=== PATIENT | female | born 1975 | race Caucasian/White ===

== ENCOUNTER 2016-11-23 09:02 | Inpatient (IN) | payer MEDICARE, MEDICAID ==
[2016-11-23] MEDS ORDERED: methylPREDNISolone Sodium Succinate 125 MG/2 ML SDV IVPUSH ONE (09:41)
--- NOTE | 2016-11-23 09:43 | CR ---
CLINICAL HISTORY: 41-year-old female with shortness of breath and decreased O2 sats. INTERPRETATION: AP portable chest (apical lordotic) unremarkable. Normal cardiac silhouette without cephalization of vascular flow, signs of alveolar edema or depende nt pleural effusion. No lung mass, hilar lymphadenopathy or focal lobar pneumonia. No atelectasis/collapse. No pneumothorax.
[2016-11-23] MEDS ORDERED: Albuterol/Ipratropium 3.0-0.5 MG/3 ML Neb Soln NEB ONE ×2 (09:48→13:20)
[2016-11-23] MEDS: Sodium Chloride 0.9% 10 ML Syringe FLUSH PRN ×3 (09:48→19:21)
[2016-11-23] MEDS ORDERED: Acetaminophen 325 MG Tab PO ONE (10:56)
[2016-11-23] MEDS ORDERED: Iopamidol 612 MG/ML 100 ML Bottle IVPUSH ONE (10:58)
[2016-11-23] MEDS ORDERED: Iopamidol 755 Mg/ML 100 ML Bottle IVPUSH ONE (11:47)
--- NOTE | 2016-11-23 12:03 | CT ---
Clinical history: 41 year-old 240 pound hypertensive female with long history of "ulcerative colitis and rheumatoid arthritis" who presents now with shortness of breath, hypoxemia and mildly elevated serum D dimer (500). Scan technique: Volume acquisition of data from the thorax obtained during the intravenous administr ation 79 cc nonionic Isovue 370 contrast via injector (5 cc/s) while patient was lying supine on the Siemens multi slice CT scanner [facility]. All data archived in the PACS system for storage, reformatting axial/sagittal/coronal plane and study (lung/mediastinal w indows). Interpretation: Abnormal inflammatory changes. 1. Dense peribronchial "cuffing" consistent with reactive airway disease or bronchitis. 2. *Asymmetric, dense retrohilar, superior segment, left lower lobe pneumonic like consolidation. 3. Some decreased flow in the ipsilateral bronchial arteries but no discrete intraluminal filling de fect or thrombus appreciated. No other peripheral focal areas of lobar consolidation, segmental infa rct, or pleural reactive changes (no associated pleural effusion). 4. No parenchymal lung nodule or mass lesion, hilar/mediastinal lymphadenopathy, focal lobar consoli dation or atelectasis/collapse. 5. Normal cardiac silhouette. No pericardial effusions, alveolar edema or pleural effusions. No gladis cardial effusions. Normal caliber thoracic aorta i.e. no aneurysm or dissection. 6. Chronic hypertrophic marginal spondylosis dorsal spine. No fracture, dislocation or lesions. 7. Gallbladder, fatty liver, stomach, spleen and pancreas unremarkable. Normal adrenal glands. CONCLUSION: Bronchitis. Left lower lobe pneumonia. Low probability pulmonary embolism/infarct.
[2016-11-23] MEDS ORDERED: Levofloxacin/Dextrose 5%-Water 500 MG in Premix Bag 1 BAG IV ONE (12:42)
[2016-11-23] MEDS: Albuterol/Ipratropium 3.0-0.5 MG/3 ML Neb Soln NEB SCH ×3 (14:32→23:05)
--- NOTE | 2016-11-23 14:48 | ER ---
SUBJECTIVE: The patient is a 41-year-old female, who came over from clinic because of low saturations after having cough and cold for the last week or so. She has had some sinus pain and tenderness, headache, cold and congestion with cough for about 1 week and falling short at the clinic today. Her oxygen saturations reportedly at the clinic were in the mid 70s and it is felt she should come to the ER. She did come to the ER and upon arrival, the patient was placed on a non-rebreather mask and given a DuoNeb right away and her saturation rapidly reached 90% and above. The patient denies bowel or bladder changes, any bleeding. No trauma. She feels some chills, has had some possible low-grade fevers. The patient states she did not take any of her medications today because she did not feel like it. She is also trying to wean herself off oxycodone. She has no chest pain. She does have some shortness of breath with cough. She arrives as afebrile. PAST MEDICAL HISTORY: Significant for impaired vision, wears glasses, had her wisdom teeth pulled, hypertension, ulcerative colitis, appendectomy, osteoarthritis, fibromyalgia, RA, toe fracture with surgical repair, migraine headaches, anxiety, depression. She has tried to wean off oxycodone, anemia, screw-in right toe. CURRENT MEDICATIONS: Include: 1. Pregabalin 150 mg p.o. b.i.d. 2. Prednisone 10 mg p.o. b.i.d. 3. Amitriptyline 50-100 mg p.o. at bedtime p.r.n. 4. Hyoscyamine 0.125 mg p.o. q.i.d. p.r.n. 5. Imuran 150 mg p.o. daily. 6. Seroquel 50 mg p.o. at bedtime. 7. Tessalon Perles 100 mg p.o. t.i.d. p.r.n. 8. Klonopin 0.5 mg p.o. b.i.d. p.r.n. 9. Loperamide 4 mg p.o. q. 1 hour p.r.n. 10.Melatonin 5 mg tablet p.o. at bedtime p.r.n. 11.Ondansetron 4 mg q.4 hours p.r.n. 12.Diphenhydramine 50 mg p.o. at bedtime. 13.Oxycodone ER 20 mg p.o. t.i.d. p.r.n. 14.Zanaflex 4 mg p.o. t.i.d. ALLERGIES: She states she is allergic to sulfa. Antibiotics causes a rash. Penicillins causes hives. SOCIAL HISTORY: No tobacco. She uses soda. No drugs or alcohol. REVIEW OF SYSTEMS: Fatigue, general malaise, chills, unsure of fevers, coughing, congestion, decreased appetite. Please see HPI. OBJECTIVE: Vital Signs: Height is 1.7 m. Weight is 109 kg. She arrives with temperature of 37 degrees C, heart rate is 105, blood pressure is 153/94, respirations 16, oxygen is 76%. She immediately goes up to the 90% and above with non-rebreather. General: She is mildly diaphoretic. She is warm. HEENT: Normocephalic and atraumatic. Conjunctivae are clear. Mucous membranes are moist. No sinus tenderness. Neck: Full range of motion. No lymphadenopathy. Chest: Somewhat coarse, moving air fairly well. Some coughing, especially with deep breathing. Heart: RRR. Abdomen: Soft and benign. Extremities: Nontender. She is a fairly good historian. She is here with her mother. LAB/STUDIES: Influenza was negative. Her white count was elevated at 10.6, hemoglobin and hematocrit were 11.9 and 36.3 respectively, platelet count normal at 180; her differential showed increased PMNs at 84.7, no band cells. Her D- dimer was 547. Her electrolytes were quite unremarkable. She had normal BUN and creatinine. Her sugar was elevated at 148. Lactic acid was normal at 1.0. LFTs were not remarkable. Her chest x-ray showed bronchitis with left lower lobe pneumonia and angio CT was performed because of the elevated D-dimer and shortness of breath and low sats and it had very low probability for PE and no PE or DVT was noted. Again, the patient had nontender calves. No signs of DVT. EMERGENCY ROOM COURSE: Upon arrival, she was given oxygen via non-rebreather, DuoNeb and IV was placed. Labs were ordered. Once they were obtained and blood culture obtained and chest x-ray and CT showed pneumonia bronchitis, she was given levofloxacin 500 mg IV since she was allergic to penicillin and sulfa. She was given another DuoNeb. She did develop a low-grade fever. She was given Tylenol. She tolerated all of her care and was much improved and her oxygen sats were able to be maintained with nasal cannula at 4 L between 94% and 95% oxygen. I did discuss the workup with the patient and the fact that she will need to be admitted. I did discuss the patient with Dr. Alan, the hospitalist, and discussed the workup and the patient's presenting symptoms and her progress in the ER. She did graciously agreed to admit the patient to her inpatient service. Admission is pending. ASSESSMENT: 1. Left lower lobe pneumonia with bronchitis, seen on x-ray and angio CT. 2. Acute dyspnea with hypoxemia, required oxygen, in this patient who has been sick for 1 week. 3. Leukocytosis, low-grade fever, normal lactate. 4. Rheumatoid arthritis, osteoarthritis, fibromyalgia. You see history inpatient. PLAN: Admit the patient to Dr. Alan's service. Please see admit orders by Dr. Alan. [facility] /[id number]
--- NOTE | 2016-11-23 15:23 | PCM.HP ---
H&P History of Present Illness - General Date of Service: 11/23/16 Admit Problem/Dx: Admission Diagnosis/Problem Admission Diagnosis/Problem Dyspnea Source of Information: Patient History Limitations: Reports: No limitations - History of Present Illness Initial Comments - Free Text/Narative: Patient is a 41 year old female was seen in the emergency room because of desaturation. She has been having cough for more a than week, unable to expectorate the phlegm. Had subjective fever and chills at home. Occasional chest tightness and wheezing. Denies any PND nor leg swelling. No exposure to any sick contacts. Was scheduled to see her provider in the clinic however with low oxygen saturation and looking dusky, she was advised to go to the emergency room. Headache Pain Score (Numeric/FACES): 7 generalized Pain Score (Numeric/FACES): 8 - Related Data Allergies/Adverse Reactions: Allergies Allergy/AdvReac Type Severity Reaction Status Date / Time Sulfa (Sulfonamide Allergy Rash Verified 11/23/16 14:12 Antibiotics) Penicillins AdvReac Hives Verified 11/23/16 14:12 Home Medications: Home Meds Pregabalin [Lyrica] 150 mg PO BID 05/12/14 [History] predniSONE [Prednisone] 5 mg PO DAILY 05/12/14 [History] Amitriptyline HCl 50 - 100 mg PO BEDTIME 03/17/15 [History] Hyoscyamine [Levsin] 0.125 mg PO QID PRN 03/17/15 [History] azaTHIOprine [Imuran] 150 mg PO DAILY 03/17/15 [History] QUEtiapine Fumarate [Seroquel] 50 mg PO BEDTIME 06/09/15 [History] Benzonatate [Tessalon Perles] 100 mg PO TID PRN 03/19/16 [History] ClonazePAM [KlonoPIN] 0.5 mg PO BID PRN 03/19/16 [History] Loperamide HCl [Loperamide] 4 mg PO Q1H PRN MDD 8mg 03/19/16 [History] Melatonin/Pyridoxine HCl (B6) [Melatonin 5 mg Tablet] 5 mg PO BEDTIME PRN [History] Ondansetron HCl [Ondansetron] 4 mg PO Q4H PRN 03/19/16 [History] diphenhydrAMINE HCl [Diphenhydramine HCl] 50 mg PO BEDTIME 03/19/16 [History] oxyCODONE ER [OxyCONTIN] 20 mg PO TID 03/19/16 [History] tiZANidine [Zanaflex] 4 mg PO TID 03/19/16 [History] Past Medical History HEENT History: Reports: Hard of hearing, Impaired vision Other HEENT History: broken and missing teeth Cardiovascular History: Reports: Hypertension Respiratory History: Reports: COPD Other Gastrointestinal History: ulcerative colitis Genitourinary History: Reports: Acute renal failure Musculoskeletal History: Reports: Arthritis, Fibromyalgia, RA, Other (see below) Other Musculoskeletal History: rhabdomyolisis Neurological History: Reports: Migraines Psychiatric History: Reports: Anxiety, Depression, Panic attack Other Psychiatric History: Patient states she is trying to wean off Oxycodone Hematologic History: Reports: Anemia Other Hematologic History: anemia r/t ulcerative colitis Dermatologic History: Reports: Cellulitis, Other (see below) Other Dermatologic History: resolved in 2016 - Infectious Disease History Infectious Disease History: Reports: Measles, MRSA - Past Surgical History HEENT Surgical History: Reports: Other (see below) Other HEENT Surgeries/Procedures: wisdom teeth GI Surgical History: Reports: Appendectomy, Colonoscopy Musculoskeletal Surgical History: Reports: Other (see below) Other Musculoskeletal Surgeries/Procedures:: toe fracture with surgical repair Social & Family History - Family History Family Medical History: Noncontributory - Tobacco Use Smoking Status *Q: Never Smoker Second Hand Smoke Exposure: Yes - Caffeine Use Caffeine Use: Reports: Soda - Alcohol Use Days Per Week of Alcohol Use: 0 - Recreational Drug Use Recreational Drug Use: No - Living Situation & Occupation Living situation: Reports: single, with family Occupation: disabled H&P Review of Systems - Review of Systems: Review Of Systems: See Below General: Reports: fever, chills Pulmonary: Reports: Shortness of Breath, Wheezing, Cough Cardiovascular: Reports: dyspnea on exertion Gastrointestinal: Reports: No symptoms, Other (Does bowel movement every other day) Musculoskeletal: Reports: no symptoms Neurological: Reports: Dizziness Exam - Exam Exam: See Below - Vital Signs Vital Signs: Last Vital Signs Temp 36.0 C 11/23/16 13:57 Pulse 105 H 11/23/16 13:57 Resp 20 11/23/16 13:57 BP 119/92 H 11/23/16 13:57 Pulse Ox 95 11/23/16 13:57 Weight: 106.503 kg - Exam Quality Assessment: supplemental oxygen General: alert, oriented Neck: supple Lungs: Wheezing (both pugh) Cardiovascular: regular rate, regular rhythm Abdomen: normal bowel sounds, soft Extremities: normal inspection Skin: warm, dry - Patient Data Result Diagrams: 11/24/16 06:15 11/23/16 09:10 *Q Meaningful Use (ADM) - VTE *Q VTE Criteria *Q: - Stroke *Q Stroke Criteria *Q: - AMI *Q AMI Criteria *Q: - Problem List (1) Bronchitis SNOMED Code(s): 57900224 ICD Code: J40 - BRONCHITIS, NOT SPECIFIED ACUTE OR CHRONIC Status: Acute Current Visit: Yes (2) Pneumonia involving left lung SNOMED Code(s): 084736611 ICD Code: J18.9 - PNEUMONIA, UNSPECIFIED ORGANISM Status: Acute Current Visit: Yes Problem List Initiated/Reviewed/Updated: Yes Orders Last 24hrs: Active Orders 24 hr Category Date Time Status Flutter Valve Therapy [RT Chest Physiotherapy] [RC] Care 11/23/16 14:01 Active ASDIRECTED Incentive Spirometry [RT Incentive Spirometry] [RC] Care 11/23/16 14:01 Active ASDIRECTED RT Aerosol Therapy [RC] 03,07,11,15,19,23 Care 11/23/16 14:01 Active CULTURE SPUTUM + SMEAR [RM] Routine Lab 11/23/16 14:17 Uncollected Albuterol/Ipratropium [DuoNeb 3.0-0.5 MG/3 ML] Med 11/23/16 15:00 Active 3 ml NEB Q4HRRT Amitriptyline [Elavil] Med 11/23/16 21:00 Ordered 50 mg PO BEDTIME Aztreonam [Azactam] 2 gm Med 11/23/16 22:00 Ordered Sodium Chloride 0.9% [Normal Saline] 100 ml IV Q8HR Pregabalin [Lyrica] Med 11/23/16 21:00 Ordered 150 mg PO BID QUEtiapine [SEROquel] Med 11/23/16 21:00 Ordered 50 mg PO BEDTIME Vancomycin Pharmacy to Dose [Pharmacy to Dose - Med 11/23/16 14:15 Ordered Vancomycin] 1 dose .XX ASDIRECTED diphenhydrAMINE HCl [Diphenhydramine HCl] Med 11/23/16 21:00 Ordered 50 mg PO BEDTIME methylPREDNISolone Sod Succ [Solu-MEDROL] Med 11/23/16 18:00 Ordered 60 mg IVPUSH Q8H Medication Orders Albuterol/Ipratropium (Duoneb 3.0-0.5 Mg/3 Ml) 3 ml NEB Q4HRRT [facility] Last Admin: 11/23/16 14:32 Dose: Amitriptyline HCl (Elavil) 50 mg PO BEDTIME [facility] Enoxaparin Sodium (Lovenox) 40 mg SUBCUT DAILY [facility] Methylprednisolone Sodium Succinate (Solu-Medrol) 60 mg IVPUSH Q8H [facility] Non-Formulary Medication (Pregabalin [Lyrica]) 150 mg PO BID [facility] Non-Formulary Medication (Diphenhydramine Hcl [Diphenhydramine Hcl]) 50 mg PO BEDTIME [facility] Quetiapine Fumarate (Seroquel) 50 mg PO BEDTIME [facility] Sodium Chloride (Saline Flush) 10 ml FLUSH ASDIRECTED PRN PRN Reason: Keep Vein Open Last Admin: 11/23/16 09:48 Dose: 10 ml Vancomycin HCl (Pharmacy To Dose - Vancomycin) 1 dose .XX ASDIRECTED [facility] Assessment/Plan Comment:: 1. Sepsis secondary to left sided pneumonia - Patient presented with increased respiratory rate, and tachycardia and workup showing with possible focus in the left lung. - Normal saline 125 mL per hour - Blood cultures already drawn; obtain specimen for sputum culture 2. Acute bronchitis with Left-sided pneumonia, community-acquired - He was given Levaquin in the emergency room - We will switch this to aztreonam given that she has prolonged QT interval in previous electrocardiograms - Add vancomycin pharmacy to dose given her history of MRSA - DuoNeb every 4 hours scheduled - Incentive spirometry and flutter valve - Continue oxygen supplementation to keep saturation above 90% - She was given Solu-Medrol 125 with emergency room, this will be followed by Solu-Medrol every 8 hours 3. Leukocytosis - Might be related to current infection - Patient has also been on chronic steroid use - Await blood culture, recheck complete blood count 4. Fibromyalgia - continue medications: on cymbalta and lyrica 5. Anxiety and depression - continue cymbalta and prn clonazepam 6. History of Rheumatoid Arthritis - on chronic steroid - continue oxycodone 7. history of Ulcerative colitis - no flare up, on Imuran a nd hyocyamine 8. history of Migraine - on Relpax as needed DVT prophylaxis - Lovenox
[2016-11-23] MEDS ORDERED: Ondansetron 4 MG Tab.DIS PO PRN (15:25)
[2016-11-23] MEDS ORDERED: oxyCODONE ER 20 MG TAB.ER PO PRN (15:25)
[2016-11-23] MEDS ORDERED: Loperamide 2 MG Cap PO PRN (15:25)
[2016-11-23] MEDS ORDERED: MELATONIN 5 MG PO PRN (15:25)
[2016-11-23] MEDS: ClonazePAM 0.5 MG Tab PO PRN (17:28)
[2016-11-23] MEDS: Sodium Chloride 0.9% 1,000 ML IV SCH (17:29)
[2016-11-23] MEDS: Benzonatate 100 MG Cap PO PRN (17:29)
[2016-11-23] MEDS: oxyCODONE ER 20 MG TAB.ER PO SCH ×2 (17:29→21:17)
[2016-11-23] MEDS: Aztreonam 2 GM in Sodium Chloride 0.9% 100 ML IV SCH ×2 (17:30→22:12)
[2016-11-23] MEDS: methylPREDNISolone Sodium Succinate 40 MG/1 ML SDV IVPUSH SCH (19:20)
[2016-11-23] MEDS: diphenhydrAMINE 25 MG Tab PO SCH (21:15)
[2016-11-23] MEDS: QUEtiapine 25 MG Tab PO SCH (21:15)
[2016-11-23] MEDS: Amitriptyline 25 MG Tab PO SCH (21:15)
[2016-11-23] MEDS: Pregabalin 75 MG Cap PO SCH (21:17)
[2016-11-23] MEDS: HYOSCYAMINE 0.125 MG PO PRN (23:36)
[2016-11-24] MEDS: methylPREDNISolone Sodium Succinate 40 MG/1 ML SDV IVPUSH SCH ×4 (02:57→18:46)
[2016-11-24] MEDS: Albuterol/Ipratropium 3.0-0.5 MG/3 ML Neb Soln NEB SCH ×6 (03:13→22:44)
[2016-11-24] MEDS: Aztreonam 2 GM in Sodium Chloride 0.9% 100 ML IV SCH ×3 (05:37→21:33)
[2016-11-24] MEDS: Sodium Chloride 0.9% 1,000 ML IV SCH ×2 (09:02→20:46)
[2016-11-24] MEDS: Pregabalin 75 MG Cap PO SCH ×2 (09:05→20:43)
[2016-11-24] MEDS: oxyCODONE ER 20 MG TAB.ER PO SCH ×3 (09:06→20:43)
[2016-11-24] MEDS: Enoxaparin 40 MG/0.4 ML Syringe SUBCUT SCH (09:06)
[2016-11-24] MEDS: HYOSCYAMINE 0.125 MG PO PRN (09:11)
[2016-11-24] MEDS: Budesonide 0.5 MG/2 ML Neb Susp NEB SCH ×2 (11:02→18:04)
[2016-11-24] MEDS: Acetaminophen 325 MG Tab PO PRN (11:07)
[2016-11-24] MEDS: ClonazePAM 0.5 MG Tab PO PRN ×2 (11:35→20:55)
[2016-11-24] MEDS: Benzonatate 100 MG Cap PO PRN (13:41)
[2016-11-24] MEDS ORDERED: guaiFENesin 100 MG/5 ML Soln 5 ML UD Cup PO PRN (14:12)
--- NOTE | 2016-11-24 14:17 | PCM.PN ---
[id number] to cough out phlegm. has been doing incentive spirometry. able to tolerate meals. - Patient Data Vitals - most recent: Last Vital Signs Temp 36.9 C 11/24/16 11:00 Pulse 104 H 11/24/16 11:00 Resp 22 H 11/24/16 11:00 BP 129/68 11/24/16 11:00 Pulse Ox 94 L 11/24/16 11:00 Weight - most recent: 106.957 kg I&O - last 24 hours: Intake & Output 11/23/16 11/24/16 11/24/16 22:59 06:59 14:59 Intake Total 434 900 150 Output Total 200 300 Balance 234 600 150 Lab Results last 24 hrs: Laboratory Results - last 24 hr 11/24/16 Range/Units 06:15 WBC 15.5 H (5.0-10.0) 10^3/uL RBC 3.55 L (4.2-5.4) 10^6/uL Hgb 11.5 L (12.0-16.0) g/dL Hct 36.1 L (37.0-47.0) % MCV 101.7 H (80-100) fL MCH 32.4 (27.0-34.0) pg MCHC 31.9 L (33.0-35.0) g/dL Plt Count 178 (150-450) 10^3/uL Neut % (Auto) 96.5 H (42.2-75.2) % Lymph % (Auto) 2.3 L (20.5-50.1) % [place] % (Auto) 1.2 L (2-8) % Eos % (Auto) 0.0 L (1.0-3.0) % Baso % (Auto) 0.0 (0.0-1.0) % Med Orders - Current: Current Medications Acetaminophen (Tylenol) 650 mg PO Q4H PRN PRN Reason: Headache Last Admin: 11/24/16 11:07 Dose: 650 mg Albuterol/Ipratropium (Duoneb 3.0-0.5 Mg/3 Ml) [address] [facility] Last Admin: 11/24/16 11:07 Dose: 3 ml Amitriptyline HCl (Elavil) [address] [facility] Last Admin: 11/23/16 21:15 Dose: 50 mg Azathioprine (Imuran) [address] [facility] Last Admin: 11/24/16 09:04 Dose: 150 mg Benzonatate (Tessalon Perles) 100 mg PO TID PRN PRN Reason: Cough Last Admin: 11/24/16 13:41 Dose: 100 mg Budesonide (Pulmicort) 0.[address] [facility] Last Admin: 11/24/16 11:02 Dose: 0.5 mg Clonazepam (Klonopin) 0.5 mg PO BID PRN PRN Reason: Anxiety Last Admin: 11/24/16 11:35 Dose: 0.5 mg Diphenhydramine HCl (Benadryl) [address] [facility] Last Admin: 11/23/16 21:15 Dose: 50 mg Enoxaparin Sodium (Lovenox) [address] [facility] Last Admin: 11/24/16 09:06 Dose: 40 mg Guaifenesin (Robitussin) 100 mg PO Q6H PRN PRN Reason: Cough Aztreonam 2 gm/ Sodium (Chloride) 100 mls @ 100 mls/hr IV Q8HR [facility] Last Admin: 11/24/16 13:31 Dose: 100 mls/hr Sodium Chloride (Normal Saline) 1,000 mls @ 125 mls/hr IV ASDIRECTED [facility] Last Admin: 11/24/16 09:02 Dose: 125 mls/hr Vancomycin HCl 1 gm/ Sodium (Chloride) 250 mls @ 166.667 mls/hr IV Q8H [facility] Last Infusion: 11/24/16 11:03 Dose: Infused Loperamide HCl (Imodium) 4 mg PO Q1H PRN PRN Reason: Diarrhea Methylprednisolone Sodium Succinate (Solu-Medrol) [address] [facility] Last Admin: 11/24/16 09:08 Dose: 60 mg (Tizanidine [ Zanaflex] 4 Mg) Own Med [address] [facility] Last Admin: 11/24/16 11:02 Dose: Not Given Ondansetron HCl (Zofran Odt) 4 mg PO Q4H PRN PRN Reason: Nausea Oxycodone HCl (Oxycontin) [address] [facility] Last Admin: 11/24/16 13:35 Dose: 20 mg Hyoscyamine [Levsin] 0.125 MgPt's Own Med 1 each PO QID PRN PRN Reason: Spasms Last Admin: 11/24/16 09:11 Dose: 1 each Melatonin 5 Mg TabletPt's Own Med 1 each PO BEDTIME PRN PRN Reason: Sleep Last Admin: 11/23/16 23:35 Dose: 1 each Pregabalin (Lyrica) 150 mg PO BID [facility] Last Admin: 11/24/16 09:05 Dose: 150 mg Quetiapine Fumarate (Seroquel) 50 mg PO BEDTIME [facility] Last Admin: 11/23/16 21:15 Dose: 50 mg Sodium Chloride (Saline Flush) 10 ml FLUSH ASDIRECTED PRN PRN Reason: Keep Vein Open Last Admin: 11/23/16 19:21 Dose: 10 ml Vancomycin HCl (Pharmacy To Dose - Vancomycin) 1 dose .XX ASDIRECTED [facility] Discontinued Medications Acetaminophen (Tylenol) 650 mg PO NOW ONE Stop: 11/23/16 10:57 Last Admin: 11/23/16 11:04 Dose: 650 mg Albuterol/Ipratropium (Duoneb 3.0-0.5 Mg/3 Ml) 3 ml NEB ONETIME ONE Stop: 11/23/16 09:49 Last Admin: 11/23/16 09:55 Dose: 3 ml Albuterol/Ipratropium (Duoneb 3.0-0.5 Mg/3 Ml) 3 ml NEB ONETIME ONE Stop: 11/23/16 13:21 Last Admin: 11/23/16 13:51 Dose: 3 ml Levofloxacin/Dextrose 500 mg/ (Premix) 100 mls @ 100 mls/hr IV ONETIME ONE Stop: 11/23/16 13:41 Last Infusion: 11/23/16 19:37 Dose: Infused Iopamidol (Isovue-300 (61%)) 100 ml IVPUSH ONETIME ONE Stop: 11/23/16 10:59 Last Admin: 11/24/16 14:13 Dose: Not Given Iopamidol (Isovue-370 (76%)) 100 ml IVPUSH ONETIME ONE Stop: 11/23/16 11:48 Last Admin: 11/23/16 13:24 Dose: 100 ml Methylprednisolone Sodium Succinate (Solu-Medrol) 125 mg IVPUSH ONETIME ONE Stop: 11/23/16 09:42 Last Admin: 11/23/16 09:49 Dose: 125 mg Oxycodone HCl (Oxycontin) 20 mg PO TID PRN PRN Reason: Pain - Exam General: alert, oriented Lungs: Wheezing Cardiovascular: Regular Rate, Tachycardia Abdomen: bowel sounds present, soft, no tenderness - Problem List & Annotations (1) Bronchitis SNOMED Code(s): 32691775 Code(s): J40 - BRONCHITIS, NOT SPECIFIED ACUTE OR CHRONIC Status: Acute (2) Pneumonia involving left lung SNOMED Code(s): 784988981 Code(s): J18.9 - PNEUMONIA, UNSPECIFIED ORGANISM Status: Acute - Problem List Review Problem List Initiated/Reviewed/Updated: Yes - My Orders Last 24 Hours: My Active Orders 11/23/16 14:01 Flutter Valve Therapy [RT Chest Physiotherapy] [RC] ASDIRECTED Incentive Spirometry [RT Incentive Spirometry] [RC] ASDIRECTED RT Aerosol Therapy [RC] 03,,,15,,11/23/16 14:15 Vancomycin Pharmacy to Dose [Pharmacy to Dose - Vancomycin] 1 dose .XX ASDIRECTED 11/23/16 14:17 CULTURE SPUTUM + SMEAR [RM] Routine 11/23/16 15:00 Albuterol/Ipratropium [DuoNeb 3.0-0.5 MG/3 ML] 3 ml NEB Q4HRRT 11/23/16 15:25 Benzonatate [Tessalon Perles] 100 mg PO TID PRN ClonazePAM [KlonoPIN] 0.5 mg PO BID PRN Loperamide [Imodium] 4 mg PO Q1H PRN Ondansetron [Zofran ODT] 4 mg PO Q4H PRN Patient's Own Medication [Ptom] 1 each PO BEDTIME PRN Patient's Own Medication [Ptom] 1 each PO QID PRN 11/23/16 15:30 Sodium Chloride 0.9% [Normal Saline] 1,000 ml IV ASDIRECTED 11/23/16 16:14 Antiembolic Devices [RC] , TONY Hose [Antiembolic Hose] [OM.PC] Routine 11/23/16 16:15 Aztreonam [Azactam] 2 gm Sodium Chloride 0.9% [Normal Saline] 100 ml IV Q8HR 11/23/16 16:30 oxyCODONE ER [OxyCONTIN] 20 mg PO TID 11/23/16 17:00 Vancomycin [Vancocin] 1 gm Sodium Chloride 0.9% [Normal Saline] 250 ml IV Q8H 11/23/16 18:00 methylPREDNISolone Sod Succ [Solu-MEDROL] 60 mg IVPUSH Q8H 11/23/16 21:00 Amitriptyline [Elavil] 50 mg PO BEDTIME Pregabalin [Lyrica] 150 mg PO BID QUEtiapine [SEROquel] 50 mg PO BEDTIME diphenhydrAMINE [Benadryl] 50 mg PO BEDTIME tiZANidine [Zanaflex] 4 mg PO TID 11/24/16 09:00 azaTHIOprine [Imuran] 150 mg PO DAILY 11/24/16 09:47 RT Aerosol Therapy [RC] ASDIRECTED 11/24/16 10:00 Budesonide [Pulmicort] 0.5 mg NEB BIDRT 11/24/16 10:45 Acetaminophen [Tylenol] 650 mg PO Q4H PRN 11/24/16 14:12 guaiFENesin [Robitussin] 100 mg PO Q6H PRN 11/24/16 16:30 VANCOMYCIN TROUGH [CHEM] Timed - Plan Plan:: 1. Sepsis secondary to left sided pneumonia - Patient presented with increased respiratory rate, and increase in WBC and workup showing with possible focus in the left lung. - Normal saline 125 mL per hour - Blood cultures already drawn; obtain specimens for sputum culture 2. Acute bronchitis with Left-sided pneumonia, community-acquired - sHe was given Levaquin in the emergency room - We will switch this to aztreonam given that she has prolonged QT interval in previous electrocardiograms - Added vancomycin pharmacy to dose given her history of MRSA - DuoNeb every 4 hours scheduled - Incentive spirometry and flutter valve - Continue oxygen supplementation to keep saturation above 90% - She was given Solu-Medrol 125 with emergency room, this will be followed by Solu-Medrol every 8 hours 3. Leukocytosis - has increased, most likely from steroids - Patient has also been on chronic steroid use - Await blood culture, recheck complete blood count 4. Fibromyalgia - continue medications: on cymbalta and lyrica 5. Anxiety and depression - continue cymbalta 6. DVT prophylaxis - Lovenox
[2016-11-24] MEDS ORDERED: ELETRIPTAN 40 MG PO ONE (16:00)
[2016-11-24] MEDS: diphenhydrAMINE 25 MG Tab PO SCH (20:43)
[2016-11-24] MEDS: QUEtiapine 25 MG Tab PO SCH (20:43)
[2016-11-24] MEDS: Amitriptyline 25 MG Tab PO SCH (20:43)
[2016-11-25] MEDS: methylPREDNISolone Sodium Succinate 40 MG/1 ML SDV IVPUSH SCH ×2 (01:49→11:33)
[2016-11-25] MEDS: Albuterol/Ipratropium 3.0-0.5 MG/3 ML Neb Soln NEB SCH ×4 (02:05→15:23)
[2016-11-25] MEDS: HYOSCYAMINE 0.125 MG PO PRN (02:43)
[2016-11-25] MEDS: Aztreonam 2 GM in Sodium Chloride 0.9% 100 ML IV SCH ×2 (06:12→15:23)
[2016-11-25] MEDS: Benzonatate 100 MG Cap PO PRN (06:13)
[2016-11-25] MEDS: Acetaminophen 325 MG Tab PO PRN (06:13)
[2016-11-25 06:45] LABS: CHLORIDE,CL 105 mmol/L (101-111); SODIUM,NA 140 mmol/L (135-145)
[2016-11-25] MEDS: ClonazePAM 0.5 MG Tab PO PRN (06:53)
[2016-11-25] MEDS: Budesonide 0.5 MG/2 ML Neb Susp NEB SCH (07:04)
[2016-11-25] MEDS: Pregabalin 75 MG Cap PO SCH (09:50)
[2016-11-25] MEDS: Enoxaparin 40 MG/0.4 ML Syringe SUBCUT SCH (09:51)
[2016-11-25] MEDS: oxyCODONE ER 20 MG TAB.ER PO SCH ×2 (09:52→15:23)
[2016-11-25 11:11] VITALS: BP 168/104
--- NOTE | 2016-11-25 12:25 | DISCH ---
FINAL DIAGNOSES: 1. Sepsis secondary to pneumonia. 2. Pneumonia possibly community acquired. Could also be due to MRSA infection. 3. Acute bronchitis. 4. Fibromyalgia. 5. Anxiety and depression. 6. Acute hypoxemic respiratory failure. SUMMARY OF HOSPITAL COURSE: Ms. Graciela Morel is a 41-year-old female, who presented with complaint of cough, shortness of breath, and subjective fever. She had a CT scan that showed a left lower lobe infiltrate. She was started on intravenous antibiotic. She has a history of MRSA infection. On antibiotics, she although improved but does have more short of breath and hypoxic. She is very anxious. Because of the persistent shortness of breath with associated hypoxia, we will transfer the patient to [facility] for specialty care. PHYSICAL EXAMINATION AT DISCHARGE: General: The patient is alert, oriented to place, time, and person. Head: Atraumatic and normocephalic. Ear, Nose, and Throat: Unremarkable. Chest: Diminished air entry bilaterally. CVS: Regular rate and rhythm. Abdomen: Soft, nontender. Extremities: No pedal edema. [facility] /[id number]
== END 2016-11-25 11:50 | DRG 871 ==
LOC: DL.ED 09:02 → DL.MS 13:49 → UNDOADMIN 13:49 → DL.MS 13:57 → EEVIPCON 13:57
PROVIDERS: ADMIT Internal Medicine; ATTEND Internal Medicine
DX: A41.9 Sepsis, unspecified organism (principal); J18.9 Pneumonia, unspecified organism; R09.02 Hypoxemia; J96.01 Acute respiratory failure with hypoxia; J40 Bronchitis, not specified as acute or chronic; M79.7 Fibromyalgia; F41.8 Other specified anxiety disorders; I10 Essential (primary) hypertension; M06.9 Rheumatoid arthritis, unspecified
CPT/HCPCS: 36415; 71010; 71260; 80053; 81001; 83605; 85025; 85379; 87040; 87804 ×2; 94640 ×2; 96365; 96375; 99285; A9270; J1956; J2930; J7050; Q9967 ×2; 80048; 80202; 94010; 94667; 99284; J1650; J2920; J3370; J7030; J7500; S0073

== ENCOUNTER 2016-12-04 11:41 | Emergency (ER) | payer MEDICARE, MEDICAID ==
[2016-12-04 12:10] VITALS: BP 107/76
[2016-12-04] MEDS ORDERED: Sodium Chloride 0.9% 1,000 ML IV ONE (13:59)
[2016-12-04] MEDS ORDERED: Ketorolac 30 MG/ML SDV IVPUSH ONE (13:59)
[2016-12-04] MEDS ORDERED: Sodium Chloride 0.9% 10 ML Syringe FLUSH PRN (13:59)
--- NOTE | 2016-12-04 14:04 | EDM.PDOC ---
ED HPI GI/ABDOMINAL - General Chief Complaint: Gastrointestinal Problem Stated Complaint: STOMACH PAIN Time Seen by Provider: 12/04/16 14:01 Source of Information: Reports: Patient History Limitations: Reports: No limitations - History of Present Illness INITIAL COMMENTS - FREE TEXT/NARRATIVE: Pt states that she got out of the hospital recently for Pneumonia and for the past 2 days she has been having abdominal pain that radiates to her left shoulder. denies nausea and vomiting. 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) (zofran and "stomach pain medication ") - Related Data Allergies/ADRs: Allergies Allergy/AdvReac Type Severity Reaction Status Date / Time Sulfa (Sulfonamide Allergy Rash Verified 11/23/16 14:12 Antibiotics) Penicillins AdvReac Hives Verified 11/23/16 14:12 Home Meds: Home Meds Pregabalin [Lyrica] 150 mg PO BID 05/12/14 [History] predniSONE [Prednisone] 5 mg PO DAILY 05/12/14 [History] Amitriptyline HCl 50 - 100 mg PO BEDTIME 03/17/15 [History] Hyoscyamine [Levsin] 0.125 mg PO QID PRN 03/17/15 [History] azaTHIOprine [Imuran] 150 mg PO DAILY 03/17/15 [History] QUEtiapine Fumarate [Seroquel] 50 mg PO BEDTIME 06/09/15 [History] Benzonatate [Tessalon Perles] 100 mg PO TID PRN 03/19/16 [History] ClonazePAM [KlonoPIN] 0.5 mg PO BID PRN 03/19/16 [History] Loperamide HCl [Loperamide] 4 mg PO Q1H PRN MDD 8mg 03/19/16 [History] Melatonin/Pyridoxine HCl (B6) [Melatonin 5 mg Tablet] 5 mg PO BEDTIME PRN [History] Ondansetron HCl [Ondansetron] 4 mg PO Q4H PRN 03/19/16 [History] diphenhydrAMINE HCl [Diphenhydramine HCl] 50 mg PO BEDTIME 03/19/16 [History] oxyCODONE ER [OxyCONTIN] 20 mg PO TID 03/19/16 [History] tiZANidine [Zanaflex] 4 mg PO TID 03/19/16 [History] Acetaminophen [Tylenol] 650 mg PO Q4H PRN #0 tablet 11/25/16 [Rx] Albuterol/Ipratropium [DuoNeb 3.0-0.5 MG/3 ML] 3 ml NEB Q4HRRT neb 11/25/16 [Rx ] Amitriptyline [Elavil] 50 mg PO BEDTIME tablet 11/25/16 [Rx] Aztreonam [Azactam] 2 gm IV Q8HR vial 11/25/16 [Rx] Enoxaparin [Lovenox] 40 mg SUBCUT DAILY syringe 11/25/16 [Rx] Sodium Chloride 0.9% [Normal Saline] 100 ml IV ASDIRECTED #0 bag 11/25/16 [Rx] Vancomycin 0.75 gm IV Q8H sdv 11/25/16 [Rx] Past Medical History HEENT History: Reports: Hard of hearing, Impaired vision Other HEENT History: broken and missing teeth Cardiovascular History: Reports: Hypertension Respiratory History: Reports: COPD Gastrointestinal History: Reports: None Other Gastrointestinal History: ulcerative colitis Genitourinary History: Reports: Acute renal failure Other Genitourinary History: this last summer Musculoskeletal History: Reports: Arthritis, Fibromyalgia, RA, Other (see below) Other Musculoskeletal History: rhabdomyolisis Neurological History: Reports: Migraines Psychiatric History: Reports: Anxiety, Depression, Panic attack Other Psychiatric History: Patient states she is trying to wean off Oxycodone Hematologic History: Reports: Anemia Other Hematologic History: anemia r/t ulcerative colitis Dermatologic History: Reports: Cellulitis, Other (see below) Other Dermatologic History: resolved in 2016 - Infectious Disease History Infectious Disease History: Reports: Measles, MRSA - Past Surgical History HEENT Surgical History: Reports: Other (see below) Other HEENT Surgeries/Procedures: wisdom teeth GI Surgical History: Reports: Appendectomy, Colonoscopy Musculoskeletal Surgical History: Reports: Other (see below) Other Musculoskeletal Surgeries/Procedures:: toe fracture with surgical repair Social & Family History - Family History Family Medical History: Noncontributory - Tobacco Use Smoking Status *Q: Never Smoker Second Hand Smoke Exposure: Yes - Caffeine Use Caffeine Use: Reports: Soda - Alcohol Use Days Per Week of Alcohol Use: 0 - Recreational Drug Use Recreational Drug Use: No - Living Situation & Occupation Living situation: Reports: single, with family Occupation: disabled ED ROS GENERAL - Review of Systems Review Of Systems: See Below GI/Abdominal: Reports: Abdominal pain Musculoskeletal: Reports: shoulder pain Skin: Reports: bruising ED EXAM, GI/ABD - Physical Exam Exam: See Below Exam Limited By: No limitations General Appearance: alert, WD/WN, no apparent distress Eyes: bilateral: normal appearance, EOMI Ears: normal external exam, normal canal, hearing grossly normal, normal TMs Nose: normal inspection, normal mucosa, no blood Throat/Mouth: Normal inspection, Normal lips, Normal teeth, Normal gums, Normal oropharynx, Normal voice, No airway compromise Respiratory/Chest: no respiratory distress, lungs clear, normal breath sounds, no accessory muscle use, chest non-tender Cardiovascular: normal peripheral pulses, regular rate, rhythm, no edema, no gallop, no JVD, no murmur, no rub GI/Abdominal: normal bowel sounds, soft, no organomegaly, no distention, no abnormal bruit, no mass, tympanic bowel sounds, tenderness, other (bloating) Neurological: alert, oriented, CN II-XII intact, normal cognition, normal gait, normal reflexes, no motor/sensory deficits Skin Exam: Warm, Dry, Intact, Normal color, No rash, Ecchymosis (to abdomen from heparin shots per pt) Course - Vital Signs Last Recorded V/S: Last Vital Signs Temp 99 F 12/04/16 11:55 Pulse 94 12/04/16 11:55 Resp 16 12/04/16 11:55 BP 107/76 12/04/16 11:55 Pulse Ox 100 12/04/16 11:55 - Orders/Labs/Meds Orders: Active Orders 24 hr Category Date Time Status Sodium Chloride 0.9% [Saline Flush] Med 12/04/16 13:59 Active 10 ml FLUSH ASDIRECTED PRN Saline Lock Insert [OM.PC] Stat Oth 12/04/16 13:57 Ordered Medication Orders Sodium Chloride (Saline Flush) 10 ml FLUSH ASDIRECTED PRN PRN Reason: Keep Vein Open Last Admin: 12/04/16 14:44 Dose: 10 ml Labs: Laboratory Tests 12/04/16 12/04/1612/04/17 Range/Units 14:07 14:07 14:07 WBC 14.8 H (5.0-10.0) 10^3/uL RBC 3.57 L (4.2-5.4) 10^6/uL Hgb 11.8 L (12.0-16.0) g/dL Hct 35.6 L (37.0-47.0) % MCV 99.7 (80-100) fL MCH 33.1 (27.0-34.0) pg MCHC 33.1 (33.0-35.0) g/dL Plt Count 275 (150-450) 10^3/uL Neut % (Auto) 68.0 (42.2-75.2) % Lymph % (Auto) 25.5 (20.5-50.1) % [place] % (Auto) 6.1 (2-8) % Eos % (Auto) 0.3 L (1.0-3.0) % Baso % (Auto) 0.1 (0.0-1.0) % Sodium 137 (135-145) mmol/L Potassium 3.3 L (3.6-5.0) mmol/L Chloride 100 L (101-111) mmol/L Carbon Dioxide 29.0 (21.0-31.0) mmol/L Anion Gap 11.3 BUN 20 H (7-18) mg/dL Creatinine 1.2 (0.6-1.3) mg/dL Est Cr Clr Drug Dosing 52.20 mL/min Estimated GFR (MDRD) 49 BUN/Creatinine Ratio 16.66 Glucose 88 (74-105) mg/dL Lactic Acid 0.8 (0.5-2.2) mmol/L Calcium 8.8 (8.4-10.2) mg/dl Total Bilirubin 0.5 (0.2-1.0) mg/dL AST 28 (10-42) IU/L ALT 27 (10-60) IU/L Alkaline Phosphatase 53 (42-121) IU/L Total Protein 6.0 L (6.7-8.2) g/dl Albumin 3.6 (3.2-5.5) g/dl Globulin 2.4 Albumin/Globulin Ratio 1.50 HCG, Qual Negative Urine Color (YELLOW) Urine Appearance (CLEAR) Urine pH (5.0-9.0) Ur Specific [place] (1.005-1.030) Urine Protein (NEGATIVE) Urine Glucose (UA) (NEGATIVE) Urine Ketones (NEGATIVE) Urine Occult Blood (NEGATIVE) Urine Nitrite (NEGATIVE) Urine Bilirubin (NEGATIVE) Urine Urobilinogen (0.2-1.0) mg/dL Ur Leukocyte Esterase (NEGATIVE) Urine RBC /HPF Urine WBC (0-5/HPF) /HPF Ur Epithelial Cells /HPF Urine Bacteria (0-FEW/HPF) /HPF Urine Mucus /LPF 12/04/16 Range/Units 17:11 WBC (5.0-10.0) 10^3/uL RBC (4.2-5.4) 10^6/uL Hgb (12.0-16.0) g/dL Hct (37.0-47.0) % MCV (80-100) fL MCH (27.0-34.0) pg MCHC (33.0-35.0) g/dL Plt Count (150-450) 10^3/uL Neut % (Auto) (42.2-75.2) % Lymph % (Auto) (20.5-50.1) % [place] % (Auto) (2-8) % Eos % (Auto) (1.0-3.0) % Baso % (Auto) (0.0-1.0) % Sodium (135-145) mmol/L Potassium (3.6-5.0) mmol/L Chloride (101-111) mmol/L Carbon Dioxide (21.0-31.0) mmol/L Anion Gap BUN (7-18) mg/dL Creatinine (0.6-1.3) mg/dL Est Cr Clr Drug Dosing mL/min Estimated GFR (MDRD) BUN/Creatinine Ratio Glucose (74-105) mg/dL Lactic Acid (0.5-2.2) mmol/L Calcium (8.4-10.2) mg/dl Total Bilirubin (0.2-1.0) mg/dL AST (10-42) IU/L ALT (10-60) IU/L Alkaline Phosphatase (42-121) IU/L Total Protein (6.7-8.2) g/dl Albumin (3.2-5.5) g/dl Globulin Albumin/Globulin Ratio HCG, Qual Urine Color Yellow (YELLOW) Urine Appearance Slightly cloudy (CLEAR) Urine pH 6.0 (5.0-9.0) Ur Specific [place] 1.025 (1.005-1.030) Urine Protein Negative (NEGATIVE) Urine Glucose (UA) Negative (NEGATIVE) Urine Ketones Negative (NEGATIVE) Urine Occult Blood Negative (NEGATIVE) Urine Nitrite Negative (NEGATIVE) Urine Bilirubin Negative (NEGATIVE) Urine Urobilinogen 0.2 (0.2-1.0) mg/dL Ur Leukocyte Esterase Negative (NEGATIVE) Urine RBC 0-5 /HPF Urine WBC 0-5 (0-5/HPF) /HPF Ur Epithelial Cells Few /HPF Urine Bacteria Rare (0-FEW/HPF) /HPF Urine Mucus Few H /LPF Meds: Medications Generic Name Dose Route Start Last Admin Trade Name Freq PRN Reason Stop Dose Admin Sodium Chloride 10 ml 12/04/16 13:59 12/04/16 14:44 Saline Flush FLUSH 10 ml ASDIRECTED PRN Administration Keep Vein Open Discontinued Medications Generic Name Dose Route Start Last Admin Trade Name Freq PRN Reason Stop Dose Admin Sodium Chloride 1,000 mls @ 999 mls/hr 12/04/16 13:59 12/04/16 14:44 Normal Saline IV 12/04/16 14:59 999 mls/hr .BOLUS ONE Administration Iopamidol 100 ml 12/04/16 15:24 12/04/16 15:53 Isovue-300 (61%) IVPUSH 12/04/16 15:25 100 ml ONETIME ONE Administration Ketorolac Tromethamine 30 mg 12/04/16 13:59 12/04/16 17:02 Toradol IVPUSH 12/04/16 14:00 30 mg ONETIME ONE Administration Ketorolac Tromethamine Confirm 12/04/16 16:58 12/04/16 17:16 Toradol Administered 12/04/16 16:59 Not Given Dose 30 mg .ROUTE .STK-MED ONE Morphine Sulfate 4 mg 12/04/16 17:29 12/04/16 17:38 Morphine IM 12/04/16 17:30 4 mg ONETIME ONE Administration Ondansetron HCl 4 mg 12/04/16 17:29 12/04/16 17:38 Zofran IV 12/04/16 17:30 4 mg ONETIME ONE Administration - Radiology Interpretation Free Text/Narrative:: Large bowel loops with large amount of stool. Departure - Departure Time of Disposition: 18:21 Disposition: Home, Self-Care 01 Condition: good Clinical Impression: Constipation Instructions: Constipation, Adult, [id number] Forms: ED Department Discharge Additional Instructions: Make sure to take stool softener and laxative suppository to encourage bowel movement. I recommend enema to help with elimination. Follow up in clinic if not better. Return for worsening symptoms. - My Orders Last 24 Hours: My Active Orders 12/04/16 13:57 Saline Lock Insert [OM.PC] Stat 12/04/16 13:59 Sodium Chloride 0.9% [Saline Flush] 10 ml FLUSH ASDIRECTED PRN - Assessment/Plan Last 24 Hours: My Active Orders 12/04/16 13:57 Saline Lock Insert [OM.PC] Stat 12/04/16 13:59 Sodium Chloride 0.9% [Saline Flush] 10 ml FLUSH ASDIRECTED PRN
[2016-12-04 14:37] LABS: CHLORIDE,CL 100 mmol/L (101-111); SODIUM,NA 137 mmol/L (135-145)
[2016-12-04] MEDS ORDERED: Iopamidol 612 MG/ML 100 ML Bottle IVPUSH ONE (15:24)
--- NOTE | 2016-12-04 15:54 | CT ---
Clinical history: 41-year-old hypertensive 107 kg who reports recent "pneumonia" (" normal chest x-r ay" 23 November 2016 this institution) now complaining of severe abdominal pain. Scan technique: Volume acquisition of data the chest, abdomen and pelvis obtained without oral contr ast but during intravenous ministration 100 cc nonionic Isovue contrast while patient was lying supi ne the Siemens multi slice CT scanner [facility]. All data archi shane in the PACS system for storage, reformatting and study. Septation: Abnormal. 1. *Apparent chronic dilatation of bowel (colon) with large volume of stool and fluid layering in th e dependent portion of the entire colon.... Atonic appearing, distended large intestine. Medications ? 2. Urinary bladder distended midline but normal reniform size axis and configuration. No sign of nadira al cortical mass lesion, nephrolithiasis or obstructive uropathy. 3. Fatty liver homogeneously dense without sign discrete intrahepatic mass lesion or abnormal duct d ilatation. Gallbladder unremarkable. Normal spleen. Atrophic pancreas. Normal adrenals. 4. Uterus right of midline. No adnexal mass lesions. No mesenteric or retroperitoneal lymphadenopath y, inflammatory "dirty" peritoneal fat, signs of ascites or free intraperitoneal air. 5. Normal aortoiliac vessels. Thoracolumbar spine unremarkable. 6. Platelike atelectasis lung bases. Normal cardiac silhouette. No signs of alveolar edema, dependen t pleural effusion, lung mass, hilar lymphadenopathy or focal lobar pneumonia. CONCLUSION: Generalized distended large bowel (see above). Atelectasis/fibrosis lung pugh.
[2016-12-04] MEDS ORDERED: Ketorolac 30 MG/ML SDV ONE (16:58)
[2016-12-04] MEDS ORDERED: Ondansetron 4 MG/2 ML SDV IV ONE (17:29)
[2016-12-04] MEDS ORDERED: Morphine 4 MG/ML Syringe IM ONE (17:29)
== END 2016-12-04 19:03 | disposition home or self-care (01) ==
LOC: DL.ED 11:41
DX: K59.00 Constipation, unspecified (principal); I10 Essential (primary) hypertension; J44.9 Chronic obstructive pulmonary disease, unspecified; M06.9 Rheumatoid arthritis, unspecified; D64.9 Anemia, unspecified; G43.909 Migraine, unspecified, not intractable, without status migrainosus; Z88.0 Allergy status to penicillin; Z88.2 Allergy status to sulfonamides; Z79.899 Other long term (current) drug therapy
CPT/HCPCS: 36415; 71260; 74177; 80053; 81001; 83605; 84703; 85025; 96365; 96375; 99284; J1885; J2270; J2405; J7030; J7050; Q9967

== ENCOUNTER 2016-12-12 05:46 | Inpatient (IN) | payer MEDICARE, MEDICAID ==
--- NOTE | 2016-12-12 05:55 | EDM.PDOC ---
<David Kidd - Last Filed: 12/12/16 06:55> ED HPI GENERAL MEDICAL PROBLEM - General Chief Complaint: General Stated Complaint: COMING BY AMB Time Seen by Provider: 12/12/16 05:53 Source of Information: Reports: Patient, EMS History Limitations: Reports: No limitations - History of Present Illness INITIAL COMMENTS - FREE TEXT/NARRATIVE: 41 yo white female w/ PMHx. Rhabdomylysis, Rheumatoid Arthritis and Colitis c/o right lateral thigh muscle pain X 2 days. Pt. denies any trauma Onset: today Onset Date: 12/11/16 Onset Time: 18:00 Duration: Day(s): Location: Reports: lower extremity, right (right lateral thigh) Quality: Reports: Ache Severity: moderate Worsens with: Reports: Movement - Related Data Allergies Allergy/AdvReac Type Severity Reaction Status Date / Time Sulfa (Sulfonamide Allergy Rash Verified 12/12/16 05:52 Antibiotics) Penicillins AdvReac Hives Verified 12/12/16 05:52 Home Meds: Home Meds Pregabalin [Lyrica] 150 mg PO BID 05/12/14 [History] predniSONE [Prednisone] 5 mg PO DAILY 05/12/14 [History] Amitriptyline HCl 50 - 100 mg PO BEDTIME 03/17/15 [History] Hyoscyamine [Levsin] 0.125 mg PO QID PRN 03/17/15 [History] azaTHIOprine [Imuran] 150 mg PO DAILY 03/17/15 [History] Benzonatate [Tessalon Perles] 100 mg PO TID PRN 03/19/16 [History] ClonazePAM [KlonoPIN] 0.5 mg PO BID PRN 03/19/16 [History] Loperamide HCl [Loperamide] 4 mg PO Q1H PRN MDD 8mg 03/19/16 [History] Melatonin/Pyridoxine HCl (B6) [Melatonin 5 mg Tablet] 5 mg PO BEDTIME PRN [History] Ondansetron HCl [Ondansetron] 4 mg PO Q4H PRN 03/19/16 [History] diphenhydrAMINE HCl [Diphenhydramine HCl] 50 mg PO BEDTIME 03/19/16 [History] oxyCODONE ER [OxyCONTIN] 20 mg PO TID 03/19/16 [History] tiZANidine [Zanaflex] 4 mg PO TID 03/19/16 [History] Acetaminophen [Tylenol] 650 mg PO Q4H PRN #0 tablet 11/25/16 [Rx] Amitriptyline [Elavil] 50 mg PO BEDTIME tablet 11/25/16 [Rx] Aztreonam [Azactam] 2 gm IV Q8HR vial 11/25/16 [Rx] Past Medical History HEENT History: Reports: Hard of hearing, Impaired vision Other HEENT History: broken and missing teeth Cardiovascular History: Reports: Hypertension Respiratory History: Reports: COPD Gastrointestinal History: Reports: None Other Gastrointestinal History: ulcerative colitis Genitourinary History: Reports: Acute renal failure Other Genitourinary History: this last summer Musculoskeletal History: Reports: Arthritis, Fibromyalgia, RA, Other (see below) Other Musculoskeletal History: rhabdomyolisis Neurological History: Reports: Migraines Psychiatric History: Reports: Anxiety, Depression, Panic attack Other Psychiatric History: Patient states she is trying to wean off Oxycodone Hematologic History: Reports: Anemia Other Hematologic History: anemia r/t ulcerative colitis Dermatologic History: Reports: Cellulitis, Other (see below) Other Dermatologic History: resolved in 2016 - Infectious Disease History Infectious Disease History: Reports: Measles, MRSA - Past Surgical History HEENT Surgical History: Reports: Other (see below) Other HEENT Surgeries/Procedures: wisdom teeth GI Surgical History: Reports: Appendectomy, Colonoscopy Musculoskeletal Surgical History: Reports: Other (see below) Other Musculoskeletal Surgeries/Procedures:: toe fracture with surgical repair Social & Family History - Family History Family Medical History: Noncontributory - Tobacco Use Smoking Status *Q: Never Smoker Second Hand Smoke Exposure: Yes - Caffeine Use Caffeine Use: Reports: Soda - Alcohol Use Days Per Week of Alcohol Use: 0 - Recreational Drug Use Recreational Drug Use: No - Living Situation & Occupation Living situation: Reports: single, with family Occupation: disabled ED ROS GENERAL - Review of Systems Review Of Systems: See Below Constitutional: Reports: no symptoms HEENT: Reports: No symptoms Respiratory: Reports: No Symptoms Cardiovascular: Reports: No symptoms Endocrine: Reports: no symptoms GI/Abdominal: Reports: No symptoms : Reports: no symptoms Musculoskeletal: Reports: muscle pain (right laterql thigh) Skin: Reports: no symptoms Neurological: Reports: No Symptoms Psychiatric: Reports: Anxiety Hematologic/Lymphatic: Reports: no symptoms Immunologic: Reports: no symptoms ED EXAM, GENERAL - Physical Exam Exam: See Below Exam Limited By: No limitations General Appearance: alert, no apparent distress, obese Eye Exam: bilateral eye: PERRL Ears: normal external exam Nose: normal inspection Throat/Mouth: Normal inspection Head: atraumatic Neck: normal inspection Respiratory/Chest: no respiratory distress, lungs clear Cardiovascular: normal peripheral pulses, regular rate, rhythm GI/Abdominal: normal bowel sounds, soft Back Exam: normal inspection, full range of motion Extremities: leg pain (right lateral thigh) Neurological: alert, oriented, CN II-XII intact Psychiatric: normal affect Skin Exam: Warm, Intact, Normal color, No rash Lymphatic: no adenopathy Course - Vital Signs Last Recorded V/S: Last Vital Signs Temp 36.4 C 12/12/16 05:57 Pulse 105 H 12/12/16 05:57 Resp 18 12/12/16 05:57 BP 115/75 12/12/16 05:57 Pulse Ox 100 12/12/16 05:57 - Orders/Labs/Meds Orders: Active Orders 24 hr Category Date Time Status Sodium Chloride 0.9% [Normal Saline] 1,000 ml Med 12/12/16 07:55 Active IV .BOLUS Medication Orders Sodium Chloride (Normal Saline) 1,000 mls @ 999 mls/hr IV .BOLUS ONE Stop: 12/12/16 08:55 Last Admin: 12/12/16 08:00 Dose: 999 mls/hr Labs: Laboratory Tests 12/12/16 12/12/16 12/12/16 Range/Units 06:05 06:12 06:12 WBC 13.3 H (5.0-10.0) 10^3/uL RBC 3.79 L (4.2-5.4) 10^6/uL Hgb 12.6 (12.0-16.0) g/dL Hct 37.9 (37.0-47.0) % MCV 100.0 (80-100) fL MCH 33.2 (27.0-34.0) pg MCHC 33.2 (33.0-35.0) g/dL Plt Count 297 (150-450) 10^3/uL Neut % (Auto) 92.2 H (42.2-75.2) % Lymph % (Auto) 4.2 L (20.5-50.1) % [place] % (Auto) 3.2 (2-8) % Eos % (Auto) 0.2 L (1.0-3.0) % Baso % (Auto) 0.2 (0.0-1.0) % Sodium 136 (135-145) mmol/L Potassium 4.7 (3.6-5.0) mmol/L Chloride 100 L (101-111) mmol/L Carbon Dioxide 26.0 (21.0-31.0) mmol/L Anion Gap 14.7 BUN 22 H (7-18) mg/dL Creatinine 1.4 H (0.6-1.3) mg/dL Est Cr Clr Drug Dosing TNP Estimated GFR (MDRD) 41 Glucose 114 H (74-105) mg/dL Calcium 9.1 (8.4-10.2) mg/dl Creatine Kinase 4298 H (26-174) IU/L Urine Color Yellow (YELLOW) Urine Appearance Turbid (CLEAR) Urine pH 5.0 (5.0-9.0) Ur Specific [place] >= 1.030 (1.005-1.030) Urine Protein 100 H (NEGATIVE) Urine Glucose (UA) Negative (NEGATIVE) Urine Ketones Negative (NEGATIVE) Urine Occult Blood Large H (NEGATIVE) Urine Nitrite Negative (NEGATIVE) Urine Bilirubin Small H (NEGATIVE) Urine Urobilinogen 0.2 (0.2-1.0) mg/dL Ur Leukocyte Esterase Negative (NEGATIVE) Urine RBC 0-5 /HPF Urine WBC 5-10 H (0-5/HPF) /HPF Ur Epithelial Cells Few /HPF Calcium Oxalate Crystal Few H /HPF Urine Bacteria Moderate H (0-FEW/HPF) /HPF Urine Mucus Many H /LPF Meds: Medications Generic Name Dose Route Start Last Admin Trade Name Freq PRN Reason Stop Dose Admin Sodium Chloride 1,000 mls @ 999 mls/hr 12/12/16 07:55 12/12/16 08:00 Normal Saline IV 12/12/16 08:55 999 mls/hr .BOLUS ONE Administration Discontinued Medications Generic Name Dose Route Start Last Admin Trade Name Freq PRN Reason Stop Dose Admin Sodium Chloride 1,000 mls @ 999 mls/min 12/12/16 06:53 12/12/16 07:08 Normal Saline IV 12/12/16 06:54 Infused .BOLUS ONE Infusion Departure - Departure Disposition: Admitted As Inpatient 64 Clinical Impression: Rhabdomyolysis Qualifiers: Rhabdomyolysis type: non-traumatic Qualified Code(s): M62.82 - Rhabdomyolysis UTI (urinary tract infection) Qualifiers: Urinary tract infection type: site unspecified Hematuria presence: with hematuria Qualified Code(s): N39.0 - Urinary tract infection, site not specified ; R31.9 - Hematuria, unspecified Referrals: Liseth Lisa MD [Primary Care Provider] - Forms: ED Department Discharge - My Orders Last 24 Hours: My Active Orders 12/12/16 07:55 Sodium Chloride 0.9% [Normal Saline] 1,000 ml IV .BOLUS - Assessment/Plan Last 24 Hours: My Active Orders 12/12/16 07:55 Sodium Chloride 0.9% [Normal Saline] 1,000 ml IV .BOLUS <Donald Collazoian - Last Filed: 12/12/16 08:19> ED HPI GENERAL MEDICAL PROBLEM - History of Present Illness INITIAL COMMENTS - FREE TEXT/NARRATIVE: Assumed care of pt at 0700HR shift change with lab results pending, pt resting and stable. Pt reports flare up of RA pain in the hips over the past few days. She reports that she went to bed at 10PM last night and got up at 1AM and fell to the floor. She states that she was down on the floor for not more than one hour. Pt denies any trauma or injury from the fall. She c/o generalized muscle pain. ED EXAM, GENERAL - Physical Exam Cardiovascular: tachycardia (Female) Exam: Deferred Rectal (Female) Exam: Deferred Skin Exam: Wound/incision (multiple bruises in various stages of healing) Course - Radiology Interpretation Free Text/Narrative:: Xray Rt Hip: no fracture per Rad. report. CT Results Date: 12/12/16 Departure - Departure Time of Disposition: 08:17 (admitted to Dr. Kruger) Condition: serious
[2016-12-12 06:48] LABS: CHLORIDE,CL 100 mmol/L (101-111); SODIUM,NA 136 mmol/L (135-145)
[2016-12-12] MEDS ORDERED: Sodium Chloride 0.9% 1,000 ML IV ONE ×2 (06:53→07:55)
[2016-12-12] MEDS ORDERED: Levofloxacin/Dextrose 5%-Water 500 MG in Premix Bag 1 BAG IV ONE (08:19)
--- NOTE | 2016-12-12 09:16 | PCM.HP ---
H&P History of Present Illness - General Date of Service: 12/12/16 Admit Problem/Dx: Admitted after Fall at home this AM on Right buttock , brought to ED after Mom called [facility] as she was unable to get up from floor and ED lab showed elevated CK ( 4298) and UTI Source of Information: Patient, Old records History Limitations: Reports: No limitations - History of Present Illness Initial Comments - Free Text/Narative: This is a 41-year-old female who has a history of ulcerative colitis, rheumatoid arthritis, panic attack, migraine headache, hypertension, fibromyalgia, anxiety, and chronic obstructive pulmonary disease ( COPD) . This pt had many hospital admission here and [facility]. Today when she fell on the floor could not recall but at 4:00 AM she called her Mom and Mom could not get her up from floor, called ambulance and brought to ED. In ED lab work showed elevated CK ( 4298) and UTI. Admitted for Rhabdomyolysis and UTI Onset of Symptoms: Reports: today Associated Symptoms: Denies: chest pain, cough, fever/chills, nausea/vomiting - Related Data Allergies/Adverse Reactions: Allergies Allergy/AdvReac Type Severity Reaction Status Date / Time Sulfa (Sulfonamide Allergy Rash Verified 12/12/16 09:45 Antibiotics) Penicillins AdvReac Hives Verified 12/12/16 09:46 Home Medications: Home Meds Pregabalin [Lyrica] 150 mg PO BID 05/12/14 [History] predniSONE [Prednisone] 5 mg PO DAILY 05/12/14 [History] Hyoscyamine [Levsin] 0.125 mg PO QID PRN 03/17/15 [History] azaTHIOprine [Imuran] 150 mg PO DAILY 03/17/15 [History] Benzonatate [Tessalon Perles] 100 mg PO TID PRN 03/19/16 [History] ClonazePAM [KlonoPIN] 0.5 mg PO BID PRN 03/19/16 [History] Loperamide HCl [Loperamide] 4 mg PO Q1H PRN MDD 8mg 03/19/16 [History] Melatonin/Pyridoxine HCl (B6) [Melatonin 5 mg Tablet] 5 mg PO BEDTIME PRN [History] Ondansetron HCl [Ondansetron] 4 mg PO Q4H PRN 03/19/16 [History] diphenhydrAMINE HCl [Diphenhydramine HCl] 50 mg PO BEDTIME 03/19/16 [History] oxyCODONE ER [OxyCONTIN] 20 mg PO TID 03/19/16 [History] tiZANidine [Zanaflex] 4 mg PO TID 03/19/16 [History] Amitriptyline [Elavil] 50 mg PO BEDTIME tablet 11/25/16 [Rx] Aztreonam [Azactam] 2 gm IV Q8HR vial 11/25/16 [Rx] Past Medical History HEENT History: Reports: Hard of hearing, Impaired vision Other HEENT History: broken and missing teeth Cardiovascular History: Reports: Hypertension Respiratory History: Reports: COPD Gastrointestinal History: Reports: None Other Gastrointestinal History: ulcerative colitis Genitourinary History: Reports: Acute renal failure Other Genitourinary History: this last summer 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 Musculoskeletal History: Reports: Arthritis, Fibromyalgia, RA, Other (see below) Other Musculoskeletal History: rhabdomyolisis Neurological History: Reports: Migraines Psychiatric History: Reports: Anxiety, Depression, Panic attack Other Psychiatric History: Patient states she is trying to wean off Oxycodone Endocrine/Metabolic History: Reports: None Hematologic History: Reports: Anemia Other Hematologic History: anemia r/t ulcerative colitis Immunologic History: Reports: None Oncologic (Cancer) History: Reports: None Dermatologic History: Reports: Cellulitis, Other (see below) Other Dermatologic History: resolved in 2016 - Infectious Disease History Infectious Disease History: Reports: Measles, MRSA - Past Surgical History HEENT Surgical History: Reports: Other (see below) Other HEENT Surgeries/Procedures: wisdom teeth GI Surgical History: Reports: Appendectomy, Colonoscopy Musculoskeletal Surgical History: Reports: Other (see below) Other Musculoskeletal Surgeries/Procedures:: toe fracture with surgical repair Social & Family History - Family History Family Medical History: Noncontributory - Tobacco Use Smoking Status *Q: Never Smoker Second Hand Smoke Exposure: No - Caffeine Use Caffeine Use: Reports: Soda Other Caffeine Use: 5 Cokes per day - Alcohol Use Days Per Week of Alcohol Use: 0 - Recreational Drug Use Recreational Drug Use: No - Living Situation & Occupation Living situation: Reports: single, with family Occupation: disabled H&P Review of Systems - Review of Systems: Review Of Systems: See Below General: Denies: fever, chills, weakness, fatigue, weight loss HEENT: Denies: dysphasia, ear pain, headaches, sinus congestion, sore throat Pulmonary: Denies: Shortness of Breath, Wheezing, Cough, Sputum Cardiovascular: Denies: chest pain, edema, lightheadedness, claudication Gastrointestinal: Denies: Abdominal pain, Diarrhea, Melena, Nausea, Vomiting Genitourinary: Denies: dysuria, frequency, burning, urgency Musculoskeletal: Reports: leg pain (Rt leg), muscle pain (rt Buttock), other ( Right buttock Pian). Denies: neck pain, shoulder pain, back pain Skin: Denies: cyanosis, jaundice, bruising Psychiatric: Denies: confusion, anxiety Neurological: Reports: No Symptoms Hematologic/Lymphatic: Reports: no symptoms Immunologic: Reports: no symptoms Exam - Exam Exam: See Below - Vital Signs Vital Signs: Last Vital Signs Temp 36.4 C 12/12/16 05:57 Pulse 105 H 12/12/16 05:57 Resp 18 12/12/16 05:57 BP 115/75 12/12/16 05:57 Pulse Ox 100 12/12/16 05:57 Weight: 104.598 kg - Exam Quality Assessment: DVT prophylaxis. No: supplemental oxygen, urinary catheter General: alert, oriented, cooperative HEENT: Conjunctiva clear, Mucosa moist & pink, Normal nasal septum Neck: supple. No: lymphadenopathy, carotid bruit, JVD Lungs: Clear to auscultation, Normal respiratory effort, Crackles, Wheezing Cardiovascular: regular rate, regular rhythm, normal S1, normal S2 Abdomen: normal bowel sounds, soft. No: guarding, rigidity, rebound, tenderness (Female) Exam: Deferred Rectal (Female) Exam: Deferred Back Exam: normal inspection, full range of motion Extremities: normal pulses. No: clubbing, calf tenderness, edema Skin: warm, dry, intact Neurological: cranial nerves intact, reflexes equal bilateral Neuro Extensive - Mental Status: alert, oriented x3, normal mood/affect, normal cognition, memory intact Neuro Extensive - Motor, Sensory, Reflexes: CN II-XII intact, normal reflexes Psychiatric: alert, normal affect, normal mood - Patient Data Result Diagrams: 12/12/16 06:12 12/12/16 06:12 *Q Meaningful Use (ADM) - VTE *Q VTE Criteria *Q: - Stroke *Q Stroke Criteria *Q: - AMI *Q AMI Criteria *Q: - Problem List (1) Rhabdomyolysis SNOMED Code(s): 588241083 ICD Code: M62.82 - RHABDOMYOLYSIS Status: Acute Current Visit: Yes Qualifiers: Rhabdomyolysis type: non-traumatic Qualified Code(s): M62.82 - Rhabdomyolysis (2) UTI (urinary tract infection) SNOMED Code(s): 19232215 ICD Code: N39.0 - URINARY TRACT INFECTION, SITE NOT SPECIFIED Status: Acute Current Visit: Yes Qualifiers: Urinary tract infection type: site unspecified Hematuria presence: with hematuria Qualified Code(s): N39.0 - Urinary tract infection, site not specified; R31.9 - Hematuria, unspecified (3) Ulcerative colitis SNOMED Code(s): 32905438 ICD Code: K51.90 - ULCERATIVE COLITIS, UNSPECIFIED, WITHOUT COMPLICATIONS Status: Acute Current Visit: Yes Problem List Initiated/Reviewed/Updated: Yes Orders Last 24hrs: Active Orders 24 hr Category Date Time Status CULTURE URINE [RM] Routine Lab 12/12/16 06:05 Received Levofloxacin/Dextrose 5%-Water [Levaquin in D5W 500 MG/ Med 12/12/16 08:19 Active 100 ML] 500 mg Premix Bag 1 bag IV ONETIME Medication Orders Levofloxacin/Dextrose 500 mg/ (Premix) 100 mls @ 100 mls/hr IV ONETIME ONE Stop: 12/12/16 09:18 Last Admin: 12/12/16 08:51 Dose: 100 mls/hr Assessment/Plan Comment:: This is a 41-year-old female who has a history of ulcerative colitis, rheumatoid arthritis, panic attack, migraine headache, hypertension, fibromyalgia, anxiety, and chronic obstructive pulmonary disease ( COPD). Admitted after fall at home with Rt buttock pain and elevated CK with questionable UTI 1. Rhabdomyolysis: Pt elevated CK and it was from Trauma after the fall at home -Will continue IVF ( NS) at 200 ml/hr -Continue I/O recording -Will check total CK q 6 hrs -Will check BMP daily -If the renal function deteriorates then may need to transfer the pt but will continue Medical management here 2. UTI: I reviewed the U/A and no significant finding, pt is denying dysuria -Will continue IVF and Ceftriaxone 1 gm IV daily 3. Rt Buttock Pain: This is resulted from Trauma after the fall -Will continue Tylenol PRN -Will give Percocet PRN and continue schedule Oxycontin 4. Ulcerative Colitis: The pt is chronically on Azathioprine and Prednisone 4. GI prophylaxis: Will continue Protonix 5. DVT Prophylaxis: TONY hose and Heparin ( as pt does not move because of pain and weakness) 6. Code Status: Full Code
[2016-12-12] MEDS ORDERED: Acetaminophen 325 MG Tab PO PRN (09:45)
[2016-12-12] MEDS ORDERED: Docusate Sodium 100 MG Cap PO PRN (09:45)
[2016-12-12] MEDS ORDERED: Loperamide 2 MG Cap PO PRN (10:22)
[2016-12-12] MEDS ORDERED: PYRIDOXINE HCL PO PRN (10:22)
[2016-12-12] MEDS ORDERED: Benzonatate 100 MG Cap PO PRN (10:22)
[2016-12-12] MEDS ORDERED: MELATONIN PO PRN (10:22)
[2016-12-12] MEDS ORDERED: HYOSCYAMINE 0.125 MG PO PRN (10:22)
[2016-12-12] MEDS ORDERED: ONDANSETRON 4 MG PO PRN (10:30)
[2016-12-12] MEDS: Sodium Chloride 0.9% 1,000 ML IV SCH ×3 (10:30→20:59)
[2016-12-12] MEDS: Heparin Sodium 5,000 Units/ML Vial SUBCUT SCH ×2 (10:38→18:17)
[2016-12-12] MEDS: Pantoprazole 40 MG Tab.CR PO SCH (10:40)
[2016-12-12] MEDS: predniSONE 5 MG Tab PO SCH (11:57)
[2016-12-12] MEDS ORDERED: oxyCODONE ER 20 MG TAB.ER PO SCH ×2 (12:00→14:00)
[2016-12-12] MEDS: Ciprofloxacin in D5W 400 MG in Premix Bag 1 BAG IV SCH ×2 (21:02)
[2016-12-12] MEDS: Pregabalin 75 MG Cap PO SCH (21:15)
[2016-12-12] MEDS: Amitriptyline 25 MG Tab PO SCH (21:16)
[2016-12-12] MEDS: diphenhydrAMINE 50 MG Cap PO SCH (21:16)
[2016-12-12] MEDS: oxyCODONE ER 20 MG TAB.ER PO SCH (22:04)
[2016-12-13] MEDS: Heparin Sodium 5,000 Units/ML Vial SUBCUT SCH ×4 (01:47→21:49)
[2016-12-13] MEDS: Sodium Chloride 0.9% 1,000 ML IV SCH ×3 (03:13→15:06)
[2016-12-13] MEDS: Pantoprazole 40 MG Tab.CR PO SCH (06:01)
[2016-12-13] MEDS: oxyCODONE ER 20 MG TAB.ER PO SCH ×3 (06:01→21:50)
[2016-12-13 08:34] LABS: CHLORIDE,CL 106 mmol/L (101-111); SODIUM,NA 139 mmol/L (135-145)
[2016-12-13] MEDS: predniSONE 5 MG Tab PO SCH (08:57)
[2016-12-13] MEDS: Pregabalin 75 MG Cap PO SCH ×2 (08:57→21:48)
[2016-12-13] MEDS: Ciprofloxacin in D5W 400 MG in Premix Bag 1 BAG IV SCH ×4 (08:59→21:49)
[2016-12-13] MEDS: ClonazePAM 0.5 MG Tab PO PRN ×2 (09:11→22:18)
--- NOTE | 2016-12-13 10:51 | PCM.PN ---
- General Info Date of Service: 12/13/16 Admission Dx/Problem (Free Text): Admitted after Fall at home with pain on Right buttock , brought to ED after Mom called Ambulance as she was unable to get up from floor and ED lab showed elevated CK ( 4298) and UTI Subjective Update: Pt today feels better, pain is improving, No nausea or vomiting, appetite is good and making good urine Functional Status: Reports: pain controlled, tolerating diet, ambulating, urinating - Review of Systems General: Reports: Appetite (good). Denies: Fever, Chills HEENT: Denies: dysphasia, headaches, sinus congestion, sore throat Pulmonary: Denies: shortness of breath, pleuritic chest pain, cough, sputum, hemoptysis, wheezing Cardiovascular: Denies: Chest Pain, Dyspnea on Exertion, Edema, Lightheadedness Gastrointestinal: Denies: Abdominal pain, Diarrhea, Nausea, Vomiting Genitourinary: Denies: dysuria, frequency, burning, urgency Musculoskeletal: Denies: shoulder pain, leg pain, joint pain Skin: Denies: cyanosis, jaundice, bruising, pruritis, rash Neurological: Denies: Confusion, Numbness, Tingling, Tremors Psychiatric: Denies: confusion, anxiety - Patient Data Vitals - most recent: Last Vital Signs Temp 36.4 C 12/13/16 07:00 Pulse 64 12/13/16 07:00 Resp 20 12/13/16 07:00 BP 125/84 12/13/16 07:00 Pulse Ox 99 12/13/16 07:00 Weight - most recent: 104.598 kg I&O - last 24 hours: Intake & Output 12/12/16 12/13/16 12/13/16 22:59 06:59 14:59 Intake Total 2317 510 Output Total 900 1400 800 Balance 1417 -890 -800 Lab Results last 24 hrs: Laboratory Results - last 24 hr 12/12/16 12/12/16 12/13/16 Range/Units 14:00 20:00 02:00 Sodium (135-145) mmol/L Potassium (3.6-5.0) mmol/L Chloride (101-111) mmol/L Carbon Dioxide (21.0-31.0) mmol/L Anion Gap BUN (7-18) mg/dL Creatinine (0.6-1.3) mg/dL Est Cr Clr Drug Dosing mL/min Estimated GFR (MDRD) Glucose (74-105) mg/dL Calcium (8.4-10.2) mg/dl Creatine Kinase 90106 H 03710 H 58460 H (26-174) IU/L 12/13/16 12/13/16 Range/Units 08:10 08:10 Sodium 139 (135-145) mmol/L Potassium 4.5 (3.6-5.0) mmol/L Chloride 106 (101-111) mmol/L Carbon Dioxide 26.0 (21.0-31.0) mmol/L Anion Gap 11.5 BUN 10 (7-18) mg/dL Creatinine 0.9 (0.6-1.3) mg/dL Est Cr Clr Drug Dosing 72.53 mL/min Estimated GFR (MDRD) > 60 Glucose 93 (74-105) mg/dL Calcium 8.1 L (8.4-10.2) mg/dl Creatine Kinase > 1200 H (26-174) IU/L Med Orders - Current: Current Medications Acetaminophen (Tylenol) 650 mg PO Q4H PRN PRN Reason: Pain (mild 1-3 )/fever Amitriptyline HCl (Elavil) 50 mg PO BEDTIME [facility] Last Admin: 12/12/16 21:16 Dose: 50 mg Azathioprine (Imuran) 150 mg PO DAILY [facility] Last Admin: 12/13/16 08:56 Dose: 150 mg Benzonatate (Tessalon Perles) 100 mg PO TID PRN PRN Reason: Cough Clonazepam (Klonopin) 0.5 mg PO BID PRN PRN Reason: Anxiety Last Admin: 12/13/16 09:11 Dose: 0.5 mg Diphenhydramine HCl (Benadryl) 50 mg PO BEDTIME [facility] Last Admin: 12/12/16 21:16 Dose: 50 mg Docusate Sodium (Colace) 100 mg PO DAILY PRN PRN Reason: Constipation Heparin Sodium (Porcine) (Heparin Sodium) 5,000 units SUBCUT Q8H [facility] Last Admin: 12/13/16 01:47 Dose: 5,000 units Sodium Chloride (Normal Saline) 1,000 mls @ 200 mls/hr IV ASDIRECTED [facility] Last Admin: 12/13/16 08:03 Dose: 200 mls/hr Ciprofloxacin/Dextrose 400 mg/ (Premix) 200 mls @ 200 mls/hr IV Q12HR [facility] Last Admin: 12/13/16 08:59 Dose: 200 mls/hr Loperamide HCl (Imodium) 4 mg PO Q1H PRN PRN Reason: Diarrhea Own Med( Hyoscyamine [Levsin] 0.125 Mg) 0.125 mg PO QID PRN PRN Reason: Spasms Own Med ( Melatonin/Pyridoxine Hcl (B6) [Melatonin 5 Mg Tablet] 5 M 5 mg PO BEDTIME PRN PRN Reason: Sleep Non-Formulary Medication (Tizanidine [Zanaflex]) 4 mg PO TID [facility] Ondansetron HCl (Zofran Odt) 4 mg PO Q4H PRN PRN Reason: NAUSEA Oxycodone HCl (Oxycontin) 20 mg PO TID@0600,1400,2200 [facility] Last Admin: 12/13/16 06:01 Dose: 20 mg Pantoprazole Sodium (Protonix) 40 mg PO ACBREAKFAST [facility] Last Admin: 12/13/16 06:01 Dose: 40 mg Prednisone (Prednisone) 5 mg PO DAILY [facility] Last Admin: 12/13/16 08:57 Dose: 5 mg Pregabalin (Lyrica) 150 mg PO BID [facility] Last Admin: 12/13/16 08:57 Dose: 150 mg Discontinued Medications Sodium Chloride (Normal Saline) 1,000 mls @ 999 mls/min IV .BOLUS ONE Stop: 12/12/16 06:54 Last Infusion: 12/12/16 07:08 Dose: Infused Sodium Chloride (Normal Saline) 1,000 mls @ 999 mls/hr IV .BOLUS ONE Stop: 12/12/16 08:55 Last Infusion: 12/12/16 20:52 Dose: Infused Levofloxacin/Dextrose 500 mg/ (Premix) 100 mls @ 100 mls/hr IV ONETIME ONE Stop: 12/12/16 09:18 Last Infusion: 12/12/16 09:55 Dose: Infused Oxycodone HCl (Oxycontin) 20 mg PO Q8H [facility] Oxycodone HCl (Oxycontin) 20 mg PO TID@0000,0600,1200 [facility] Last Admin: 12/12/16 12:04 Dose: 20 mg - Exam Quality Assessment: DVT prophylaxis. No: supplemental oxygen, urine catheter General: alert, oriented, cooperative, no acute distress HEENT: Pupils equal, Mucous membr. moist/pink Neck: supple, no JVD. No: lymphadenopathy, thyromegaly Lungs: Clear to auscultation, Normal respiratory effort. No: Crackles, Wheezing Cardiovascular: Regular Rate, Regular Rhythm Abdomen: bowel sounds present, soft, no tenderness, no distension (Female) Exam: Deferred Back Exam: normal inspection, full range of motion Extremities: no edema, no cyanosis, no calf tenderness Skin: warm, dry, intact Neurological: no new focal deficit, normal gait, normal speech Psy/Mental Status: alert, normal affect, normal mood - Problem List & Annotations (1) Rhabdomyolysis SNOMED Code(s): 965184500 Code(s): M62.82 - RHABDOMYOLYSIS Status: Acute Current Visit: Yes Qualifiers: Rhabdomyolysis type: non-traumatic Qualified Code(s): M62.82 - Rhabdomyolysis (2) UTI (urinary tract infection) SNOMED Code(s): 10250437 Code(s): N39.0 - URINARY TRACT INFECTION, SITE NOT SPECIFIED Status: Acute Current Visit: Yes Qualifiers: Urinary tract infection type: site unspecified Hematuria presence: with hematuria Qualified Code(s): N39.0 - Urinary tract infection, site not specified; R31.9 - Hematuria, unspecified (3) Ulcerative colitis SNOMED Code(s): 39839108 Code(s): K51.90 - ULCERATIVE COLITIS, UNSPECIFIED, WITHOUT COMPLICATIONS Status: Acute Current Visit: Yes - Problem List Review Problem List Initiated/Reviewed/Updated: Yes - My Orders Last 24 Hours: My Active Orders 12/12/16 09:45 Patient Status [ADT] Routine Ambulate [RC] ASDIRECTED May Shower [RC] ASDIRECTED Up With Assistance [RC] ASDIRECTED Up to Chair [RC] ASDIRECTED Vital Signs [RC] Q4H Acetaminophen [Tylenol] 650 mg PO Q4H PRN Docusate Sodium [Colace] 100 mg PO DAILY PRN DVT/VTE Prophylaxis Reflex [OM.PC] Routine Resuscitation Status Routine 12/12/16 09:47 Oxygen Therapy [RC] PRN Pulse Oximetry [RC] PRN 12/12/16 09:48 Antiembolic Devices [RC] .Routine VTE/DVT Education [RC] PER UNIT ROUTINE 12/12/16 09:49 Antiembolic Hose [OM.PC] Per Unit Routine 12/12/16 10:00 Heparin Sodium 5,000 units SUBCUT Q8H Pantoprazole [ProTONIX] 40 mg PO ACBREAKFAST Sodium Chloride 0.9% [Normal Saline] 1,000 ml IV ASDIRECTED 12/12/16 10:22 Benzonatate [Tessalon Perles] 100 mg PO TID PRN ClonazePAM [KlonoPIN] 0.5 mg PO BID PRN Hyoscyamine [Levsin] 0.125 mg PO QID PRN Loperamide [Imodium] 4 mg PO Q1H PRN Melatonin/Pyridoxine HCl (B6) [Melatonin 5 mg Tablet] 5 mg PO BEDTIME PRN 12/12/16 10:30 Ondansetron [Zofran ODT] 4 mg PO Q4H PRN azaTHIOprine [Imuran] 150 mg PO DAILY 12/12/16 10:45 predniSONE 5 mg PO DAILY 12/12/16 14:00 tiZANidine [Zanaflex] 4 mg PO TID 12/12/16 21:00 Amitriptyline [Elavil] 50 mg PO BEDTIME Ciprofloxacin in D5W [Cipro in D5W 400 MG/200 ML] 400 mg Premix Bag 1 bag IV Q12HR Pregabalin [Lyrica] 150 mg PO BID diphenhydrAMINE [Benadryl] 50 mg PO BEDTIME 12/12/16 22:00 oxyCODONE ER [OxyCONTIN] 20 mg PO TID@0600,1400,2200 12/13/16 14:00 CREATINE KINASE,CK [CHEM] Q6H 12/13/16 20:00 CREATINE KINASE,CK [CHEM] Q6H 12/14/16 02:00 CREATINE KINASE,CK [CHEM] Q6H - Plan Plan:: This is a 41-year-old female who has a history of ulcerative colitis, rheumatoid arthritis, panic attack, migraine headache, hypertension, fibromyalgia, anxiety, and chronic obstructive pulmonary disease ( COPD). Admitted after fall at home with Rt buttock pain and elevated CK with questionable UTI 1. 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 UTI: I reviewed the U/A and no significant finding, pt is denying dysuria -Will continue IVF and Ceftriaxone 1 gm IV daily 3. Rt Buttock Pain: This is resulted from Trauma after the fall -Will continue Tylenol PRN -Will also continue Percocet PRN and continue schedule Oxycontin 4. Ulcerative Colitis: The pt is chronically on Azathioprine and Prednisone 5. Hypocalcemia: Will give Calcium gluconate 1 gm iV X 1 dose 6. GI prophylaxis: Will continue Protonix 7. DVT Prophylaxis: TONY hose and Heparin ( as pt does not move because of pain and weakness) 8. Code Status: Full Code
[2016-12-13] MEDS ORDERED: Furosemide 20 MG/2 ML VIAL IVPUSH ONE (10:52)
[2016-12-13] MEDS: Non-Formulary Medication 1 Each (Tizanidine [Zanaflex] 4 MG) PO SCH ×3 (16:37→16:39)
[2016-12-13] MEDS: diphenhydrAMINE 50 MG Cap PO SCH (20:38)
[2016-12-13] MEDS: Amitriptyline 25 MG Tab PO SCH (21:48)
[2016-12-14] MEDS: Sodium Chloride 0.9% 1,000 ML IV SCH (02:35)
[2016-12-14] MEDS: Pantoprazole 40 MG Tab.CR PO SCH (06:49)
[2016-12-14] MEDS: Heparin Sodium 5,000 Units/ML Vial SUBCUT SCH (06:49)
[2016-12-14] MEDS: oxyCODONE ER 20 MG TAB.ER PO SCH ×3 (06:50→21:56)
[2016-12-14 07:01] LABS: CHLORIDE,CL 108 mmol/L (101-111); SODIUM,NA 139 mmol/L (135-145)
[2016-12-14] MEDS ORDERED: Furosemide 20 MG/2 ML VIAL IVPUSH ONE (09:55)
[2016-12-14] MEDS ORDERED: Enoxaparin 30 MG/0.3 ML Syringe SUBCUT SCH (10:00)
[2016-12-14] MEDS: Pregabalin 75 MG Cap PO SCH ×2 (10:10→21:56)
[2016-12-14] MEDS: predniSONE 5 MG Tab PO SCH (10:10)
[2016-12-14] MEDS: Ciprofloxacin in D5W 400 MG in Premix Bag 1 BAG IV SCH ×2 (10:13)
[2016-12-14] MEDS: Lactated Ringers 1,000 ML IV SCH ×3 (11:12→21:49)
--- NOTE | 2016-12-14 11:15 | PCM.PN ---
- General Info Date of Service: 12/14/16 Admission Dx/Problem (Free Text): Admitted after Fall at home with pain on Right buttock , brought to ED after Mom called Ambulance as she was unable to get up from floor and ED lab showed elevated CK ( 4298) and UTI Subjective Update: Pt today feels better, pain has no complaints. She admits having slight worsening of her lower extremities edema. she denies fever, chills, nausea vomiting, shortness of breath, upper respiratory symptoms, cough, abdomen pain, diarrhea, urinary symptoms .she is making good urine - Patient Data Vitals - most recent: Last Vital Signs Temp 36.3 C 12/14/16 07:40 Pulse 85 12/14/16 07:40 Resp 20 12/14/16 07:40 BP 112/78 12/14/16 07:40 Pulse Ox 99 12/14/16 09:00 Weight - most recent: 104.598 kg I&O - last 24 hours: Intake & Output 12/13/16 12/14/16 12/14/16 22:59 06:59 14:59 Intake Total 3050 400 1950 Output Total 800 800 300 Balance 2250 -400 1650 Lab Results last 24 hrs: Laboratory Results - last 24 hr 12/13/16 12/13/16 12/14/16 Range/Units 13:55 20:05 01:53 Sodium (135-145) mmol/L Potassium (3.6-5.0) mmol/L Chloride (101-111) mmol/L Carbon Dioxide (21.0-31.0) mmol/L Anion Gap BUN (7-18) mg/dL Creatinine (0.6-1.3) mg/dL Est Cr Clr Drug Dosing mL/min Estimated GFR (MDRD) Glucose (74-105) mg/dL Calcium (8.4-10.2) mg/dl Creatine Kinase > 1200 H 68286 H 8622 H (26-174) IU/L 12/14/16 Range/Units 06:20 Sodium 139 (135-145) mmol/L Potassium 4.1 (3.6-5.0) mmol/L Chloride 108 (101-111) mmol/L Carbon Dioxide 27.0 (21.0-31.0) mmol/L Anion Gap 8.1 BUN 9 (7-18) mg/dL Creatinine 1.0 (0.6-1.3) mg/dL Est Cr Clr Drug Dosing 65.27 mL/min Estimated GFR (MDRD) > 60 Glucose 100 (74-105) mg/dL Calcium 7.8 L (8.4-10.2) mg/dl Creatine Kinase (26-174) IU/L Med Orders - Current: Current Medications Acetaminophen (Tylenol) 650 mg PO Q4H PRN PRN Reason: Pain (mild 1-3 )/fever Amitriptyline HCl (Elavil) 50 mg PO BEDTIME [facility] Last Admin: 12/13/16 21:48 Dose: 50 mg Azathioprine (Imuran) 150 mg PO DAILY [facility] Last Admin: 12/14/16 10:10 Dose: 150 mg Benzonatate (Tessalon Perles) 100 mg PO TID PRN PRN Reason: Cough Clonazepam (Klonopin) 0.5 mg PO BID PRN PRN Reason: Anxiety Last Admin: 12/13/16 22:18 Dose: 0.5 mg Diphenhydramine HCl (Benadryl) 50 mg PO BEDTIME [facility] Last Admin: 12/13/16 20:38 Dose: 50 mg Docusate Sodium (Colace) 100 mg PO DAILY PRN PRN Reason: Constipation Enoxaparin Sodium (Lovenox) 40 mg SUBCUT DAILY [facility] Heparin Sodium (Porcine) (Heparin Sodium) 5,000 units SUBCUT Q8H [facility] Last Admin: 12/14/16 06:49 Dose: 5,000 units Lactated Ringer's (Ringers, Lactated) 1,000 mls @ 200 mls/hr IV ASDIRECTED [facility] Loperamide HCl (Imodium) 4 mg PO Q1H PRN PRN Reason: Diarrhea Own Med( Hyoscyamine [Levsin] 0.125 Mg) 0.125 mg PO QID PRN PRN Reason: Spasms Own Med ( Melatonin/Pyridoxine Hcl (B6) [Melatonin 5 Mg Tablet] 5 M 5 mg PO BEDTIME PRN PRN Reason: Sleep Ondansetron HCl (Zofran Odt) 4 mg PO Q4H PRN PRN Reason: NAUSEA Oxycodone HCl (Oxycontin) 20 mg PO TID@0600,1400,2200 [facility] Last Admin: 12/14/16 06:50 Dose: 20 mg Pantoprazole Sodium (Protonix) 40 mg PO ACBREAKFAST [facility] Last Admin: 12/14/16 06:49 Dose: 40 mg Prednisone (Prednisone) 5 mg PO DAILY [facility] Last Admin: 12/14/16 10:10 Dose: 5 mg Pregabalin (Lyrica) 150 mg PO BID [facility] Last Admin: 12/14/16 10:10 Dose: 150 mg Discontinued Medications Enoxaparin Sodium (Lovenox) 30 mg SUBCUT DAILY [facility] Last Admin: 12/14/16 10:43 Dose: Not Given Furosemide (Lasix) 20 mg IVPUSH NOW ONE Stop: 12/13/16 10:53 Last Admin: 12/13/16 11:21 Dose: 20 mg Furosemide (Lasix) 20 mg IVPUSH ONETIME ONE Stop: 12/14/16 09:56 Last Admin: 12/14/16 10:11 Dose: 20 mg Heparin Sodium (Porcine) (Heparin Sodium) 5,000 units SUBCUT Q8H [facility] Last Admin: 12/13/16 17:24 Dose: 5,000 units Sodium Chloride (Normal Saline) 1,000 mls @ 999 mls/min IV .BOLUS ONE Stop: 12/12/16 06:54 Last Infusion: 12/12/16 07:08 Dose: Infused Sodium Chloride (Normal Saline) 1,000 mls @ 999 mls/hr IV .BOLUS ONE Stop: 12/12/16 08:55 Last Infusion: 12/12/16 20:52 Dose: Infused Levofloxacin/Dextrose 500 mg/ (Premix) 100 mls @ 100 mls/hr IV ONETIME ONE Stop: 12/12/16 09:18 Last Infusion: 12/12/16 09:55 Dose: Infused Sodium Chloride (Normal Saline) 1,000 mls @ 200 mls/hr IV ASDIRECTED [facility] Last Admin: 12/14/16 02:35 Dose: 200 mls/hr Ciprofloxacin/Dextrose 400 mg/ (Premix) 200 mls @ 200 mls/hr IV Q12HR [facility] Last Admin: 12/14/16 10:13 Dose: Not Given Non-Formulary Medication (Tizanidine [Zanaflex]) 4 mg PO TID [facility] Last Admin: 12/13/16 16:39 Dose: Not Given Oxycodone HCl (Oxycontin) 20 mg PO Q8H [facility] Oxycodone HCl (Oxycontin) 20 mg PO TID@0000,0600,1200 [facility] Last Admin: 12/12/16 12:04 Dose: 20 mg - Exam General: alert, oriented, cooperative, other (obese). No: no acute distress, mild distress, moderate distress, severe distress, sedated, lethargic, obtunded HEENT: Pupils equal, Pupils reactive, EOMI, Mucous membr. moist/pink Neck: supple, trachea midline, no JVD Lungs: Clear to auscultation, Normal respiratory effort. No: Decreased breath sounds, Crackles, Rales, Rhonchi, Rub, Stridor, Wheezing Cardiovascular: Regular Rate, Regular Rhythm Abdomen: bowel sounds present, soft, no tenderness, no distension. No: rigidity , rebound, guarding, tenderness, distension, abnormal bowel sounds, CVA tenderness, organomegaly (Female) Exam: Deferred Back Exam: normal inspection, full range of motion Extremities: normal pulses, no tenderness/swelling, no clubbing, no cyanosis, no calf tenderness, edema (+1 bilateral lower extremities) Skin: warm, dry, other (she had blister on abdomen w ecchymosis at the site of heparin/Lovenox injection) Neurological: no new focal deficit, normal speech, normal tone, strength equal bilateral Psy/Mental Status: alert, normal affect, normal mood - Problem List Review Problem List Initiated/Reviewed/Updated: Yes - My Orders Last 24 Hours: My Active Orders 12/14/16 10:30 Lactated Ringers [Ringers, Lactated] 1,000 ml IV ASDIRECTED 12/14/16 10:38 Enoxaparin [Lovenox] 40 mg SUBCUT DAILY 12/14/16 16:00 BASIC METABOLIC PANEL,BMP [CHEM] Routine CREATINE KINASE,CK [CHEM] Routine 12/15/16 05:11 BASIC METABOLIC PANEL,BMP [CHEM] AM CBC WITH AUTO DIFF [HEME] AM CREATINE KINASE,CK [CHEM] AM - Plan Plan:: This is a 41-year-old female who has a history of ulcerative colitis, rheumatoid arthritis, panic attack, migraine headache, hypertension, fibromyalgia, anxiety, and chronic obstructive pulmonary disease ( COPD). Admitted after fall at home with Rt buttock pain and elevated CK with questionable UTI Rhabdomyolysis: Pt had elevated CK and it was from Trauma after the fall at home -Continue I/O recording. she is having good urine output -Will continue IVF ( LR) at 200 ml/hr. Today I changed her normal saline to LR as the hospital is has very limited amounts of normal saline -we'll give Lasix 20 mg IV once this morning -CK is improving. Recheck at 4 PM today and then tomorrow morning -Will recheck BMP this afternoon and tomorrow morning -Will give lasix 20 mg IV X 1 dose Fall at home unknown reason. Patient thinks that she woke up during the night to go to the bathroom and she fell. She denies any change in her medications recently possible UTI: however her urine culture came back negative. I stopped her antibiotic pending Rt Buttock Pain: This is resulted from Trauma after the fall -Will continue Tylenol PRN -Will also continue Percocet PRN and continue schedule Oxycontin history of ulcerative Colitis: no GI symptoms reported. The pt is chronically on Azathioprine and Prednisone Hypocalcemia: she received Calcium gluconate 1 gm iV X 1 dose yesterday abdominal ecchymosis Most likely from heparin I will change heparin to Lovenox to minimize the number of injections Abdominal wall blister does not look chronically infected. We'll do bacitracin for prophylaxis 6. GI prophylaxis: Will continue Protonix 7. DVT Prophylaxis: TONY caal and Lovenox 8. Code Status: Full Code
[2016-12-14] MEDS: Bacitracin Oint 28.35 GM Tube TOP SCH ×2 (12:03→20:31)
[2016-12-14] MEDS: Enoxaparin 40 MG/0.4 ML Syringe SUBCUT SCH (14:16)
[2016-12-14] MEDS ORDERED: diphenhydrAMINE 50 MG Cap PO PRN (14:30)
[2016-12-14] MEDS: diphenhydrAMINE 25 MG Tab PO PRN (21:56)
[2016-12-14] MEDS: ClonazePAM 0.5 MG Tab PO PRN (21:56)
[2016-12-14] MEDS: Amitriptyline 25 MG Tab PO SCH (21:57)
[2016-12-15] MEDS: Lactated Ringers 1,000 ML IV SCH ×4 (03:10→20:43)
[2016-12-15] MEDS: Bacitracin Oint 28.35 GM Tube TOP SCH ×3 (06:04→21:30)
[2016-12-15] MEDS: Pantoprazole 40 MG Tab.CR PO SCH (06:05)
[2016-12-15] MEDS: oxyCODONE ER 20 MG TAB.ER PO SCH ×3 (06:05→21:34)
[2016-12-15 06:59] LABS: CHLORIDE,CL 104 mmol/L (101-111); SODIUM,NA 140 mmol/L (135-145)
[2016-12-15] MEDS: Pregabalin 75 MG Cap PO SCH ×2 (09:02→21:33)
[2016-12-15] MEDS: Enoxaparin 40 MG/0.4 ML Syringe SUBCUT SCH (09:03)
[2016-12-15] MEDS: predniSONE 5 MG Tab PO SCH (09:03)
[2016-12-15] MEDS: diphenhydrAMINE 25 MG Tab PO PRN ×2 (10:16→21:34)
[2016-12-15] MEDS: ClonazePAM 0.5 MG Tab PO PRN ×2 (10:16→21:34)
[2016-12-15] MEDS: Amitriptyline 25 MG Tab PO SCH (21:33)
--- NOTE | 2016-12-15 23:54 | PCM.PN ---
- General Info Date of Service: 12/15/16 Subjective Update: no significant issues today. no chest pain nor SOB. aware that CPK is high but trending down. tolerating meals, ambulating well. still cannot recall as to why she fell at home. Functional Status: Reports: pain controlled, tolerating diet, ambulating - Patient Data Vitals - most recent: Last Vital Signs Temp 36.8 C 12/15/16 22:06 Pulse 83 12/15/16 22:06 Resp 20 12/15/16 22:06 BP 126/84 12/15/16 22:06 Pulse Ox 96 12/15/16 22:06 Weight - most recent: 104.598 kg I&O - last 24 hours: Intake & Output 12/15/16 12/15/16 12/16/16 14:59 22:59 06:59 Intake Total 1806 1900 Output Total 1650 2400 Balance 156 -500 Lab Results last 24 hrs: Laboratory Results - last 24 hr 12/15/16 12/15/16 Range/Units 06:08 06:08 WBC 5.9 (5.0-10.0) 10^3/uL RBC 3.26 L (4.2-5.4) 10^6/uL Hgb 10.5 L (12.0-16.0) g/dL Hct 33.7 L (37.0-47.0) % MCV 103.4 H (80-100) fL MCH 32.2 (27.0-34.0) pg MCHC 31.2 L (33.0-35.0) g/dL Plt Count 253 (150-450) 10^3/uL Neut % (Auto) 50.4 (42.2-75.2) % Lymph % (Auto) 37.3 (20.5-50.1) % [place] % (Auto) 6.4 (2-8) % Eos % (Auto) 5.6 H (1.0-3.0) % Baso % (Auto) 0.3 (0.0-1.0) % Sodium 140 (135-145) mmol/L Potassium 3.6 (3.6-5.0) mmol/L Chloride 104 (101-111) mmol/L Carbon Dioxide 31.0 (21.0-31.0) mmol/L Anion Gap 8.6 BUN 9 (7-18) mg/dL Creatinine 0.9 (0.6-1.3) mg/dL Est Cr Clr Drug Dosing 72.53 mL/min Estimated GFR (MDRD) > 60 Glucose 95 (74-105) mg/dL Calcium 8.3 L (8.4-10.2) mg/dl Creatine Kinase 3394 H (26-174) IU/L Med Orders - Current: Current Medications Acetaminophen (Tylenol) 650 mg PO Q4H PRN PRN Reason: Pain (mild 1-3 )/fever Amitriptyline HCl (Elavil) 50 mg PO BEDTIME [facility] Last Admin: 12/15/16 21:33 Dose: 50 mg Azathioprine (Imuran) 150 mg PO DAILY [facility] Last Admin: 12/15/16 09:03 Dose: 150 mg Bacitracin (Bacitracin Oint) 0 gm TOP Q8H [facility] Last Admin: 12/15/16 21:30 Dose: 1 applic Benzonatate (Tessalon Perles) 100 mg PO TID PRN PRN Reason: Cough Clonazepam (Klonopin) 0.5 mg PO BID PRN PRN Reason: Anxiety Last Admin: 12/15/16 21:34 Dose: 0.5 mg Diphenhydramine HCl (Benadryl) 25 mg PO BID PRN PRN Reason: insomnia and itching Last Admin: 12/15/16 21:34 Dose: 25 mg Docusate Sodium (Colace) 100 mg PO DAILY PRN PRN Reason: Constipation Enoxaparin Sodium (Lovenox) 40 mg SUBCUT DAILY [facility] Last Admin: 12/15/16 09:03 Dose: 40 mg Lactated Ringer's (Ringers, Lactated) 1,000 mls @ 200 mls/hr IV ASDIRECTED [facility] Last Admin: 12/15/16 20:43 Dose: 200 mls/hr Loperamide HCl (Imodium) 4 mg PO Q1H PRN PRN Reason: Diarrhea Own Med( Hyoscyamine [Levsin] 0.125 Mg) 0.125 mg PO QID PRN PRN Reason: Spasms Own Med ( Melatonin/Pyridoxine Hcl (B6) [Melatonin 5 Mg Tablet] 5 M 5 mg PO BEDTIME PRN PRN Reason: Sleep Last Admin: 12/15/16 21:31 Dose: 5 mg Ondansetron HCl (Zofran Odt) 4 mg PO Q4H PRN PRN Reason: NAUSEA Oxycodone HCl (Oxycontin) 20 mg PO TID@0600,1400,2200 [facility] Last Admin: 12/15/16 21:34 Dose: 20 mg Pantoprazole Sodium (Protonix) 40 mg PO ACBREAKFAST [facility] Last Admin: 12/15/16 06:05 Dose: 40 mg Prednisone (Prednisone) 5 mg PO DAILY [facility] Last Admin: 12/15/16 09:03 Dose: 5 mg Pregabalin (Lyrica) 150 mg PO BID [facility] Last Admin: 12/15/16 21:33 Dose: 150 mg Discontinued Medications Bacitracin (Bacitracin Oint) 0 gm TOP Q8H [facility] Last Admin: 12/14/16 20:31 Dose: 1 applic Diphenhydramine HCl (Benadryl) 50 mg PO BEDTIME [facility] Last Admin: 12/13/16 20:38 Dose: 50 mg Diphenhydramine HCl (Benadryl) 25 mg PO BID PRN PRN Reason: insomnia and itching Enoxaparin Sodium (Lovenox) 30 mg SUBCUT DAILY [facility] Last Admin: 12/14/16 10:43 Dose: Not Given Furosemide (Lasix) 20 mg IVPUSH NOW ONE Stop: 12/13/16 10:53 Last Admin: 12/13/16 11:21 Dose: 20 mg Furosemide (Lasix) 20 mg IVPUSH ONETIME ONE Stop: 12/14/16 09:56 Last Admin: 12/14/16 10:11 Dose: 20 mg Heparin Sodium (Porcine) (Heparin Sodium) 5,000 units SUBCUT Q8H [facility] Last Admin: 12/13/16 17:24 Dose: 5,000 units Heparin Sodium (Porcine) (Heparin Sodium) 5,000 units SUBCUT Q8H [facility] Last Admin: 12/14/16 06:49 Dose: 5,000 units Sodium Chloride (Normal Saline) 1,000 mls @ 999 mls/min IV .BOLUS ONE Stop: 12/12/16 06:54 Last Infusion: 12/12/16 07:08 Dose: Infused Sodium Chloride (Normal Saline) 1,000 mls @ 999 mls/hr IV .BOLUS ONE Stop: 12/12/16 08:55 Last Infusion: 12/12/16 20:52 Dose: Infused Levofloxacin/Dextrose 500 mg/ (Premix) 100 mls @ 100 mls/hr IV ONETIME ONE Stop: 12/12/16 09:18 Last Infusion: 12/12/16 09:55 Dose: Infused Sodium Chloride (Normal Saline) 1,000 mls @ 200 mls/hr IV ASDIRECTED [facility] Last Admin: 12/14/16 02:35 Dose: 200 mls/hr Ciprofloxacin/Dextrose 400 mg/ (Premix) 200 mls @ 200 mls/hr IV Q12HR [facility] Last Admin: 12/14/16 10:13 Dose: Not Given Non-Formulary Medication (Tizanidine [Zanaflex]) 4 mg PO TID [facility] Last Admin: 12/13/16 16:39 Dose: Not Given Oxycodone HCl (Oxycontin) 20 mg PO Q8H [facility] Oxycodone HCl (Oxycontin) 20 mg PO TID@0000,0600,1200 [facility] Last Admin: 12/12/16 12:04 Dose: 20 mg - Exam General: alert, oriented Lungs: Clear to auscultation, Normal respiratory effort Cardiovascular: Regular Rate, Regular Rhythm Abdomen: bowel sounds present, soft, no tenderness - Problem List Review Problem List Initiated/Reviewed/Updated: Yes - My Orders Last 24 Hours: My Active Orders 12/16/16 06:05 CPK [CREATINE KINASE,CK] [CHEM] Routine - Plan Plan:: elevated CPK doesnt clearly fit the picture of rhabdomyolysis as potassium as been normal she had this problem in the past CPK now trending down, renal function has been good monitor CPK and urine output Fall at home unclear etiology fall precautions Rt Buttock Pain: This is resulted from Trauma after the fall -Will continue Tylenol PRN -Will also continue Percocet PRN and continue schedule Oxycontin history of ulcerative Colitis: no GI symptoms reported. onn Azathioprine and chronic Prednisone GI prophylaxis: Will continue Protonix DVT Prophylaxis: TONY Forbes Code Status: Full Code
[2016-12-16] MEDS: Lactated Ringers 1,000 ML IV SCH ×5 (02:33→22:52)
[2016-12-16] MEDS: oxyCODONE ER 20 MG TAB.ER PO SCH ×3 (05:58→21:35)
[2016-12-16] MEDS: Pantoprazole 40 MG Tab.CR PO SCH (05:58)
[2016-12-16] MEDS: Bacitracin Oint 28.35 GM Tube TOP SCH ×3 (07:46→21:47)
[2016-12-16] MEDS: Pregabalin 75 MG Cap PO SCH ×2 (08:22→21:34)
[2016-12-16] MEDS: predniSONE 5 MG Tab PO SCH (08:23)
[2016-12-16] MEDS: Enoxaparin 40 MG/0.4 ML Syringe SUBCUT SCH (08:23)
[2016-12-16] MEDS: ClonazePAM 0.5 MG Tab PO PRN ×2 (09:48→22:33)
[2016-12-16] MEDS: diphenhydrAMINE 25 MG Tab PO PRN (09:49)
[2016-12-16] MEDS: Cyclobenzaprine 10 MG Tab PO PRN ×2 (12:42→22:32)
[2016-12-16] MEDS: Dicyclomine 10 MG Cap PO SCH ×3 (12:42→23:23)
[2016-12-16] MEDS ORDERED: Formoterol/Mometasone 200-5 MCG 8.8 GM Inhaler IH SCH (21:00)
[2016-12-16] MEDS ORDERED: Amitriptyline 25 MG Tab PO SCH (21:00)
[2016-12-16] MEDS ORDERED: amLODIPine 5 MG Tab PO SCH (21:00)
[2016-12-16] MEDS: Amitriptyline 25 MG Tab PO SCH (21:35)
[2016-12-16] MEDS: SYMBICORT INH SCH (21:46)
--- NOTE | 2016-12-16 22:26 | PCM.PN ---
[id number] she was not continued on he muscle relaxer while admitted, she just brought the complete list today. otherwise, the area of redness on the right face which was temporarily noted yesterday has resolved. no chest pain or shortness of breath Functional Status: Reports: pain controlled, tolerating diet, ambulating - Patient Data Vitals - most recent: Last Vital Signs Temp 36.2 C 12/16/16 21:42 Pulse 84 12/16/16 21:42 Resp 20 12/16/16 21:42 BP 136/91 H 12/16/16 21:42 Pulse Ox 97 12/16/16 21:42 Weight - most recent: 104.598 kg I&O - last 24 hours: Intake & Output 12/16/16 12/16/16 12/16/16 06:59 14:59 22:59 Intake Total 1032 240 Output Total 600 Balance 1032 -360 Lab Results last 24 hrs: Laboratory Results - last 24 hr 12/16/16 Range/Units 05:47 Creatine Kinase 1821 H (26-174) IU/L Med Orders - Current: Current Medications Acetaminophen (Tylenol) 650 mg PO Q4H PRN PRN Reason: Pain (mild 1-3 )/fever Amitriptyline HCl (Elavil) 50 mg PO BEDTIME [facility] Last Admin: 12/16/16 21:35 Dose: 50 mg Amitriptyline HCl (Elavil) 200 mg PO BEDTIME [facility] Last Admin: 12/16/16 21:36 Dose: 200 mg Amlodipine Besylate (Norvasc) 10 mg PO BEDTIME [facility] Last Admin: 12/16/16 21:41 Dose: 10 mg Azathioprine (Imuran) 150 mg PO DAILY [facility] Last Admin: 12/16/16 08:22 Dose: 150 mg Bacitracin (Bacitracin Oint) 0 gm TOP TID [facility] Last Admin: 12/16/16 21:47 Dose: 1 applic Benzonatate (Tessalon Perles) 100 mg PO TID PRN PRN Reason: Cough Clonazepam (Klonopin) 0.5 mg PO BID PRN PRN Reason: Anxiety Last Admin: 12/16/16 09:48 Dose: 0.5 mg Cyclobenzaprine HCl (Flexeril) 10 mg PO Q8H PRN PRN Reason: Muscle Spasm Last Admin: 12/16/16 12:42 Dose: 10 mg Dicyclomine HCl (Bentyl) 20 mg PO Q6H [facility] Last Admin: 12/16/16 17:51 Dose: 20 mg Diphenhydramine HCl (Benadryl) 25 mg PO BID PRN PRN Reason: insomnia and itching Last Admin: 12/16/16 09:49 Dose: 25 mg Docusate Sodium (Colace) 100 mg PO DAILY PRN PRN Reason: Constipation Duloxetine HCl (Cymbalta) 60 mg PO DAILY [facility] Enoxaparin Sodium (Lovenox) 40 mg SUBCUT DAILY [facility] Last Admin: 12/16/16 08:23 Dose: 40 mg Lactated Ringer's (Ringers, Lactated) 1,000 mls @ 200 mls/hr IV ASDIRECTED [facility] Last Admin: 12/16/16 17:52 Dose: 200 mls/hr Lisinopril (Prinivil) 5 mg PO DAILY [facility] Loperamide HCl (Imodium) 4 mg PO Q1H PRN PRN Reason: Diarrhea Own Med( Hyoscyamine [Levsin] 0.125 Mg) 0.125 mg PO QID PRN PRN Reason: Spasms Own Med ( Melatonin/Pyridoxine Hcl (B6) [Melatonin 5 Mg Tablet] 5 M 5 mg PO BEDTIME PRN PRN Reason: Sleep Last Admin: 12/15/16 21:31 Dose: 5 mg Ondansetron HCl (Zofran Odt) 4 mg PO Q4H PRN PRN Reason: NAUSEA Oxycodone HCl (Oxycontin) 20 mg PO TID@0600,1400,2200 [facility] Last Admin: 12/16/16 21:35 Dose: 20 mg Pantoprazole Sodium (Protonix) 40 mg PO ACBREAKFAST [facility] Last Admin: 12/16/16 05:58 Dose: 40 mg Symbicort 160/4.5 (Pt's Own Med) 0 each INH BID [facility] Last Admin: 12/16/16 21:46 Dose: 1 each Prednisone (Prednisone) 5 mg PO DAILY [facility] Last Admin: 12/16/16 08:23 Dose: 5 mg Pregabalin (Lyrica) 150 mg PO BID [facility] Last Admin: 12/16/16 21:34 Dose: 150 mg Discontinued Medications Bacitracin (Bacitracin Oint) 0 gm TOP Q8H [facility] Last Admin: 12/14/16 20:31 Dose: 1 applic Bacitracin (Bacitracin Oint) 0 gm TOP Q8H [facility] Last Admin: 12/16/16 07:46 Dose: 1 applic Diphenhydramine HCl (Benadryl) 50 mg PO BEDTIME [facility] Last Admin: 12/13/16 20:38 Dose: 50 mg Diphenhydramine HCl (Benadryl) 25 mg PO BID PRN PRN Reason: insomnia and itching Enoxaparin Sodium (Lovenox) 30 mg SUBCUT DAILY [facility] Last Admin: 12/14/16 10:43 Dose: Not Given Furosemide (Lasix) 20 mg IVPUSH NOW ONE Stop: 12/13/16 10:53 Last Admin: 12/13/16 11:21 Dose: 20 mg Furosemide (Lasix) 20 mg IVPUSH ONETIME ONE Stop: 12/14/16 09:56 Last Admin: 12/14/16 10:11 Dose: 20 mg Heparin Sodium (Porcine) (Heparin Sodium) 5,000 units SUBCUT Q8H [facility] Last Admin: 12/13/16 17:24 Dose: 5,000 units Heparin Sodium (Porcine) (Heparin Sodium) 5,000 units SUBCUT Q8H [facility] Last Admin: 12/14/16 06:49 Dose: 5,000 units Sodium Chloride (Normal Saline) 1,000 mls @ 999 mls/min IV .BOLUS ONE Stop: 12/12/16 06:54 Last Infusion: 12/12/16 07:08 Dose: Infused Sodium Chloride (Normal Saline) 1,000 mls @ 999 mls/hr IV .BOLUS ONE Stop: 12/12/16 08:55 Last Infusion: 12/12/16 20:52 Dose: Infused Levofloxacin/Dextrose 500 mg/ (Premix) 100 mls @ 100 mls/hr IV ONETIME ONE Stop: 12/12/16 09:18 Last Infusion: 12/12/16 09:55 Dose: Infused Sodium Chloride (Normal Saline) 1,000 mls @ 200 mls/hr IV ASDIRECTED [facility] Last Admin: 12/14/16 02:35 Dose: 200 mls/hr Ciprofloxacin/Dextrose 400 mg/ (Premix) 200 mls @ 200 mls/hr IV Q12HR [facility] Last Admin: 12/14/16 10:13 Dose: Not Given Mometasone Furoate/Formoterol Fumar (Dulera 200-5 Mcg) 0 puff IH BID [facility] Non-Formulary Medication (Tizanidine [Zanaflex]) 4 mg PO TID [facility] Last Admin: 12/13/16 16:39 Dose: Not Given Oxycodone HCl (Oxycontin) 20 mg PO Q8H [facility] Oxycodone HCl (Oxycontin) 20 mg PO TID@0000,0600,1200 [facility] Last Admin: 12/12/16 12:04 Dose: 20 mg - Exam General: alert, oriented Lungs: Clear to auscultation, Normal respiratory effort - Problem List Review Problem List Initiated/Reviewed/Updated: Yes - My Orders Last 24 Hours: My Active Orders 12/16/16 11:56 Cyclobenzaprine [Flexeril] 10 mg PO Q8H PRN 12/16/16 12:00 Dicyclomine [Bentyl] 20 mg PO Q6H 12/16/16 14:00 Bacitracin [Bacitracin Oint] 0 gm TOP TID 12/16/16 21:00 Amitriptyline [Elavil] 200 mg PO BEDTIME Patient's Own Medication [Ptom] 0 each INH BID amLODIPine [Norvasc] 10 mg PO BEDTIME 12/17/16 06:00 BMP [BASIC METABOLIC PANEL,BMP] [CHEM] Routine CPK [CREATINE KINASE,CK] [CHEM] Routine 12/17/16 09:00 DULoxetine [Cymbalta] 60 mg PO DAILY Lisinopril [Prinivil] 5 mg PO DAILY - Plan Plan:: elevated CPK CPK now trending down, renal function has been good monitor CPK and urine output Rt Buttock Pain: This is resulted from Trauma after the fall -Will continue Tylenol PRN -Will also continue Percocet PRN and continue schedule Oxycontin - her muscle relaxer was reinitiated. Fall at home unclear etiology fall precautions history of ulcerative Colitis: no GI symptoms reported. onn Azathioprine and chronic Prednisone GI prophylaxis: Will continue Protonix DVT Prophylaxis: TONY Forbes Code Status: Full Code
[2016-12-17] MEDS: Lactated Ringers 1,000 ML IV SCH (05:00)
[2016-12-17] MEDS: Dicyclomine 10 MG Cap PO SCH ×2 (05:59→12:56)
[2016-12-17] MEDS: oxyCODONE ER 20 MG TAB.ER PO SCH ×2 (05:59→13:32)
[2016-12-17] MEDS: Pantoprazole 40 MG Tab.CR PO SCH (05:59)
[2016-12-17 06:51] LABS: CHLORIDE,CL 102 mmol/L (101-111); SODIUM,NA 142 mmol/L (135-145)
[2016-12-17] MEDS ORDERED: Lisinopril 5 MG Tab PO SCH (09:00)
[2016-12-17] MEDS ORDERED: DULoxetine 30 MG Cap PO SCH (09:00)
[2016-12-17] MEDS: Bacitracin Oint 28.35 GM Tube TOP SCH ×2 (09:47→13:32)
[2016-12-17] MEDS: Enoxaparin 40 MG/0.4 ML Syringe SUBCUT SCH (09:48)
[2016-12-17] MEDS: Pregabalin 75 MG Cap PO SCH (09:49)
[2016-12-17] MEDS: predniSONE 5 MG Tab PO SCH (09:49)
[2016-12-17] MEDS: Cyclobenzaprine 10 MG Tab PO PRN (09:50)
[2016-12-17] MEDS: SYMBICORT INH SCH (10:00)
[2016-12-17 11:12] VITALS: BP 106/71
--- NOTE | 2017-01-06 15:14 | DISCH ---
FINAL DIAGNOSES: 1. Elevated CK. 2. Right buttock pain. 3. Falls. 4. History of ulcerative colitis. 5. Abnormal urinary tract infection. BRIEF HISTORY AND PHYSICAL EXAMINATION: The patient is a 41-year-old female, who was admitted because of a fall and was noted to have elevated CK on admission. The patient cannot clearly recall how she fell, but her mom could not get her up from a floor, and hence she was sent to the emergency room. PAST MEDICAL HISTORY: Ulcerative colitis, rheumatoid arthritis, panic attack, migraine headaches, hypertension, fibromyalgia, anxiety, and COPD. The patient has history of elevated CK/rhabdomyolysis in the past and needed to be transferred to [place]. PHYSICAL EXAMINATION: On admission, documented physical exam showed blood pressure 115/75, heart rate of 105 beats per minute, respirations 18 breaths per minute, oxygen saturation 100%, and temperature 36.4. General Appearance: Alert and cooperative. Extremities: Unremarkable. Skin: Warm, dry, and intact. No focal deficits. LABORATORY DATA: Workup done in the hospital showed the initial CK at 4298, and this started to trend down. The latest CK was 849. Initial BMP showed sodium 136, creatinine 1.4, potassium 4.7, GFR of 41, Initial WBC 13.3, hemoglobin 12.6. Urinalysis on admission showed urine WBC 5-10 with negative leukocyte esterase, and few epithelial cells. Urine culture showed no growth. HOSPITAL COURSE: The patient was admitted under medical-surgical bed. The patient was hydrated with normal saline at 100 mL/h. Strict I and O recording. CK was followed and BMP was also checked. She was also started on IV ceftriaxone for the abnormal urinalysis. She was started on as needed Percocet and OxyContin for the right buttock pain after a fall. The rest of her medications for her comorbidities were continued. During her stay, the patient's pain has been improving. No nausea, vomiting. Appetite has been good and making good urine output. At some point, she complained again of right buttocks pain. Then, we have restarted her muscle relaxer. Otherwise, she remains hemodynamically stable. Vital signs on discharge; blood pressure 106/71, heart rate of 84 beats per minute, respirations 20 breaths per minute, oxygen saturation 99%, and temperature 36.3. DISCHARGE INSTRUCTIONS: The patient is stable to be discharged home. The patient is to follow up with primary care provider within one week from discharge. The patient advised adequate hydration and fall precautions. To come back to the emergency room if with emergent health concerns. [facility] /[id number]
== END 2016-12-17 13:35 | disposition home or self-care (01) | DRG 565 ==
LOC: DL.ED 05:46 → DL.MS 08:13 → UNDOADMIN 08:13 → EEVIPCON 08:13 → DL.MS 09:45 → UNDODISIN 12-17 13:35
PROVIDERS: ADMIT Internal Medicine Nephrology; ATTEND Internal Medicine Nephrology
DX: T79.6XXA Traumatic ischemia of muscle, initial encounter (principal); K51.90 Ulcerative colitis, unspecified, without complications; N39.0 Urinary tract infection, site not specified; I10 Essential (primary) hypertension; M06.9 Rheumatoid arthritis, unspecified; R31.9 Hematuria, unspecified; W18.30XA Fall on same level, unspecified, initial encounter; Y92.009 Unspecified place in unspecified non-institutional (private) residence as the place of occurrence of the external cause; S30.821A Blister (nonthermal) of abdominal wall, initial encounter; E83.51 Hypocalcemia; Z86.14 Personal history of Methicillin resistant Staphylococcus aureus infection; G43.909 Migraine, unspecified, not intractable, without status migrainosus; F32.9 Major depressive disorder, single episode, unspecified; F41.9 Anxiety disorder, unspecified; F41.0 Panic disorder [episodic paroxysmal anxiety]; M79.7 Fibromyalgia; J44.9 Chronic obstructive pulmonary disease, unspecified; H54.7 Unspecified visual loss; H91.90 Unspecified hearing loss, unspecified ear; Z79.52 Long term (current) use of systemic steroids; Z88.0 Allergy status to penicillin; Z88.2 Allergy status to sulfonamides
CPT/HCPCS: 36415; 73552; 80048; 81001; 82550; 85025; 87086; 96360; 99285; J7030 ×2; 94010; A9270-GY; J0744; J1644; J1650; J1940; J1956; J7120; J7500; Q0163

== ENCOUNTER 2017-02-12 12:21 | Inpatient (IN) | payer MEDICARE, MEDICAID ==
--- NOTE | 2017-02-12 12:46 | EDM.PDOC ---
[id number] 4d FROM CLINIC Time Seen by Provider: 02/12/17 12:46 Source of Information: Reports: Patient, Old Records, RN, RN Notes Reviewed History Limitations: Reports: No Limitations - History of Present Illness INITIAL COMMENTS - FREE TEXT/NARRATIVE: C/O generalized weakness following 2 to 3 syncopal episodes at home. Pt laid on the floor for a while, she is unsure for how long. Then she went to bed until her mother returned home. Denies chest pain, shortness of breath, N/V, TOM, palpitations, or rapid HR. Denies injury. Admits to generalized body aches. Pt is unable to provide any further history. Onset Date: 02/10/17 Duration: Recurring Location: Reports: Generalized Severity: Severe Improves with: Reports: None Worsens with: Reports: None Associated Symptoms: Reports: No Other Symptoms Lower Back Pain Score (Numeric/FACES): 8 - Related Data Allergies Allergy/AdvReac Type Severity Reaction Status Date / Time Sulfa (Sulfonamide Allergy Rash Verified 03/16/17 09:22 Antibiotics) Penicillins AdvReac Hives Verified 03/16/17 09:22 Home Meds: Home Meds Pregabalin [Lyrica] 150 mg PO BID 05/12/14 [History] predniSONE [Prednisone] 5 mg PO DAILY 05/12/14 [History] Hyoscyamine [Levsin] 0.125 mg PO QID PRN 03/17/15 [History] azaTHIOprine [Imuran] 150 mg PO DAILY 03/17/15 [History] Benzonatate [Tessalon Perles] 100 mg PO TID PRN 03/19/16 [History] ClonazePAM [KlonoPIN] 0.5 mg PO BID PRN 03/19/16 [History] Ondansetron HCl [Ondansetron] 4 mg PO Q6H PRN 03/19/16 [History] Amitriptyline HCl 200 mg PO BEDTIME 12/16/16 [History] Cyclobenzaprine [Flexeril] 10 mg PO Q8H PRN 12/16/16 [History] DULoxetine HCl [Duloxetine HCl] 60 mg PO DAILY 12/16/16 [History] Dicyclomine [Bentyl] 20 mg PO Q6H PRN 12/16/16 [History] Diclofenac Sodium [Voltaren 1% Gel] 2 gm TOP QID PRN 02/12/17 [History] tiZANidine [Zanaflex] 4 mg PO TID 02/12/17 [History] amLODIPine [Norvasc] 5 mg PO DAILY #30 tablet 02/14/17 [Rx] Acetaminophen [Tylenol Extra Strength] 500 mg PO Q4H PRN #30 tablet 03/18/17 [Rx ] Clindamycin HCl 300 mg PO Q6H #40 capsule 03/18/17 [Rx] Past Medical History HEENT History: Reports: Hard of Hearing, Impaired Vision Other HEENT History: broken and missing teeth Cardiovascular History: Reports: Hypertension Respiratory History: Reports: COPD Gastrointestinal History: Reports: None Other Gastrointestinal History: ulcerative colitis Genitourinary History: Reports: Acute Renal Failure Other Genitourinary History: this last summer [employer] History: Reports: None Musculoskeletal History: Reports: Arthritis, Fibromyalgia, RA, Other (See Below) Other Musculoskeletal History: rhabdomyolisis Neurological History: Reports: Migraines Psychiatric History: Reports: Anxiety, Depression, Panic Attack Other Psychiatric History: Patient states she is trying to wean off Oxycodone Endocrine/Metabolic History: Reports: None Hematologic History: Reports: Anemia Other Hematologic History: anemia r/t ulcerative colitis Immunologic History: Reports: None Oncologic (Cancer) History: Reports: None Dermatologic History: Reports: Cellulitis, Other (See Below) Other Dermatologic History: resolved in 2016 - Infectious Disease History Infectious Disease History: Reports: Measles, MRSA - Past Surgical History HEENT Surgical History: Reports: Other (See Below) Musculoskeletal Surgical History: Reports: Other (See Below) Social & Family History - Family History Family Medical History: Noncontributory HEENT: Reports: Impaired Vision Cardiac: Reports: Other (See Below) Other Cardiac Family History: Aortic valve problems Respiratory: Reports: COPD GI: Reports: None : Reports: None OBGYN: Reports: None Musculoskeletal: Reports: Arthritis, Fibromyalgia Neurological: Reports: CVA Psychiatric: Reports: None Endocrine/Metabolic: Reports: None Hematologic: Reports: None Immunologic: Reports: None Dermatologic: Reports: None Oncologic: Reports: Colon - Tobacco Use Smoking Status *Q: Never Smoker Second Hand Smoke Exposure: No - Caffeine Use Caffeine Use: Reports: Soda Other Caffeine Use: 5 Cokes per day - Alcohol Use Days Per Week of Alcohol Use: 0 - Recreational Drug Use Recreational Drug Use: No - Living Situation & Occupation Living situation: Reports: Single, with Family Occupation: Disabled ED ROS GENERAL - Review of Systems Review Of Systems: ROS reveals no pertinent complaints other than HPI. - Physical Exam Exam: See Below Exam Limited By: No Limitations General Appearance: Alert, WD/WN, No Apparent Distress Eye Exam: Bilateral Eye: Normal Inspection Ears: Hearing Grossly Normal Nose: Normal Inspection, Normal Mucosa, No Blood Throat/Mouth: Normal Inspection, Normal Lips, Normal Oropharynx, Normal Voice, No Airway Compromise Head Exam: Atraumatic, Normocephalic Neck: Normal Inspection, Supple, Non-Tender, Full Range of Motion Respiratory/Chest: No Respiratory Distress, Lungs Clear, Normal Breath Sounds, No Accessory Muscle Use, Chest Non-Tender Cardiovascular: Normal Peripheral Pulses, Regular Rate, Rhythm, No Gallop, No JVD, No Murmur, No Rub, Other (nonpitting B/L pedal edema) GI/Abdominal: Normal Bowel Sounds, Soft, Non-Tender, No Distention, No Abnormal Bruit, Other (benign obese abdomen). No: Guarding, Rigid, Rebound (Female) Exam: Deferred Rectal (Female) Exam: Deferred Neuro Exam (Abbreviated): Alert, Oriented, CN II-XII Intact, Normal Cognition, No Motor/Sensory Deficits, Other (generalized weakness) Back Exam: Normal Inspection Extremities: Normal Range of Motion, Non-Tender, Normal Capillary Refill, Pedal Edema Psychiatric: Normal Affect, Normal Mood Skin Exam: Warm, Dry, Intact, Normal Color, No Rash EKG INTERPRETATION EKG Date: 02/12/17 Time: 12:47 Rhythm: Other (SR) Rate (Beats/Min): 84 [place]: Normal P-Wave: Present QRS: Other ST-T: Normal QT: Normal ID/PQ Interval: borderline prolonged ID interval Comparison: No Change Course - Vital Signs Last Recorded V/S: Last Vital Signs Temp 36.6 C 02/14/17 08:17 Pulse 80 02/14/17 08:17 Resp 20 02/14/17 08:17 BP 100/66 02/14/17 08:17 Pulse Ox 95 02/14/17 08:17 Orthostatic Blood Pressure [ 63/26 Standing] Orthostatic Blood Pressure [ 85/49 Sitting] Orthostatic Blood Pressure [ 84/54 Supine] - Orders/Labs/Meds Labs: Laboratory Tests 02/12/17 02/12/17 02/12/17 Range/Units 12:50 12:54 12:54 WBC 12.9 H (5.0-10.0) 10^3/uL RBC 3.71 L (4.2-5.4) 10^6/uL Hgb 11.9 L (12.0-16.0) g/dL Hct 37.6 (37.0-47.0) % MCV 101.3 H (80-100) fL MCH 32.1 (27.0-34.0) pg MCHC 31.6 L (33.0-35.0) g/dL Plt Count 336 (150-450) 10^3/uL Neut % (Auto) 75.3 H (42.2-75.2) % Lymph % (Auto) 16.6 L (20.5-50.1) % [place] % (Auto) 6.1 (2-8) % Eos % (Auto) 1.8 (1.0-3.0) % Baso % (Auto) 0.2 (0.0-1.0) % D-Dimer, Quantitative (0-400) ng/mL Sodium 133 L (135-145) mmol/L Potassium 4.7 (3.6-5.0) mmol/L Chloride 98 L (101-111) mmol/L Carbon Dioxide 25.0 (21.0-31.0) mmol/L Anion Gap 14.7 BUN 27 H (7-18) mg/dL Creatinine 2.3 H (0.6-1.3) mg/dL Est Cr Clr Drug Dosing TNP Estimated GFR (MDRD) 23 BUN/Creatinine Ratio 11.73 Glucose 99 (74-105) mg/dL Lactic Acid (0.5-2.2) mmol/L Calcium 9.2 (8.4-10.2) mg/dl Magnesium 1.9 (1.8-2.5) mg/dL Total Bilirubin 0.6 (0.2-1.0) mg/dL AST 40 (10-42) IU/L ALT 22 (10-60) IU/L Alkaline Phosphatase 95 (42-121) IU/L Ammonia 21 (11-35) umol/L Creatine Kinase 3264 H (26-174) IU/L Troponin I < 0.02 (0.00-0.02) ng/ml B-Natriuretic Peptide < 5 (0-100) pg/ml Total Protein 7.1 (6.7-8.2) g/dl Albumin 4.4 (3.2-5.5) g/dl Globulin 2.7 Albumin/Globulin Ratio 1.63 Amylase 26 L (28-100) U/L Lipase 13 L (22-51) U/L TSH, Ultra Sensitive (0.35-7.0) uIu/mL Urine Color (YELLOW) Urine Appearance (CLEAR) Urine pH (5.0-9.0) Ur Specific [place] (1.005-1.030) Urine Protein (NEGATIVE) Urine Glucose (UA) (NEGATIVE) Urine Ketones (NEGATIVE) Urine Occult Blood (NEGATIVE) Urine Nitrite (NEGATIVE) Urine Bilirubin (NEGATIVE) Urine Urobilinogen (0.2-1.0) mg/dL Ur Leukocyte Esterase (NEGATIVE) Urine RBC /HPF Urine WBC (0-5/HPF) /HPF Ur Epithelial Cells /HPF Urine Bacteria (0-FEW/HPF) /HPF Urine Mucus /LPF Urine HCG, Qual Urine Opiates Screen (NEGATIVE) Ur Oxycodone Screen (NEGATIVE) Urine Methadone Screen (NEGATIVE) Ur Barbiturates Screen (NEGATIVE) U Tricyclic Antidepress (NEGATIVE) Ur Phencyclidine Scrn (NEGATIVE) Ur Amphetamine Screen (NEGATIVE) U Methamphetamines Scrn (NEGATIVE) Urine MDMA Screen (NEGATIVE) U Benzodiazepines Scrn (NEGATIVE) Urine Cocaine Screen (NEGATIVE) U Marijuana (THC) Screen (NEGATIVE) Ethyl Alcohol < 5 mg/dL 02/12/17 02/12/17 02/12/17 Range/Units 12:54 12:54 12:54 WBC (5.0-10.0) 10^3/uL RBC (4.2-5.4) 10^6/uL Hgb (12.0-16.0) g/dL Hct (37.0-47.0) % MCV (80-100) fL MCH (27.0-34.0) pg MCHC (33.0-35.0) g/dL Plt Count (150-450) 10^3/uL Neut % (Auto) (42.2-75.2) % Lymph % (Auto) (20.5-50.1) % [place] % (Auto) (2-8) % Eos % (Auto) (1.0-3.0) % Baso % (Auto) (0.0-1.0) % D-Dimer, Quantitative 4490 H (0-400) ng/mL Sodium (135-145) mmol/L Potassium (3.6-5.0) mmol/L Chloride (101-111) mmol/L Carbon Dioxide (21.0-31.0) mmol/L Anion Gap BUN (7-18) mg/dL Creatinine (0.6-1.3) mg/dL Est Cr Clr Drug Dosing Estimated GFR (MDRD) BUN/Creatinine Ratio Glucose (74-105) mg/dL Lactic Acid 1.0 (0.5-2.2) mmol/L Calcium (8.4-10.2) mg/dl Magnesium (1.8-2.5) mg/dL Total Bilirubin (0.2-1.0) mg/dL AST (10-42) IU/L ALT (10-60) IU/L Alkaline Phosphatase (42-121) IU/L Ammonia (11-35) umol/L Creatine Kinase (26-174) IU/L Troponin I (0.00-0.02) ng/ml B-Natriuretic Peptide (0-100) pg/ml Total Protein (6.7-8.2) g/dl Albumin (3.2-5.5) g/dl Globulin Albumin/Globulin Ratio Amylase (28-100) U/L Lipase (22-51) U/L TSH, Ultra Sensitive 2.49 (0.35-7.0) uIu/mL Urine Color (YELLOW) Urine Appearance (CLEAR) Urine pH (5.0-9.0) Ur Specific [place] (1.005-1.030) Urine Protein (NEGATIVE) Urine Glucose (UA) (NEGATIVE) Urine Ketones (NEGATIVE) Urine Occult Blood (NEGATIVE) Urine Nitrite (NEGATIVE) Urine Bilirubin (NEGATIVE) Urine Urobilinogen (0.2-1.0) mg/dL Ur Leukocyte Esterase (NEGATIVE) Urine RBC /HPF Urine WBC (0-5/HPF) /HPF Ur Epithelial Cells /HPF Urine Bacteria (0-FEW/HPF) /HPF Urine Mucus /LPF Urine HCG, Qual Urine Opiates Screen (NEGATIVE) Ur Oxycodone Screen (NEGATIVE) Urine Methadone Screen (NEGATIVE) Ur Barbiturates Screen (NEGATIVE) U Tricyclic Antidepress (NEGATIVE) Ur Phencyclidine Scrn (NEGATIVE) Ur Amphetamine Screen (NEGATIVE) U Methamphetamines Scrn (NEGATIVE) Urine MDMA Screen (NEGATIVE) U Benzodiazepines Scrn (NEGATIVE) Urine Cocaine Screen (NEGATIVE) U Marijuana (THC) Screen (NEGATIVE) Ethyl Alcohol mg/dL 02/12/17 02/12/17 02/12/17 Range/Units 14:47 14:47 14:47 WBC (5.0-10.0) 10^3/uL RBC (4.2-5.4) 10^6/uL Hgb (12.0-16.0) g/dL Hct (37.0-47.0) % MCV (80-100) fL MCH (27.0-34.0) pg MCHC (33.0-35.0) g/dL Plt Count (150-450) 10^3/uL Neut % (Auto) (42.2-75.2) % Lymph % (Auto) (20.5-50.1) % [place] % (Auto) (2-8) % Eos % (Auto) (1.0-3.0) % Baso % (Auto) (0.0-1.0) % D-Dimer, Quantitative (0-400) ng/mL Sodium (135-145) mmol/L Potassium (3.6-5.0) mmol/L Chloride (101-111) mmol/L Carbon Dioxide (21.0-31.0) mmol/L Anion Gap BUN (7-18) mg/dL Creatinine (0.6-1.3) mg/dL Est Cr Clr Drug Dosing Estimated GFR (MDRD) BUN/Creatinine Ratio Glucose (74-105) mg/dL Lactic Acid (0.5-2.2) mmol/L Calcium (8.4-10.2) mg/dl Magnesium (1.8-2.5) mg/dL Total Bilirubin (0.2-1.0) mg/dL AST (10-42) IU/L ALT (10-60) IU/L Alkaline Phosphatase (42-121) IU/L Ammonia (11-35) umol/L Creatine Kinase (26-174) IU/L Troponin I (0.00-0.02) ng/ml B-Natriuretic Peptide (0-100) pg/ml Total Protein (6.7-8.2) g/dl Albumin (3.2-5.5) g/dl Globulin Albumin/Globulin Ratio Amylase (28-100) U/L Lipase (22-51) U/L TSH, Ultra Sensitive (0.35-7.0) uIu/mL Urine Color Yellow (YELLOW) Urine Appearance Slightly cloudy (CLEAR) Urine pH 5.5 (5.0-9.0) Ur Specific [place] 1.020 (1.005-1.030) Urine Protein Negative (NEGATIVE) Urine Glucose (UA) Negative (NEGATIVE) Urine Ketones Negative (NEGATIVE) Urine Occult Blood Negative (NEGATIVE) Urine Nitrite Negative (NEGATIVE) Urine Bilirubin Negative (NEGATIVE) Urine Urobilinogen 0.2 (0.2-1.0) mg/dL Ur Leukocyte Esterase Negative (NEGATIVE) Urine RBC 0-5 /HPF Urine WBC 0-5 (0-5/HPF) /HPF Ur Epithelial Cells Few /HPF Urine Bacteria Rare (0-FEW/HPF) /HPF Urine Mucus Few H /LPF Urine HCG, Qual Negative Urine Opiates Screen Negative (NEGATIVE) Ur Oxycodone Screen Positive H (NEGATIVE) Urine Methadone Screen Negative (NEGATIVE) Ur Barbiturates Screen Negative (NEGATIVE) U Tricyclic Antidepress Positive H (NEGATIVE) Ur Phencyclidine Scrn Negative (NEGATIVE) Ur Amphetamine Screen Negative (NEGATIVE) U Methamphetamines Scrn Negative (NEGATIVE) Urine MDMA Screen Negative (NEGATIVE) U Benzodiazepines Scrn Positive H (NEGATIVE) Urine Cocaine Screen Negative (NEGATIVE) U Marijuana (THC) Screen Negative (NEGATIVE) Ethyl Alcohol mg/dL Meds: Medications Discontinued Medications Generic Name Dose Route Start Last Admin Trade Name Freq PRN Reason Stop Dose Admin Amitriptyline HCl 200 mg 02/12/17 21:00 02/13/17 21:49 Elavil PO 200 mg BEDTIME ALINA Administration Azathioprine 150 mg 02/13/17 09:00 02/14/17 08:39 Imuran PO 150 mg DAILY ALINA Administration Bacitracin 0 gm 02/13/17 09:00 02/14/17 09:02 Bacitracin Oint TOP 1 applic DAILY ALINA Administration Clonazepam 0.5 mg 02/12/17 15:54 02/14/17 06:30 Klonopin PO 0.5 mg BID PRN Administration Anxiety Cyclobenzaprine HCl 10 mg 02/12/17 15:54 02/14/17 06:19 Flexeril PO 10 mg Q8H PRN Administration Muscle Spasm Dicyclomine HCl 20 mg 02/12/17 18:00 02/14/17 06:08 Bentyl PO 20 mg Q6H ALINA Administration Diphenhydramine HCl 50 mg 02/12/17 21:00 02/13/17 21:48 Benadryl PO 50 mg BEDTIME ALINA Administration Duloxetine HCl 60 mg 02/13/17 09:00 02/14/17 08:42 Cymbalta PO 60 mg DAILY ALINA Administration Heparin Sodium (Porcine) 5,000 units 02/12/17 22:00 02/14/17 06:14 Heparin Sodium SUBCUT 5,000 units Q8HR ALINA Administration Sodium Chloride 1,000 mls @ 999 mls/hr 02/12/17 12:49 02/12/17 13:04 Normal Saline IV 02/12/17 13:49 999 mls/hr .BOLUS ONE Administration Sodium Chloride 1,000 mls @ 999 mls/hr 02/12/17 14:05 02/12/17 14:05 Normal Saline IV 02/12/17 15:05 999 mls/hr .BOLUS ONE Administration Sodium Chloride 1,000 mls @ 75 mls/hr 02/12/17 21:15 02/14/17 04:55 Normal Saline IV 100 mls/hr ASDIRECTED ALINA Administration Mometasone Furoate/Formoterol Fumar 2 puff 02/12/17 18:00 02/14/17 07:52 Dulera 200-5 Mcg IH 2 puff BIDRT ALINA Administration Ondansetron HCl 4 mg 02/12/17 15:54 02/13/17 13:36 Zofran Odt PO 4 mg Q6H PRN Administration Nausea Oxycodone HCl 20 mg 02/12/17 21:00 02/13/17 13:38 Oxycontin PO Not Given TID ALINA Oxycodone HCl 20 mg 02/13/17 21:00 Oxycontin PO BID ALINA Oxycodone HCl 20 mg 02/13/17 10:45 02/14/17 08:39 Oxycontin PO 20 mg BID ALINA Administration Prednisone 5 mg 02/13/17 08:00 02/14/17 08:38 Prednisone PO 5 mg DAILY@0800 ALINA Administration Pregabalin 75 mg 02/12/17 21:00 02/14/17 08:40 Lyrica PO 75 mg BID ALINA Administration Sodium Chloride 10 ml 02/12/17 12:47 02/12/17 21:26 Saline Flush FLUSH 10 ml ASDIRECTED PRN Administration Keep Vein Open Departure - Departure Time of Disposition: 08:35 Disposition: Admitted As Inpatient 64 Condition: Serious Clinical Impression: Syncopal episodes Qualifiers: Syncope type: unspecified Qualified Code(s): R55 - Syncope and collapse Rhabdomyolysis Qualifiers: Rhabdomyolysis type: non-traumatic Qualified Code(s): M62.82 - Rhabdomyolysis Acute renal failure Qualifiers: Acute renal failure type: unspecified Qualified Code(s): N17.9 - Acute kidney failure, unspecified - Discharge Information
[2017-02-12] MEDS ORDERED: Sodium Chloride 0.9% 10 ML Syringe FLUSH PRN (12:47)
[2017-02-12] MEDS ORDERED: Sodium Chloride 0.9% 1,000 ML IV ONE ×2 (12:49→14:05)
--- NOTE | 2017-02-12 13:24 | CR ---
Clinical history: 41-year-old female dyspnea. Interpretation: Generally poor respiratory effort and patchy atelectasis left base. Normal cardiac silhouette without cephalization of vascular flow, signs of alveolar edema or depende nt effusion. No lung mass, hilar lymphadenopathy or focal lobar pneumonia. No pneumothorax.
[2017-02-12 13:33] LABS: CHLORIDE,CL 98 mmol/L (101-111); SODIUM,NA 133 mmol/L (135-145)
[2017-02-12] MEDS ORDERED: Ondansetron 4 MG Tab.DIS PO PRN (15:54)
--- NOTE | 2017-02-12 16:12 | PCM.HP ---
H&P History of Present Illness - General Date of Service: 02/12/17 Admit Problem/Dx: Admission Diagnosis/Problem Admission Diagnosis/Problem Renal failure Source of Information: Patient, Family (mother) - History of Present Illness Initial Comments - Free Text/Narative: the patient is a 41-year-old lady who presented with a syncopal episode. She was at the medical clinic with her mother. The mother had an appointment today. After standing up and walking to a little bit she syncopized. when the nurses checked her blood pressure it was low in the 60s systolic. the patient was transferred to the emergency room and blood pressure was 80s. - Related Data Allergies/Adverse Reactions: Allergies Allergy/AdvReac Type Severity Reaction Status Date / Time Sulfa (Sulfonamide Allergy Rash Verified 02/12/17 13:08 Antibiotics) Penicillins AdvReac Hives Verified 02/12/17 13:08 Home Medications: Home Meds Pregabalin [Lyrica] 150 mg PO BID 05/12/14 [History] predniSONE [Prednisone] 5 mg PO DAILY 05/12/14 [History] Hyoscyamine [Levsin] 0.125 mg PO QID PRN 03/17/15 [History] azaTHIOprine [Imuran] 150 mg PO DAILY 03/17/15 [History] Benzonatate [Tessalon Perles] 100 mg PO TID PRN 03/19/16 [History] ClonazePAM [KlonoPIN] 0.5 mg PO BID PRN 03/19/16 [History] Loperamide HCl [Loperamide] 4 mg PO Q1H PRN MDD 8mg 03/19/16 [History] Melatonin/Pyridoxine HCl (B6) [Melatonin 5 mg Tablet] 5 mg PO BEDTIME PRN [History] Ondansetron HCl [Ondansetron] 4 mg PO Q6H PRN 03/19/16 [History] diphenhydrAMINE HCl [Diphenhydramine HCl] 50 mg PO BEDTIME 03/19/16 [History] oxyCODONE ER [OxyCONTIN] 20 mg PO TID 03/19/16 [History] Amitriptyline HCl 200 mg PO BEDTIME 12/16/16 [History] Budesonide/Formoterol Fumarate [Symbicort 160-4.5 Mcg Inhaler] 1 puff INH BID [History] Cyclobenzaprine [Flexeril] 10 mg PO Q8H PRN 12/16/16 [History] DULoxetine HCl [Duloxetine HCl] 60 mg PO DAILY 12/16/16 [History] Dicyclomine [Bentyl] 20 mg PO Q6H 12/16/16 [History] Eletriptan HBr [Relpax] 40 mg PO ASDIRECTED PRN 12/16/16 [History] Lisinopril [Prinivil] 5 mg PO DAILY 12/16/16 [History] amLODIPine [Norvasc] 10 mg PO BEDTIME 12/16/16 [History] Past Medical History HEENT History: Reports: Hard of Hearing, Impaired Vision Other HEENT History: broken and missing teeth Cardiovascular History: Reports: Hypertension Respiratory History: Reports: COPD Gastrointestinal History: Reports: None Other Gastrointestinal History: ulcerative colitis Genitourinary History: Reports: Acute Renal Failure Other Genitourinary History: this last summer 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 Musculoskeletal History: Reports: Arthritis, Fibromyalgia, RA, Other (See Below) Other Musculoskeletal History: rhabdomyolisis Neurological History: Reports: Migraines Psychiatric History: Reports: Anxiety, Depression, Panic Attack Other Psychiatric History: Patient states she is trying to wean off Oxycodone Endocrine/Metabolic History: Reports: None Hematologic History: Reports: Anemia Other Hematologic History: anemia r/t ulcerative colitis Immunologic History: Reports: None Oncologic (Cancer) History: Reports: None Dermatologic History: Reports: Cellulitis, Other (See Below) Other Dermatologic History: resolved in 2016 - Infectious Disease History Infectious Disease History: Reports: Measles, MRSA - Past Surgical History HEENT Surgical History: Reports: Other (See Below) Cardiovascular Surgical History: Reports: Other (See Below) Musculoskeletal Surgical History: Reports: Other (See Below) Social & Family History - Family History Family Medical History: Noncontributory HEENT: Reports: Impaired Vision Cardiac: Reports: Other (See Below) Other Cardiac Family History: Aortic valve problems Respiratory: Reports: COPD GI: Reports: None : Reports: None OBGYN: Reports: None Musculoskeletal: Reports: Arthritis, Fibromyalgia Neurological: Reports: CVA Psychiatric: Reports: None Endocrine/Metabolic: Reports: None Hematologic: Reports: None Immunologic: Reports: None Dermatologic: Reports: None Oncologic: Reports: Colon - Tobacco Use Smoking Status *Q: Never Smoker Second Hand Smoke Exposure: No - Caffeine Use Caffeine Use: Reports: Soda Other Caffeine Use: 5 Cokes per day - Alcohol Use Days Per Week of Alcohol Use: 0 - Recreational Drug Use Recreational Drug Use: No - Living Situation & Occupation Living situation: Reports: Single, with Family Occupation: Disabled H&P Review of Systems - Review of Systems: Review Of Systems: See Below Free Text/Narrative: she is very sedentary. Lives with mother. According to the mother she has been drinking lots of pop but has low urine output. She is followed by pain management, rheumatology in [place]. Has a history of multiple episodes of rhabdomyolysis General: Denies: Fever Pulmonary: Denies: Shortness of Breath Cardiovascular: Denies: Chest Pain Gastrointestinal: Denies: Abdominal Pain Genitourinary: Denies: Dysuria Psychiatric: Denies: Confusion, Depression Exam - Exam Exam: See Below - Vital Signs Vital Signs: Last Vital Signs Temp 36.6 C 02/12/17 15:59 Pulse 87 02/12/17 15:59 Resp 18 02/12/17 15:59 BP 105/59 L 02/12/17 15:59 Pulse Ox 92 L 02/12/17 15:59 Weight: 104.598 kg - Exam General: Alert, Oriented Neck: Supple Lungs: Clear to Auscultation, Normal Respiratory Effort Cardiovascular: Regular Rate Abdomen: Normal Bowel Sounds, Soft Extremities: Normal Inspection. No: Edema Skin: Warm, Dry, Other (Left lower leg with an area of bruise) - Patient Data Result Diagrams: 02/12/17 12:54 02/12/17 12:54 *Q Meaningful Use (ADM) - VTE *Q VTE Criteria *Q: - Stroke *Q Stroke Criteria *Q: - AMI *Q AMI Criteria *Q: - Problem List (1) Syncopal episodes SNOMED Code(s): 353057891 ICD Code: R55 - SYNCOPE AND COLLAPSE Status: Acute Current Visit: Yes (2) Hypotension SNOMED Code(s): 91168926 ICD Code: I95.9 - HYPOTENSION, UNSPECIFIED Status: Acute Current Visit: Yes (3) Acute renal failure SNOMED Code(s): 05316874 ICD Code: N17.9 - ACUTE KIDNEY FAILURE, UNSPECIFIED Status: Acute Current Visit: Yes (4) Rhabdomyolysis SNOMED Code(s): 457197997 ICD Code: M62.82 - RHABDOMYOLYSIS Status: Acute Current Visit: No Qualifiers: Rhabdomyolysis type: non-traumatic Qualified Code(s): M62.82 - Rhabdomyolysis (5) Rheumatoid arthritis SNOMED Code(s): 81777754 ICD Code: M06.9 - RHEUMATOID ARTHRITIS, UNSPECIFIED Status: Acute Current Visit: No Qualifiers: Rheumatoid arthritis location: multiple sites Rheumatoid factor presence: unspecified presence Qualified Code(s): M06.9 - Rheumatoid arthritis, unspecified (6) Ulcerative colitis SNOMED Code(s): 07075083 ICD Code: K51.90 - ULCERATIVE COLITIS, UNSPECIFIED, WITHOUT COMPLICATIONS Status: Acute Current Visit: No Problem List Initiated/Reviewed/Updated: Yes Orders Last 24hrs: Active Orders 24 hr Category Date Time Status Patient Status [ADT] Routine ADT 02/12/17 15:59 Active Antiembolic Devices [RC] PER UNIT ROUTINE Care 02/12/17 16:01 Active Oxygen Therapy [RC] PRN Care 02/12/17 15:59 Active Up With Assistance [RC] ASDIRECTED Care 02/12/17 15:59 Active VTE/DVT Education [RC] PER UNIT ROUTINE Care 02/12/17 15:59 Active Vital Signs [RC] Q4H Care 02/12/17 15:59 Active OT Evaluation and Treatment [CONS] Routine Cons 02/12/17 15:59 Active PT Evaluation and Treatment [CONS] Routine Cons 02/12/17 15:59 Active Regular Diet [DIET] Diet 02/12/17 Dinner Active Amitriptyline HCl [Amitriptyline HCl] Med 02/12/17 21:00 Ordered 200 mg PO BEDTIME ClonazePAM [KlonoPIN] Med 02/12/17 15:54 Ordered 0.5 mg PO BID PRN Cyclobenzaprine [Flexeril] Med 02/12/17 15:54 Ordered 10 mg PO Q8H PRN DULoxetine HCl [Duloxetine HCl] Med 02/13/17 09:00 Ordered 60 mg PO DAILY Dicyclomine [Bentyl] Med 02/12/17 16:00 Ordered 20 mg PO Q6H Heparin Sodium Med 02/12/17 22:00 Ordered 5,000 units SUBCUT Q8HR Mometasone/Formoterol [Dulera 200-5 MCG] Med 02/12/17 18:00 Ordered 2 puff IH BIDRT Ondansetron Med 02/12/17 15:54 Ordered 4 mg PO Q6H PRN Pregabalin [Lyrica] Med 02/12/17 21:00 Ordered 75 mg PO BID azaTHIOprine [Imuran] Med 02/13/17 09:00 Ordered 150 mg PO DAILY diphenhydrAMINE HCl [Diphenhydramine HCl] Med 02/12/17 21:00 Ordered 50 mg PO BEDTIME oxyCODONE ER [OxyCONTIN] Med 02/12/17 21:00 Ordered 20 mg PO TID predniSONE [Prednisone] Med 02/13/17 09:00 Ordered 5 mg PO DAILY Antiembolic Hose [OM.PC] Per Unit Routine Oth 02/12/17 16:00 Ordered Resuscitation Status Routine Resus Stat 02/12/17 15:59 Ordered Medication Orders Azathioprine (Imuran) 150 mg PO DAILY [facility] Clonazepam (Klonopin) 0.5 mg PO BID PRN PRN Reason: Anxiety Cyclobenzaprine HCl (Flexeril) 10 mg PO Q8H PRN PRN Reason: Muscle Spasm Heparin Sodium (Porcine) (Heparin Sodium) 5,000 units SUBCUT Q8HR [facility] Mometasone Furoate/Formoterol Fumar (Dulera 200-5 Mcg) 2 puff IH BIDRT [facility] Non-Formulary Medication (Amitriptyline Hcl [Amitriptyline Hcl]) 200 mg PO BEDTIME [facility] Non-Formulary Medication (Duloxetine Hcl [Duloxetine Hcl]) 60 mg PO DAILY [facility] Non-Formulary Medication (Dicyclomine [Bentyl]) 20 mg PO Q6H [facility] Non-Formulary Medication (Ondansetron) 4 mg PO Q6H PRN PRN Reason: Nausea Non-Formulary Medication (Pregabalin [Lyrica]) 75 mg PO BID [facility] Non-Formulary Medication (Diphenhydramine Hcl [Diphenhydramine Hcl]) 50 mg PO BEDTIME [facility] Non-Formulary Medication (Prednisone [Prednisone]) 5 mg PO DAILY [facility] Oxycodone HCl (Oxycontin) 20 mg PO TID [facility] Sodium Chloride (Saline Flush) 10 ml FLUSH ASDIRECTED PRN PRN Reason: Keep Vein Open Assessment/Plan Comment:: Syncopal episode Likely Secondary to orthostatic hypotension Start ROXY inhibitor, Norvasc Treat with IV fluids Acute renal failure The urine appears concentrated, Might be related to dehydration although the BUN /creatinine ratio does not go along with that hold ROXY inhibitor Give IV fluids Follow electrolytes and renal function test Urinary catheter for measuring input output Hyponatremia Give IV fluids Recheck in the morning Rhabdomyolysis Treat with IV hydration Recheck CPK in the morning Complaints of jerkiness Likely due to renal failure Multiple centrally acting medications Cut back on Lyrica Ulcerative colitis and rheumatoid arthritis Continue Imuran, Prednisone Leukocytosis urinalysis appears negative for infection Will obtain blood cultures Chest x-ray appears negative For now hold antibiotics Asthma Continue inhalers Change Symbicort to formulary Dulera Small left leg wound Appears a bruise No apparent cellulitis around it DVT prophylaxis subcutaneous heparin
[2017-02-12] MEDS: Dicyclomine 10 MG Cap PO SCH ×2 (17:55→23:47)
[2017-02-12] MEDS: Formoterol/Mometasone 200-5 MCG 8.8 GM Inhaler IH SCH (17:59)
[2017-02-12] MEDS: Cyclobenzaprine 10 MG Tab PO PRN (20:11)
[2017-02-12] MEDS: Sodium Chloride 0.9% 1,000 ML IV SCH (21:26)
[2017-02-12] MEDS: Pregabalin 75 MG Cap PO SCH (23:27)
[2017-02-12] MEDS: Amitriptyline 25 MG Tab PO SCH (23:31)
[2017-02-12] MEDS: Heparin Sodium 5,000 Units/ML Vial SUBCUT SCH (23:31)
[2017-02-13] MEDS: diphenhydrAMINE 50 MG Cap PO SCH ×2 (00:37→21:48)
[2017-02-13] MEDS: oxyCODONE ER 20 MG TAB.ER PO SCH ×4 (00:37→21:48)
[2017-02-13] MEDS: Dicyclomine 10 MG Cap PO SCH ×3 (05:54→17:20)
[2017-02-13] MEDS: Cyclobenzaprine 10 MG Tab PO PRN (05:54)
[2017-02-13] MEDS: Heparin Sodium 5,000 Units/ML Vial SUBCUT SCH ×3 (05:54→21:49)
[2017-02-13] MEDS: ClonazePAM 0.5 MG Tab PO PRN ×2 (06:02→17:21)
[2017-02-13] MEDS: Sodium Chloride 0.9% 1,000 ML IV SCH ×2 (07:52→17:29)
[2017-02-13] MEDS: Formoterol/Mometasone 200-5 MCG 8.8 GM Inhaler IH SCH ×2 (09:11→17:22)
[2017-02-13] MEDS: predniSONE 5 MG Tab PO SCH (09:12)
[2017-02-13] MEDS: Pregabalin 75 MG Cap PO SCH ×2 (10:15→21:48)
[2017-02-13] MEDS: DULoxetine 30 MG Cap PO SCH (10:16)
--- NOTE | 2017-02-13 10:18 | PCM.PN ---
- General Info Date of Service: 02/13/17 Admission Dx/Problem (Free Text): Admission Diagnosis/Problem Admission Diagnosis/Problem Renal failure and Rhabdomyolysis Subjective Update: pt feels better today and still on [place] oxygen, slept well, No nausea or Vomiting , appetite is good and says she feels dizzy at home ( chronic) Functional Status: Reports: pain controlled, tolerating diet, ambulating, urinating (Has Floey catheter) - Review of Systems General: Reports: Weakness, Fatigue, Appetite (good). Denies: Fever, Chills HEENT: Denies: ear pain, headaches, sinus congestion, visual changes Pulmonary: Denies: shortness of breath, pleuritic chest pain, cough, sputum, wheezing Cardiovascular: Reports: Lightheadedness. Denies: Chest Pain, Dyspnea on Exertion, Orthopnea Gastrointestinal: Denies: Abdominal pain, Decreased appetite, Diarrhea, Difficulty swallowing, Nausea, Vomiting Genitourinary: Denies: dysuria, frequency, burning, incontinence, flank pain Musculoskeletal: Reports: other (Rt ankle pain ). Denies: neck pain, shoulder pain, hand pain Skin: Reports: bruising. Denies: cyanosis, jaundice, pruritis, rash Neurological: Reports: Dizziness. Denies: Syncope, Tingling, Tremors, Trouble Speaking, Change in Speech, Gait Disturbance Psychiatric: Reports: depression. Denies: anxiety, agitation, hallucinations - Patient Data Vitals - most recent: Last Vital Signs Temp 36.8 C 02/13/17 08:09 Pulse 84 02/13/17 08:09 Resp 20 02/13/17 08:09 BP 92/59 L 02/13/17 08:09 Pulse Ox 94 L 02/13/17 08:09 Weight - most recent: 104.598 kg I&O - last 24 hours: Intake & Output 02/12/17 02/13/17 02/13/17 22:59 06:59 14:59 Intake Total 1000 Balance 1000 Lab Results last 24 hrs: Laboratory Results - last 24 hr 02/13/17 02/13/17 Range/Units 06:32 06:32 WBC 7.2 (5.0-10.0) 10^3/uL RBC 3.33 L (4.2-5.4) 10^6/uL Hgb 11.1 L (12.0-16.0) g/dL Hct 33.4 L (37.0-47.0) % MCV 100.3 H (80-100) fL MCH 33.3 (27.0-34.0) pg MCHC 33.2 (33.0-35.0) g/dL Plt Count 293 (150-450) 10^3/uL Neut % (Auto) 63.6 (42.2-75.2) % Lymph % (Auto) 27.9 (20.5-50.1) % [place] % (Auto) 5.3 (2-8) % Eos % (Auto) 2.9 (1.0-3.0) % Baso % (Auto) 0.3 (0.0-1.0) % Sodium 138 (135-145) mmol/L Potassium 4.4 (3.6-5.0) mmol/L Chloride 105 (101-111) mmol/L Carbon Dioxide 26.0 (21.0-31.0) mmol/L Anion Gap 11.4 BUN 18 (7-18) mg/dL Creatinine 1.4 H (0.6-1.3) mg/dL Est Cr Clr Drug Dosing 44.74 mL/min Estimated GFR (MDRD) 41 Glucose 110 H (74-105) mg/dL Calcium 8.6 (8.4-10.2) mg/dl Med Orders - Current: Current Medications Amitriptyline HCl (Elavil) 200 mg PO BEDTIME [facility] Last Admin: 02/12/17 23:31 Dose: 200 mg Azathioprine (Imuran) 150 mg PO DAILY [facility] Bacitracin (Bacitracin Oint) 0 gm TOP DAILY [facility] Clonazepam (Klonopin) 0.5 mg PO BID PRN PRN Reason: Anxiety Last Admin: 02/13/17 06:02 Dose: 0.5 mg Cyclobenzaprine HCl (Flexeril) 10 mg PO Q8H PRN PRN Reason: Muscle Spasm Last Admin: 02/13/17 05:54 Dose: 10 mg Dicyclomine HCl (Bentyl) 20 mg PO Q6H [facility] Last Admin: 02/13/17 05:54 Dose: 20 mg Diphenhydramine HCl (Benadryl) 50 mg PO BEDTIME [facility] Last Admin: 02/13/17 00:37 Dose: Not Given Duloxetine HCl (Cymbalta) 60 mg PO DAILY [facility] Heparin Sodium (Porcine) (Heparin Sodium) 5,000 units SUBCUT Q8HR [facility] Last Admin: 02/13/17 05:54 Dose: 5,000 units Sodium Chloride (Normal Saline) 1,000 mls @ 100 mls/hr IV ASDIRECTED [facility] Last Admin: 02/13/17 07:52 Dose: 100 mls/hr Mometasone Furoate/Formoterol Fumar (Dulera 200-5 Mcg) 2 puff IH BIDRT [facility] Last Admin: 02/13/17 09:11 Dose: 2 puff Ondansetron HCl (Zofran Odt) 4 mg PO Q6H PRN PRN Reason: Nausea Oxycodone HCl (Oxycontin) 20 mg PO BID [facility] Prednisone (Prednisone) 5 mg PO DAILY@0800 [facility] Last Admin: 02/13/17 09:12 Dose: 5 mg Pregabalin (Lyrica) 75 mg PO BID [facility] Last Admin: 02/12/17 23:27 Dose: 75 mg Sodium Chloride (Saline Flush) 10 ml FLUSH ASDIRECTED PRN PRN Reason: Keep Vein Open Last Admin: 02/12/17 21:26 Dose: 10 ml Discontinued Medications Sodium Chloride (Normal Saline) 1,000 mls @ 999 mls/hr IV .BOLUS ONE Stop: 02/12/17 13:49 Last Admin: 02/12/17 13:04 Dose: 999 mls/hr Sodium Chloride (Normal Saline) 1,000 mls @ 999 mls/hr IV .BOLUS ONE Stop: 02/12/17 15:05 Last Admin: 02/12/17 14:05 Dose: 999 mls/hr Oxycodone HCl (Oxycontin) 20 mg PO TID [facility] Last Admin: 02/13/17 00:37 Dose: Not Given - Exam Quality Assessment: supplemental oxygen, urine catheter, DVT prophylaxis General: alert, oriented, cooperative, no acute distress HEENT: Pupils equal, Pupils reactive, Mucous membr. moist/pink Neck: supple, no JVD, no thyromegaly. No: lymphadenopathy Lungs: Clear to auscultation, Normal respiratory effort. No: Crackles, Wheezing Cardiovascular: Regular Rate, Regular Rhythm, No Murmurs Abdomen: bowel sounds present, soft, no tenderness, no distension (Female) Exam: Deferred Back Exam: Normal Inspection, Full Range of Motion Extremities: no edema, no clubbing, no calf tenderness Skin: warm, dry, intact Neurological: no new focal deficit Psy/Mental Status: alert, normal affect, normal mood - Problem List & Annotations (1) Acute renal failure SNOMED Code(s): 85648439 Code(s): N17.9 - ACUTE KIDNEY FAILURE, UNSPECIFIED Status: Acute Current Visit: Yes (2) Hypotension SNOMED Code(s): 83625427 Code(s): I95.9 - HYPOTENSION, UNSPECIFIED Status: Acute Current Visit: Yes (3) Syncopal episodes SNOMED Code(s): 248823579 Code(s): R55 - SYNCOPE AND COLLAPSE Status: Acute Current Visit: Yes - Problem List Review Problem List Initiated/Reviewed/Updated: Yes - My Orders Last 24 Hours: My Active Orders 02/12/17 21:15 Sodium Chloride 0.9% [Normal Saline] 1,000 ml IV ASDIRECTED 02/13/17 09:00 Bacitracin [Bacitracin Oint] See Dose Instructions TOP DAILY 02/13/17 09:52 CREATINE KINASE,CK [CHEM] Routine 02/13/17 21:00 oxyCODONE ER [OxyCONTIN] 20 mg PO BID - Plan Plan:: This is a 41 y/O F with past medical history of Rheumatoid arthritis, Ulcerative Colitis, Migraine Headache, Depression admitted after syncopal episode at home 1.Syncopal episode -Likely Secondary to orthostatic hypotension -Will hold anti-HTN Medicationh -Continue NS at 75 ml/hr -Hold Lisinopril ( was at 5 mg daily) and Amlodipine ( was at 10 mg daily) 2. Acute renal failure, This is likely from relative hypotension and the presence of ROXY - will continue holding ROXY inhibitor - Continue NS at 75 ml/hr -Continue Urinary catheter for measuring input output -Renal function is Improving 3. Hyponatremia: This is likely from Hypovolemic Hyponatemia - Continue IV fluids - Sodium is Improving 4. Rhabdomyolysis: the etriology not clear - Treat with IV hydration - Recheck CPK in the morning 5. Complaints of jerkiness -Likely from too many pain medication s -Cut back on Lyrica -Follow corey PMD for gradual withdrawl of pain Medication 6. Ulcerative colitis and rheumatoid arthritis - Continue Imuran, Prednisone and follow tenant coordinator 7. Leukocytosis: Likely from Prednidone and Dehydration - urinalysis negative for infection - Will follow blood cultures, no growth - Chest x-ray appears negative - Improved with hydration and not on antibiotics 8. Asthma Continue inhalers Change Symbicort to formulary Dulera 9. Small left leg wound - Appears a bruise No apparent cellulitis will apply bacitracin ointment topically daily 10. DVT prophylaxis subcutaneous heparin
[2017-02-13] MEDS: Bacitracin Oint 28.35 GM Tube TOP SCH (10:26)
[2017-02-13] MEDS ORDERED: oxyCODONE ER 20 MG TAB.ER PO SCH (21:00)
[2017-02-13] MEDS: Amitriptyline 25 MG Tab PO SCH (21:49)
[2017-02-14] MEDS: Dicyclomine 10 MG Cap PO SCH ×2 (01:01→06:08)
[2017-02-14] MEDS: Sodium Chloride 0.9% 1,000 ML IV SCH (04:55)
[2017-02-14] MEDS: Heparin Sodium 5,000 Units/ML Vial SUBCUT SCH (06:14)
[2017-02-14] MEDS: Cyclobenzaprine 10 MG Tab PO PRN (06:19)
[2017-02-14] MEDS: ClonazePAM 0.5 MG Tab PO PRN (06:30)
[2017-02-14] MEDS: Formoterol/Mometasone 200-5 MCG 8.8 GM Inhaler IH SCH (07:52)
[2017-02-14 08:18] VITALS: BP 100/66
[2017-02-14] MEDS: predniSONE 5 MG Tab PO SCH (08:38)
[2017-02-14] MEDS: oxyCODONE ER 20 MG TAB.ER PO SCH (08:39)
[2017-02-14] MEDS: Pregabalin 75 MG Cap PO SCH (08:40)
[2017-02-14] MEDS: DULoxetine 30 MG Cap PO SCH (08:42)
[2017-02-14] MEDS: Bacitracin Oint 28.35 GM Tube TOP SCH (09:02)
--- NOTE | 2017-02-14 10:54 | PCM.DCSUM1 ---
Discharge Summary - Hospital Course Free Text/Narrative:: This is a 41 y/O F admitted after syncopal episode at home. She was hypotensive and her BP medication placed on hold and was given IV fluids, She also had elevated CK and it's progressively coming down. On admission she was also noted to have Acute Kidney Injury with creatinine on 2.3 mg/dl and with hydration she improved and on Discharge Creatinine was at 1.2 mg/dl. Will continue to hold her Lisinopril ( was at 5 mg daily) and take Amlodipine at 5 mg daily if SBP> 120 mmHg > She is advised to follow at [facility] [place] with me on 03/05/17 at 8:40 AM with labs. She is also advise to follow with PMD in a week after Discharge and Advise to call [facility] ( [place]) at with BP readings on 02/17/17 HPI Initial Comments: This is a 41 y/O F with past medical history of Rheumatoid arthritis, Ulcerative Colitis, Migraine Headache, Depression admitted after syncopal episode at home. She was hypotensive and her BP medication placed on hold and was given IV fluids, She also had elevated CK and it's progressively coming down. On admission she was also noted to have Acute Kidney Injury with creatinine on 2.3 mg/dl and with hydration she improved and on Discharge Creatinine was at 1.2 mg/dl. Will continue to hold her Lisinopril ( was at 5 mg daily) and take Amlodipine at 5 mg daily if SBP>120 mmHg > She is advised to follow at [facility] with me on 03/05/17 at 8:40 AM with labs. She is also advise to follow with PMD in a week after Discharge and Advise to call [facility] at [phone] with BP readings on 02/17/17 Brief History: She is doing well, renal function is back to base line and BP is stable. she will be going home today and will be followed in renal clinic on at 8:40 AM with labs. She will also follow with PMD in a week time. - Discharge Data Discharge Date: 02/14/17 Discharge Disposition: Home, Self-Care 01 Condition: Good - Discharge Diagnosis/Problem(s) (1) Acute renal failure SNOMED Code(s): 09913903 ICD Code: N17.9 - ACUTE KIDNEY FAILURE, UNSPECIFIED Status: Acute Current Visit: Yes (2) Hypotension SNOMED Code(s): 31997380 ICD Code: I95.9 - HYPOTENSION, UNSPECIFIED Status: Acute Current Visit: Yes (3) Syncopal episodes SNOMED Code(s): 406460970 ICD Code: R55 - SYNCOPE AND COLLAPSE Status: Acute Current Visit: Yes - Patient Summary/Data Hospital Course: This is a 41 y/O F with past medical history of Rheumatoid arthritis, Ulcerative Colitis, Migraine Headache, Depression admitted after syncopal episode at home. She was hypotensive and her BP medication placed on hold and was given IV fluids, She also had elevated CK and it's progressively coming down. On admission she was also noted to have Acute Kidney Injury with creatinine on 2.3 mg/dl and with hydration she improved and on Discharge Creatinine was at 1.2 mg/dl. Will continue to hold her Lisinopril ( was at 5 mg daily) and take Amlodipine at 5 mg daily if SBP>120 mmHg > She is advised to follow at [facility] with me on 03/05/17 at 8:40 AM with labs. She is also advise to follow with PMD in a week after Discharge and Advise to call [facility] at [phone] with BP readings on 02/17/17 - Patient Instructions Diet: Regular Diet as Tolerated Other/Special Instructions: This is a 41 Y/O F, admitted after syncopal episode at home. She was hypotensive on admission and her BP medication placed on hold and was given IV fluids, She also had elevated CK and it's progressively coming down. On admission she was also noted to have Acute Kidney Injury with creatinine on 2.3 mg/dl and with hydration she improved and on Discharge Creatinine was at 1.2 mg/dl. Will continue to hold her Lisinopril ( was at 5 mg daily) and take Amlodipine at 5 mg daily if SBP>120 mmH. She is advised to follow at [facility] [place] with me on. 03/05/17 at 8:40 AM with labs. She is also advise to follow with PMD in a week after Discharge and Advise to call [facility] at [phone] with BP readings on 02/17/17 - Discharge Plan Prescriptions/Med Rec: amLODIPine [Norvasc] 5 mg PO DAILY #30 tablet Home Medications: Home Meds Pregabalin [Lyrica] 150 mg PO BID 05/12/14 [History] predniSONE [Prednisone] 5 mg PO DAILY 05/12/14 [History] Hyoscyamine [Levsin] 0.125 mg PO QID PRN 03/17/15 [History] azaTHIOprine [Imuran] 150 mg PO DAILY 03/17/15 [History] Benzonatate [Tessalon Perles] 100 mg PO TID PRN 03/19/16 [History] ClonazePAM [KlonoPIN] 0.5 mg PO BID PRN 03/19/16 [History] Ondansetron HCl [Ondansetron] 4 mg PO Q6H PRN 03/19/16 [History] oxyCODONE ER [OxyCONTIN] 20 mg PO BID 03/19/16 [History] Amitriptyline HCl 200 mg PO BEDTIME 12/16/16 [History] Cyclobenzaprine [Flexeril] 10 mg PO Q8H PRN 12/16/16 [History] DULoxetine HCl [Duloxetine HCl] 60 mg PO DAILY 12/16/16 [History] Dicyclomine [Bentyl] 20 mg PO Q6H PRN 12/16/16 [History] Diclofenac Sodium [Voltaren 1% Gel] 2 gm TOP QID PRN 02/12/17 [History] Norethindrone AC-Eth Estradiol [Microgestin 21 1-20 Tablet] 1 tab PO DAILY 02/12 [History] tiZANidine [Zanaflex] 4 mg PO TID 02/12/17 [History] amLODIPine [Norvasc] 5 mg PO DAILY #30 tablet 02/14/17 [Rx] Patient Handouts: Hypotension, [id number] Forms: ED Department Discharge Referrals: PCP,Unobtain [Primary Care Provider] - - Discharge Summary/Plan Comment DC Time >30 min.: Yes Discharge Summary/Plan Comment: This is a 41 y/O F with past medical history of Rheumatoid arthritis, Ulcerative Colitis, Migraine Headache, Depression admitted after syncopal episode at home. She was hypotensive on admission and her BP medication placed on hold and was given IV fluids, She also had elevated CK and it's progressively coming down. On admission she was also noted to have Acute Kidney Injury with creatinine on 2.3 mg/dl and with hydration she improved and on Discharge Creatinine was at 1.2 mg/dl. Will continue to hold her Lisinopril ( was at 5 mg daily) and take Amlodipine at 5 mg daily if SBP>120 mmHg > She is advised to follow at [facility] [place] with me on 03/05/17 at 8: 40 AM with labs. She is also advise to follow with PMD in a week after Discharge and Advise to call [facility] ( [place]) at [phone] with BP readings on 02/17/17 - General Info Date of Service: 02/14/17 Admission Dx/Problem (Free Text: Admission Diagnosis/Problem Admission Diagnosis/Problem Renal failure and Rhabdomyolysis Subjective Update: pt feels better today and off [place] oxygen, slept well, No nausea or Vomiting, appetite is good , will remove Rosales catheter and will be going home today. BP is stable Functional Status: Reports: pain controlled, tolerating diet, ambulating, urinating - Review of Systems General: Reports: Weakness (mild). Denies: Fever, Malaise, Chills, Appetite ( good) HEENT: Denies: ear pain, headaches, sinus congestion, visual changes Pulmonary: Denies: shortness of breath, pleuritic chest pain, cough, sputum, wheezing Cardiovascular: Denies: Chest Pain, Palpitations, Dyspnea on Exertion, Lightheadedness Gastrointestinal: Denies: Abdominal pain, Constipation, Diarrhea, Nausea, Vomiting Genitourinary: Denies: dysuria, frequency, burning, urgency, flank pain Musculoskeletal: Denies: neck pain, shoulder pain, back pain, leg pain Skin: Denies: cyanosis, jaundice, bruising, pruritis, rash Neurological: Denies: Confusion, Headache, Tingling, Tremors, Trouble Speaking Psychiatric: Denies: confusion, anxiety - Patient Data Vitals - Most Recent: Last Vital Signs Temp 36.6 C 02/14/17 08:17 Pulse 80 02/14/17 08:17 Resp 20 02/14/17 08:17 BP 100/66 02/14/17 08:17 Pulse Ox 95 02/14/17 08:17 Weight - Most Recent: 104.598 kg I&O - Last 24 hours: Intake & Output 02/13/17 02/14/17 02/14/17 22:59 06:59 14:59 Intake Total 2420 1000 Output Total 329 135 4387 Balance 1570 100 -1300 Lab Results - Last 24 hrs: Laboratory Results - last 24 hr 02/14/17 Range/Units 09:12 Sodium 140 (135-145) mmol/L Potassium 4.0 (3.6-5.0) mmol/L Chloride 105 (101-111) mmol/L Carbon Dioxide 26.0 (21.0-31.0) mmol/L Anion Gap 13.0 BUN 13 (7-18) mg/dL Creatinine 1.2 (0.6-1.3) mg/dL Est Cr Clr Drug Dosing 52.20 mL/min Estimated GFR (MDRD) 49 Glucose 116 H (74-105) mg/dL Calcium 8.8 (8.4-10.2) mg/dl Creatine Kinase 1224 H (26-174) IU/L Med Orders - Current: Current Medications Amitriptyline HCl (Elavil) 200 mg PO BEDTIME [facility] Last Admin: 02/13/17 21:49 Dose: 200 mg Azathioprine (Imuran) 150 mg PO DAILY [facility] Last Admin: 02/14/17 08:39 Dose: 150 mg Bacitracin (Bacitracin Oint) 0 gm TOP DAILY [facility] Last Admin: 02/14/17 09:02 Dose: 1 applic Clonazepam (Klonopin) 0.5 mg PO BID PRN PRN Reason: Anxiety Last Admin: 02/14/17 06:30 Dose: 0.5 mg Cyclobenzaprine HCl (Flexeril) 10 mg PO Q8H PRN PRN Reason: Muscle Spasm Last Admin: 02/14/17 06:19 Dose: 10 mg Dicyclomine HCl (Bentyl) 20 mg PO Q6H [facility] Last Admin: 02/14/17 06:08 Dose: 20 mg Diphenhydramine HCl (Benadryl) 50 mg PO BEDTIME [facility] Last Admin: 02/13/17 21:48 Dose: 50 mg Duloxetine HCl (Cymbalta) 60 mg PO DAILY [facility] Last Admin: 02/14/17 08:42 Dose: 60 mg Heparin Sodium (Porcine) (Heparin Sodium) 5,000 units SUBCUT Q8HR [facility] Last Admin: 02/14/17 06:14 Dose: 5,000 units Sodium Chloride (Normal Saline) 1,000 mls @ 75 mls/hr IV ASDIRECTED [facility] Last Admin: 02/14/17 04:55 Dose: 100 mls/hr Mometasone Furoate/Formoterol Fumar (Dulera 200-5 Mcg) 2 puff IH BIDRT [facility] Last Admin: 02/14/17 07:52 Dose: 2 puff Ondansetron HCl (Zofran Odt) 4 mg PO Q6H PRN PRN Reason: Nausea Last Admin: 02/13/17 13:36 Dose: 4 mg Oxycodone HCl (Oxycontin) 20 mg PO BID [facility] Last Admin: 02/14/17 08:39 Dose: 20 mg Prednisone (Prednisone) 5 mg PO DAILY@0800 [facility] Last Admin: 02/14/17 08:38 Dose: 5 mg Pregabalin (Lyrica) 75 mg PO BID [facility] Last Admin: 02/14/17 08:40 Dose: 75 mg Sodium Chloride (Saline Flush) 10 ml FLUSH ASDIRECTED PRN PRN Reason: Keep Vein Open Last Admin: 02/12/17 21:26 Dose: 10 ml Discontinued Medications Sodium Chloride (Normal Saline) 1,000 mls @ 999 mls/hr IV .BOLUS ONE Stop: 02/12/17 13:49 Last Admin: 02/12/17 13:04 Dose: 999 mls/hr Sodium Chloride (Normal Saline) 1,000 mls @ 999 mls/hr IV .BOLUS ONE Stop: 02/12/17 15:05 Last Admin: 02/12/17 14:05 Dose: 999 mls/hr Oxycodone HCl (Oxycontin) 20 mg PO TID [facility] Last Admin: 02/13/17 13:38 Dose: Not Given Oxycodone HCl (Oxycontin) 20 mg PO BID [facility] - Exam Quality Assessment: Reports: DVT prophylaxis. Denies: supplemental oxygen, urine catheter General: Reports: alert, oriented, cooperative, no acute distress HEENT: Reports: Pupils equal, EOMI, Mucous membr. moist/pink Neck: Reports: no JVD, no thyromegaly. Denies: lymphadenopathy, carotid bruit Lungs: Reports: Clear to auscultation, Normal respiratory effort. Denies: Crackles, Wheezing Cardiovascular: Reports: Regular Rate, Regular Rhythm, No Murmurs (Female) Exam: Deferred Rectal (Female) Exam: Deferred Back Exam: Reports: Normal Inspection, Full Range of Motion Extremities: Reports: no edema, no tenderness/swelling. Denies: no clubbing, no calf tenderness Skin: Reports: warm, dry, intact Neurological: Reports: no new focal deficit, normal gait, normal speech, normal tone Psy/Mental Status: Reports: alert, normal affect, normal mood *Q Meaningful Use (DIS) - VTE *Q VTE Criteria *Q: - Stroke *Q Stroke Criteria *Q: - AMI *Q AMI Criteria *Q:
--- NOTE | 2017-02-17 13:38 | EKG ---
02/12/2017- KAMILAH PASTOR - EKG per my reading shows sinus rhythm with no acute ST changes. [facility] /[id number]
== END 2017-02-14 11:50 | disposition home or self-care (01) | DRG 683 ==
LOC: DL.ED 12:21 → DL.MS 15:30 → UNDOADMOB 15:30 → OBSVTOIN 15:59 → DL.MS 15:59
PROVIDERS: ADMIT Internal Medicine; ATTEND Internal Medicine
DX: N17.9 Acute kidney failure, unspecified (principal); K51.90 Ulcerative colitis, unspecified, without complications; M62.82 Rhabdomyolysis; E86.0 Dehydration; M06.9 Rheumatoid arthritis, unspecified; R55 Syncope and collapse; F32.9 Major depressive disorder, single episode, unspecified; I95.9 Hypotension, unspecified; G43.909 Migraine, unspecified, not intractable, without status migrainosus; J44.9 Chronic obstructive pulmonary disease, unspecified; S80.922A Unspecified superficial injury of left lower leg, initial encounter; R06.00 Dyspnea, unspecified; Z79.899 Other long term (current) drug therapy
CPT/HCPCS: 36415; 71010; 80053; 80305; 81001; 81025; 82140; 82150; 82550; 83605; 83690; 83735; 83880; 84443; 84484; 85025; 85379; 87040 ×2; 93005; 93010; 96365; 96366; 99284; 99285; G0480; J7030 ×2; 80048; A9270-GY; J1644; J7050; J7500; Q0163

== ENCOUNTER 2017-03-16 05:55 | Inpatient (IN) | payer MEDICARE, MEDICAID ==
--- NOTE | 2017-03-16 06:20 | EDM.PDOC ---
<Jacek Peters - Last Filed: 03/16/17 06:40> ED HPI GENERAL MEDICAL PROBLEM - General Chief Complaint: ENT Problem Stated Complaint: LIP SWOLLEN Time Seen by Provider: 03/16/17 06:17 Source of Information: Reports: Patient History Limitations: Reports: No Limitations - History of Present Illness INITIAL COMMENTS - FREE TEXT/NARRATIVE: c/o recurrent h/o lip swelling last episode got so bad she was admitted @ with vanco. denies new food/Rx. states her immune system is bad. Upper Lip Pain Score (Numeric/FACES): 7 - Related Data Allergies Allergy/AdvReac Type Severity Reaction Status Date / Time Sulfa (Sulfonamide Allergy Rash Verified 03/16/17 06:05 Antibiotics) Penicillins AdvReac Hives Verified 03/16/17 06:05 Home Meds: Home Meds Pregabalin [Lyrica] 150 mg PO BID 05/12/14 [History] predniSONE [Prednisone] 5 mg PO DAILY 05/12/14 [History] Hyoscyamine [Levsin] 0.125 mg PO QID PRN 03/17/15 [History] azaTHIOprine [Imuran] 150 mg PO DAILY 03/17/15 [History] Benzonatate [Tessalon Perles] 100 mg PO TID PRN 03/19/16 [History] ClonazePAM [KlonoPIN] 0.5 mg PO BID PRN 03/19/16 [History] Ondansetron HCl [Ondansetron] 4 mg PO Q6H PRN 03/19/16 [History] Amitriptyline HCl 200 mg PO BEDTIME 12/16/16 [History] Cyclobenzaprine [Flexeril] 10 mg PO Q8H PRN 12/16/16 [History] DULoxetine HCl [Duloxetine HCl] 60 mg PO DAILY 12/16/16 [History] Dicyclomine [Bentyl] 20 mg PO Q6H PRN 12/16/16 [History] Diclofenac Sodium [Voltaren 1% Gel] 2 gm TOP QID PRN 02/12/17 [History] Norethindrone AC-Eth Estradiol [Microgestin 21 1-20 Tablet] 1 tab PO DAILY 02/12 [History] tiZANidine [Zanaflex] 4 mg PO TID 02/12/17 [History] amLODIPine [Norvasc] 5 mg PO DAILY #30 tablet 02/14/17 [Rx] Past Medical History HEENT History: Reports: Hard of Hearing, Impaired Vision Other HEENT History: broken and missing teeth Cardiovascular History: Reports: Hypertension Respiratory History: Reports: COPD Gastrointestinal History: Reports: None Other Gastrointestinal History: ulcerative colitis Genitourinary History: Reports: Acute Renal Failure Other Genitourinary History: this last summer [employer] History: Reports: None Musculoskeletal History: Reports: Arthritis, Fibromyalgia, RA, Other (See Below) Other Musculoskeletal History: rhabdomyolisis Neurological History: Reports: Migraines Psychiatric History: Reports: Anxiety, Depression, Panic Attack Other Psychiatric History: Patient states she is trying to wean off Oxycodone Endocrine/Metabolic History: Reports: None Hematologic History: Reports: Anemia Other Hematologic History: anemia r/t ulcerative colitis Immunologic History: Reports: None Oncologic (Cancer) History: Reports: None Dermatologic History: Reports: Cellulitis, Other (See Below) Other Dermatologic History: resolved in 2016 - Infectious Disease History Infectious Disease History: Reports: Measles, MRSA - Past Surgical History HEENT Surgical History: Reports: Other (See Below) Cardiovascular Surgical History: Reports: Other (See Below) Musculoskeletal Surgical History: Reports: Other (See Below) Social & Family History - Family History Family Medical History: Noncontributory HEENT: Reports: Impaired Vision Cardiac: Reports: Other (See Below) Other Cardiac Family History: Aortic valve problems Respiratory: Reports: COPD GI: Reports: None : Reports: None OBGYN: Reports: None Musculoskeletal: Reports: Arthritis, Fibromyalgia Neurological: Reports: CVA Psychiatric: Reports: None Endocrine/Metabolic: Reports: None Hematologic: Reports: None Immunologic: Reports: None Dermatologic: Reports: None Oncologic: Reports: Colon - Tobacco Use Smoking Status *Q: Never Smoker Second Hand Smoke Exposure: No - Caffeine Use Caffeine Use: Reports: Soda Other Caffeine Use: 5 Cokes per day - Alcohol Use Days Per Week of Alcohol Use: 0 - Recreational Drug Use Recreational Drug Use: No - Living Situation & Occupation Living situation: Reports: Single, with Family Occupation: Disabled ED ROS ENT - Review of Systems Review Of Systems: ROS reveals no pertinent complaints other than HPI. ED EXAM, ENT - Physical Exam Exam: See Below Exam Limited By: No Limitations General Appearance: Alert, WD/WN, Mild Distress, Other (distraught) Ears: Hearing Grossly Normal Mouth/Throat: Lip Swelling. No: Dental Pain, Hoarse Voice, Muffled Voice, Pharyngeal Erythema Head: Atraumatic, Facial Tenderness, Other (right cheek region with local swelling mild erythema & tender) Neck: Non-Tender, Full Range of Motion Respiratory/Chest: No Respiratory Distress Cardiovascular: Regular Rate, Rhythm GI/Abdominal: Soft, Non-Tender Neurological: Alert, Oriented, Normal Cognition, Normal Gait, No Motor/Sensory Deficits Psychiatric: Normal Affect, Normal Mood Skin: Warm, Dry Lymphatic: No Adenopathy Course - Vital Signs Last Recorded V/S: Last Vital Signs Temp 36.9 C 03/16/17 07:36 Pulse 88 03/16/17 07:36 Resp 18 03/16/17 07:36 BP 135/92 H 03/16/17 07:36 Pulse Ox 97 03/16/17 07:36 - Orders/Labs/Meds Orders: Active Orders 24 hr Category Date Time Status CULTURE BLOOD [BC] Stat Lab 03/16/17 06:33 Received Piperacillin/Tazobactam [Zosyn] 3.375 gm Med 03/16/17 08:08 Active Sodium Chloride 0.9% [Normal Saline] 100 ml IV ONETIME Medication Orders Piperacillin Sod/Tazobactam (Sod 3.375 gm/ Sodium Chloride) 100 mls @ 200 mls/ hr IV ONETIME ONE Stop: 03/16/17 08:37 Labs: Laboratory Tests 03/16/17 03/16/17 03/16/17 Range/Units 06:33 06:33 06:33 WBC 10.5 H (5.0-10.0) 10^3/uL RBC 3.85 L (4.2-5.4) 10^6/uL Hgb 12.4 (12.0-16.0) g/dL Hct 38.7 (37.0-47.0) % MCV 100.5 H (80-100) fL MCH 32.2 (27.0-34.0) pg MCHC 32.0 L (33.0-35.0) g/dL Plt Count 360 (150-450) 10^3/uL Neut % (Auto) 82.7 H (42.2-75.2) % Lymph % (Auto) 10.2 L (20.5-50.1) % [place] % (Auto) 5.0 (2-8) % Eos % (Auto) 1.8 (1.0-3.0) % Baso % (Auto) 0.3 (0.0-1.0) % Sodium 140 (135-145) mmol/L Potassium 3.8 (3.6-5.0) mmol/L Chloride 104 (101-111) mmol/L Carbon Dioxide 22.0 (21.0-31.0) mmol/L Anion Gap 17.8 BUN 18 (7-18) mg/dL Creatinine 1.1 (0.6-1.3) mg/dL Est Cr Clr Drug Dosing 49.76 mL/min Estimated GFR (MDRD) 54 BUN/Creatinine Ratio 16.36 Glucose 103 (74-105) mg/dL Lactic Acid 1.4 (0.5-2.2) mmol/L Calcium 9.0 (8.4-10.2) mg/dl Total Bilirubin 0.8 (0.2-1.0) mg/dL AST 18 (10-42) IU/L ALT 11 (10-60) IU/L Alkaline Phosphatase 98 (42-121) IU/L Creatine Kinase (26-174) IU/L C-Reactive Protein (0.0-1.3) mg/dL Total Protein 6.9 (6.7-8.2) g/dl Albumin 4.1 (3.2-5.5) g/dl Globulin 2.8 Albumin/Globulin Ratio 1.46 03/16/17 03/16/17 Range/Units 06:33 06:33 WBC (5.0-10.0) 10^3/uL RBC (4.2-5.4) 10^6/uL Hgb (12.0-16.0) g/dL Hct (37.0-47.0) % MCV (80-100) fL MCH (27.0-34.0) pg MCHC (33.0-35.0) g/dL Plt Count (150-450) 10^3/uL Neut % (Auto) (42.2-75.2) % Lymph % (Auto) (20.5-50.1) % [place] % (Auto) (2-8) % Eos % (Auto) (1.0-3.0) % Baso % (Auto) (0.0-1.0) % Sodium (135-145) mmol/L Potassium (3.6-5.0) mmol/L Chloride (101-111) mmol/L Carbon Dioxide (21.0-31.0) mmol/L Anion Gap BUN (7-18) mg/dL Creatinine (0.6-1.3) mg/dL Est Cr Clr Drug Dosing mL/min Estimated GFR (MDRD) BUN/Creatinine Ratio Glucose (74-105) mg/dL Lactic Acid (0.5-2.2) mmol/L Calcium (8.4-10.2) mg/dl Total Bilirubin (0.2-1.0) mg/dL AST (10-42) IU/L ALT (10-60) IU/L Alkaline Phosphatase (42-121) IU/L Creatine Kinase 34 (26-174) IU/L C-Reactive Protein 0.6 (0.0-1.3) mg/dL Total Protein (6.7-8.2) g/dl Albumin (3.2-5.5) g/dl Globulin Albumin/Globulin Ratio Meds: Medications Generic Name Dose Route Start Last Admin Trade Name Freq PRN Reason Stop Dose Admin Piperacillin Sod/Tazobactam 100 mls @ 200 mls/hr 03/16/17 08:08 Sod 3.375 gm/ Sodium Chloride IV 03/16/17 08:37 ONETIME ONE Discontinued Medications Generic Name Dose Route Start Last Admin Trade Name Freq PRN Reason Stop Dose Admin Hydrocodone Bitart/Acetaminophen 1 tab 03/16/17 06:41 03/16/17 06:54 [place] 325-10 Mg PO 03/16/17 06:42 1 tab ONETIME ONE Administration Vancomycin HCl 1 gm/ Sodium 250 mls @ 167 mls/hr 03/16/17 06:41 03/16/17 07: 18 Chloride IV 03/16/17 08:10 167 mls/hr ONETIME ONE Administration Lidocaine HCl 15 ml 03/16/17 08:04 Xylocaine 2% Viscous PO 03/16/17 08:05 ONETIME ONE Departure - Departure Disposition: Admitted As Inpatient 64 Clinical Impression: Facial cellulitis, Aphthous ulcer, History of rheumatoid arthritis, History of ulcerative colitis - Discharge Information Forms: ED Department Discharge - My Orders Last 24 Hours: My Active Orders 03/16/17 08:08 Piperacillin/Tazobactam [Zosyn] 3.375 gm Sodium Chloride 0.9% [Normal Saline] 100 ml IV ONETIME - Assessment/Plan Last 24 Hours: My Active Orders 03/16/17 08:08 Piperacillin/Tazobactam [Zosyn] 3.375 gm Sodium Chloride 0.9% [Normal Saline] 100 ml IV ONETIME <Donald Collazo - Last Filed: 03/16/17 08:42> ED HPI GENERAL MEDICAL PROBLEM - General Source of Information: Reports: Family (mother), Old Records, RN, RN Notes Reviewed - History of Present Illness INITIAL COMMENTS - FREE TEXT/NARRATIVE: Assumed care of pt from Dr. Peters at 0700HR shift change with labs pending and pt receiving Vancomycin 1g IV per Dr. Peters's order. Blood cultures were not obtained prior to starting Vancomycin, but pt is afebrile. Pt has Hx of RA and UC and is immunosuppressed with Hx of a similar facial infection in August 2016 which became a significant infection after failing out pt antibiotic therapy. *Pt's chart lists Penicillin as an allergy, but pt states that she is not allergic to Penicillin. Records indicate that she has tolerated Zosyn IV in the past without any reaction. Onset: Gradual Quality: Reports: Ache, Throbbing Severity: Moderate Improves with: Reports: None Worsens with: Reports: None Associated Symptoms: Reports: No Other Symptoms ED EXAM, ENT - Physical Exam Mouth/Throat: Lip Ulcers Neck: No: Lymphadenopathy (L), Lymphadenopathy (R) Back: Normal Inspection Extremities: Normal Inspection Comments: No other changes to exam as documented by Dr. Peters for this encounter. Departure - Departure Time of Disposition: 08:20 (admit to Dr. Delaney) Condition: Fair
[2017-03-16] MEDS ORDERED: Acetaminophen/HYDROcodone 325-10 MG Tab PO ONE (06:41)
[2017-03-16] MEDS ORDERED: Lidocaine 2% Viscous Solution 15 ML Cup PO ONE (08:04)
[2017-03-16] MEDS ORDERED: Piperacillin/Tazobactam 3.375 GM in Sodium Chloride 0.9% 100 ML IV ONE ×2 (08:08→09:45)
[2017-03-16] MEDS ORDERED: Magnesium Hydroxide 400 MG/5 ML Susp 30 ML Cup PO PRN (10:04)
[2017-03-16] MEDS ORDERED: Docusate Sodium 100 MG Cap PO PRN (10:04)
[2017-03-16] MEDS ORDERED: Acetaminophen 325 MG Tab PO PRN (10:04)
[2017-03-16] MEDS ORDERED: Ondansetron 4 MG/2 ML SDV IVPUSH PRN (10:04)
[2017-03-16] MEDS ORDERED: HYOSCYAMINE 0.125 MG PO PRN (10:09)
[2017-03-16] MEDS ORDERED: Ondansetron 4 MG Tab.DIS PO PRN (10:09)
[2017-03-16] MEDS ORDERED: Dicyclomine 10 MG Cap PO PRN (10:09)
[2017-03-16] MEDS ORDERED: Benzonatate 100 MG Cap PO PRN (10:09)
[2017-03-16] MEDS ORDERED: DICLOFENAC 1% TOP PRN (10:09)
[2017-03-16] MEDS ORDERED: Cyclobenzaprine 10 MG Tab PO PRN (10:09)
[2017-03-16] MEDS: Acetaminophen/oxyCODONE 325-5 MG Tab PO PRN ×4 (11:10→23:40)
[2017-03-16] MEDS: Morphine 2 MG/ML Syringe IVPUSH PRN ×2 (12:21→15:12)
[2017-03-16] MEDS ORDERED: Sodium Chloride 0.9% 10 ML Syringe FLUSH PRN (12:37)
[2017-03-16] MEDS: Sodium Chloride 0.9% 1,000 ML IV SCH (13:01)
[2017-03-16] MEDS: Heparin Sodium 5,000 Units/ML Vial SUBCUT SCH ×2 (14:27→21:38)
[2017-03-16] MEDS: DULoxetine 30 MG Cap PO SCH (16:35)
[2017-03-16] MEDS: Pregabalin 75 MG Cap PO SCH ×2 (16:35→21:34)
[2017-03-16] MEDS: predniSONE 5 MG Tab PO SCH (16:36)
[2017-03-16] MEDS: amLODIPine 5 MG Tab PO SCH (16:36)
[2017-03-16] MEDS: Piperacillin/Tazobactam 3.375 GM in Sodium Chloride 0.9% 100 ML IV SCH (17:41)
--- NOTE | 2017-03-16 17:55 | HP ---
CHIEF COMPLAINT: Pain to the upper lip on the right side. HISTORY OF PRESENTING ILLNESS: Ms. Adriel Owens is a 41-year-old female with a medical history significant for hypertension, hyperlipidemia, fibromyalgia, rheumatoid arthritis, ulcerative colitis, history of MRSA infection in the past leading to cellulitis and abscess requiring incision and drainage of the abscess in the past presented to the ER today with complaints of increased swelling to the right upper lip and is noted to have facial cellulitis requiring admission to the hospital and requiring IV antibiotic treatments. At this time, the patient complains of having pain to the right upper lip. She grades the pain as 9-10/10 in intensity, which gets aggravated on palpation and on movement partially relieved with pain medication, radiating to the right upper side of the face, not associated with any nausea or vomiting. Denies any chest pain. No shortness of breath. No fevers, no chills in the last 2 days. No complaints of diarrhea in the last few days. The patient had history of similar complaints in the past and had failed outpatient treatments in the past requiring admissions to the hospital and incision and drainage in the past. She denies any dental abscess. At this time, she has dentures in place. The patient denied any history of chest pains on exertion, but has mild dyspnea on exertion from her underlying COPD. The patient denied any history of hematemesis, hematochezia, or melanotic stools. Normal bowel and bladder admits otherwise. REVIEW OF SYSTEMS: A complete review of system including skin, ear, nose, and throat, cardiovascular system, respiratory system, gastrointestinal system, genitourinary system, hematology, oncology, neurology, allergy, immunology, constitutional were all evaluated and were negative except for the above-said notes. PAST MEDICAL HISTORY: Significant for hypertension, hyperlipidemia, ulcerative colitis, rheumatoid arthritis, perirectal abscess, history of anxiety, panic attacks, migraine headaches, rhabdomyolysis, history of MRSA infection, facial cellulitis, chronic obstructive pulmonary airway disease, chronic kidney disease, acute renal failure. SURGICAL HISTORY: Significant for dental extractions, incision and drainage of the abscess, laparoscopic appendicectomy, rectal abscess, incision and drainage, toe surgery, and colonoscopy. FAMILY HISTORY: Significant for hypertension and heart disease in her mother. Alcohol abuse in her father. Rheumatoid arthritis and depression in her sister. Bipolar disorder, anxiety, and hypertension in her brother. Colon cancer in her maternal grandfather and maternal uncle. SOCIAL HISTORY: The patient denied any history of smoking tobacco. No history of alcohol intake. ALLERGIC HISTORY: The patient is noted to have allergies to amoxicillin, Keflex, penicillin, sulfa, Mircette, Omnicef, Zyvox, which causes intolerance. PHYSICAL EXAMINATION: Vital Signs: Temperature of 98.4, pulse of 76, blood pressure 128/82, respiratory rate of 18, saturating at 99% on room air. General Appearance: The patient is well oriented to time, place, and person. Follows commands spontaneously. Head and Neck: The patient is noted to have a small area of erythema, tenderness, and swelling to the right upper lip. No lymphadenopathy noted in the neck. No active discharge noted from the cellulitis site. Cardiovascular System: S1, S2 heard with normal intensity. No gallops. Respiratory: Clear to auscultation bilaterally. No wheeze. No crepitations. Abdomen: Soft. Bowel sounds positive. Nontender. No rigidity. Extremities: No edema in bilateral lower extremities. Neurology: No gross focal neurological deficits. HOME MEDICATIONS: 1. Lisinopril 5 mg daily. 2. Norvasc 10 mg daily. 3. ProAir inhalation. 4. Zanaflex 4 mg 3 times daily. 5. ProAir every 6 hours as needed. 6. Elavil 200 mg oral nightly. 7. Imuran 150 mg daily. 8. Tessalon 100 mg capsule as needed. 9. Benadryl 25 mg oral nightly as needed. 10.Klonopin 0.5 mg 2 times daily as needed. 11.Cymbalta 60 mg daily. 12.Bentyl 20 mg every 6 hours. 13.Lyrica 150 mg 2 times daily. 14.Zofran 4 mg every 6 hours as needed for nausea. 15.Oxycodone 20 mg 3 times daily. 16.Prednisone 5 mg daily. LABORATORY DATA: 1. Reviewed. WBC 10.5, hemoglobin 12.4, and hematocrit 38.7. 2. Sodium 140, potassium 3.8, chloride 104, bicarb 22, creatinine 1.1, BUN 18, glucose 103, lactic acid 1.4, AST 18, ALT 11, C-reactive protein 0.6. ASSESSMENT: 1. Cellulitis involving the right upper lip. 2. Hypertension. 3. Hyperlipidemia. 4. Rheumatoid arthritis. 5. Ulcerative colitis. 6. History of methicillin-resistant Staphylococcus aureus infection in the past. 7. Anxiety. 8. History of panic attacks. PLAN: 1. Facial cellulitis. The patient presents with facial cellulitis and had complications in the past. So, we will admit the patient to the hospital. We will have her on IV vancomycin, and we will add IV Zosyn for now. The patient is noted to have allergies to penicillin, but the patient could not remember what the allergic reaction was. So, we will start on Zosyn and closely follow. Use Benadryl as needed. We will obtain blood cultures, and follow the culture reports and titrate the antibiotics as appropriate. 2. Hypertension. The patient's blood pressure seems to be in acceptable range. She is noted to be on lisinopril and Norvasc, continue the same. Try to avoid any hypotensive episodes. 3. Rheumatoid arthritis. The patient's C-reactive protein is normal at 0.6. So less likely, she is having an acute exacerbation. We will also follow with an ESR at this time. The patient is noted to be on low dose prednisone, continue the same. The patient does not have any low blood pressures. We would not give any stress dose of steroids as this could aggravate the infection also. So, we will continue with the prednisone 5 mg for now. 4. DVT prophylaxis. We will start her on heparin 5000 subcu every 8 hourly for DVT prophylaxis. 5. Chronic kidney disease. The patient's creatinine at her baseline function of 1.9. Avoid any nephrotoxic agents. Keep her hydrated with IV fluids. Maintain euvolemic status. Recheck a basic metabolic panel in a.m. Dose adjust medications for renal function especially the antibiotics. 6. Code status. The patient wants to be full code. 7. Discussed with Dr. Gomez regarding the plan of care. Discussed with the patient and family members at bedside regarding the plan of care. Reviewed the labs and medications. Reviewed the old charts. [facility] /[id number]
[2017-03-16] MEDS ORDERED: Acetaminophen/oxyCODONE 325-5 MG Tab PO PRN ×2 (18:09→19:13)
[2017-03-16] MEDS: TIZANIDINE 4 MG PO SCH ×2 (18:12→21:34)
[2017-03-16] MEDS: fentaNYL 100 MCG/2 ML SDV IVPUSH PRN ×3 (18:39→23:31)
[2017-03-16] MEDS: ClonazePAM 0.5 MG Tab PO PRN (20:09)
[2017-03-16] MEDS: Amitriptyline 25 MG Tab PO SCH (21:34)
[2017-03-16] MEDS: Zolpidem 5 MG Tab PO PRN (23:40)
[2017-03-17] MEDS: Piperacillin/Tazobactam 3.375 GM in Sodium Chloride 0.9% 100 ML IV SCH ×3 (02:18→17:39)
[2017-03-17] MEDS: fentaNYL 100 MCG/2 ML SDV IVPUSH PRN ×7 (02:19→21:31)
[2017-03-17] MEDS: Sodium Chloride 0.9% 1,000 ML IV SCH ×2 (03:37→20:18)
[2017-03-17] MEDS: Acetaminophen/oxyCODONE 325-5 MG Tab PO PRN ×2 (03:37→08:48)
[2017-03-17] MEDS: Heparin Sodium 5,000 Units/ML Vial SUBCUT SCH ×3 (05:33→21:31)
[2017-03-17 06:48] LABS: CHLORIDE,CL 107 mmol/L (101-111); SODIUM,NA 139 mmol/L (135-145)
[2017-03-17] MEDS: predniSONE 5 MG Tab PO SCH (07:53)
[2017-03-17] MEDS: TIZANIDINE 4 MG PO SCH ×3 (08:03→21:32)
[2017-03-17] MEDS: amLODIPine 5 MG Tab PO SCH (08:05)
[2017-03-17] MEDS: DULoxetine 30 MG Cap PO SCH (08:05)
[2017-03-17] MEDS: Pregabalin 75 MG Cap PO SCH ×2 (08:06→21:32)
[2017-03-17] MEDS ORDERED: NORETHINDRONE AC ETH ESTRADIOL PO SCH (09:00)
[2017-03-17] MEDS: ClonazePAM 0.5 MG Tab PO PRN (14:32)
--- NOTE | 2017-03-17 14:44 | PN ---
DATE: 03/17/2017 SUBJECTIVE: Ms. Graciela Morel is a 41-year-old female with medical history significant for hypertension, hyperlipidemia, fibromyalgia, rheumatoid arthritis, ulcerative colitis, MRSA infection in the past, chronic immunosuppressive therapy secondary to rheumatoid arthritis, admitted with cellulitis involving the right side of the upper lip. For the last 24 hours, the patient continues to have pain at the right upper lip side, which she grades it as 4-5/10 in intensity, which gets aggravated on palpation, relieved with pain medication, nonradiating type of pain. Sometimes, she feels the pain at the base of her nostril, not associated with any nausea or vomiting. Denies any chest pain. No shortness of breath. No abdominal pain. No diarrhea. REVIEW OF SYSTEMS: Cardiovascular, respiratory, gastrointestinal, neurology, and constitutional were all evaluated. PHYSICAL EXAMINATION: Vital Signs: Temperature of 97.8, pulse of 80, respiratory rate of 20, blood pressure of 128/80, and saturating at 99% on room air. General Appearance: The patient is well-oriented to time, place, and person. Follows commands spontaneously. Cardiovascular System: S1 and S2 heard with normal intensity. No gallops. Respiratory: Clear to auscultation bilaterally. No wheeze. No crepitations. Abdomen: Soft. Bowel sounds positive. Nontender. No rigidity. Extremities: No edema in bilateral lower extremities. Neurology: No gross focal neurological deficit. Head and Neck: The patient is noted to have mild swelling on the right upper lip and also erythema noted to the surrounding area. Crusty lesions noted on the right upper lip. No active secretions noted at this time. MEDICATIONS: Reviewed continue with: 1. Tylenol 650 every 4 hours as needed for pain and fever. 2. Amitriptyline 200 mg at bedtime. 3. Norvasc 5 mg daily. 4. Imuran 150 mg daily. 5. Tessalon Perles 100 mg 3 times a day for cough. 6. Clonazepam 0.5 mg twice daily as needed for anxiety. 7. Flexeril 10 mg every 8 hours as needed for muscle spasm. 8. Docusate sodium 100 mg twice a day for constipation. 9. Fentanyl 50 mcg IV every 2 hourly. 10.Heparin 5000 subcutaneous q.8 hourly. 11.Milk of magnesia 30 mL q.12 hourly for constipation. 12.Zofran 4 mg IV push every 4 hours as needed for nausea and vomiting. 13.Percocet 5/325 mg every 4 hours as needed for pain. 14.Zosyn 3.375 mg IV q.8 hourly. 15.Lyrica 150 mg twice a day. 16.Vancomycin pharmacy to dose. 17.Ambien 5 mg at bedtime as needed for sleep. LABS: WBC 8.1, hemoglobin 11.8, hematocrit 37, and platelet count 331. Sodium 139, potassium 4.8, chloride 107, bicarb 25, BUN 14, creatinine 1, and glucose 102. MICROBIOLOGY: Blood cultures showed no growth. ASSESSMENT: 1. Cellulitis involving the right side of the upper lip. 2. Hypertension. 3. Hyperlipidemia. 4. Rheumatoid arthritis. 5. Chronic immunosuppressive therapy. 6. Ulcerative colitis. 7. History of MRSA infection in the past. 8. Anxiety. 9. History of panic attacks. PLAN: 1. Cellulitis. The patient is noted to have cellulitis involving the right upper lip. She is currently on IV antibiotic Zosyn and vancomycin. Her pain seems to be improved. We will cut down on the pain medications. We will continue with current antibiotic regimen. So far, her blood cultures remain negative. We will closely follow. 2. Hypertension. The patient's blood pressure seems to be in acceptable range. Continue current antihypertensive medications. 3. Rheumatoid arthritis. Not in any acute flare up. She denies any joint pain. She has been on Imuran and prednisone. We will continue the same. 4. Deep vein thrombosis prophylaxis. Continue heparin for DVT prophylaxis. [facility] /[id number]
[2017-03-17] MEDS: Zolpidem 5 MG Tab PO PRN (21:32)
[2017-03-17] MEDS: Amitriptyline 25 MG Tab PO SCH (21:32)
[2017-03-18] MEDS: Acetaminophen/oxyCODONE 325-5 MG Tab PO PRN ×2 (02:06→09:00)
[2017-03-18] MEDS: Piperacillin/Tazobactam 3.375 GM in Sodium Chloride 0.9% 100 ML IV SCH ×2 (02:06→10:12)
[2017-03-18] MEDS: fentaNYL 100 MCG/2 ML SDV IVPUSH PRN ×2 (02:06→09:00)
[2017-03-18] MEDS: Heparin Sodium 5,000 Units/ML Vial SUBCUT SCH (06:18)
[2017-03-18] MEDS: DULoxetine 30 MG Cap PO SCH (08:29)
[2017-03-18] MEDS: predniSONE 5 MG Tab PO SCH (08:30)
[2017-03-18] MEDS: amLODIPine 5 MG Tab PO SCH (08:30)
[2017-03-18] MEDS: Pregabalin 75 MG Cap PO SCH (08:30)
[2017-03-18] MEDS: TIZANIDINE 4 MG PO SCH (08:31)
--- NOTE | 2017-03-18 09:36 | PCM.DCSUM1 ---
Discharge Summary - Hospital Course Free Text/Narrative:: 41-year-old female with a past medical history of hypertension, hyperlipidemia, fibromyalgia, rheumatoid arthritis, ulcerative colitis, history of MRSA infection present to the emergency room with the upper lip cellulitis on . She did not have any other associated symptoms. On admission her sodium was 140. Potassium 3.8. Bicarbonate 22. Creatinine 1.1. B1 18. Glucose 103. Lactic acid 1.4. CRP 0.6. She was started on vancomycin and Zosyn. Patient has been afebrile since admission. Her upper lip swelling and pain markedly improved. Patient has an uneventful hospital stay. She feels she can manage at home. She is discharged on her home medications mentioned to clindamycin. She is allergic to sulfa. Patient was advised to follow-up in the clinic early next week and come back to ER or clinic if any increases in the pain and swelling of the lips or start having fever or chills. Patient verbalized understanding and agreed with the plan. - Discharge Data Discharge Date: 03/18/17 Discharge Disposition: Home, Self-Care 01 Condition: Good - Discharge Diagnosis/Problem(s) (1) Facial cellulitis SNOMED Code(s): 295545899 ICD Code: L03.211 - CELLULITIS OF FACE Status: Acute Priority: High Current Visit: Yes (2) History of rheumatoid arthritis SNOMED Code(s): 848048120 ICD Code: Z87.39 - PERSONAL HISTORY OF DISEASES OF THE MS SYS AND CONN TISS Status: Chronic Current Visit: Yes (3) History of ulcerative colitis SNOMED Code(s): 434400701 ICD Code: Z87.19 - PERSONAL HISTORY OF OTHER DISEASES OF THE DIGESTIVE SYSTEM Status: Chronic Current Visit: Yes (4) Anxiety SNOMED Code(s): 88275350 ICD Code: F41.9 - ANXIETY DISORDER, UNSPECIFIED Status: Chronic Current Visit: No - Patient Instructions Diet: Heart Healthy Diet Activity: As Tolerated Showering/Bathing: May Shower Notify Provider of: Fever, Increased Pain, Swelling and Redness, Drainage, Nausea and/or Vomiting - Discharge Plan Prescriptions/Med Rec: Acetaminophen [Tylenol Extra Strength] 500 mg PO Q4H PRN #30 tablet PRN Reason: Pain Clindamycin HCl 300 mg PO Q6H #40 capsule Home Medications: Home Meds Pregabalin [Lyrica] 150 mg PO BID 05/12/14 [History] predniSONE [Prednisone] 5 mg PO DAILY 05/12/14 [History] Hyoscyamine [Levsin] 0.125 mg PO QID PRN 03/17/15 [History] azaTHIOprine [Imuran] 150 mg PO DAILY 03/17/15 [History] Benzonatate [Tessalon Perles] 100 mg PO TID PRN 03/19/16 [History] ClonazePAM [KlonoPIN] 0.5 mg PO BID PRN 03/19/16 [History] Ondansetron HCl [Ondansetron] 4 mg PO Q6H PRN 03/19/16 [History] Amitriptyline HCl 200 mg PO BEDTIME 12/16/16 [History] Cyclobenzaprine [Flexeril] 10 mg PO Q8H PRN 12/16/16 [History] DULoxetine HCl [Duloxetine HCl] 60 mg PO DAILY 12/16/16 [History] Dicyclomine [Bentyl] 20 mg PO Q6H PRN 12/16/16 [History] Diclofenac Sodium [Voltaren 1% Gel] 2 gm TOP QID PRN 02/12/17 [History] tiZANidine [Zanaflex] 4 mg PO TID 02/12/17 [History] amLODIPine [Norvasc] 5 mg PO DAILY #30 tablet 02/14/17 [Rx] Acetaminophen [Tylenol Extra Strength] 500 mg PO Q4H PRN #30 tablet 03/18/17 [Rx ] Clindamycin HCl 300 mg PO Q6H #40 capsule 03/18/17 [Rx] Referrals: Dia Ozuna MD [Primary Care Provider] - 03/22/17 - General Info Date of Service: 03/18/17 Functional Status: Reports: pain controlled - Review of Systems General: Reports: No Symptoms HEENT: Denies: dysphasia, ear pain, eye pain, headaches, post nasal drip, sinus congestion, sore throat, rhinitis, visual changes Pulmonary: Reports: no symptoms Cardiovascular: Reports: No Symptoms Gastrointestinal: Reports: No symptoms Genitourinary: Reports: no symptoms Musculoskeletal: Reports: no symptoms (Other than her chronic arthritis) Skin: Reports: no symptoms Neurological: Reports: No Symptoms Psychiatric: Reports: no symptoms (Other than her chronic disorders). Denies: hallucinations, suicidal ideation, homicidal ideation - Patient Data Vitals - Most Recent: Last Vital Signs Temp 36.9 C 03/18/17 07:29 Pulse 74 03/18/17 07:29 Resp 20 03/18/17 07:29 BP 128/83 03/18/17 08:30 Pulse Ox 99 03/18/17 07:29 Weight - Most Recent: 102.784 kg I&O - Last 24 hours: Intake & Output 03/17/17 03/18/17 03/18/17 22:59 06:59 14:59 Intake Total 690 452 Output Total 800 Balance -110 452 Lab Results - Last 24 hrs: Laboratory Results - last 24 hr 03/17/17 03/17/17 Range/Units 14:20 18:46 Urine Color Red (YELLOW) Urine Appearance Cloudy (CLEAR) Urine pH 6.5 (5.0-9.0) Ur Specific [place] 1.020 (1.005-1.030) Urine Protein 100 H (NEGATIVE) Urine Glucose (UA) Negative (NEGATIVE) Urine Ketones Negative (NEGATIVE) Urine Occult Blood Large H (NEGATIVE) Urine Nitrite Negative (NEGATIVE) Urine Bilirubin Negative (NEGATIVE) Urine Urobilinogen 0.2 (0.2-1.0) mg/dL Ur Leukocyte Esterase Trace H (NEGATIVE) Urine RBC Packed H /HPF Urine WBC 0-5 (0-5/HPF) /HPF Ur Epithelial Cells Few /HPF Urine Bacteria Few (0-FEW/HPF) /HPF Vancomycin Trough 36.7 H (10-15) ug/ml Med Orders - Current: Current Medications Acetaminophen (Tylenol) 650 mg PO Q4H PRN PRN Reason: Pain (Mild 1-3)/fever Last Admin: 03/16/17 14:27 Dose: 650 mg Amitriptyline HCl (Elavil) 200 mg PO BEDTIME ALINA Last Admin: 03/17/17 21:32 Dose: 200 mg Amlodipine Besylate (Norvasc) 5 mg PO DAILY ALINA Last Admin: 03/18/17 08:30 Dose: 5 mg Azathioprine (Imuran) 150 mg PO DAILY ALINA Last Admin: 03/18/17 08:29 Dose: 150 mg Benzonatate (Tessalon Perles) 100 mg PO TID PRN PRN Reason: Cough Clonazepam (Klonopin) 0.5 mg PO BID PRN PRN Reason: Anxiety Last Admin: 03/17/17 14:32 Dose: 0.5 mg Cyclobenzaprine HCl (Flexeril) 10 mg PO Q8H PRN PRN Reason: Muscle Spasm Dicyclomine HCl (Bentyl) 20 mg PO Q6H PRN PRN Reason: Abdominal Pain Docusate Sodium (Colace) 100 mg PO BID PRN PRN Reason: Constipation Duloxetine HCl (Cymbalta) 60 mg PO DAILY [facility] Last Admin: 03/18/17 08:29 Dose: 60 mg Fentanyl (Sublimaze) 25 mcg IVPUSH Q2HR PRN PRN Reason: Pain (severe 7-10) Last Admin: 03/18/17 09:00 Dose: 25 mcg Heparin Sodium (Porcine) (Heparin Sodium) 5,000 units SUBCUT Q8HR [facility] Last Admin: 03/18/17 06:18 Dose: 5,000 units Sodium Chloride (Normal Saline) 1,000 mls @ 75 mls/hr IV ASDIRECTED [facility] Last Admin: 03/17/17 20:18 Dose: 75 mls/hr Piperacillin Sod/Tazobactam (Sod 3.375 gm/ Sodium Chloride) 100 mls @ 200 mls/ hr IV Q8H [facility] Last Admin: 03/18/17 02:06 Dose: 200 mls/hr Vancomycin HCl 1.25 gm/ Sodium (Chloride) 250 mls @ 166.667 mls/hr IV Q12H [facility] Last Admin: 03/17/17 21:34 Dose: 166.667 mls/hr Magnesium Hydroxide (Milk Of Magnesia) 30 ml PO Q12H PRN PRN Reason: Constipation Diclofenac 1% Gel (Own Med) 0 gm TOP QID PRN PRN Reason: Other Tizanidine 4 Mg (Own Med) 4 mg PO TID [facility] Last Admin: 03/18/17 08:31 Dose: 4 mg Ondansetron HCl (Zofran) 4 mg IVPUSH Q4H PRN PRN Reason: Nausea/Vomiting Ondansetron HCl (Zofran Odt) 4 mg PO Q6H PRN PRN Reason: Nausea Oxycodone/Acetaminophen (Percocet 325-5 Mg) 1 tab PO Q4H PRN PRN Reason: moderate pain 4-6 Oxycodone/Acetaminophen (Percocet 325-5 Mg) 2 tab PO Q4H PRN PRN Reason: severe pain 7-10 Last Admin: 03/18/17 09:00 Dose: 2 tab Hyoscyamine [Levsin] 0.125 MgPt's Own Med 0 each PO QID PRN PRN Reason: Spasms Prednisone (Prednisone) 5 mg PO DAILY@0800 [facility] Last Admin: 03/18/17 08:30 Dose: 5 mg Pregabalin (Lyrica) 150 mg PO BID [facility] Last Admin: 03/18/17 08:30 Dose: 150 mg Sodium Chloride (Saline Flush) 10 ml FLUSH ASDIRECTED PRN PRN Reason: Keep Vein Open Vancomycin HCl (Pharmacy To Dose - Vancomycin) 1 dose .XX ASDIRECTED [facility] Zolpidem Tartrate (Ambien) 5 mg PO BEDTIME PRN PRN Reason: Sleep Last Admin: 03/17/17 21:32 Dose: 5 mg Discontinued Medications Hydrocodone Bitart/Acetaminophen ([place] 325-10 Mg) 1 tab PO ONETIME ONE Stop: 03/16/17 06:42 Last Admin: 03/16/17 06:54 Dose: 1 tab Fentanyl (Sublimaze) 50 mcg IVPUSH Q2HR PRN PRN Reason: Pain (severe 7-10) Last Admin: 03/17/17 17:16 Dose: 50 mcg Vancomycin HCl 1 gm/ Sodium (Chloride) 250 mls @ 167 mls/hr IV ONETIME ONE Stop: 03/16/17 08:10 Last Admin: 03/16/17 07:18 Dose: 167 mls/hr Piperacillin Sod/Tazobactam (Sod 3.375 gm/ Sodium Chloride) 100 mls @ 200 mls/ hr IV ONETIME ONE Stop: 03/16/17 08:37 Last Admin: 03/16/17 10:01 Dose: Not Given Piperacillin Sod/Tazobactam (Sod 3.375 gm/ Sodium Chloride) 100 mls @ 200 mls/ hr IV ONETIME ONE Stop: 03/16/17 10:14 Last Admin: 03/16/17 10:00 Dose: 200 mls/hr Vancomycin HCl 1.25 gm/ Sodium (Chloride) 250 mls @ 166.667 mls/hr IV Q8H [facility] Last Admin: 03/17/17 16:03 Dose: Not Given Lidocaine HCl (Xylocaine 2% Viscous) 15 ml PO ONETIME ONE Stop: 03/16/17 08:05 Last Admin: 03/16/17 08:38 Dose: 15 ml Morphine Sulfate (Morphine) 2 mg IVPUSH Q2H PRN PRN Reason: Pain (severe 7-10) Last Admin: 03/16/17 15:12 Dose: 2 mg Non-Formulary Medication (Norethindrone Ac-Eth Estradiol [Microgestin 21 1-20 Tablet]) 1 tab PO DAILY [facility] Last Admin: 03/17/17 17:17 Dose: Not Given Oxycodone/Acetaminophen (Percocet 325-5 Mg) 1 tab PO Q4H PRN PRN Reason: Pain (moderate 4-6) Last Admin: 03/16/17 16:37 Dose: 1 tab Oxycodone/Acetaminophen (Percocet 325-5 Mg) 1 - 2 tab PO Q4H PRN PRN Reason: Pain (moderate 4-6) - Exam General: Reports: alert, oriented, cooperative, no acute distress. Denies: mild distress, moderate distress, severe distress, sedated HEENT: Reports: Pupils equal, Pupils reactive, EOMI, Mucous membr. moist/pink, Other (There is a mild upper lip swelling on the right side without fluctuation or drainage. No facial swelling or redness other than on the edge of the right upper lip. Nose is normal.). Denies: Scleral icterus Neck: Reports: supple, trachea midline, no JVD Lungs: Reports: Clear to auscultation, Normal respiratory effort Cardiovascular: Reports: Regular Rate, Regular Rhythm Abdomen: Reports: bowel sounds present, soft, no tenderness, no distension (Female) Exam: Deferred Rectal (Female) Exam: Deferred Back Exam: Reports: Normal Inspection, Full Range of Motion Extremities: Reports: no edema Skin: Reports: warm, dry, intact Wound/Incisions: Reports: healing well Neurological: Reports: no new focal deficit Psy/Mental Status: Reports: alert, normal affect, normal mood. Denies: suicidal ideation, homicidal ideation, hallucinations *Q Meaningful Use (DIS) - VTE *Q VTE Criteria *Q: - Stroke *Q Stroke Criteria *Q: - AMI *Q AMI Criteria *Q:
[2017-03-18 12:46] VITALS: BP 127/81
== END 2017-03-18 12:50 | disposition home or self-care (01) | DRG 159 ==
LOC: DL.ED 05:55 → UNDOADMOB 08:50 → DL.MS 08:50 → OBSVTOIN 10:04
PROVIDERS: ADMIT Internal Medicine; ATTEND Internal Medicine
DX: K13.0 Diseases of lips (principal); K12.0 Recurrent oral aphthae; M06.9 Rheumatoid arthritis, unspecified; E78.5 Hyperlipidemia, unspecified; R78.5 Finding of other psychotropic drug in blood; M79.7 Fibromyalgia; Z86.14 Personal history of Methicillin resistant Staphylococcus aureus infection; F32.9 Major depressive disorder, single episode, unspecified; F41.9 Anxiety disorder, unspecified; D64.9 Anemia, unspecified; H91.90 Unspecified hearing loss, unspecified ear; G43.909 Migraine, unspecified, not intractable, without status migrainosus; J44.9 Chronic obstructive pulmonary disease, unspecified; I12.9 Hypertensive chronic kidney disease with stage 1 through stage 4 chronic kidney disease, or unspecified chronic kidney disease; N18.9 Chronic kidney disease, unspecified; Z88.0 Allergy status to penicillin; Z88.1 Allergy status to other antibiotic agents; Z88.2 Allergy status to sulfonamides; Z88.8 Allergy status to other drugs, medicaments and biological substances; Z79.52 Long term (current) use of systemic steroids; Z79.899 Other long term (current) drug therapy
CPT/HCPCS: 36415; 80053; 82550; 83605; 85025; 86140; 87040; 96365; 99284; 99285; A9270 ×2; J2543; J3370; J7050 ×2; 80048; 80202; 81001; 85027; J1644; J2270; J3010; J7030; J7500

== ENCOUNTER 2017-05-15 12:05 | Emergency (ER) | payer MEDICARE, MEDICAID ==
--- NOTE | 2017-05-15 12:11 | EDM.PDOC ---
ED HPI GENERAL MEDICAL PROBLEM - General Chief Complaint: Abdominal Pain Stated Complaint: STOMACH Time Seen by Provider: 05/15/17 12:20 Source of Information: Reports: Patient, RN, RN Notes Reviewed History Limitations: Reports: No Limitations - History of Present Illness INITIAL COMMENTS - FREE TEXT/NARRATIVE: Presents with abdominal pain since Wednesday. Rates pain 05/16. Patient states pain is in epigastric area, but has sharp pain to the right shoulder, left arm at times. She states she has been bleeding vaginally x2 weeks. She has not been able to see her provider. Admits to nausea. No vomiting. No fever or chills. No chest pain or SOB. Location: Reports: Head, Abdomen Quality: Reports: Ache Severity: Moderate Improves with: Reports: None Worsens with: Reports: None Associated Symptoms: Reports: No Other Symptoms Upper Mid-Anterior Abdomen Pain Score (Numeric/FACES): 9 - Related Data Allergies Allergy/AdvReac Type Severity Reaction Status Date / Time Sulfa (Sulfonamide Allergy Rash Verified 03/16/17 09:22 Antibiotics) Penicillins AdvReac Hives Verified 03/16/17 09:22 Home Meds: Home Meds Pregabalin [Lyrica] 150 mg PO BID 05/12/14 [History] predniSONE [Prednisone] 5 mg PO DAILY 05/12/14 [History] Hyoscyamine [Levsin] 0.125 mg PO QID PRN 03/17/15 [History] azaTHIOprine [Imuran] 150 mg PO DAILY 03/17/15 [History] Benzonatate [Tessalon Perles] 100 mg PO TID PRN 03/19/16 [History] ClonazePAM [KlonoPIN] 0.5 mg PO BID PRN 03/19/16 [History] Ondansetron HCl [Ondansetron] 4 mg PO Q6H PRN 03/19/16 [History] Amitriptyline HCl 200 mg PO BEDTIME 12/16/16 [History] Cyclobenzaprine [Flexeril] 10 mg PO Q8H PRN 12/16/16 [History] DULoxetine HCl [Duloxetine HCl] 60 mg PO DAILY 12/16/16 [History] Dicyclomine [Bentyl] 20 mg PO Q6H PRN 12/16/16 [History] Diclofenac Sodium [Voltaren 1% Gel] 2 gm TOP QID PRN 02/12/17 [History] tiZANidine [Zanaflex] 4 mg PO TID 02/12/17 [History] amLODIPine [Norvasc] 5 mg PO DAILY #30 tablet 02/14/17 [Rx] Acetaminophen [Tylenol Extra Strength] 500 mg PO Q4H PRN #30 tablet 03/18/17 [Rx ] Clindamycin HCl 300 mg PO Q6H #40 capsule 03/18/17 [Rx] Past Medical History HEENT History: Reports: Hard of Hearing, Impaired Vision Other HEENT History: broken and missing teeth Cardiovascular History: Reports: Hypertension Respiratory History: Reports: COPD Gastrointestinal History: Reports: None Other Gastrointestinal History: ulcerative colitis Genitourinary History: Reports: Acute Renal Failure Other Genitourinary History: 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 Musculoskeletal History: Reports: Arthritis, Fibromyalgia, RA, Other (See Below) Other Musculoskeletal History: rhabdomyolisis Neurological History: Reports: Migraines Psychiatric History: Reports: Anxiety, Depression, Panic Attack Other Psychiatric History: Patient states she is trying to wean off Oxycodone Endocrine/Metabolic History: Reports: None Hematologic History: Reports: Anemia Other Hematologic History: anemia r/t ulcerative colitis Immunologic History: Reports: None Oncologic (Cancer) History: Reports: None Dermatologic History: Reports: Cellulitis, Other (See Below) Other Dermatologic History: resolved in 2016 - Infectious Disease History Infectious Disease History: Reports: MRSA - Past Surgical History HEENT Surgical History: Reports: Other (See Below) Musculoskeletal Surgical History: Reports: Other (See Below) Social & Family History - Family History Family Medical History: Noncontributory HEENT: Reports: Impaired Vision Cardiac: Reports: Other (See Below) Other Cardiac Family History: Aortic valve problems Respiratory: Reports: COPD GI: Reports: None : Reports: None OBGYN: Reports: None Musculoskeletal: Reports: Arthritis, Fibromyalgia Neurological: Reports: CVA Psychiatric: Reports: None Endocrine/Metabolic: Reports: None Hematologic: Reports: None Immunologic: Reports: None Dermatologic: Reports: None Oncologic: Reports: Colon - Tobacco Use Smoking Status *Q: Never Smoker Second Hand Smoke Exposure: Yes - Caffeine Use Caffeine Use: Reports: Soda Other Caffeine Use: 5 Cokes per day - Alcohol Use Days Per Week of Alcohol Use: 0 - Recreational Drug Use Recreational Drug Use: No - Living Situation & Occupation Living situation: Reports: Single, with Family Occupation: Disabled ED ROS GENERAL - Review of Systems Review Of Systems: ROS reveals no pertinent complaints other than HPI. ED EXAM, GI/ABD - Physical Exam Exam: See Below Exam Limited By: No Limitations General Appearance: Alert, WD/WN, No Apparent Distress Eyes: Bilateral: Normal Appearance Ears: Normal External Exam, Normal Canal, Hearing Grossly Normal, Normal TMs Nose: Normal Inspection, Normal Mucosa, No Blood Throat/Mouth: Normal Inspection, Normal Lips, Normal Teeth, Normal Gums, Normal Oropharynx, Normal Voice, No Airway Compromise Head: Atraumatic, Normocephalic Neck: Normal Inspection, Supple, Non-Tender, Full Range of Motion Respiratory/Chest: No Respiratory Distress, Lungs Clear, Normal Breath Sounds, No Accessory Muscle Use, Chest Non-Tender Cardiovascular: Normal Peripheral Pulses, Regular Rate, Rhythm, No Edema, No Gallop, No JVD, No Murmur, No Rub GI/Abdominal Exam: Rigid, Other (tenderness) (Female) Exam: Deferred Rectal (Female) Exam: Deferred Back Exam: Normal Inspection, Full Range of Motion, NT Extremities: Normal Inspection, Normal Range of Motion, Non-Tender, Normal Capillary Refill, No Pedal Edema Neurological: Alert, Oriented, CN II-XII Intact, Normal Cognition, Normal Gait, Normal Reflexes, No Motor/Sensory Deficits Psychiatric: Normal Affect, Normal Mood Skin Exam: Warm, Dry, Intact, Normal Color, No Rash Lymphatic: No Adenopathy Course - Vital Signs Last Recorded V/S: Last Vital Signs Temp 97.2 F 05/15/17 12:18 Pulse 101 H 05/15/17 12:18 Resp 16 05/15/17 12:18 BP 143/92 H 05/15/17 12:18 Pulse Ox 99 05/15/17 12:18 - Orders/Labs/Meds Orders: Active Orders 24 hr Category Date Time Status Peripheral IV Care [RC] . DIRECTED Care 05/15/17 13:33 Active UA W/MICROSCOPIC [URIN] Stat Lab 05/15/17 13:40 Ordered Sodium Chloride 0.9% [Saline Flush] Med 05/15/17 13:33 Active 10 ml FLUSH ASDIRECTED PRN Peripheral IV Insertion Adult [OM.PC] Stat Oth 05/15/17 13:33 Ordered Medication Orders Sodium Chloride (Saline Flush) 10 ml FLUSH ASDIRECTED PRN PRN Reason: Keep Vein Open Last Admin: 05/15/17 13:57 Dose: 10 ml Labs: Laboratory Tests 05/15/17 05/15/17 05/15/17 Range/Units 12:43 12:43 12:43 WBC 13.3 H (5.0-10.0) 10^3/uL RBC 3.73 L (4.2-5.4) 10^6/uL Hgb 12.2 (12.0-16.0) g/dL Hct 37.9 (37.0-47.0) % MCV 101.6 H (80-100) fL MCH 32.7 (27.0-34.0) pg MCHC 32.2 L (33.0-35.0) g/dL Plt Count 358 (150-450) 10^3/uL Neut % (Auto) 86.6 H (42.2-75.2) % Lymph % (Auto) 8.8 L (20.5-50.1) % [place] % (Auto) 3.5 (2-8) % Eos % (Auto) 0.9 L (1.0-3.0) % Baso % (Auto) 0.2 (0.0-1.0) % Sodium 139 (135-145) mmol/L Potassium 4.2 (3.6-5.0) mmol/L Chloride 103 (101-111) mmol/L Carbon Dioxide 25.0 (21.0-31.0) mmol/L Anion Gap 15.2 BUN 17 (7-18) mg/dL Creatinine 1.1 (0.6-1.3) mg/dL Est Cr Clr Drug Dosing 61.73 mL/min Estimated GFR (MDRD) 54 BUN/Creatinine Ratio 15.45 Glucose 120 H (74-105) mg/dL Calcium 9.0 (8.4-10.2) mg/dl Total Bilirubin 0.4 (0.2-1.0) mg/dL AST 27 (10-42) IU/L ALT 19 (10-60) IU/L Alkaline Phosphatase 89 (42-121) IU/L Creatine Kinase 378 H (26-174) IU/L Creatine Kinase Index 1.7 (0-2.4) % CK-MB (CK-2) 6.60 H (0.4-4.7) ng/mL Total Protein 7.0 (6.7-8.2) g/dl Albumin 4.0 (3.2-5.5) g/dl Globulin 3.0 Albumin/Globulin Ratio 1.33 Amylase 39 (28-100) U/L Lipase 14 L (22-51) U/L Meds: Medications Generic Name Dose Route Start Last Admin Trade Name Freq PRN Reason Stop Dose Admin Sodium Chloride 10 ml 05/15/17 13:33 05/15/17 13:57 Saline Flush FLUSH 10 ml ASDIRECTED PRN Administration Keep Vein Open Discontinued Medications Generic Name Dose Route Start Last Admin Trade Name Freq PRN Reason Stop Dose Admin Al Hydroxide/Mg Hydroxide 30 ml 05/15/17 13:25 05/15/17 13:57 Gi Cocktail PO 05/15/17 13:26 30 ml ONETIME ONE Administration Hydromorphone HCl 0.5 mg 05/15/17 13:25 05/15/17 13:58 Dilaudid IVPUSH 05/15/17 13:26 0.5 mg ONETIME ONE Administration Ondansetron HCl 4 mg 05/15/17 13:25 05/15/17 13:57 Zofran IV 05/15/17 13:26 4 mg ONETIME ONE Administration - Radiology Interpretation Free Text/Narrative:: Abdomen and pelvic CT: No acute findings. See rad report. Departure - Departure Time of Disposition: 14:25 Disposition: Home, Self-Care 01 Condition: Fair Clinical Impression: History of ulcerative colitis Gastritis Qualifiers: Gastritis type: unspecified gastritis Chronicity: acute Gastritis bleeding: without bleeding Qualified Code(s): K29.00 - Acute gastritis without bleeding - Discharge Information Instructions: Gastritis, Adult, [id number] Forms: ED Department Discharge Additional Instructions: RX: - My Orders Last 24 Hours: My Active Orders 05/15/17 13:33 Peripheral IV Care [RC] . DIRECTED Sodium Chloride 0.9% [Saline Flush] 10 ml FLUSH ASDIRECTED PRN Peripheral IV Insertion Adult [OM.PC] Stat 05/15/17 13:40 UA W/MICROSCOPIC [URIN] Stat - Assessment/Plan Last 24 Hours: My Active Orders 05/15/17 13:33 Peripheral IV Care [RC] . DIRECTED Sodium Chloride 0.9% [Saline Flush] 10 ml FLUSH ASDIRECTED PRN Peripheral IV Insertion Adult [OM.PC] Stat 05/15/17 13:40 UA W/MICROSCOPIC [URIN] Stat
[2017-05-15 12:19] VITALS: BP 143/92
[2017-05-15] MEDS ORDERED: HYDROmorphone 1 MG/ML Syringe IVPUSH ONE (13:25)
[2017-05-15] MEDS ORDERED: Ondansetron 4 MG/2 ML SDV IV ONE (13:25)
[2017-05-15] MEDS ORDERED: GI Cocktail Oral Solution 30 ML PO ONE (13:25)
[2017-05-15] MEDS ORDERED: Sodium Chloride 0.9% 10 ML Syringe FLUSH PRN (13:33)
--- NOTE | 2017-05-15 14:10 | CT ---
Clinical history: 41-year-old hypertensive obese female seen Emergency Department with abdominal pain who has a history of "appendectomy, ulcerative colitis and rheumatoid arthritis". WBC 13,000 with a "left shift". Please evaluate. Scan technique: Volume acquisition of data emergency unenhanced CT scan abdomen and pelvis obtained w ith patient lying supine on the Siemens multi slice CT scanner [facility]. All data archived in the PACS system for storage, reformatting and study. Interpretation: 1. Featureless air-filled transverse colon (stool right colon) and a few diverticula sigmoid colon le ft lower quadrant. No inflammatory "dirty" peritoneal fat, signs of abscess, mechanical bowel obstruction, ascites or fr ee intraperitoneal air. 2. No pelvic or abdominal mass lesion and no sign of mesenteric or retroperitoneal lymphadenopathy. 3. Gallbladder, unenhanced liver, spleen, pancreas, adrenal glands and kidneys unremarkable i.e. nega tive. 4. Normal caliber aortoiliac vessels. No aneurysm or dissection. Normal cardiac silhouette. Lung base s clear. 5. Hemangioma L2 vertebral body. Lumbar spine, AP pelvis and hips otherwise unremarkable. 6. Normal uterus and ovaries. No sign of adnexal mass or inflammation. Midline urinary bladder collap se. CONCLUSION: Sigmoid diverticulosis. See comments regarding large bowel (colon) above. No sign of acute intraperitoneal inflammation. Gallbladder, kidneys and pelvis unremarkable. Lung ba ses clear.
== END 2017-05-15 14:31 | disposition home or self-care (01) ==
LOC: DL.ED 12:05
DX: K29.00 Acute gastritis without bleeding (principal); I10 Essential (primary) hypertension; J44.9 Chronic obstructive pulmonary disease, unspecified; M19.90 Unspecified osteoarthritis, unspecified site; F41.0 Panic disorder [episodic paroxysmal anxiety]; F32.9 Major depressive disorder, single episode, unspecified; Z86.2 Personal history of diseases of the blood and blood-forming organs and certain disorders involving the immune mechanism; Z79.899 Other long term (current) drug therapy; Z88.0 Allergy status to penicillin; Z88.2 Allergy status to sulfonamides
CPT/HCPCS: 36415; 74176; 80053; 81001; 82150; 82550; 82553; 83690; 85025; 96374; 96375; 99284; A9270; J1170; J2405; J7050

== ENCOUNTER 2017-06-11 12:06 | Emergency (ER) | payer MEDICARE, MEDICAID, OTHER, SELFPAY ==
[2017-06-11 12:23] VITALS: BP 143/106
[2017-06-11] MEDS ORDERED: Sodium Chloride 0.9% 500 ML IV SCH (13:00)
--- NOTE | 2017-06-11 13:01 | EDM.PDOC ---
ED HPI GENERAL MEDICAL PROBLEM - General Chief Complaint: General Stated Complaint: DIZZY, CAN'T STAND Time Seen by Provider: 06/11/17 12:50 Source of Information: Reports: Patient History Limitations: Reports: No Limitations - History of Present Illness INITIAL COMMENTS - FREE TEXT/NARRATIVE: 42 yo white female c/o left lower extremity weakness and fall today. Pt. states low back pain with radiation to left leg last week. Pt. states PMHx. RA and Colitis and Rhabdomyolisis. Pt. admits to not being very active Onset: Today Onset Date: 06/11/17 Onset Time: 11:30 Duration: Hour(s): Location: Reports: Lower Extremity, Left Severity: Moderate Improves with: Reports: None Worsens with: Reports: None Associated Symptoms: Reports: No Other Symptoms Bilateral Hip Pain Score (Numeric/FACES): 7 - Related Data Allergies Allergy/AdvReac Type Severity Reaction Status Date / Time Sulfa (Sulfonamide Allergy Rash Verified 06/11/17 12:19 Antibiotics) Penicillins AdvReac Hives Verified 06/11/17 12:19 Home Meds: Home Meds predniSONE [Prednisone] 5 mg PO DAILY 05/12/14 [History] Hyoscyamine [Levsin] 0.125 mg PO QID PRN 03/17/15 [History] azaTHIOprine [Imuran] 150 mg PO DAILY 03/17/15 [History] Benzonatate [Tessalon Perles] 100 mg PO TID PRN 03/19/16 [History] ClonazePAM [KlonoPIN] 1 tab PO BID PRN 03/19/16 [History] Amitriptyline HCl 200 mg PO BEDTIME 12/16/16 [History] DULoxetine HCl [Duloxetine HCl] 90 mg PO DAILY 12/16/16 [History] Dicyclomine [Bentyl] 20 mg PO Q6H PRN 12/16/16 [History] tiZANidine [Zanaflex] 4 mg PO TID 02/12/17 [History] Albuterol Sulfate [Ventolin Hfa] 2 puff IH Q6H PRN 06/11/17 [History] Budesonide/Formoterol Fumarate [Symbicort 160-4.5 Mcg Inhaler] 1 puff IH BID 02/20 [History] Eletriptan HBr 40 mg PO ASDIRECTED 06/11/17 [History] Leflunomide [Arava] 10 mg PO DAILY 06/11/17 [History] Ondansetron [Zofran] 4 mg PO Q6H 06/11/17 [History] diphenhydrAMINE [Benadryl] 25 mg PO BEDTIME PRN 06/11/17 [History] Past Medical History HEENT History: Reports: Hard of Hearing, Impaired Vision Other HEENT History: broken and missing teeth Cardiovascular History: Reports: Hypertension Respiratory History: Reports: COPD Gastrointestinal History: Reports: Other (See Below) Other Gastrointestinal History: ulcerative colitis Genitourinary History: Reports: Acute Renal Failure Other Genitourinary History: 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 summer 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 Musculoskeletal History: Reports: Arthritis, Fibromyalgia, RA, Other (See Below) Other Musculoskeletal History: rhabdomyolisis Neurological History: Reports: Migraines Psychiatric History: Reports: Anxiety, Depression, Panic Attack Other Psychiatric History: Patient states she is trying to wean off Oxycodone Endocrine/Metabolic History: Reports: None Hematologic History: Reports: Anemia Other Hematologic History: anemia r/t ulcerative colitis Immunologic History: Reports: None Oncologic (Cancer) History: Reports: None Dermatologic History: Reports: Cellulitis, Other (See Below) Other Dermatologic History: resolved in 2016 - Infectious Disease History Infectious Disease History: Reports: MRSA - Past Surgical History HEENT Surgical History: Reports: Other (See Below) Musculoskeletal Surgical History: Reports: Other (See Below) Social & Family History - Family History Family Medical History: Noncontributory HEENT: Reports: Impaired Vision Cardiac: Reports: Other (See Below) Other Cardiac Family History: Aortic valve problems Respiratory: Reports: COPD GI: Reports: None : Reports: None OBGYN: Reports: None Musculoskeletal: Reports: Arthritis, Fibromyalgia Neurological: Reports: CVA Psychiatric: Reports: None Endocrine/Metabolic: Reports: None Hematologic: Reports: None Immunologic: Reports: None Dermatologic: Reports: None Oncologic: Reports: Colon - Tobacco Use Smoking Status *Q: Never Smoker Second Hand Smoke Exposure: Yes - Caffeine Use Caffeine Use: Reports: Soda Other Caffeine Use: 5 Cokes per day - Alcohol Use Days Per Week of Alcohol Use: 0 - Recreational Drug Use Recreational Drug Use: No - Living Situation & Occupation Living situation: Reports: Single, with Family Occupation: Disabled ED ROS GENERAL - Review of Systems Review Of Systems: See Below Constitutional: Reports: No Symptoms HEENT: Reports: No Symptoms Respiratory: Reports: No Symptoms Cardiovascular: Reports: No Symptoms Endocrine: Reports: No Symptoms GI/Abdominal: Reports: No Symptoms : Reports: No Symptoms Musculoskeletal: Reports: Back Pain (with left leg weakness) Skin: Reports: No Symptoms Neurological: Reports: Difficulty Walking, Weakness, Gait Disturbance Psychiatric: Reports: No Symptoms Hematologic/Lymphatic: Reports: No Symptoms Immunologic: Reports: No Symptoms ED EXAM, GENERAL - Physical Exam Exam: See Below Exam Limited By: No Limitations General Appearance: Alert, Obese Eye Exam: Bilateral Eye: EOMI, PERRL Ears: Normal External Exam Nose: Normal Inspection Throat/Mouth: Normal Inspection, Normal Lips Head: Atraumatic, Normocephalic Neck: Normal Inspection Respiratory/Chest: No Respiratory Distress, Lungs Clear Cardiovascular: Normal Peripheral Pulses, Regular Rate, Rhythm, No Edema Peripheral Pulses: 2+: Femoral (L), Femoral (R) GI/Abdominal: Normal Bowel Sounds Back Exam: Normal Inspection, Full Range of Motion Extremities: Limited Range of Motion (bilat lower extremities) Neurological: Alert, Oriented, CN II-XII Intact, Sensory/Motor Deficit (lower extremities) Psychiatric: Normal Affect Skin Exam: Warm, Dry Lymphatic: No Adenopathy Course - Vital Signs Last Recorded V/S: Last Vital Signs Temp 36.8 C 06/11/17 12:20 Pulse 114 H 06/11/17 12:20 Resp 16 06/11/17 12:20 BP 143/106 H 06/11/17 12:20 Pulse Ox 98 06/11/17 12:20 - Orders/Labs/Meds Orders: Active Orders 24 hr Category Date Time Status Sodium Chloride 0.9% [Normal Saline] 500 ml Med 06/11/17 13:00 Active IV .BOLUS Medication Orders Sodium Chloride (Normal Saline) 500 mls @ 999 mls/hr IV .BOLUS ALINA Last Admin: 06/11/17 13:10 Dose: 999 mls/hr Labs: Laboratory Tests 06/11/17 06/11/17 06/11/17 Range/Units 13:06 13:06 14:23 WBC 5.2 (5.0-10.0) 10^3/uL RBC 4.00 L (4.2-5.4) 10^6/uL Hgb 12.7 (12.0-16.0) g/dL Hct 40.0 (37.0-47.0) % MCV 100.0 (80-100) fL MCH 31.8 (27.0-34.0) pg MCHC 31.8 L (33.0-35.0) g/dL Plt Count 353 (150-450) 10^3/uL Neut % (Auto) 74.3 (42.2-75.2) % Lymph % (Auto) 16.3 L (20.5-50.1) % [place] % (Auto) 7.4 (2-8) % Eos % (Auto) 1.6 (1.0-3.0) % Baso % (Auto) 0.4 (0.0-1.0) % Sodium 138 (135-145) mmol/L Potassium 4.1 (3.6-5.0) mmol/L Chloride 103 (101-111) mmol/L Carbon Dioxide 23.0 (21.0-31.0) mmol/L Anion Gap 16.1 BUN 21 H (7-18) mg/dL Creatinine 1.3 (0.6-1.3) mg/dL Est Cr Clr Drug Dosing 51.70 mL/min Estimated GFR (MDRD) 44 BUN/Creatinine Ratio 16.15 Glucose 92 (74-105) mg/dL Calcium 8.9 (8.4-10.2) mg/dl Total Bilirubin 0.2 (0.2-1.0) mg/dL AST 15 (10-42) IU/L ALT 8 L (10-60) IU/L Alkaline Phosphatase 82 (42-121) IU/L Total Protein 7.2 (6.7-8.2) g/dl Albumin 3.9 (3.2-5.5) g/dl Globulin 3.3 Albumin/Globulin Ratio 1.18 Urine Color Dark yellow (YELLOW) Urine Appearance Cloudy (CLEAR) Urine pH 6.0 (5.0-9.0) Ur Specific Kimberly 1.020 (1.005-1.030) Urine Protein 30 H (NEGATIVE) Urine Glucose (UA) Negative (NEGATIVE) Urine Ketones Trace H (NEGATIVE) Urine Occult Blood Large H (NEGATIVE) Urine Nitrite Negative (NEGATIVE) Urine Bilirubin Negative (NEGATIVE) Urine Urobilinogen 0.2 (0.2-1.0) mg/dL Ur Leukocyte Esterase Small H (NEGATIVE) Urine RBC 50-75 H /HPF Urine WBC 5-10 H (0-5/HPF) /HPF Ur Epithelial Cells Moderate H /HPF Urine Bacteria Rare (0-FEW/HPF) /HPF Urine Mucus Few H /LPF Meds: Medications Generic Name Dose Route Start Last Admin Trade Name Freq PRN Reason Stop Dose Admin Sodium Chloride 500 mls @ 999 mls/hr 06/11/17 13:00 06/11/17 13:10 Normal Saline IV 999 mls/hr .BOLUS ALINA Administration Departure - Departure Time of Disposition: 15:34 Disposition: Home, Self-Care 01 Condition: Fair Clinical Impression: Muscle weakness of lower extremity - Discharge Information Forms: ED Department Discharge Additional Instructions: Rest Use assistance when ambulating ( Cane or Wheelchair) F/U w/ PCP for referral to Physical Therapy Evaluation - My Orders Last 24 Hours: My Active Orders 06/11/17 13:00 Sodium Chloride 0.9% [Normal Saline] 500 ml IV .BOLUS - Assessment/Plan Last 24 Hours: My Active Orders 06/11/17 13:00 Sodium Chloride 0.9% [Normal Saline] 500 ml IV .BOLUS
--- NOTE | 2017-06-11 15:18 | CT ---
Clinical history: 42-year-old female with left lower extremity weakness and low back pain who can't s tand" and was reported on CT scan abdomen 15 May 2017 to have "hemangioma L2 vertebral body but otherwise unremarkable exam spine". Follow-up please. Scan technique: Volume acquisition of data unenhanced CT scan of the lumbar spine obtained with patie nt lying supine on the Siemens multi slice CT scanner [place], [place] . All data archived in the PACS system for storage, reformatting axial/sagittal/coronal plane and agustin dy. Interpretation: 1. Focal dense hemangioma body of L2 anteriorly. 2. Homogeneous normal bone density without sign of pathologic skeletal lesion, lumbar fracture, or sp ondylolisthesis. 3. *Subtle relative intervertebral disc space narrowing L2-3 level with some marginal spondylosis sug gesting chronic disc disease. Facet joint arthropathy. No other intervertebral disc space narrowing. Generally capacious bony spinal canal volume. 4. No foreign bodies. 5. Symmetric spacing normal-appearing SI joints without arthritic reactive change. Note: MRI is most optimal diagnostic modality for evaluating surgical disc disease or intracanalicula r tumor mass.
== END 2017-06-11 15:49 | disposition home or self-care (01) ==
LOC: DL.ED 12:06
DX: M62.81 Muscle weakness (generalized) (principal); I10 Essential (primary) hypertension; J44.9 Chronic obstructive pulmonary disease, unspecified; M06.9 Rheumatoid arthritis, unspecified; F41.9 Anxiety disorder, unspecified; F32.9 Major depressive disorder, single episode, unspecified; Z88.2 Allergy status to sulfonamides; Z88.0 Allergy status to penicillin; Z79.899 Other long term (current) drug therapy
CPT/HCPCS: 36415; 72131; 80053; 81001; 85025; 96365; 99283; J7040

== ENCOUNTER 2018-02-12 22:34 | Emergency (ER) | payer MEDICARE, MEDICAID ==
[2018-02-12 23:11] VITALS: BP 92/57
[2018-02-12 23:33] LABS: CHLORIDE,CL 99 mmol/L (101-111); SODIUM,NA 131 mmol/L (135-145)
[2018-02-12] MEDS ORDERED: Levofloxacin/Dextrose 5%-Water 750 MG in Premix Bag 1 BAG IV ONE (23:57)
[2018-02-12] MEDS ORDERED: predniSONE 20 MG Tab PO ONE (23:58)
--- NOTE | 2018-02-13 00:01 | EDM.PDOC ---
ED HPI GENERAL MEDICAL PROBLEM - General Chief Complaint: Respiratory Problem Stated Complaint: CANT CATCH BREATH, BP 86/49 CONFUSION [id number] Time Seen by Provider: 02/12/18 23:40 Source of Information: Reports: Patient History Limitations: Reports: No Limitations - History of Present Illness INITIAL COMMENTS - FREE TEXT/NARRATIVE: This 42 yo female patient reports to the ED with increased shortness of breath over the past 3 days. The patient reports she has been moving and noticed increased shortness of breath as well as lightheadedness. The patient has a history of bronchiectisis. The patient did not use her nebulizer today, but has used it for the past couple of days. The patient reports she has been feeling very warm over the past couple of days. Onset Date: 02/10/18 Duration: Constant, Getting Worse Location: Reports: Chest, Generalized Quality: Reports: Other Severity: Moderate Improves with: Reports: Medication Worsens with: Reports: None Associated Symptoms: Reports: cough w sputum, Shortness of Breath, Weakness - Related Data Allergies Allergy/AdvReac Type Severity Reaction Status Date / Time Sulfa (Sulfonamide Allergy Rash Verified 06/11/17 12:19 Antibiotics) Penicillins AdvReac Hives Verified 06/11/17 12:19 Home Meds: Home Meds predniSONE [Prednisone] 5 mg PO DAILY 05/12/14 [History] Hyoscyamine [Levsin] 0.125 mg PO QID PRN 03/17/15 [History] azaTHIOprine [Imuran] 150 mg PO DAILY 03/17/15 [History] Benzonatate [Tessalon Perles] 100 mg PO TID PRN 03/19/16 [History] ClonazePAM [KlonoPIN] 1 tab PO BID PRN 03/19/16 [History] Amitriptyline HCl 200 mg PO BEDTIME 12/16/16 [History] DULoxetine HCl [Duloxetine HCl] 90 mg PO DAILY 12/16/16 [History] Dicyclomine [Bentyl] 20 mg PO Q6H PRN 12/16/16 [History] tiZANidine [Zanaflex] 4 mg PO TID 02/12/17 [History] Albuterol Sulfate [Ventolin Hfa] 2 puff IH Q6H PRN 06/11/17 [History] Budesonide/Formoterol Fumarate [Symbicort 160-4.5 Mcg Inhaler] 1 puff IH BID 02/20 [History] Eletriptan HBr 40 mg PO ASDIRECTED 06/11/17 [History] Leflunomide [Arava] 10 mg PO DAILY 06/11/17 [History] Ondansetron [Zofran] 4 mg PO Q6H 06/11/17 [History] diphenhydrAMINE [Benadryl] 25 mg PO BEDTIME PRN 06/11/17 [History] Past Medical History HEENT History: Reports: Hard of Hearing, Impaired Vision Other HEENT History: broken and missing teeth Cardiovascular History: Reports: Hypertension Respiratory History: Reports: COPD Gastrointestinal History: Reports: Other (See Below) Other Gastrointestinal History: ulcerative colitis Genitourinary History: Reports: Acute Renal Failure Other Genitourinary History: this last summer [employer]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 [employer]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 [employer] INCOME History: Reports: None Musculoskeletal History: Reports: Arthritis, Fibromyalgia, RA, Other (See Below) Other Musculoskeletal History: rhabdomyolisis Neurological History: Reports: Migraines Psychiatric History: Reports: Anxiety, Depression, Panic Attack Other Psychiatric History: Patient states she is trying to wean off Oxycodone Endocrine/Metabolic History: Reports: None Hematologic History: Reports: Anemia Other Hematologic History: anemia r/t ulcerative colitis Immunologic History: Reports: None Oncologic (Cancer) History: Reports: None Dermatologic History: Reports: Cellulitis, Other (See Below) Other Dermatologic History: resolved in 2016 - Infectious Disease History Infectious Disease History: Reports: MRSA - Past Surgical History HEENT Surgical History: Reports: Other (See Below) Musculoskeletal Surgical History: Reports: Other (See Below) Social & Family History - Family History Family Medical History: Noncontributory HEENT: Reports: Impaired Vision Cardiac: Reports: Other (See Below) Other Cardiac Family History: Aortic valve problems Respiratory: Reports: COPD GI: Reports: None : Reports: None OBGYN: Reports: None Musculoskeletal: Reports: Arthritis, Fibromyalgia Neurological: Reports: CVA Psychiatric: Reports: None Endocrine/Metabolic: Reports: None Hematologic: Reports: None Immunologic: Reports: None Dermatologic: Reports: None Oncologic: Reports: Colon - Tobacco Use Smoking Status *Q: Never Smoker - Caffeine Use Caffeine Use: Reports: None Other Caffeine Use: 5 Cokes per day - Recreational Drug Use Recreational Drug Use: No - Living Situation & Occupation Living situation: Reports: Single, with Family Occupation: Disabled ED ROS GENERAL - Review of Systems Review Of Systems: ROS reveals no pertinent complaints other than HPI. ED EXAM, GENERAL - Physical Exam Exam: See Below Exam Limited By: No Limitations General Appearance: Alert, WD/WN, Moderate Distress, Obese Eye Exam: Bilateral Eye: EOMI, Normal Inspection, PERRL Ears: Normal External Exam, Normal Canal, Hearing Grossly Normal, Normal TMs Nose: Normal Inspection, Normal Mucosa, No Blood Head: Atraumatic, Normocephalic Neck: Normal Inspection, Supple, Non-Tender, Full Range of Motion Respiratory/Chest: Decreased Breath Sounds (throughout), Rhonchi Cardiovascular: Normal Peripheral Pulses, Regular Rate, Rhythm, No Edema, No Gallop, No JVD, No Murmur, No Rub GI/Abdominal: Normal Bowel Sounds, Soft, Non-Tender, No Organomegaly, No Distention, No Abnormal Bruit, No Mass (Female) Exam: Deferred Rectal (Female) Exam: Deferred Back Exam: Normal Inspection, Full Range of Motion, NT Extremities: Normal Inspection, Normal Range of Motion, Non-Tender, Normal Capillary Refill, No Pedal Edema Neurological: Alert, Oriented, CN II-XII Intact, Normal Cognition, Normal Gait, Normal Reflexes, No Motor/Sensory Deficits Psychiatric: Normal Affect, Normal Mood Skin Exam: Warm, Dry, Intact, Normal Color, No Rash Lymphatic: No Adenopathy Course - Vital Signs Last Recorded V/S: Last Vital Signs Temp 37.0 C 02/12/18 22:50 Pulse 109 H 02/12/18 22:50 Resp 19 02/12/18 22:50 BP 92/57 L 02/12/18 22:50 Pulse Ox 96 02/12/18 22:50 - Orders/Labs/Meds Orders: Active Orders 24 hr Category Date Time Status EKG Documentation Completion [RC] URGENT Care 02/12/18 22:47 Active CULTURE BLOOD [BC] Stat Lab 02/12/18 23:00 Received CULTURE BLOOD [BC] Stat Lab 02/12/18 23:05 Received Levofloxacin/Dextrose 5%-Water [Levaquin in D5W 750 MG/ Med 02/12/18 23:57 Ordered 150 ML] 750 mg Premix Bag 1 bag IV ONETIME Blood Culture x2 Reflex Set [OM.PC] Stat Oth 02/12/18 22:49 Ordered Medication Orders Levofloxacin/Dextrose 750 mg/ (Premix) 150 mls @ 100 mls/hr IV ONETIME ONE Stop: 02/13/18 01:26 Last Admin: 02/13/18 00:05 Dose: 100 mls/hr Labs: Laboratory Tests 02/12/18 02/12/18 02/12/18 Range/Units 23:00 23:00 23:00 WBC 22.8 H (5.0-10.0) 10^3/uL RBC 3.56 L (4.2-5.4) 10^6/uL Hgb 11.1 L D (12.0-16.0) g/dL Hct 35.1 L (37.0-47.0) % MCV 98.6 (80-100) fL MCH 31.2 (27.0-34.0) pg MCHC 31.6 L (33.0-35.0) g/dL Plt Count 341 (150-450) 10^3/uL Neut % (Auto) 89.6 H (42.2-75.2) % Lymph % (Auto) 3.7 L (20.5-50.1) % [place] % (Auto) 4.6 (2-8) % Eos % (Auto) 2.0 (1.0-3.0) % Baso % (Auto) 0.1 (0.0-1.0) % Sodium 131 L (135-145) mmol/L Potassium 4.5 (3.6-5.0) mmol/L Chloride 99 L (101-111) mmol/L Carbon Dioxide 22.0 (21.0-31.0) mmol/L Anion Gap 14.5 BUN 22 H (7-18) mg/dL Creatinine 2.7 H D (0.6-1.3) mg/dL Est Cr Clr Drug Dosing TNP Estimated GFR (MDRD) 19 BUN/Creatinine Ratio 8.14 Glucose 101 (74-105) mg/dL Lactic Acid 0.9 (0.5-2.2) mmol/L Calcium 8.2 L (8.4-10.2) mg/dl Total Bilirubin 0.5 (0.2-1.0) mg/dL AST 14 (10-42) IU/L ALT 12 (10-60) IU/L Alkaline Phosphatase 71 (42-121) IU/L Troponin I < 0.02 (0.00-0.02) ng/ml B-Natriuretic Peptide 64 (0-100) pg/ml Total Protein 6.1 L (6.7-8.2) g/dl Albumin 2.9 L (3.2-5.5) g/dl Globulin 3.2 Albumin/Globulin Ratio 0.91 Meds: Medications Generic Name Dose Route Start Last Admin Trade Name Freq PRN Reason Stop Dose Admin Levofloxacin/Dextrose 750 mg/ 150 mls @ 100 mls/hr 02/12/18 23:57 02/13/18 00 :05 Premix IV 02/13/18 01:26 100 mls/hr ONETIME ONE Administration Discontinued Medications Generic Name Dose Route Start Last Admin Trade Name Freq PRN Reason Stop Dose Admin Prednisone 40 mg 02/12/18 23:58 02/13/18 00:04 Prednisone PO 02/12/18 23:59 40 mg ONETIME ONE Administration Departure - Departure Time of Disposition: 00:36 Disposition: Home, Self-Care 01 Condition: Fair Clinical Impression: Community acquired pneumonia Qualifiers: Laterality: unspecified laterality Qualified Code(s): J18.9 - Pneumonia, unspecified organism - Discharge Information Instructions: Community-Acquired Pneumonia, Adult, [id number] Forms: ED Department Discharge Care Plan Goals: The patient was advised of the examination, lab, EKG and x-ray results during the visit. The patient was given an oral dose of Prednisone (40 mg) while in the ED and an IV dose of Levaquin (750 mg) while in the ED. The patient was discharged with a script for Levaquin (750 mg) to take 1 by mouth daily for 7 days and Prednisone (20 mg) #8 to take 2 by mouth daily for 4 days. If the patient has any additional symptoms or concerns, the patient should follow-up with her primary care facility or return to the emergency department. - My Orders Last 24 Hours: My Active Orders 02/12/18 22:47 EKG Documentation Completion [RC] URGENT 02/12/18 22:49 Blood Culture x2 Reflex Set [OM.PC] Stat 02/12/18 23:00 CULTURE BLOOD [BC] Stat 02/12/18 23:05 CULTURE BLOOD [BC] Stat 02/12/18 23:57 Levofloxacin/Dextrose 5%-Water [Levaquin in D5W 750 MG/150 ML] 750 mg Premix Bag 1 bag IV ONETIME - Assessment/Plan Last 24 Hours: My Active Orders 02/12/18 22:47 EKG Documentation Completion [RC] URGENT 02/12/18 22:49 Blood Culture x2 Reflex Set [OM.PC] Stat 02/12/18 23:00 CULTURE BLOOD [BC] Stat 02/12/18 23:05 CULTURE BLOOD [BC] Stat 02/12/18 23:57 Levofloxacin/Dextrose 5%-Water [Levaquin in D5W 750 MG/150 ML] 750 mg Premix Bag 1 bag IV ONETIME
--- NOTE | 2018-02-16 13:19 | EKG ---
02/12/2018 - KAMILAH PASTOR - TIME: 10:45 p.m. FINDINGS: Sinus tachycardia at 101 as per my reading. [facility] /[id number]
== END 2018-02-13 01:48 | disposition home or self-care (01) ==
LOC: DL.ED 22:34
DX: J18.9 Pneumonia, unspecified organism (principal); I10 Essential (primary) hypertension; J44.9 Chronic obstructive pulmonary disease, unspecified; Z88.2 Allergy status to sulfonamides; Z88.0 Allergy status to penicillin; Z79.899 Other long term (current) drug therapy
CPT/HCPCS: 36415; 71046; 80053; 83605; 83880; 84484; 85025; 87040; 93005; 93010; 96365; 96366; 99285; A9270; J1956; 99283

== ENCOUNTER 2018-03-14 04:47 | Inpatient (IN) | payer MEDICARE, MEDICAID ==
--- NOTE | 2018-03-14 05:12 | EDM.PDOC ---
<Yelena Alvarez - Last Filed: 03/14/18 07:07> ED HPI GENERAL MEDICAL PROBLEM - General Chief Complaint: Chest Pain Stated Complaint: DIFFICULTY BREATHING, PAIN [id number] Time Seen by Provider: 03/14/18 05:10 Source of Information: Reports: Patient, RN, RN Notes Reviewed History Limitations: Reports: No Limitations - History of Present Illness INITIAL COMMENTS - FREE TEXT/NARRATIVE: Pt to ER with c/o chest tenderness with breathing and to touch beginning last night. Patient denies any fever, chills, N/V/D. She states she has a bit more SOB than usual, and a cough. Patient states she has been using her nebulizer. Onset: Today, Sudden Duration: Constant Location: Reports: Chest Quality: Reports: Sharp Severity: Severe Improves with: Reports: None Worsens with: Reports: Breathing Associated Symptoms: Reports: Chest Pain, Cough, Shortness of Breath Left Chest Pain Score (Numeric/FACES): 10 - Related Data Allergies Allergy/AdvReac Type Severity Reaction Status Date / Time Sulfa (Sulfonamide Allergy Rash Verified 06/11/17 12:19 Antibiotics) Penicillins AdvReac Hives Verified 06/11/17 12:19 Home Meds: Home Meds predniSONE [Prednisone] 5 mg PO DAILY 05/12/14 [History] Hyoscyamine [Levsin] 0.125 mg PO QID PRN 03/17/15 [History] azaTHIOprine [Imuran] 150 mg PO DAILY 03/17/15 [History] Benzonatate [Tessalon Perles] 100 mg PO TID PRN 03/19/16 [History] ClonazePAM [KlonoPIN] 1 tab PO BID PRN 03/19/16 [History] Amitriptyline HCl 200 mg PO BEDTIME 12/16/16 [History] DULoxetine HCl [Duloxetine HCl] 90 mg PO DAILY 12/16/16 [History] Dicyclomine [Bentyl] 20 mg PO Q6H PRN 12/16/16 [History] tiZANidine [Zanaflex] 4 mg PO TID 02/12/17 [History] Albuterol Sulfate [Ventolin Hfa] 2 puff IH Q6H PRN 06/11/17 [History] Budesonide/Formoterol Fumarate [Symbicort 160-4.5 Mcg Inhaler] 1 puff IH BID 02/20 [History] Eletriptan HBr 40 mg PO ASDIRECTED 06/11/17 [History] Leflunomide [Arava] 10 mg PO DAILY 06/11/17 [History] Ondansetron [Zofran] 4 mg PO Q6H 06/11/17 [History] diphenhydrAMINE [Benadryl] 25 mg PO BEDTIME PRN 06/11/17 [History] Past Medical History HEENT History: Reports: Hard of Hearing, Impaired Vision Other HEENT History: broken and missing teeth Cardiovascular History: Reports: Hypertension Respiratory History: Reports: COPD Gastrointestinal History: Reports: Other (See Below) Other Gastrointestinal History: ulcerative colitis Genitourinary History: Reports: Acute Renal Failure Other Genitourinary History: this last summer EDUCATION REVIEWER History: Reports: None Musculoskeletal History: Reports: Arthritis, Fibromyalgia, RA, Other (See Below) Other Musculoskeletal History: rhabdomyolisis Neurological History: Reports: Migraines Psychiatric History: Reports: Anxiety, Depression, Panic Attack Other Psychiatric History: Patient states she is trying to wean off Oxycodone Endocrine/Metabolic History: Reports: None Hematologic History: Reports: Anemia Other Hematologic History: anemia r/t ulcerative colitis Immunologic History: Reports: None Oncologic (Cancer) History: Reports: None Dermatologic History: Reports: Cellulitis, Other (See Below) Other Dermatologic History: resolved in 2016 - Infectious Disease History Infectious Disease History: Reports: MRSA - Past Surgical History HEENT Surgical History: Reports: Other (See Below) Musculoskeletal Surgical History: Reports: Other (See Below) Social & Family History - Family History Family Medical History: Noncontributory HEENT: Reports: Impaired Vision Cardiac: Reports: Other (See Below) Other Cardiac Family History: Aortic valve problems Respiratory: Reports: COPD GI: Reports: None : Reports: None OBGYN: Reports: None Musculoskeletal: Reports: Arthritis, Fibromyalgia Neurological: Reports: CVA Psychiatric: Reports: None Endocrine/Metabolic: Reports: None Hematologic: Reports: None Immunologic: Reports: None Dermatologic: Reports: None Oncologic: Reports: Colon - Caffeine Use Caffeine Use: Reports: None Other Caffeine Use: 5 Cokes per day - Living Situation & Occupation Living situation: Reports: Single, with Family Occupation: Disabled ED ROS GENERAL - Review of Systems Review Of Systems: ROS reveals no pertinent complaints other than HPI. ED EXAM, GENERAL - Physical Exam Exam: See Below Exam Limited By: No Limitations General Appearance: Alert, WD/WN, Moderate Distress Eye Exam: Bilateral Eye: EOMI, Normal Inspection Ears: Normal External Exam, Hearing Grossly Normal Nose: Normal Inspection Throat/Mouth: Normal Inspection, Normal Voice, No Airway Compromise Head: Atraumatic, Normocephalic Neck: Normal Inspection, Full Range of Motion Respiratory/Chest: Decreased Breath Sounds, Crackles, Rhonchi, Other (Chest tenderness to the left anterior chest). No: Chest Non-Tender Cardiovascular: Normal Peripheral Pulses, Regular Rate, Rhythm, No Gallop, No JVD, No Murmur, No Rub, Tachycardia Peripheral Pulses: 1+: Radial (L), Radial (R) GI/Abdominal: Normal Bowel Sounds, Soft, Non-Tender (Female) Exam: Deferred Rectal (Female) Exam: Deferred Back Exam: Normal Inspection, Full Range of Motion Extremities: Normal Inspection, Normal Range of Motion, Non-Tender, No Pedal Edema, Normal Capillary Refill Neurological: Alert, Oriented, Normal Cognition Psychiatric: Anxious Skin Exam: Warm, Dry, Intact, Normal Color, No Rash Lymphatic: No Adenopathy EKG INTERPRETATION EKG Date: 03/14/18 Time: 05:04 Rhythm: Other (sinus tach) Rate (Beats/Min): 115 [place]: Normal P-Wave: Present QRS: Normal ST-T: Normal QT: Normal Comparison: No Change Course - Vital Signs Last Recorded V/S: Last Vital Signs Temp 36.6 C 03/14/18 04:56 Pulse 107 H 03/14/18 06:57 Resp 20 03/14/18 04:56 BP 118/74 03/14/18 04:56 Pulse Ox 95 03/14/18 04:56 - Orders/Labs/Meds Orders: Active Orders 24 hr Category Date Time Status EKG Documentation Completion [RC] STAT Care 03/14/18 05:17 Active Peripheral IV Care [RC] . DIRECTED Care 03/14/18 05:18 Active RT Aerosol Therapy [RC] ASDIRECTED Care 03/14/18 06:43 Active UA W/MICROSCOPIC [URIN] Stat Lab 03/14/18 06:39 Ordered Sodium Chloride 0.9% [Saline Flush] Med 03/14/18 05:17 Active 10 ml FLUSH ASDIRECTED PRN Peripheral IV Insertion Adult [OM.PC] Stat Oth 03/14/18 05:17 Ordered Medication Orders Sodium Chloride (Saline Flush) 10 ml FLUSH ASDIRECTED PRN PRN Reason: Keep Vein Open Last Admin: 03/14/18 06:48 Dose: 10 ml Labs: Laboratory Tests 03/14/18 03/14/18 03/14/18 Range/Units 05:27 05:27 05:27 WBC 13.3 H (5.0-10.0) 10^3/uL RBC 3.70 L (4.2-5.4) 10^6/uL Hgb 11.4 L (12.0-16.0) g/dL Hct 36.2 L (37.0-47.0) % MCV 97.8 (80-100) fL MCH 30.8 (27.0-34.0) pg MCHC 31.5 L (33.0-35.0) g/dL Plt Count 269 (150-450) 10^3/uL Neut % (Auto) 89.6 H (42.2-75.2) % Lymph % (Auto) 3.6 L (20.5-50.1) % [place] % (Auto) 6.1 (2-8) % Eos % (Auto) 0.6 L (1.0-3.0) % Baso % (Auto) 0.1 (0.0-1.0) % D-Dimer, Quantitative 555 H (0-400) ng/mL Sodium 135 (135-145) mmol/L Potassium 3.8 (3.6-5.0) mmol/L Chloride 105 (101-111) mmol/L Carbon Dioxide 20.0 L (21.0-31.0) mmol/L Anion Gap 13.8 BUN 19 H (7-18) mg/dL Creatinine 1.4 H D (0.6-1.3) mg/dL Est Cr Clr Drug Dosing TNP Estimated GFR (MDRD) 41 BUN/Creatinine Ratio 13.57 Glucose 121 H (74-105) mg/dL Calcium 8.4 (8.4-10.2) mg/dl Total Bilirubin 0.3 (0.2-1.0) mg/dL AST 12 (10-42) IU/L ALT 10 (10-60) IU/L Alkaline Phosphatase 72 (42-121) IU/L Troponin I < 0.02 (0.00-0.02) ng/ml B-Natriuretic Peptide 28 (0-100) pg/ml Total Protein 6.3 L (6.7-8.2) g/dl Albumin 3.1 L (3.2-5.5) g/dl Globulin 3.2 Albumin/Globulin Ratio 0.97 Urine Color (YELLOW) Urine Appearance (CLEAR) Urine pH (5.0-9.0) Ur Specific [place] (1.005-1.030) Urine Protein (NEGATIVE) Urine Glucose (UA) (NEGATIVE) Urine Ketones (NEGATIVE) Urine Occult Blood (NEGATIVE) Urine Nitrite (NEGATIVE) Urine Bilirubin (NEGATIVE) Urine Urobilinogen (0.2-1.0) mg/dL Ur Leukocyte Esterase (NEGATIVE) Urine RBC /HPF Urine WBC (0-5/HPF) /HPF Ur Epithelial Cells /HPF Urine Bacteria (0-FEW/HPF) /HPF 03/14/18 Range/Units 06:39 WBC (5.0-10.0) 10^3/uL RBC (4.2-5.4) 10^6/uL Hgb (12.0-16.0) g/dL Hct (37.0-47.0) % MCV (80-100) fL MCH (27.0-34.0) pg MCHC (33.0-35.0) g/dL Plt Count (150-450) 10^3/uL Neut % (Auto) (42.2-75.2) % Lymph % (Auto) (20.5-50.1) % [place] % (Auto) (2-8) % Eos % (Auto) (1.0-3.0) % Baso % (Auto) (0.0-1.0) % D-Dimer, Quantitative (0-400) ng/mL Sodium (135-145) mmol/L Potassium (3.6-5.0) mmol/L Chloride (101-111) mmol/L Carbon Dioxide (21.0-31.0) mmol/L Anion Gap BUN (7-18) mg/dL Creatinine (0.6-1.3) mg/dL Est Cr Clr Drug Dosing Estimated GFR (MDRD) BUN/Creatinine Ratio Glucose (74-105) mg/dL Calcium (8.4-10.2) mg/dl Total Bilirubin (0.2-1.0) mg/dL AST (10-42) IU/L ALT (10-60) IU/L Alkaline Phosphatase (42-121) IU/L Troponin I (0.00-0.02) ng/ml B-Natriuretic Peptide (0-100) pg/ml Total Protein (6.7-8.2) g/dl Albumin (3.2-5.5) g/dl Globulin Albumin/Globulin Ratio Urine Color Yellow (YELLOW) Urine Appearance Slightly cloudy (CLEAR) Urine pH 6.0 (5.0-9.0) Ur Specific [place] 1.020 (1.005-1.030) Urine Protein 100 H (NEGATIVE) Urine Glucose (UA) Negative (NEGATIVE) Urine Ketones Negative (NEGATIVE) Urine Occult Blood Trace-lysed H (NEGATIVE) Urine Nitrite Negative (NEGATIVE) Urine Bilirubin Negative (NEGATIVE) Urine Urobilinogen 0.2 (0.2-1.0) mg/dL Ur Leukocyte Esterase Negative (NEGATIVE) Urine RBC 0-5 /HPF Urine WBC 0-5 (0-5/HPF) /HPF Ur Epithelial Cells Many H /HPF Urine Bacteria Few (0-FEW/HPF) /HPF Meds: Medications Generic Name Dose Route Start Last Admin Trade Name Freq PRN Reason Stop Dose Admin Sodium Chloride 10 ml 03/14/18 05:17 03/14/18 06:48 Saline Flush FLUSH 10 ml ASDIRECTED PRN Administration Keep Vein Open Discontinued Medications Generic Name Dose Route Start Last Admin Trade Name Freq PRN Reason Stop Dose Admin Albuterol/Ipratropium 3 ml 03/14/18 06:43 03/14/18 06:56 Duoneb 3.0-0.5 Mg/3 Ml NEB 03/14/18 06:44 3 ml ONETIME ONE Administration Morphine Sulfate 2 mg 03/14/18 06:43 03/14/18 06:47 Morphine IVPUSH 03/14/18 06:44 2 mg ONETIME ONE Administration - Radiology Interpretation Free Text/Narrative:: Chest xray: IMPRESSION: New left basilar atelectasis or infiltrate suggestive of pneumonia Thank you for allowing us to participate in the care of your patient. Dictated and Authenticated by: Donny Hollis MD 03/14/2018 6:32 AM Central Time ([place] & [place]) See rad report Departure - Departure Time of Disposition: 07:07 Disposition: Admitted As Inpatient 64 Condition: Fair Clinical Impression: COPD exacerbation, History of rhabdomyolysis Pneumonia Qualifiers: Pneumonia type: due to unspecified organism Laterality: left Lung location: unspecified part of lung Qualified Code(s): J18.9 - Pneumonia, unspecified organism Forms: ED Department Discharge <Donald Collazo - Last Filed: 03/14/18 07:25> Past Medical History Respiratory History: Reports: Pneumonia, Recurrent Course - Re-Assessments/Exams Free Text/Narrative Re-Assessment/Exam: 03/14/18 07:00 I reviewed the case with Yelena ZELAYA. Pt has Hx of COPD, bronchiectasis , rhabdo., and has been using nebs. at home. I feel the pt is at high risk of worsening due to her chronic comorbid conditions, and Hx of failing outpt tx for respiratory infections. I will admit the pt to med. floor to the hospitalist 's service for tx of pneumonia.
[2018-03-14 05:57] LABS: ANION GAP 13.8; CHLORIDE,CL 105 mmol/L (101-111); SODIUM,NA 135 mmol/L (135-145)
[2018-03-14] MEDS ORDERED: Albuterol/Ipratropium 3.0-0.5 MG/3 ML Neb Soln NEB ONE (06:43)
[2018-03-14] MEDS ORDERED: Morphine 2 MG/ML Syringe IVPUSH ONE (06:43)
[2018-03-14] MEDS: Sodium Chloride 0.9% 10 ML Syringe FLUSH PRN (06:48)
[2018-03-14] MEDS ORDERED: cefTRIAXone 2 GM Vial IVPUSH SCH (09:00)
[2018-03-14] MEDS ORDERED: Azithromycin 500 MG in Sodium Chloride 0.9% 250 ML IV SCH (09:00)
[2018-03-14] MEDS ORDERED: Ondansetron 4 MG/2 ML SDV IVPUSH PRN (09:16)
[2018-03-14] MEDS ORDERED: Ondansetron 4 MG Tab.DIS PO PRN (09:19)
[2018-03-14] MEDS ORDERED: diphenhydrAMINE 25 MG Tab PO PRN (09:19)
[2018-03-14] MEDS ORDERED: LORazepam 1 MG Tab PO ONE (09:21)
[2018-03-14] MEDS ORDERED: Albuterol/Ipratropium 3.0-0.5 MG/3 ML Neb Soln NEB SCH (09:30)
--- NOTE | 2018-03-14 09:37 | PCM.HP ---
H&P History of Present Illness - General Date of Service: 03/14/18 Admit Problem/Dx: Admission Diagnosis/Problem Admission Diagnosis/Problem Community acquired pneumonia Source of Information: Patient History Limitations: Reports: No Limitations - History of Present Illness Initial Comments - Free Text/Narative: 42-year-old female with a past medical history of ulcerative colitis, rheumatoid arthritis on chronic immunosuppression, COPD, bronchiectasis, rhabdomyolysis who presents with shortness of breath, cough, and left-sided pleuritic chest pain 2 days duration. Shortness of breath and cough quadrant baseline for the patient due to history of COPD on bronchiectasis, however this has worsened in the last 2 days. Cough is productive of yellowish sputum. She also experiences sharp chest pain on the left side of the chest walks with deep breaths. She is anxious and worried. There is no abdominal pain, no urinary symptoms, no headaches, no fever, no pain in the joints Social history: Nonsmoker Left Chest Pain Score (Numeric/FACES): 10 - Related Data Allergies/Adverse Reactions: Allergies Allergy/AdvReac Type Severity Reaction Status Date / Time Sulfa (Sulfonamide Allergy Rash Verified 06/11/17 12:19 Antibiotics) Penicillins AdvReac Hives Verified 06/11/17 12:19 Home Medications: Home Meds predniSONE [Prednisone] 5 mg PO DAILY 05/12/14 [History] Hyoscyamine [Levsin] 0.125 mg PO QID PRN 03/17/15 [History] azaTHIOprine [Imuran] 150 mg PO DAILY 03/17/15 [History] Amitriptyline HCl 200 mg PO BEDTIME 12/16/16 [History] Albuterol Sulfate [Ventolin Hfa] 2 puff IH Q6H PRN 06/11/17 [History] Budesonide/Formoterol Fumarate [Symbicort 160-4.5 Mcg Inhaler] 1 puff IH BID 02/20 [History] Leflunomide [Arava] 10 mg PO DAILY 06/11/17 [History] Ondansetron [Zofran] 4 mg PO Q6H PRN 06/11/17 [History] diphenhydrAMINE [Benadryl] 25 mg PO BEDTIME PRN 06/11/17 [History] Albuterol/Ipratropium [DuoNeb 3.0-0.5 MG/3 ML] 1 inh .XX Q4HR PRN 03/14/18 [ History] Hydrocodone/Acetaminophen [Hydrocodon-Acetaminophn 10-325] 1 tab PO Q4H PRN 05/24 [History] Vilazodone Hydrochloride [Viibryd] 10 mg PO DAILY 03/14/18 [History] Past Medical History HEENT History: Reports: Hard of Hearing, Impaired Vision Other HEENT History: broken and missing teeth Cardiovascular History: Reports: Hypertension Respiratory History: Reports: Pneumonia, Recurrent Gastrointestinal History: Reports: Other (See Below) Other Gastrointestinal History: ulcerative colitis Genitourinary History: Reports: Acute Renal Failure Other Genitourinary History: this last summer [employer] History: Reports: None Musculoskeletal History: Reports: Arthritis, Fibromyalgia, RA, Other (See Below) Other Musculoskeletal History: rhabdomyolisis Neurological History: Reports: Migraines Psychiatric History: Reports: Anxiety, Depression, Panic Attack Other Psychiatric History: Patient states she is trying to wean off Oxycodone Endocrine/Metabolic History: Reports: None Hematologic History: Reports: Anemia Other Hematologic History: anemia r/t ulcerative colitis Immunologic History: Reports: None Oncologic (Cancer) History: Reports: None Dermatologic History: Reports: Cellulitis, Other (See Below) Other Dermatologic History: resolved in 2016 - Infectious Disease History Infectious Disease History: Reports: MRSA - Past Surgical History HEENT Surgical History: Reports: Other (See Below) Musculoskeletal Surgical History: Reports: Other (See Below) Social & Family History - Family History Family Medical History: Noncontributory HEENT: Reports: Impaired Vision Cardiac: Reports: Other (See Below) Other Cardiac Family History: Aortic valve problems Respiratory: Reports: COPD GI: Reports: None : Reports: None OBGYN: Reports: None Musculoskeletal: Reports: Arthritis, Fibromyalgia Neurological: Reports: CVA Psychiatric: Reports: None Endocrine/Metabolic: Reports: None Hematologic: Reports: None Immunologic: Reports: None Dermatologic: Reports: None Oncologic: Reports: Colon - Tobacco Use Smoking Status *Q: Never Smoker - Caffeine Use Caffeine Use: Reports: None Other Caffeine Use: 5 Cokes per day - Recreational Drug Use Recreational Drug Use: No - Living Situation & Occupation Living situation: Reports: Single, with Family Occupation: Disabled H&P Review of Systems - Review of Systems: Review Of Systems: ROS reveals no pertinent complaints other than HPI. General: Denies: Fever HEENT: Reports: No Symptoms Pulmonary: Reports: Shortness of Breath, Pleuritic Chest Pain, Cough Gastrointestinal: Reports: No Symptoms Genitourinary: Reports: No Symptoms Musculoskeletal: Reports: No Symptoms Skin: Reports: No Symptoms Psychiatric: Reports: No Symptoms Neurological: Reports: No Symptoms Exam - Exam Exam: See Below - Vital Signs Vital Signs: Last Vital Signs Temp 36.6 C 03/14/18 04:56 Pulse 107 H 03/14/18 06:57 Resp 20 03/14/18 04:56 BP 118/74 03/14/18 04:56 Pulse Ox 95 03/14/18 04:56 Weight: 112.945 kg - Exam General: Alert, Oriented HEENT: Conjunctiva Clear Neck: Supple Lungs: Crackles (Left-sided crackles) Cardiovascular: Regular Rate GI/Abdominal Exam: Normal Bowel Sounds Skin: Warm Neurological: Cranial Nerves Intact - Patient Data Lab Results Last 24 hrs: Laboratory Results - last 24 hr 03/14/18 03/14/18 03/14/18 Range/Units 05:27 05:27 05:27 WBC 13.3 H (5.0-10.0) 10^3/uL RBC 3.70 L (4.2-5.4) 10^6/uL Hgb 11.4 L (12.0-16.0) g/dL Hct 36.2 L (37.0-47.0) % MCV 97.8 (80-100) fL MCH 30.8 (27.0-34.0) pg MCHC 31.5 L (33.0-35.0) g/dL Plt Count 269 (150-450) 10^3/uL Neut % (Auto) 89.6 H (42.2-75.2) % Lymph % (Auto) 3.6 L (20.5-50.1) % [place] % (Auto) 6.1 (2-8) % Eos % (Auto) 0.6 L (1.0-3.0) % Baso % (Auto) 0.1 (0.0-1.0) % D-Dimer, Quantitative 555 H (0-400) ng/mL Sodium 135 (135-145) mmol/L Potassium 3.8 (3.6-5.0) mmol/L Chloride 105 (101-111) mmol/L Carbon Dioxide 20.0 L (21.0-31.0) mmol/L Anion Gap 13.8 BUN 19 H (7-18) mg/dL Creatinine 1.4 H D (0.6-1.3) mg/dL Est Cr Clr Drug Dosing TNP Estimated GFR (MDRD) 41 BUN/Creatinine Ratio 13.57 Glucose 121 H (74-105) mg/dL Calcium 8.4 (8.4-10.2) mg/dl Total Bilirubin 0.3 (0.2-1.0) mg/dL AST 12 (10-42) IU/L ALT 10 (10-60) IU/L Alkaline Phosphatase 72 (42-121) IU/L Troponin I < 0.02 (0.00-0.02) ng/ml B-Natriuretic Peptide 28 (0-100) pg/ml Total Protein 6.3 L (6.7-8.2) g/dl Albumin 3.1 L (3.2-5.5) g/dl Globulin 3.2 Albumin/Globulin Ratio 0.97 Urine Color (YELLOW) Urine Appearance (CLEAR) Urine pH (5.0-9.0) Ur Specific [place] (1.005-1.030) Urine Protein (NEGATIVE) Urine Glucose (UA) (NEGATIVE) Urine Ketones (NEGATIVE) Urine Occult Blood (NEGATIVE) Urine Nitrite (NEGATIVE) Urine Bilirubin (NEGATIVE) Urine Urobilinogen (0.2-1.0) mg/dL Ur Leukocyte Esterase (NEGATIVE) Urine RBC /HPF Urine WBC (0-5/HPF) /HPF Ur Epithelial Cells /HPF Urine Bacteria (0-FEW/HPF) /HPF 03/14/18 Range/Units 06:39 WBC (5.0-10.0) 10^3/uL RBC (4.2-5.4) 10^6/uL Hgb (12.0-16.0) g/dL Hct (37.0-47.0) % MCV (80-100) fL MCH (27.0-34.0) pg MCHC (33.0-35.0) g/dL Plt Count (150-450) 10^3/uL Neut % (Auto) (42.2-75.2) % Lymph % (Auto) (20.5-50.1) % [place] % (Auto) (2-8) % Eos % (Auto) (1.0-3.0) % Baso % (Auto) (0.0-1.0) % D-Dimer, Quantitative (0-400) ng/mL Sodium (135-145) mmol/L Potassium (3.6-5.0) mmol/L Chloride (101-111) mmol/L Carbon Dioxide (21.0-31.0) mmol/L Anion Gap BUN (7-18) mg/dL Creatinine (0.6-1.3) mg/dL Est Cr Clr Drug Dosing Estimated GFR (MDRD) BUN/Creatinine Ratio Glucose (74-105) mg/dL Calcium (8.4-10.2) mg/dl Total Bilirubin (0.2-1.0) mg/dL AST (10-42) IU/L ALT (10-60) IU/L Alkaline Phosphatase (42-121) IU/L Troponin I (0.00-0.02) ng/ml B-Natriuretic Peptide (0-100) pg/ml Total Protein (6.7-8.2) g/dl Albumin (3.2-5.5) g/dl Globulin Albumin/Globulin Ratio Urine Color Yellow (YELLOW) Urine Appearance Slightly cloudy (CLEAR) Urine pH 6.0 (5.0-9.0) Ur Specific [place] 1.020 (1.005-1.030) Urine Protein 100 H (NEGATIVE) Urine Glucose (UA) Negative (NEGATIVE) Urine Ketones Negative (NEGATIVE) Urine Occult Blood Trace-lysed H (NEGATIVE) Urine Nitrite Negative (NEGATIVE) Urine Bilirubin Negative (NEGATIVE) Urine Urobilinogen 0.2 (0.2-1.0) mg/dL Ur Leukocyte Esterase Negative (NEGATIVE) Urine RBC 0-5 /HPF Urine WBC 0-5 (0-5/HPF) /HPF Ur Epithelial Cells Many H /HPF Urine Bacteria Few (0-FEW/HPF) /HPF Result Diagrams: 03/14/18 05:27 03/14/18 05:27 Problem List Initiated/Reviewed/Updated: Yes Orders Last 24hrs: Active Orders 24 hr Category Date Time Status Patient Status [ADT] Routine ADT 03/14/18 09:16 Active Ambulate [RC] ASDIRECTED Care 03/14/18 09:16 Active Bedrest Bathroom Privileges [RC] ASDIRECTED Care 03/14/18 09:16 Active Bedrest Bedside Commode [RC] ASDIRECTED Care 03/14/18 09:16 Active EKG Documentation Completion [RC] STAT Care 03/14/18 05:17 Active Height and Weight [RC] DAILY Care 03/14/18 09:16 Active Intake and Output [RC] QSHIFT Care 03/14/18 09:17 Active May Shower [RC] ASDIRECTED Care 03/14/18 09:16 Active Oxygen Therapy [RC] PRN Care 03/14/18 09:16 Active Peripheral IV Care [RC] . DIRECTED Care 03/14/18 05:18 Active RT Aerosol Therapy [RC] ASDIRECTED Care 03/14/18 06:43 Active RT Aerosol Therapy [RC] ASDIRECTED Care 03/14/18 09:19 Active VTE/DVT Education [RC] PER UNIT ROUTINE Care 03/14/18 09:16 Active Vital Signs [RC] Q4H Care 03/14/18 09:16 Active Regular Diet [DIET] Diet 03/14/18 Breakfast Active BASIC METABOLIC PANEL,BMP [CHEM] AM Lab 03/15/18 05:11 Ordered CBC WITH AUTO DIFF [HEME] AM Lab 03/15/18 05:11 Ordered CULTURE BLOOD [BC] Stat Lab 03/14/18 09:07 Received CULTURE BLOOD [BC] Stat Lab 03/14/18 09:07 Received CULTURE SPUTUM + SMEAR [RM] Routine Lab 03/14/18 09:15 Received UA W/MICROSCOPIC [URIN] Stat Lab 03/14/18 06:39 Ordered Acetaminophen [Tylenol] Med 03/14/18 09:16 Active 650 mg PO Q4H PRN Albuterol/Ipratropium [DuoNeb 3.0-0.5 MG/3 ML] Med 03/14/18 09:30 Active 3 ml NEB Q6H Amitriptyline HCl [Amitriptyline HCl] Med 03/14/18 21:00 Ordered 200 mg PO BEDTIME Budesonide/Formoterol Fumarate [Symbicort 160-4.5 Mcg Med 03/14/18 21:00 Ordered Inhaler] 1 puff IH BID Heparin Sodium Med 03/14/18 14:00 Active 5,000 units SUBCUT Q8HR Hyoscyamine [Levsin] Med 03/14/18 09:19 Ordered 0.125 mg PO QID PRN Leflunomide [Arava] Med 03/15/18 09:00 Ordered 10 mg PO DAILY Levofloxacin/Dextrose 5%-Water [Levaquin in D5W 750 MG/ Med 03/14/18 09:30 Ordered 150 ML] 750 mg Premix Bag 1 bag IV Q24H Morphine Med 03/14/18 09:16 Active 2 mg IVPUSH Q2H PRN Ondansetron [Zofran ODT] Med 03/14/18 09:19 Active 4 mg PO Q6H PRN Ondansetron [Zofran] Med 03/14/18 09:16 Active 4 mg IVPUSH Q4H PRN Sodium Chloride 0.9% [Normal Saline] 1,000 ml Med 03/14/18 09:30 Active IV ASDIRECTED Sodium Chloride 0.9% [Saline Flush] Med 03/14/18 05:17 Active 10 ml FLUSH ASDIRECTED PRN Vilazodone Hydrochloride [Viibryd] Med 03/15/18 09:00 Ordered 10 mg PO DAILY azaTHIOprine [Imuran] Med 03/15/18 09:00 Active 150 mg PO DAILY diphenhydrAMINE [Benadryl] Med 03/14/18 09:19 Active 25 mg PO BEDTIME PRN oxyCODONE Med 03/14/18 09:16 Active 5 mg PO Q4H PRN predniSONE Med 03/15/18 08:00 Active 5 mg PO DAILY@0800 Blood Culture x2 Reflex Set [OM.PC] Stat Oth 03/14/18 08:13 Ordered Peripheral IV Insertion Adult [OM.PC] Stat Oth 03/14/18 05:17 Ordered Resuscitation Status Routine Resus Stat 03/14/18 09:16 Ordered Medication Orders Acetaminophen (Tylenol) 650 mg PO Q4H PRN PRN Reason: Pain (Mild 1-3)/fever Albuterol/Ipratropium (Duoneb 3.0-0.5 Mg/3 Ml) 3 ml NEB Q6H ALINA Azathioprine (Imuran) 150 mg PO DAILY ALINA Diphenhydramine HCl (Benadryl) 25 mg PO BEDTIME PRN PRN Reason: Itching Heparin Sodium (Porcine) (Heparin Sodium) 5,000 units SUBCUT Q8HR ALINA Sodium Chloride (Normal Saline) 1,000 mls @ 125 mls/hr IV ASDIRECTED [facility] Levofloxacin/Dextrose 750 mg/ (Premix) 150 mls @ 100 mls/hr IV Q24H [facility] Morphine Sulfate (Morphine) 2 mg IVPUSH Q2H PRN PRN Reason: Pain (severe 7-10) Non-Formulary Medication (Amitriptyline Hcl [Amitriptyline Hcl]) 200 mg PO BEDTIME [facility] Non-Formulary Medication (Budesonide/Formoterol Fumarate [Symbicort 160-4.5 Mcg Inhaler]) 1 puff IH BID [facility] Non-Formulary Medication (Hyoscyamine [Levsin]) 0.125 mg PO QID PRN PRN Reason: Spasms Non-Formulary Medication (Leflunomide [Arava]) 10 mg PO DAILY [facility] Non-Formulary Medication (Vilazodone Hydrochloride [Viibryd]) 10 mg PO DAILY [facility] Ondansetron HCl (Zofran) 4 mg IVPUSH Q4H PRN PRN Reason: Nausea/Vomiting Ondansetron HCl (Zofran Odt) 4 mg PO Q6H PRN PRN Reason: Nausea Oxycodone HCl (Oxycodone) 5 mg PO Q4H PRN PRN Reason: Pain (moderate 4-6) Prednisone (Prednisone) 5 mg PO DAILY@0800 [facility] Sodium Chloride (Saline Flush) 10 ml FLUSH ASDIRECTED PRN PRN Reason: Keep Vein Open Last Admin: 03/14/18 06:48 Dose: 10 ml Assessment/Plan Comment:: #Pneumonia Given patient's history of immunosuppression, we'll manage for possible gram- negative pneumonia IV levofloxacin 750 mg every 24 hours Check blood cultures, sputum culture IV fluid hydration Tylenol when necessary for fever Zofran when necessary for nausea/vomiting #COPD patient has a history of COPD/bronchiectasis However she is not in an exacerbation at present continue home dose of Symbicort supportive management with duo nebs [id number] #Ulcerative colitis and rheumatoid arthritis Continue Imuran, Prednisone #DVT prophylaxis subcutaneous heparin
[2018-03-14] MEDS: oxyCODONE 5 MG Tab PO PRN ×3 (09:39→23:35)
[2018-03-14] MEDS: Sodium Chloride 0.9% 1,000 ML IV SCH ×2 (11:37→19:46)
[2018-03-14] MEDS: Levofloxacin/Dextrose 5%-Water 750 MG in Premix Bag 1 BAG IV SCH (11:39)
[2018-03-14] MEDS: Albuterol/Ipratropium 3.0-0.5 MG/3 ML Neb Soln NEB SCH ×2 (12:02→17:46)
[2018-03-14] MEDS: Morphine 2 MG/ML Syringe IVPUSH PRN ×3 (12:56→22:38)
[2018-03-14] MEDS: Heparin Sodium 5,000 Units/ML Vial SUBCUT SCH ×2 (13:53→22:19)
[2018-03-14] MEDS: Acetaminophen 325 MG Tab PO PRN (16:06)
[2018-03-14] MEDS ORDERED: Amitriptyline 25 MG Tab PO SCH (21:00)
[2018-03-14] MEDS: Formoterol/Mometasone 200-5 MCG 8.8 GM Inhaler IH SCH (21:01)
[2018-03-14] MEDS: Pregabalin 50 MG Cap PO SCH (22:19)
[2018-03-15] MEDS: Morphine 2 MG/ML Syringe IVPUSH PRN ×7 (00:54→21:11)
[2018-03-15] MEDS: Albuterol/Ipratropium 3.0-0.5 MG/3 ML Neb Soln NEB SCH ×5 (00:59→18:00)
[2018-03-15] MEDS: Sodium Chloride 0.9% 1,000 ML IV SCH ×2 (03:51→19:46)
[2018-03-15] MEDS: oxyCODONE 5 MG Tab PO PRN ×3 (04:50→22:10)
[2018-03-15] MEDS: Heparin Sodium 5,000 Units/ML Vial SUBCUT SCH ×3 (05:05→21:15)
[2018-03-15 07:16] LABS: ANION GAP 12.7
[2018-03-15] MEDS: Pregabalin 50 MG Cap PO SCH ×3 (08:23→21:00)
[2018-03-15] MEDS: predniSONE 5 MG Tab PO SCH (08:23)
[2018-03-15] MEDS: VILAZODONE HYDROCHLORIDE 20 MG PO SCH (08:24)
[2018-03-15] MEDS: Formoterol/Mometasone 200-5 MCG 8.8 GM Inhaler IH SCH ×2 (08:24→20:59)
[2018-03-15] MEDS: Sodium Chloride 0.9% 10 ML Syringe FLUSH PRN ×2 (08:24→13:58)
--- NOTE | 2018-03-15 10:08 | PCM.PN ---
- General Info Date of Service: 03/15/18 Admission Dx/Problem (Free Text): Admission Diagnosis/Problem Admission Diagnosis/Problem Community acquired pneumonia Subjective Update: 42-year-old female with a past medical history of ulcerative colitis, rheumatoid arthritis on chronic immunosuppression, COPD, bronchiectasis, rhabdomyolysis who presents with shortness of breath, cough, and left-sided pleuritic chest pain 2 days duration. This morning, she still complains of pleuritic chest pain. She is anxious. She has a history of fibromyalgia and her home medication - lyrica was restarted last night. - Review of Systems General: Reports: No Symptoms HEENT: Reports: No Symptoms Pulmonary: Reports: Shortness of Breath, Pleuritic Chest Pain, Cough Cardiovascular: Reports: No Symptoms Gastrointestinal: Reports: No Symptoms Genitourinary: Reports: No Symptoms Musculoskeletal: Reports: No Symptoms Skin: Reports: No Symptoms Psychiatric: Reports: Anxiety - Patient Data Vitals - Most Recent: Last Vital Signs Temp 35.9 C 03/15/18 08:12 Pulse 93 03/15/18 08:12 Resp 20 03/15/18 08:12 BP 78/62 L 03/15/18 08:12 Pulse Ox 98 03/15/18 09:16 Weight - Most Recent: 114.94 kg I&O - Last 24 Hours: Intake & Output 03/14/18 03/15/18 03/15/18 22:59 06:59 14:59 Intake Total 1728 1532 Output Total 500 Balance 1728 1032 Lab Results Last 24 Hours: Laboratory Results - last 24 hr 03/15/18 03/15/18 Range/Units 06:15 06:15 WBC 17.1 H (5.0-10.0) 10^3/uL RBC 3.28 L (4.2-5.4) 10^6/uL Hgb 10.1 L (12.0-16.0) g/dL Hct 32.2 L (37.0-47.0) % MCV 98.2 (80-100) fL MCH 30.8 (27.0-34.0) pg MCHC 31.4 L (33.0-35.0) g/dL Plt Count 254 (150-450) 10^3/uL Neut % (Auto) 87.6 H (42.2-75.2) % Lymph % (Auto) 4.0 L (20.5-50.1) % [place] % (Auto) 6.6 (2-8) % Eos % (Auto) 1.7 (1.0-3.0) % Baso % (Auto) 0.1 (0.0-1.0) % Add Manual Diff Yes Neutrophils % (Manual) 58 (42-75) % Band Neutrophils % 37 % Lymphocytes % (Manual) 2 L (20-50) % Monocytes % (Manual) 2 (2-8) % Eosinophils % (Manual) 1 (1-3) % Sodium 133 L (135-145) mmol/L Potassium 3.7 (3.6-5.0) mmol/L Chloride 105 (101-111) mmol/L Carbon Dioxide 19.0 L (21.0-31.0) mmol/L Anion Gap 12.7 BUN 24 H (7-18) mg/dL Creatinine 1.7 H (0.6-1.3) mg/dL Est Cr Clr Drug Dosing 38.00 mL/min Estimated GFR (MDRD) 33 Glucose 86 (74-105) mg/dL Calcium 7.2 L (8.4-10.2) mg/dl Paul Results Last 24 Hours: Microbiology 03/14/18 09:07 Aerobic Blood Culture - Preliminary Blood - Venous - Lab Draw NO GROWTH AFTER 1 DAY Anaerobic Blood Culture - Preliminary NO GROWTH AFTER 1 DAY 03/14/18 09:07 Aerobic Blood Culture - Preliminary Blood - Venous NO GROWTH AFTER 1 DAY Anaerobic Blood Culture - Preliminary NO GROWTH AFTER 1 DAY 03/14/18 09:15 Gram Stain - Final Sputum - Expectorated Med Orders - Current: Current Medications Acetaminophen (Tylenol) 650 mg PO Q4H PRN PRN Reason: Pain (Mild 1-3)/fever Last Admin: 03/14/18 16:06 Dose: 650 mg Albuterol/Ipratropium (Duoneb 3.0-0.5 Mg/3 Ml) 3 ml NEB Q6HRRT [facility] [place] Last Admin: 03/15/18 07:08 Dose: Not Given Amitriptyline HCl (Elavil) 200 mg PO BEDTIME [facility] [place] Last Admin: 03/14/18 21:00 Dose: 200 mg Azathioprine (Imuran) 150 mg PO DAILY [facility] [place] Last Admin: 03/15/18 08:23 Dose: 150 mg Diphenhydramine HCl (Benadryl) 25 mg PO BEDTIME PRN PRN Reason: Itching Heparin Sodium (Porcine) (Heparin Sodium) 5,000 units SUBCUT Q8HR [facility] [place] Last Admin: 03/15/18 05:05 Dose: 5,000 units Sodium Chloride (Normal Saline) 1,000 mls @ 125 mls/hr IV ASDIRECTED [facility] [place] Last Admin: 03/15/18 03:51 Dose: 125 mls/hr Levofloxacin/Dextrose 750 mg/ (Premix) 150 mls @ 100 mls/hr IV Q24H [facility] [place] Last Admin: 03/14/18 11:39 Dose: 100 mls/hr Lidocaine (Lidoderm 5%) 700 mg TOP Q24H [facility] [place] Mometasone Furoate/Formoterol Fumar (Dulera 200-5 Mcg) 0 puff IH BID [facility] [place] Last Admin: 03/15/18 08:24 Dose: 1 puff Morphine Sulfate (Morphine) 2 mg IVPUSH Q2H PRN PRN Reason: Pain (severe 7-10) Last Admin: 03/15/18 08:23 Dose: 2 mg Non-Formulary Medication (Hyoscyamine [Levsin]) 0.125 mg PO QID PRN PRN Reason: Spasms Non-Formulary Medication (Leflunomide [Arava]) 10 mg PO DAILY [facility] [place] Ondansetron HCl (Zofran) 4 mg IVPUSH Q4H PRN PRN Reason: Nausea/Vomiting Ondansetron HCl (Zofran Odt) 4 mg PO Q6H PRN PRN Reason: Nausea Oxycodone HCl (Oxycodone) 5 mg PO Q4H PRN PRN Reason: Pain (moderate 4-6) Last Admin: 03/15/18 04:50 Dose: 5 mg Vilazodone Hydrochloride [ Viibryd] 20 Mg Pt' s Own Med 0 each PO DAILY@ 0800 [facility] [place] Last Admin: 03/15/18 08:24 Dose: 1 each Prednisone (Prednisone) 5 mg PO DAILY@0800 [facility] [place] Last Admin: 03/15/18 08:23 Dose: 5 mg Pregabalin (Lyrica) 150 mg PO TID [facility] [place] Last Admin: 03/15/18 08:23 Dose: 150 mg Sodium Chloride (Saline Flush) 10 ml FLUSH ASDIRECTED PRN PRN Reason: Keep Vein Open Last Admin: 03/15/18 08:24 Dose: 10 ml Discontinued Medications Albuterol/Ipratropium (Duoneb 3.0-0.5 Mg/3 Ml) 3 ml NEB ONETIME ONE Stop: 03/14/18 06:44 Last Admin: 03/14/18 06:56 Dose: 3 ml Albuterol/Ipratropium (Duoneb 3.0-0.5 Mg/3 Ml) 3 ml NEB Q6H [facility] [place] Last Admin: 03/14/18 09:38 Dose: 3 ml Ceftriaxone Sodium (Rocephin) 2 gm IVPUSH Q24H [facility] [place] Last Admin: 03/14/18 09:13 Dose: 2 gm Azithromycin 500 mg/ Sodium (Chloride) 250 mls @ 250 mls/hr IV Q24H [facility] [place] Last Admin: 03/14/18 09:13 Dose: 250 mls/hr Lorazepam (Ativan) 1 mg PO ONETIME ONE Stop: 03/14/18 09:22 Last Admin: 03/14/18 09:39 Dose: 1 mg Morphine Sulfate (Morphine) 2 mg IVPUSH ONETIME ONE Stop: 03/14/18 06:44 Last Admin: 03/14/18 06:47 Dose: 2 mg - Exam General: Alert, Oriented HEENT: Pupils Equal, Pupils Reactive Lungs: Clear to Auscultation Cardiovascular: Regular Rate, Regular Rhythm GI/Abdominal Exam: Normal Bowel Sounds - Problem List Review Problem List Initiated/Reviewed/Updated: Yes - My Orders Last 24 Hours: My Active Orders 03/14/18 09:07 CULTURE BLOOD [] Stat CULTURE BLOOD [] Stat 03/14/18 09:15 CULTURE SPUTUM + SMEAR [] Routine 03/14/18 09:16 Patient Status [ADT] Routine Ambulate [RC] ASDIRECTED Bedrest Bathroom Privileges [RC] ASDIRECTED Bedrest Bedside Commode [RC] ASDIRECTED Height and Weight [RC] 0600 May Shower [RC] ASDIRECTED Oxygen Therapy [RC] PRN VTE/DVT Education [RC] PER UNIT ROUTINE Vital Signs [RC] 03,07,11,15,19,23 Acetaminophen [Tylenol] 650 mg PO Q4H PRN Morphine 2 mg IVPUSH Q2H PRN Ondansetron [Zofran] 4 mg IVPUSH Q4H PRN oxyCODONE 5 mg PO Q4H PRN Resuscitation Status Routine 03/14/18 09:17 Intake and Output [RC] QSHIFT 03/14/18 09:19 RT Aerosol Therapy [RC] ASDIRECTED Hyoscyamine [Levsin] 0.125 mg PO QID PRN Ondansetron [Zofran ODT] 4 mg PO Q6H PRN diphenhydrAMINE [Benadryl] 25 mg PO BEDTIME PRN 03/14/18 09:30 Sodium Chloride 0.9% [Normal Saline] 1,000 ml IV ASDIRECTED 03/14/18 11:00 Levofloxacin/Dextrose 5%-Water [Levaquin in D5W 750 MG/150 ML] 750 mg Premix Bag 1 bag IV Q24H 03/14/18 12:14 Flutter Valve Therapy [RT Chest Physiotherapy] [RC] ASDIRECTED 03/14/18 12:15 IS (RT) [RT Incentive Spirometry] [RC] ASDIRECTED 03/14/18 13:00 Albuterol/Ipratropium [DuoNeb 3.0-0.5 MG/3 ML] 3 ml NEB Q6HRRT 03/14/18 14:00 Heparin Sodium 5,000 units SUBCUT Q8HR 03/14/18 21:00 Amitriptyline [Elavil] 200 mg PO BEDTIME Mometasone/Formoterol [Dulera 200-5 MCG] 0 puff IH BID 03/14/18 21:19 Pregabalin [Lyrica] 150 mg PO TID 03/15/18 08:00 Patient's Own Medication [Ptom] 0 each PO DAILY@0800 predniSONE 5 mg PO DAILY@0800 03/15/18 09:00 Leflunomide [Arava] 10 mg PO DAILY azaTHIOprine [Imuran] 150 mg PO DAILY 03/15/18 10:00 Lidocaine 5% [Lidoderm 5%] 700 mg TOP Q24H 03/16/18 05:11 BASIC METABOLIC PANEL,BMP [CHEM] AM CBC WITH AUTO DIFF [HEME] AM - Plan Plan:: #Pneumonia, Sepsis Given patient's history of immunosuppression, we'll manage for possible gram- negative pneumonia Increasing WBC and MAGGIE might be indicator of worsening sepsis. Will continue monitoring BMP and CBC, if not improving, will widen antibiotic coverage. Continue IV fluid hydration IV levofloxacin 750 mg every 24 hours Check blood cultures, sputum culture IV fluid hydration Tylenol when necessary for fever Zofran when necessary for nausea/vomiting Pain management - patient might have hyperesthesia from fibromyalgia which worsens pain from pneumonia. Will continue pain regimen. Add lidocaine patch. Continue lyrica #COPD patient has a history of COPD/bronchiectasis However she is not in an exacerbation at present continue home dose of Symbicort supportive management with monty nebs [id number] #Ulcerative colitis and rheumatoid arthritis Continue Imuran, Prednisone #DVT prophylaxis subcutaneous heparin
[2018-03-15] MEDS: Lidocaine 5% 700 MG Patch TOP SCH (10:45)
[2018-03-15] MEDS: Levofloxacin/Dextrose 5%-Water 750 MG in Premix Bag 1 BAG IV SCH (11:03)
[2018-03-15] MEDS: HYOSCYAMINE 0.125 MG PO PRN ×3 (11:10→22:24)
[2018-03-15] MEDS: LEFLUNOMIDE 10 MG PO SCH (11:10)
[2018-03-15] MEDS: AMITRIPTYLINE 100 MG PO SCH (21:00)
[2018-03-16] MEDS: Albuterol/Ipratropium 3.0-0.5 MG/3 ML Neb Soln NEB SCH ×4 (01:48→18:10)
[2018-03-16] MEDS: Morphine 2 MG/ML Syringe IVPUSH PRN ×3 (04:10→13:07)
[2018-03-16] MEDS: Sodium Chloride 0.9% 1,000 ML IV SCH ×3 (05:34→23:17)
[2018-03-16] MEDS: Heparin Sodium 5,000 Units/ML Vial SUBCUT SCH ×3 (05:39→21:51)
[2018-03-16] MEDS: oxyCODONE 5 MG Tab PO PRN ×3 (06:00→22:05)
[2018-03-16 07:06] LABS: ANION GAP 11.4
[2018-03-16] MEDS: Pregabalin 50 MG Cap PO SCH ×3 (08:15→21:52)
[2018-03-16] MEDS: predniSONE 5 MG Tab PO SCH (08:15)
[2018-03-16] MEDS: HYOSCYAMINE 0.125 MG PO PRN (08:19)
[2018-03-16] MEDS: LEFLUNOMIDE 10 MG PO SCH (08:21)
[2018-03-16] MEDS: Formoterol/Mometasone 200-5 MCG 8.8 GM Inhaler IH SCH ×2 (08:24→21:52)
[2018-03-16] MEDS: VILAZODONE HYDROCHLORIDE 20 MG PO SCH (08:25)
[2018-03-16] MEDS: Lidocaine 5% 700 MG Patch TOP SCH (10:03)
--- NOTE | 2018-03-16 10:57 | PCM.PN ---
- General Info Date of Service: 03/16/18 Admission Dx/Problem (Free Text): Admission Diagnosis/Problem Admission Diagnosis/Problem Community acquired pneumonia Subjective Update: 42-year-old female with a past medical history of ulcerative colitis, rheumatoid arthritis on chronic immunosuppression, COPD, bronchiectasis, rhabdomyolysis who presents with shortness of breath, cough, and left-sided pleuritic chest pain 2 days duration. Being managed for pneumonia. Sputum is growing MRSA. Pleuritic chest pain is improved. Patient feeling better. - Review of Systems General: Denies: Fever HEENT: Reports: No Symptoms Pulmonary: Reports: Pleuritic Chest Pain Cardiovascular: Reports: No Symptoms Gastrointestinal: Reports: No Symptoms Genitourinary: Reports: No Symptoms Musculoskeletal: Reports: No Symptoms Skin: Reports: No Symptoms - Patient Data Vitals - Most Recent: Last Vital Signs Temp 36.9 C 03/16/18 10:14 Pulse 72 03/16/18 10:14 Resp 20 03/16/18 10:36 BP 109/73 03/16/18 10:14 Pulse Ox 93 L 03/16/18 10:36 Weight - Most Recent: 115.893 kg I&O - Last 24 Hours: Intake & Output 03/15/18 03/16/18 03/16/18 22:59 06:59 14:59 Intake Total 400 240 Balance 400 240 Lab Results Last 24 Hours: Laboratory Results - last 24 hr 03/16/18 03/16/18 Range/Units 06:35 06:35 WBC 14.9 H (5.0-10.0) 10^3/uL RBC 3.12 L (4.2-5.4) 10^6/uL Hgb 9.5 L (12.0-16.0) g/dL Hct 30.5 L (37.0-47.0) % MCV 97.8 (80-100) fL MCH 30.4 (27.0-34.0) pg MCHC 31.1 L (33.0-35.0) g/dL Plt Count 247 (150-450) 10^3/uL Neut % (Auto) 85.5 H (42.2-75.2) % Lymph % (Auto) 5.7 L (20.5-50.1) % [place] % (Auto) 7.6 (2-8) % Eos % (Auto) 1.1 (1.0-3.0) % Baso % (Auto) 0.1 (0.0-1.0) % Sodium 136 (135-145) mmol/L Potassium 3.4 L (3.6-5.0) mmol/L Chloride 109 (101-111) mmol/L Carbon Dioxide 19.0 L (21.0-31.0) mmol/L Anion Gap 11.4 BUN 15 (7-18) mg/dL Creatinine 1.2 (0.6-1.3) mg/dL Est Cr Clr Drug Dosing 53.83 mL/min Estimated GFR (MDRD) 49 Glucose 79 (74-105) mg/dL Calcium 7.3 L (8.4-10.2) mg/dl Paul Results Last 24 Hours: Microbiology 03/14/18 09:07 Aerobic Blood Culture - Preliminary Blood - Venous - Lab Draw NO GROWTH AFTER 2 DAYS Anaerobic Blood Culture - Preliminary NO GROWTH AFTER 2 DAYS 03/14/18 09:07 Aerobic Blood Culture - Preliminary Blood - Venous NO GROWTH AFTER 2 DAYS Anaerobic Blood Culture - Preliminary NO GROWTH AFTER 2 DAYS 03/14/18 09:15 Gram Stain - Final Sputum - Expectorated Sputum Culture - Final (Mrsa) Staphylococcus Aureus 03/15/18 12:30 MRSA (PCR) - Final Nasal, Unspecified Med Orders - Current: Current Medications Acetaminophen (Tylenol) 650 mg PO Q4H PRN PRN Reason: Pain (Mild 1-3)/fever Last Admin: 03/14/18 16:06 Dose: 650 mg Albuterol/Ipratropium (Duoneb 3.0-0.5 Mg/3 Ml) 3 ml NEB Q6HRRT [facility] Last Admin: 03/16/18 06:56 Dose: 3 ml Azathioprine (Imuran) 150 mg PO DAILY [facility] Last Admin: 03/16/18 08:15 Dose: 150 mg Diphenhydramine HCl (Benadryl) 25 mg PO BEDTIME PRN PRN Reason: Itching Heparin Sodium (Porcine) (Heparin Sodium) 5,000 units SUBCUT Q8HR [facility] Last Admin: 03/16/18 05:39 Dose: 5,000 units Sodium Chloride (Normal Saline) 1,000 mls @ 125 mls/hr IV ASDIRECTED [facility] Last Admin: 03/16/18 05:34 Dose: 125 mls/hr Levofloxacin/Dextrose 750 mg/ (Premix) 150 mls @ 100 mls/hr IV Q24H [facility] Last Infusion: 03/15/18 13:56 Dose: Infused Lidocaine (Lidoderm 5%) 700 mg TOP Q24H [facility] Last Admin: 03/16/18 10:03 Dose: 700 mg Mometasone Furoate/Formoterol Fumar (Dulera 200-5 Mcg) 0 puff IH BID [facility] Last Admin: 03/16/18 08:24 Dose: 1 puff Morphine Sulfate (Morphine) 2 mg IVPUSH Q2H PRN PRN Reason: Pain (severe 7-10) Last Admin: 03/16/18 07:53 Dose: 2 mg Ondansetron HCl (Zofran) 4 mg IVPUSH Q4H PRN PRN Reason: Nausea/Vomiting Ondansetron HCl (Zofran Odt) 4 mg PO Q6H PRN PRN Reason: Nausea Oxycodone HCl (Oxycodone) 5 mg PO Q4H PRN PRN Reason: Pain (moderate 4-6) Last Admin: 03/16/18 06:00 Dose: 5 mg Hyoscyamine [Levsin] 0.125 Mg Pt's Own Med 0 each PO QID PRN PRN Reason: Spasms Last Admin: 03/16/18 08:19 Dose: 1 each Leflunomide [Arava] 10 Mg Pt's Own Med 0 each PO DAILY [facility] Last Admin: 03/16/18 08:21 Dose: 1 each Vilazodone Hydrochloride [ Viibryd] 20 Mg Pt' s Own Med 0 each PO DAILY@ 0800 [facility] Last Admin: 03/16/18 08:25 Dose: 1 each Amitriptyline 100 Mg Tab Pt's Own Med* * 0 each PO BEDTIME [facility] Last Admin: 03/15/18 21:00 Dose: 1 each Prednisone (Prednisone) 5 mg PO DAILY@0800 [facility] Last Admin: 03/16/18 08:15 Dose: 5 mg Pregabalin (Lyrica) 150 mg PO TID [facility] Last Admin: 03/16/18 08:15 Dose: 150 mg Sodium Chloride (Saline Flush) 10 ml FLUSH ASDIRECTED PRN PRN Reason: Keep Vein Open Last Admin: 03/15/18 13:58 Dose: 10 ml Discontinued Medications Albuterol/Ipratropium (Duoneb 3.0-0.5 Mg/3 Ml) 3 ml NEB ONETIME ONE Stop: 03/14/18 06:44 Last Admin: 03/14/18 06:56 Dose: 3 ml Albuterol/Ipratropium (Duoneb 3.0-0.5 Mg/3 Ml) 3 ml NEB Q6H [facility] Last Admin: 03/14/18 09:38 Dose: 3 ml Amitriptyline HCl (Elavil) 200 mg PO BEDTIME [facility] Last Admin: 03/14/18 21:00 Dose: 200 mg Ceftriaxone Sodium (Rocephin) 2 gm IVPUSH Q24H [facility] Last Admin: 03/14/18 09:13 Dose: 2 gm Azithromycin 500 mg/ Sodium (Chloride) 250 mls @ 250 mls/hr IV Q24H [facility] Last Admin: 03/14/18 09:13 Dose: 250 mls/hr Vancomycin HCl 1 gm/ Sodium (Chloride) 250 mls @ 166.667 mls/hr IV Q12H [facility] Last Admin: 03/16/18 01:32 Dose: 166.667 mls/hr Lorazepam (Ativan) 1 mg PO ONETIME ONE Stop: 03/14/18 09:22 Last Admin: 03/14/18 09:39 Dose: 1 mg Morphine Sulfate (Morphine) 2 mg IVPUSH ONETIME ONE Stop: 03/14/18 06:44 Last Admin: 03/14/18 06:47 Dose: 2 mg Vancomycin HCl (Pharmacy To Dose - Vancomycin) 1 dose .XX ASDIRECTED [facility] - Exam General: Alert, Oriented HEENT: Pupils Equal, Pupils Reactive Neck: Supple Lungs: Clear to Auscultation Cardiovascular: Regular Rate, Regular Rhythm GI/Abdominal Exam: Normal Bowel Sounds - Problem List Review Problem List Initiated/Reviewed/Updated: Yes - My Orders Last 24 Hours: My Active Orders 03/15/18 10:00 Lidocaine 5% [Lidoderm 5%] 700 mg TOP Q24H 03/15/18 10:45 Patient's Own Medication [Ptom] 0 each PO BEDTIME 03/17/18 12:30 VANCOMYCIN TROUGH [CHEM] Timed - Plan Plan:: #Pneumonia, Sepsis WBC is improving Wean down oxygen as tolerated. Sputum is growing MRSA sensitive to Levofloxacin. Continue IV levofloxacin 750 mg every 24 hours IV fluid hydration Tylenol when necessary for fever Zofran when necessary for nausea/vomiting Pain management - patient might have hyperesthesia from fibromyalgia which worsens pain from pneumonia. Will continue pain regimen. Continue lidocaine patch. Continue lyrica #MAGGIE, resolved continue IV fluid hydration #COPD patient has a history of COPD/bronchiectasis However she is not in an exacerbation at present continue home dose of Symbicort supportive management with duo nebs [id number] #Ulcerative colitis and rheumatoid arthritis Continue Imuran, Prednisone #DVT prophylaxis subcutaneous heparin
[2018-03-16] MEDS: Levofloxacin/Dextrose 5%-Water 750 MG in Premix Bag 1 BAG IV SCH (12:13)
[2018-03-16] MEDS: AMITRIPTYLINE 100 MG PO SCH (21:52)
[2018-03-17] MEDS: Albuterol/Ipratropium 3.0-0.5 MG/3 ML Neb Soln NEB SCH ×4 (02:32→18:03)
[2018-03-17] MEDS: Heparin Sodium 5,000 Units/ML Vial SUBCUT SCH ×3 (05:25→21:33)
[2018-03-17] MEDS: predniSONE 5 MG Tab PO SCH (07:59)
[2018-03-17] MEDS: Pregabalin 50 MG Cap PO SCH ×3 (08:02→21:31)
[2018-03-17] MEDS: LEFLUNOMIDE 10 MG PO SCH (08:03)
[2018-03-17] MEDS: VILAZODONE HYDROCHLORIDE 20 MG PO SCH (08:05)
[2018-03-17] MEDS: Formoterol/Mometasone 200-5 MCG 8.8 GM Inhaler IH SCH ×2 (08:06→21:32)
--- NOTE | 2018-03-17 08:39 | PCM.PN ---
- General Info Date of Service: 03/17/18 Admission Dx/Problem (Free Text): Admission Diagnosis/Problem Admission Diagnosis/Problem Community acquired pneumonia Subjective Update: 42-year-old female with a past medical history of ulcerative colitis, rheumatoid arthritis on chronic immunosuppression, COPD, bronchiectasis, rhabdomyolysis who presents with shortness of breath, cough, and left-sided pleuritic chest pain 2 days duration. Being managed for pneumonia. Sputum is growing MRSA. Pleuritic chest pain is improved. Patient feeling better. Functional Status: Reports: Pain Controlled - Review of Systems General: Reports: No Symptoms HEENT: Reports: No Symptoms Pulmonary: Reports: No Symptoms Cardiovascular: Reports: No Symptoms Gastrointestinal: Reports: No Symptoms Genitourinary: Reports: No Symptoms Musculoskeletal: Reports: No Symptoms Skin: Reports: No Symptoms Neurological: Reports: No Symptoms Psychiatric: Reports: No Symptoms - Patient Data Vitals - Most Recent: Last Vital Signs Temp 97.8 F 03/17/18 07:00 Pulse 98 03/16/18 19:00 Resp 20 03/17/18 07:00 BP 112/86 03/17/18 07:00 Pulse Ox 95 03/17/18 07:00 Weight - Most Recent: 258 lb 6 oz I&O - Last 24 Hours: Intake & Output 03/16/18 03/17/18 03/17/18 22:59 06:59 14:59 Intake Total 1375 Balance 1375 Paul Results Last 24 Hours: Microbiology 03/14/18 09:07 Aerobic Blood Culture - Preliminary Blood - Venous - Lab Draw NO GROWTH AFTER 2 DAYS Anaerobic Blood Culture - Preliminary NO GROWTH AFTER 2 DAYS 03/14/18 09:07 Aerobic Blood Culture - Preliminary Blood - Venous NO GROWTH AFTER 2 DAYS Anaerobic Blood Culture - Preliminary NO GROWTH AFTER 2 DAYS 03/14/18 09:15 Gram Stain - Final Sputum - Expectorated Sputum Culture - Final (Mrsa) Staphylococcus Aureus 03/15/18 12:30 MRSA (PCR) - Final Nasal, Unspecified Med Orders - Current: Current Medications Acetaminophen (Tylenol) 650 mg PO Q4H PRN PRN Reason: Pain (Mild 1-3)/fever Last Admin: 03/14/18 16:06 Dose: 650 mg Albuterol/Ipratropium (Duoneb 3.0-0.5 Mg/3 Ml) 3 ml NEB Q6HRRT [facility] Last Admin: 03/17/18 07:29 Dose: 3 ml Azathioprine (Imuran) 150 mg PO DAILY [facility] Last Admin: 03/17/18 08:00 Dose: 150 mg Diphenhydramine HCl (Benadryl) 25 mg PO BEDTIME PRN PRN Reason: Itching Heparin Sodium (Porcine) (Heparin Sodium) 5,000 units SUBCUT Q8HR [facility] Last Admin: 03/17/18 05:25 Dose: 5,000 units Sodium Chloride (Normal Saline) 1,000 mls @ 125 mls/hr IV ASDIRECTED [facility] Last Infusion: 03/17/18 07:31 Dose: Infused Levofloxacin/Dextrose 750 mg/ (Premix) 150 mls @ 100 mls/hr IV Q24H [facility] Last Infusion: 03/16/18 15:08 Dose: Infused Lidocaine (Lidoderm 5%) 700 mg TOP Q24H [facility] Last Admin: 03/16/18 10:03 Dose: 700 mg Mometasone Furoate/Formoterol Fumar (Dulera 200-5 Mcg) 0 puff IH BID [facility] Last Admin: 03/17/18 08:06 Dose: 1 puff Morphine Sulfate (Morphine) 2 mg IVPUSH Q2H PRN PRN Reason: Pain (severe 7-10) Last Admin: 03/16/18 13:07 Dose: 2 mg Ondansetron HCl (Zofran) 4 mg IVPUSH Q4H PRN PRN Reason: Nausea/Vomiting Ondansetron HCl (Zofran Odt) 4 mg PO Q6H PRN PRN Reason: Nausea Oxycodone HCl (Oxycodone) 5 mg PO Q4H PRN PRN Reason: Pain (moderate 4-6) Last Admin: 03/16/18 22:05 Dose: 5 mg Hyoscyamine [Levsin] 0.125 Mg Pt's Own Med 0 each PO QID PRN PRN Reason: Spasms Last Admin: 03/16/18 08:19 Dose: 1 each Leflunomide [Arava] 10 Mg Pt's Own Med 0 each PO DAILY [facility] Last Admin: 03/17/18 08:03 Dose: 1 each Vilazodone Hydrochloride [ Viibryd] 20 Mg Pt' s Own Med 0 each PO DAILY@ 0800 [facility] Last Admin: 03/17/18 08:05 Dose: 1 each Amitriptyline 100 Mg Tab Pt's Own Med* * 0 each PO BEDTIME [facility] Last Admin: 03/16/18 21:52 Dose: 2 each Prednisone (Prednisone) 5 mg PO DAILY@0800 [facility] Last Admin: 03/17/18 07:59 Dose: 5 mg Pregabalin (Lyrica) 150 mg PO TID [facility] Last Admin: 03/17/18 08:02 Dose: 150 mg Sodium Chloride (Saline Flush) 10 ml FLUSH ASDIRECTED PRN PRN Reason: Keep Vein Open Last Admin: 03/15/18 13:58 Dose: 10 ml Discontinued Medications Albuterol/Ipratropium (Duoneb 3.0-0.5 Mg/3 Ml) 3 ml NEB ONETIME ONE Stop: 03/14/18 06:44 Last Admin: 03/14/18 06:56 Dose: 3 ml Albuterol/Ipratropium (Duoneb 3.0-0.5 Mg/3 Ml) 3 ml NEB Q6H [facility] Last Admin: 03/14/18 09:38 Dose: 3 ml Amitriptyline HCl (Elavil) 200 mg PO BEDTIME [facility] Last Admin: 03/14/18 21:00 Dose: 200 mg Ceftriaxone Sodium (Rocephin) 2 gm IVPUSH Q24H [facility] Last Admin: 03/14/18 09:13 Dose: 2 gm Azithromycin 500 mg/ Sodium (Chloride) 250 mls @ 250 mls/hr IV Q24H [facility] Last Admin: 03/14/18 09:13 Dose: 250 mls/hr Vancomycin HCl 1 gm/ Sodium (Chloride) 250 mls @ 166.667 mls/hr IV Q12H [facility] Last Admin: 03/16/18 01:32 Dose: 166.667 mls/hr Lorazepam (Ativan) 1 mg PO ONETIME ONE Stop: 03/14/18 09:22 Last Admin: 03/14/18 09:39 Dose: 1 mg Morphine Sulfate (Morphine) 2 mg IVPUSH ONETIME ONE Stop: 03/14/18 06:44 Last Admin: 03/14/18 06:47 Dose: 2 mg Vancomycin HCl (Pharmacy To Dose - Vancomycin) 1 dose .XX ASDIRECTED [facility] - Exam General: Alert, Oriented HEENT: Pupils Equal, Pupils Reactive, EOMI, Mucous Membr. Moist/[place] Neck: Supple Lungs: Clear to Auscultation, Normal Respiratory Effort Cardiovascular: Regular Rate, Regular Rhythm GI/Abdominal Exam: Normal Bowel Sounds, Soft, Non-Tender, No Organomegaly, No Distention, No Abnormal Bruit, No Mass, Pelvis Stable (Female) Exam: Normal External Exam, Normal Speculum Exam, Normal Bimanual Exam Back Exam: Normal Inspection, Full Range of Motion Extremities: Normal Inspection, Normal Range of Motion, Non-Tender, No Pedal Edema, Normal Capillary Refill Skin: Warm, Dry, Intact Wound/Incisions: Healing Well Neurological: No New Focal Deficit Psy/Mental Status: Alert, Normal Affect, Normal Mood - Problem List Review Problem List Initiated/Reviewed/Updated: Yes - Plan Plan:: #Pneumonia, Sepsis WBC is improving Currently on room air Sputum is growing MRSA sensitive to Levofloxacin. Continue IV levofloxacin 750 mg every 24 hours d/c IVF Tylenol when necessary for fever Zofran when necessary for nausea/vomiting Pain management - patient might have hyperesthesia from fibromyalgia which worsens pain from pneumonia. Will continue pain regimen. Continue lidocaine patch. Continue lyrica #MAGGIE, resolved continue IV fluid hydration #COPD patient has a history of COPD/bronchiectasis However she is not in an exacerbation at present continue home dose of Symbicort supportive management with monty nebs [id number] #Ulcerative colitis and rheumatoid arthritis Continue Imuran, Prednisone #DVT prophylaxis subcutaneous heparin
[2018-03-17] MEDS: Lidocaine 5% 700 MG Patch TOP SCH (09:59)
[2018-03-17] MEDS: Levofloxacin/Dextrose 5%-Water 750 MG in Premix Bag 1 BAG IV SCH (10:47)
[2018-03-17] MEDS: oxyCODONE 5 MG Tab PO PRN ×2 (10:47→21:37)
[2018-03-17] MEDS: Acetaminophen 325 MG Tab PO PRN (13:17)
[2018-03-17] MEDS: AMITRIPTYLINE 100 MG PO SCH (21:32)
[2018-03-18] MEDS: Albuterol/Ipratropium 3.0-0.5 MG/3 ML Neb Soln NEB SCH ×3 (02:04→13:13)
[2018-03-18] MEDS: Acetaminophen 325 MG Tab PO PRN (05:02)
[2018-03-18] MEDS: Heparin Sodium 5,000 Units/ML Vial SUBCUT SCH (06:12)
[2018-03-18] MEDS: Pregabalin 50 MG Cap PO SCH (08:57)
[2018-03-18] MEDS: predniSONE 5 MG Tab PO SCH (08:58)
[2018-03-18] MEDS: Formoterol/Mometasone 200-5 MCG 8.8 GM Inhaler IH SCH (09:00)
[2018-03-18] MEDS: VILAZODONE HYDROCHLORIDE 20 MG PO SCH (09:02)
[2018-03-18] MEDS: LEFLUNOMIDE 10 MG PO SCH (09:03)
[2018-03-18] MEDS: Lidocaine 5% 700 MG Patch TOP SCH (09:04)
[2018-03-18 09:31] VITALS: BP 129/91
--- NOTE | 2018-03-18 10:21 | PCM.DCSUM1 ---
Discharge Summary - Hospital Course Diagnosis: Stroke: No - Discharge Data Discharge Date: 03/18/18 Discharge Disposition: Home, Self-Care 01 Condition: Good - Discharge Diagnosis/Problem(s) (1) Pneumonia SNOMED Code(s): 504829920 ICD Code: J18.9 - PNEUMONIA, UNSPECIFIED ORGANISM Status: Acute Current Visit: Yes (2) Acute dyspnea SNOMED Code(s): 685778501 ICD Code: R06.00 - DYSPNEA, UNSPECIFIED Status: Acute Current Visit: No Onset Date: ~11/23/16 (3) Acute renal failure SNOMED Code(s): 68039007 ICD Code: N17.9 - ACUTE KIDNEY FAILURE, UNSPECIFIED Status: Acute Current Visit: No Qualifiers: Acute renal failure type: unspecified Qualified Code(s): N17.9 - Acute kidney failure, unspecified (4) Bronchitis SNOMED Code(s): 35848481 ICD Code: J40 - BRONCHITIS, NOT SPECIFIED ACUTE OR CHRONIC Status: Acute Current Visit: No - Patient Instructions Diet: Heart Healthy Diet Fluid Restriction: 2000 mL Notify Provider of: Fever, Increased Pain, Swelling and Redness, Nausea and/or Vomiting - Discharge Plan *PRESCRIPTION DRUG MONITORING PROGRAM REVIEWED*: Not Applicable *COPY OF PRESCRIPTION DRUG MONITORING REPORT IN PATIENT FOX: Not Applicable Prescriptions/Med Rec: Levofloxacin [Levaquin] 750 mg PO Q24H 10 Days #10 tablet Home Medications: Home Meds predniSONE [Prednisone] 5 mg PO DAILY 05/12/14 [History] Hyoscyamine [Levsin] 0.125 mg PO QID PRN 03/17/15 [History] azaTHIOprine [Imuran] 150 mg PO DAILY 03/17/15 [History] Amitriptyline HCl 200 mg PO BEDTIME 12/16/16 [History] Albuterol Sulfate [Ventolin Hfa] 2 puff IH Q6H PRN 06/11/17 [History] Budesonide/Formoterol Fumarate [Symbicort 160-4.5 Mcg Inhaler] 1 puff IH BID 02/20 [History] Leflunomide [Arava] 10 mg PO DAILY 06/11/17 [History] Ondansetron [Zofran] 4 mg PO Q6H PRN 06/11/17 [History] diphenhydrAMINE [Benadryl] 25 mg PO BEDTIME PRN 06/11/17 [History] Albuterol/Ipratropium [DuoNeb 3.0-0.5 MG/3 ML] 1 inh .XX Q4HR PRN 03/14/18 [ History] Hydrocodone/Acetaminophen [Hydrocodon-Acetaminophn 10-325] 1 tab PO Q4H PRN 05/24 [History] Pregabalin [Lyrica] 150 mg PO TID 03/14/18 [History] Vilazodone Hydrochloride [Viibryd] 20 mg PO DAILY 03/14/18 [History] Levofloxacin [Levaquin] 750 mg PO Q24H 10 Days #10 tablet 03/18/18 [Rx] Forms: ED Department Discharge - Discharge Summary/Plan Comment DC Time >30 min.: Yes - General Info Admission Dx/Problem (Free Text: Admission Diagnosis/Problem Admission Diagnosis/Problem Community acquired pneumonia Subjective Update: 42-year-old female with a past medical history of ulcerative colitis, rheumatoid arthritis on chronic immunosuppression, COPD, bronchiectasis, rhabdomyolysis who presents with shortness of breath, cough, and left-sided pleuritic chest pain 2 days duration. She was managed for pneumonia. Sputum is grew MRSA. She was treated with IV abx with significant improvement. She is being discharge to continue PO abx for 7 days. She will follow with PCP in 5 days. Functional Status: Reports: Pain Controlled - Review of Systems General: Reports: No Symptoms HEENT: Reports: No Symptoms Pulmonary: Reports: No Symptoms Cardiovascular: Reports: No Symptoms Gastrointestinal: Reports: No Symptoms Genitourinary: Reports: No Symptoms Musculoskeletal: Reports: No Symptoms Skin: Reports: No Symptoms Neurological: Reports: No Symptoms Psychiatric: Reports: No Symptoms - Patient Data Vitals - Most Recent: Last Vital Signs Temp 97.7 F 03/18/18 07:00 Pulse 101 H 03/18/18 07:00 Resp 20 03/18/18 07:00 BP 129/91 H 03/18/18 07:00 Pulse Ox 94 L 03/18/18 09:00 Weight - Most Recent: 258 lb Lab Results - Last 24 hrs: Laboratory Results - last 24 hr 03/18/18 Range/Units 09:10 WBC 8.2 (5.0-10.0) 10^3/uL RBC 3.09 L (4.2-5.4) 10^6/uL Hgb 9.3 L (12.0-16.0) g/dL Hct 29.9 L (37.0-47.0) % MCV 96.8 (80-100) fL MCH 30.1 (27.0-34.0) pg MCHC 31.1 L (33.0-35.0) g/dL Plt Count 270 (150-450) 10^3/uL [facility] Results - Last 24 hrs: Microbiology 03/14/18 09:07 Aerobic Blood Culture - Preliminary Blood - Venous - Lab Draw NO GROWTH AFTER 4 DAYS Anaerobic Blood Culture - Preliminary NO GROWTH AFTER 4 DAYS 03/14/18 09:07 Aerobic Blood Culture - Preliminary Blood - Venous NO GROWTH AFTER 4 DAYS Anaerobic Blood Culture - Preliminary NO GROWTH AFTER 4 DAYS Med Orders - Current: Current Medications Acetaminophen (Tylenol) 650 mg PO Q4H PRN PRN Reason: Pain (Mild 1-3)/fever Last Admin: 03/18/18 05:02 Dose: 650 mg Albuterol/Ipratropium (Duoneb 3.0-0.5 Mg/3 Ml) 3 ml NEB Q6HRRT [facility] Last Admin: 03/18/18 08:12 Dose: 3 ml Azathioprine (Imuran) 150 mg PO DAILY [facility] Last Admin: 03/18/18 08:59 Dose: 150 mg Diphenhydramine HCl (Benadryl) 25 mg PO BEDTIME PRN PRN Reason: Itching Heparin Sodium (Porcine) (Heparin Sodium) 5,000 units SUBCUT Q8HR [facility] Last Admin: 03/18/18 06:12 Dose: 5,000 units Levofloxacin (Levaquin) 750 mg PO Q24H [facility] Stop: 03/25/18 10:16 Lidocaine (Lidoderm 5%) 700 mg TOP Q24H [facility] Last Admin: 03/18/18 09:04 Dose: Not Given Mometasone Furoate/Formoterol Fumar (Dulera 200-5 Mcg) 0 puff IH BID [facility] Last Admin: 03/18/18 09:00 Dose: 2 puff Morphine Sulfate (Morphine) 2 mg IVPUSH Q2H PRN PRN Reason: Pain (severe 7-10) Last Admin: 03/16/18 13:07 Dose: 2 mg Ondansetron HCl (Zofran) 4 mg IVPUSH Q4H PRN PRN Reason: Nausea/Vomiting Ondansetron HCl (Zofran Odt) 4 mg PO Q6H PRN PRN Reason: Nausea Oxycodone HCl (Oxycodone) 5 mg PO Q4H PRN PRN Reason: Pain (moderate 4-6) Last Admin: 03/17/18 21:37 Dose: 5 mg Hyoscyamine [Levsin] 0.125 Mg Pt's Own Med 0 each PO QID PRN PRN Reason: Spasms Last Admin: 03/16/18 08:19 Dose: 1 each Leflunomide [Arava] 10 Mg Pt's Own Med 0 each PO DAILY [facility] Last Admin: 03/18/18 09:03 Dose: 1 each Vilazodone Hydrochloride [ Viibryd] 20 Mg Pt' s Own Med 0 each PO DAILY@ 0800 [facility] Last Admin: 03/18/18 09:02 Dose: 1 each Amitriptyline 100 Mg Tab Pt's Own Med* * 0 each PO BEDTIME [facility] Last Admin: 03/17/18 21:32 Dose: 2 each Prednisone (Prednisone) 5 mg PO DAILY@0800 [facility] Last Admin: 03/18/18 08:58 Dose: 5 mg Pregabalin (Lyrica) 150 mg PO TID [facility] Last Admin: 03/18/18 08:57 Dose: 150 mg Sodium Chloride (Saline Flush) 10 ml FLUSH ASDIRECTED PRN PRN Reason: Keep Vein Open Last Admin: 03/15/18 13:58 Dose: 10 ml Discontinued Medications Albuterol/Ipratropium (Duoneb 3.0-0.5 Mg/3 Ml) 3 ml NEB ONETIME ONE Stop: 03/14/18 06:44 Last Admin: 03/14/18 06:56 Dose: 3 ml Albuterol/Ipratropium (Duoneb 3.0-0.5 Mg/3 Ml) 3 ml NEB Q6H [facility] Last Admin: 03/14/18 09:38 Dose: 3 ml Amitriptyline HCl (Elavil) 200 mg PO BEDTIME [facility] Last Admin: 03/14/18 21:00 Dose: 200 mg Ceftriaxone Sodium (Rocephin) 2 gm IVPUSH Q24H [facility] Last Admin: 03/14/18 09:13 Dose: 2 gm Azithromycin 500 mg/ Sodium (Chloride) 250 mls @ 250 mls/hr IV Q24H [facility] Last Admin: 03/14/18 09:13 Dose: 250 mls/hr Sodium Chloride (Normal Saline) 1,000 mls @ 125 mls/hr IV ASDIRECTED [facility] Last Infusion: 03/17/18 07:31 Dose: Infused Levofloxacin/Dextrose 750 mg/ (Premix) 150 mls @ 100 mls/hr IV Q24H [facility] Last Infusion: 03/17/18 12:50 Dose: Infused Vancomycin HCl 1 gm/ Sodium (Chloride) 250 mls @ 166.667 mls/hr IV Q12H [facility] Last Admin: 03/16/18 01:32 Dose: 166.667 mls/hr Lorazepam (Ativan) 1 mg PO ONETIME ONE Stop: 03/14/18 09:22 Last Admin: 03/14/18 09:39 Dose: 1 mg Morphine Sulfate (Morphine) 2 mg IVPUSH ONETIME ONE Stop: 03/14/18 06:44 Last Admin: 03/14/18 06:47 Dose: 2 mg Vancomycin HCl (Pharmacy To Dose - Vancomycin) 1 dose .XX ASDIRECTED [facility] - Exam General: Reports: Alert, Oriented HEENT: Reports: Pupils Equal, Pupils Reactive, EOMI, Mucous Membr. Moist/[place] Neck: Reports: Supple Lungs: Reports: Clear to Auscultation, Normal Respiratory Effort Cardiovascular: Reports: Regular Rate, Regular Rhythm GI/Abdominal Exam: Normal Bowel Sounds, Soft, Non-Tender, No Organomegaly, No Distention, No Abnormal Bruit, No Mass, Pelvis Stable (Female) Exam: Normal External Exam, Normal Speculum Exam, Normal Bimanual Exam Rectal (Female) Exam: Normal Exam, Normal Rectal Tone Back Exam: Reports: Normal Inspection, Full Range of Motion Extremities: Normal Inspection, Normal Range of Motion, Non-Tender, No Pedal Edema, Normal Capillary Refill Skin: Reports: Warm, Dry, Intact Wound/Incisions: Reports: Healing Well Neurological: Reports: No New Focal Deficit Psy/Mental Status: Reports: Alert, Normal Affect, Normal Mood
[2018-03-19] MEDS ORDERED: Levofloxacin 500 MG Tab PO SCH (11:00)
== END 2018-03-18 13:35 | disposition home or self-care (01) | DRG 871 ==
LOC: DL.ED 04:47 → UNDOADMIN 07:29 → DL.MS 07:29
PROVIDERS: ADMIT Hospitalist; ATTEND Hospitalist
DX: A41.9 Sepsis, unspecified organism (principal); J44.1 Chronic obstructive pulmonary disease with (acute) exacerbation; J18.9 Pneumonia, unspecified organism; J15.212 Pneumonia due to Methicillin resistant Staphylococcus aureus; N17.9 Acute kidney failure, unspecified; J44.0 Chronic obstructive pulmonary disease with (acute) lower respiratory infection; K51.90 Ulcerative colitis, unspecified, without complications; M62.82 Rhabdomyolysis; R65.20 Severe sepsis without septic shock; M06.9 Rheumatoid arthritis, unspecified; I10 Essential (primary) hypertension; Z91.81 History of falling; M79.7 Fibromyalgia; D64.9 Anemia, unspecified; F41.9 Anxiety disorder, unspecified; F32.9 Major depressive disorder, single episode, unspecified; M19.90 Unspecified osteoarthritis, unspecified site; Z86.73 Personal history of transient ischemic attack (TIA), and cerebral infarction without residual deficits; H54.7 Unspecified visual loss; H91.90 Unspecified hearing loss, unspecified ear; Z86.14 Personal history of Methicillin resistant Staphylococcus aureus infection; Z87.01 Personal history of pneumonia (recurrent); Z79.52 Long term (current) use of systemic steroids; Z79.899 Other long term (current) drug therapy; Z88.0 Allergy status to penicillin; Z88.2 Allergy status to sulfonamides
CPT/HCPCS: 36415; 71045; 80053; 81001; 83880; 84484; 85025; 85379; 87040 ×2; 87070; 87077; 87186; 87205; 93005; 93010; 94640; 96374; 99284; 99285; J0456; J0696; J2270; J7050 ×2; 80048; 85027; 87641; 94667; A9270-GY; J1644; J1956; J3370; J7030; J7500

== ENCOUNTER 2018-09-06 23:10 | Emergency (ER) | payer MEDICARE, MEDICAID ==
[2018-09-07 00:13] LABS: ANION GAP 19.2
[2018-09-07 00:23] VITALS: BP 106/69
--- NOTE | 2018-09-07 01:04 | EDM.PDOC ---
ED HPI GENERAL MEDICAL PROBLEM - General Chief Complaint: Genitourinary Problem Stated Complaint: AMBULANCE-HASNT URINATED IN 2 DAYS Time Seen by Provider: 09/06/18 23:30 Source of Information: Reports: Patient, Family History Limitations: Reports: No Limitations - History of Present Illness INITIAL COMMENTS - FREE TEXT/NARRATIVE: C/O not urinating in past 3-4 days. On dialysis last run on Wednesday, Missed last Wednesday due to weather. Scheduled for 8am Wednesday. C/o urgency and fullness. No fever chills, nausea or vomiting. Does not do weights at home. Denies any swelling. Bilateral Hip Pain Score (Numeric/FACES): 7 - Related Data Allergies Allergy/AdvReac Type Severity Reaction Status Date / Time Sulfa (Sulfonamide Allergy Rash Verified 09/06/18 23:23 Antibiotics) Penicillins AdvReac Hives Verified 09/06/18 23:23 Home Meds: Home Meds predniSONE [Prednisone] 5 mg PO DAILY 05/12/14 [History] Hyoscyamine [Levsin] 0.125 mg PO QID PRN 03/17/15 [History] azaTHIOprine [Imuran] 150 mg PO DAILY 03/17/15 [History] Amitriptyline HCl 200 mg PO BEDTIME 12/16/16 [History] Albuterol Sulfate [Ventolin Hfa] 2 puff IH Q6H PRN 06/11/17 [History] Budesonide/Formoterol Fumarate [Symbicort 160-4.5 Mcg Inhaler] 1 puff IH BID 02/20 [History] Leflunomide [Arava] 20 mg PO DAILY 06/11/17 [History] Ondansetron [Zofran] 4 mg PO Q6H PRN 06/11/17 [History] diphenhydrAMINE [Benadryl] 25 mg PO BEDTIME PRN 06/11/17 [History] Albuterol/Ipratropium [DuoNeb 3.0-0.5 MG/3 ML] 1 inh .XX Q4HR PRN 03/14/18 [ History] Hydrocodone/Acetaminophen [Hydrocodon-Acetaminophn 10-325] 1 tab PO Q4H PRN 05/24 [History] Pregabalin [Lyrica] 150 mg PO TID 03/14/18 [History] Vilazodone Hydrochloride [Viibryd] 20 mg PO DAILY 03/14/18 [History] Calcitriol 0.5 mg PO DAILY 04/14/18 [History] Past Medical History HEENT History: Reports: Hard of Hearing, Impaired Vision Other HEENT History: broken and missing teeth Cardiovascular History: Reports: Hypertension Respiratory History: Reports: COPD, Pneumonia, Recurrent Gastrointestinal History: Reports: Other (See Below) Other Gastrointestinal History: ulcerative colitis Genitourinary History: Reports: Acute Renal Failure, Dialysis Other Genitourinary History: this last summer [employer] History: Reports: None Musculoskeletal History: Reports: Arthritis, Fibromyalgia, RA, Other (See Below) Other Musculoskeletal History: rhabdomyolisis Neurological History: Reports: Migraines Psychiatric History: Reports: Anxiety, Depression, Panic Attack Other Psychiatric History: Patient states she is trying to wean off Oxycodone Endocrine/Metabolic History: Reports: None Hematologic History: Reports: Anemia Other Hematologic History: anemia r/t ulcerative colitis Immunologic History: Reports: None Oncologic (Cancer) History: Reports: None Dermatologic History: Reports: Cellulitis, Other (See Below) Other Dermatologic History: resolved in 2016 - Infectious Disease History Infectious Disease History: Reports: MRSA - Past Surgical History HEENT Surgical History: Reports: Other (See Below) Musculoskeletal Surgical History: Reports: Other (See Below) Social & Family History - Family History Family Medical History: Noncontributory HEENT: Reports: Impaired Vision Cardiac: Reports: Other (See Below) Other Cardiac Family History: Aortic valve problems Respiratory: Reports: COPD GI: Reports: None : Reports: None OBGYN: Reports: None Musculoskeletal: Reports: Arthritis, Fibromyalgia Neurological: Reports: CVA Psychiatric: Reports: None Endocrine/Metabolic: Reports: None Hematologic: Reports: None Immunologic: Reports: None Dermatologic: Reports: None Oncologic: Reports: Colon - Tobacco Use Smoking Status *Q: Never Smoker Second Hand Smoke Exposure: No - Caffeine Use Caffeine Use: Reports: Soda Other Caffeine Use: 5 Cokes per day - Recreational Drug Use Recreational Drug Use: No - Living Situation & Occupation Living situation: Reports: Single, with Family Occupation: Disabled ED ROS GENERAL - Review of Systems Review Of Systems: ROS reveals no pertinent complaints other than HPI. ED EXAM, RENAL/ - Physical Exam Exam: See Below Exam Limited By: No Limitations General Appearance: Alert, No Apparent Distress Eye Exam: Bilateral Eye: EOMI Ears: Normal External Exam Nose: Normal Inspection Throat/Mouth: Normal Inspection Head: Atraumatic, Normocephalic Neck: Normal Inspection Respiratory/Chest: No Respiratory Distress, Lungs Clear, Normal Breath Sounds Cardiovascular: Normal Peripheral Pulses, Regular Rate, Rhythm GI/Abdominal: Normal Bowel Sounds, Soft, Other (bladder scan per RN 679ml suprapubic tenderness, mild fullness volume) Back Exam: Normal Inspection Extremities: No: Pedal Edema Neurological: Alert, Oriented Psychiatric: Normal Affect Skin Exam: Warm, Dry, Intact, Pallor Course - Vital Signs Last Recorded V/S: Last Vital Signs Temp 97.4 F 09/07/18 00:22 Pulse 83 09/07/18 00:22 Resp 17 09/07/18 00:22 BP 106/69 09/07/18 00:22 Pulse Ox 98 09/07/18 00:22 - Orders/Labs/Meds Labs: Laboratory Tests 09/06/18 09/06/18 09/07/18 Range/Units 23:45 23:45 00:11 WBC 6.2 (5.0-10.0) 10^3/uL RBC 2.21 L (4.2-5.4) 10^6/uL Hgb 7.1 L D (12.0-16.0) g/dL Hct 23.0 L (37.0-47.0) % MCV 104.1 H D (80-100) fL MCH 32.1 (27.0-34.0) pg MCHC 30.9 L (33.0-35.0) g/dL Plt Count 109 L (150-450) 10^3/uL Neut % (Auto) 54.1 (42.2-75.2) % Lymph % (Auto) 18.4 L (20.5-50.1) % [place] % (Auto) 9.9 H (2-8) % Eos % (Auto) 16.8 H (1.0-3.0) % Baso % (Auto) 0.8 (0.0-1.0) % Sodium 133 L (135-145) mmol/L Potassium 4.2 (3.6-5.0) mmol/L Chloride 97 L (101-111) mmol/L Carbon Dioxide 21.0 (21.0-31.0) mmol/L Anion Gap 19.2 BUN 34 H D (7-18) mg/dL Creatinine 8.5 H (0.6-1.3) mg/dL Est Cr Clr Drug Dosing 7.52 mL/min Estimated GFR (MDRD) 5 BUN/Creatinine Ratio 4.00 Glucose 82 (74-105) mg/dL Calcium 7.1 L (8.4-10.2) mg/dl Total Bilirubin 0.7 (0.2-1.0) mg/dL AST 26 (10-42) IU/L ALT 43 (10-60) IU/L Alkaline Phosphatase 112 (42-121) IU/L B-Natriuretic Peptide 142 H (0-100) pg/ml Total Protein 5.1 L (6.7-8.2) g/dl Albumin 2.5 L (3.2-5.5) g/dl Globulin 2.6 Albumin/Globulin Ratio 0.96 Urine Color Brown (YELLOW) Urine Appearance Slightly cloudy (CLEAR) Urine pH 6.5 (5.0-9.0) Ur Specific [place] 1.015 (1.005-1.030) Urine Protein >=300 H (NEGATIVE) Urine Glucose (UA) Negative (NEGATIVE) Urine Ketones Trace H (NEGATIVE) Urine Occult Blood Negative (NEGATIVE) Urine Nitrite Negative (NEGATIVE) Urine Bilirubin Negative (NEGATIVE) Urine Urobilinogen 0.2 (0.2-1.0) mg/dL Ur Leukocyte Esterase Negative (NEGATIVE) Urine RBC 0-5 /HPF Urine WBC 5-10 H (0-5/HPF) /HPF Ur Epithelial Cells Few /HPF Urine Bacteria Moderate H (0-FEW/HPF) /HPF Hyaline Casts Moderate H /LPF Fine Granular Casts Few H (0/LPF) /LPF Urine Yeast Few H (0/HPF) /HPF - Re-Assessments/Exams Free Text/Narrative Re-Assessment/Exam: 09/07/18 05:27 Urine catheter drainage 1300 ml dark urine. Sx resolved. Lab results discussed with patient and copy of todays results given to patient to take to appointment today and provide to dialysis. Discussed Departure - Departure Time of Disposition: 01:01 Disposition: Home, Self-Care 01 Condition: Good Clinical Impression: Retention of urine, Chronic kidney disease with end stage renal failure on dialysis Anemia Qualifiers: Anemia type: unspecified type Qualified Code(s): D64.9 - Anemia, unspecified - Discharge Information *PRESCRIPTION DRUG MONITORING PROGRAM REVIEWED*: No Instructions: Acute Urinary Retention, Female, [id number] Referrals: PCP,None [Primary Care Provider] - Forms: ED Department Discharge Additional Instructions: follow up with dialysis in am as scheduled give copy of labs to provider in am, notify of low hemoglobin. fluid restriction as ordered follow up with primary provider if continued problems with urinary retention
== END 2018-09-07 01:20 | disposition home or self-care (01) ==
LOC: DL.ED 23:10
DX: R33.9 Retention of urine, unspecified (principal); I12.0 Hypertensive chronic kidney disease with stage 5 chronic kidney disease or end stage renal disease; N18.6 End stage renal disease; J44.9 Chronic obstructive pulmonary disease, unspecified; D63.1 Anemia in chronic kidney disease; F41.9 Anxiety disorder, unspecified; F32.9 Major depressive disorder, single episode, unspecified; Z88.2 Allergy status to sulfonamides; Z88.0 Allergy status to penicillin; Z79.899 Other long term (current) drug therapy; Z99.2 Dependence on renal dialysis
CPT/HCPCS: 36415; 51701; 51702; 51798; 80053; 81001; 83880; 85025; 99283; 99284

== ENCOUNTER 2018-10-15 06:06 | Emergency (ER) | payer MEDICARE, MEDICAID ==
--- NOTE | 2018-10-15 06:11 | EDM.PDOC ---
ED HPI GENERAL MEDICAL PROBLEM - General Stated Complaint: AMBULANCE Time Seen by Provider: 10/15/18 06:10 Source of Information: Reports: Patient, EMS - History of Present Illness INITIAL COMMENTS - FREE TEXT/NARRATIVE: ED via [facility] with weakness and joint pain. Dialysis patient, has not gone x 2 weeks, missing 6 sessions. Does not give reason Poor appetite, no nausea or vomiting. Reports drinking water. Denies SOB, or chest pain. Weakness generalized, increasing admits to lack of activity and general decline since pneumonia in July. Hx renal failure secondary to rheumatoid medications and ibuprofen per mother's report. 40# weightloss in past 2 months. Due for dialysis this am, mother reported patient to weak to stand, get out of house and into car. Lower Back Pain Score (Numeric/FACES): 8 - Related Data Allergies Allergy/AdvReac Type Severity Reaction Status Date / Time Sulfa (Sulfonamide Allergy Rash Verified 10/15/18 06:15 Antibiotics) Penicillins AdvReac Hives Verified 10/15/18 06:15 Home Meds: Home Meds predniSONE [Prednisone] 5 mg PO DAILY 05/12/14 [History] Hyoscyamine [Levsin] 0.125 mg PO QID PRN 03/17/15 [History] azaTHIOprine [Imuran] 150 mg PO DAILY 03/17/15 [History] Amitriptyline HCl 200 mg PO BEDTIME 12/16/16 [History] Albuterol Sulfate [Ventolin Hfa] 2 puff IH Q6H PRN 06/11/17 [History] Budesonide/Formoterol Fumarate [Symbicort 160-4.5 Mcg Inhaler] 1 puff IH BID 02/20 [History] Leflunomide [Arava] 20 mg PO DAILY 06/11/17 [History] Ondansetron [Zofran] 4 mg PO Q6H PRN 06/11/17 [History] diphenhydrAMINE [Benadryl] 25 mg PO BEDTIME PRN 06/11/17 [History] Albuterol/Ipratropium [DuoNeb 3.0-0.5 MG/3 ML] 1 inh .XX Q4HR PRN 03/14/18 [ History] Hydrocodone/Acetaminophen [Hydrocodon-Acetaminophn 10-325] 1 tab PO Q4H PRN 05/24 [History] Pregabalin [Lyrica] 150 mg PO TID 03/14/18 [History] ALPRAZolam [Xanax] 0.5 mg PO TID PRN 09/08/18 [History] Diclofenac Sodium [Voltaren 1%] 1 applic TP QID 09/08/18 [History] Eletriptan HBr [Relpax] 40 mg PO BID 09/08/18 [History] Famotidine [Pepcid] 20 mg PO BID 09/08/18 [History] Lactase [Lactaid] 6,000 unit PO TID 09/08/18 [History] Loperamide [Imodium] 2 mg PO Q6H PRN 09/08/18 [History] Norethindrone AC-Eth Estradiol [Fartun] 1 each PO DAILY 09/08/18 [History] Ondansetron [Zofran] 8 mg PO Q8H PRN 09/08/18 [History] Prochlorperazine [Compazine] 10 mg PO Q6H PRN 09/08/18 [History] Sodium Chloride 3% 15 ml .XX BID 09/08/18 [History] Past Medical History HEENT History: Reports: Hard of Hearing, Impaired Vision Other HEENT History: broken and missing teeth Cardiovascular History: Reports: Hypertension Respiratory History: Reports: COPD, Pneumonia, Recurrent, SOB Gastrointestinal History: Reports: Other (See Below) Other Gastrointestinal History: ulcerative colitis Genitourinary History: Reports: Acute Renal Failure, Chronic Renal Insuffiency, Dialysis Other Genitourinary History: 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 Musculoskeletal History: Reports: Arthritis, Fibromyalgia, RA, Other (See Below) Other Musculoskeletal History: rhabdomyolisis Neurological History: Reports: Migraines Psychiatric History: Reports: Anxiety, Depression, Panic Attack Other Psychiatric History: Patient states she is trying to wean off Oxycodone Endocrine/Metabolic History: Reports: None Hematologic History: Reports: Anemia Other Hematologic History: anemia r/t ulcerative colitis Immunologic History: Reports: None Oncologic (Cancer) History: Reports: None Dermatologic History: Reports: Cellulitis, Other (See Below) Other Dermatologic History: resolved in 2016 - Infectious Disease History Infectious Disease History: Reports: MRSA - Past Surgical History HEENT Surgical History: Reports: Other (See Below) Musculoskeletal Surgical History: Reports: Other (See Below) Social & Family History - Family History Family Medical History: Noncontributory HEENT: Reports: Impaired Vision Cardiac: Reports: Other (See Below) Other Cardiac Family History: Aortic valve problems Respiratory: Reports: COPD GI: Reports: None : Reports: None OBGYN: Reports: None Musculoskeletal: Reports: Arthritis, Fibromyalgia Neurological: Reports: CVA Psychiatric: Reports: None Endocrine/Metabolic: Reports: None Hematologic: Reports: None Immunologic: Reports: None Dermatologic: Reports: None Oncologic: Reports: Colon - Caffeine Use Caffeine Use: Reports: Soda Other Caffeine Use: 5 Cokes per day - Living Situation & Occupation Living situation: Reports: Single, with Family Occupation: Disabled ED ROS GENERAL - Review of Systems Review Of Systems: See Below Constitutional: Reports: Weakness HEENT: Reports: No Symptoms Respiratory: Reports: No Symptoms Cardiovascular: Reports: No Symptoms Endocrine: Reports: Fatigue GI/Abdominal: Reports: Nausea : Reports: No Symptoms Musculoskeletal: Reports: Other (generalized joint pain and weakness) Skin: Reports: No Symptoms Neurological: Reports: No Symptoms ED EXAM, GENERAL - Physical Exam Exam: See Below Exam Limited By: No Limitations General Appearance: Alert, Mild Distress Eye Exam: Bilateral Eye: EOMI Ears: Normal External Exam Nose: Normal Inspection Throat/Mouth: Other (dry mucus membranes, lips parched) Head: Atraumatic, Normocephalic Neck: Normal Inspection, Full Range of Motion Respiratory/Chest: No Respiratory Distress, Decreased Breath Sounds Cardiovascular: Normal Peripheral Pulses, Regular Rate, Rhythm. No: No Edema (1 +) GI/Abdominal: Normal Bowel Sounds, Soft Extremities: Normal Inspection Neurological: Alert, Oriented Psychiatric: Flat Affect Skin Exam: Warm, Dry, Intact, Ecchymosis (1.5x1cm purple bruising fight mid back ), Pallor Course - Vital Signs Last Recorded V/S: Last Vital Signs Temp 97.9 F 10/15/18 06:06 Pulse 103 H 10/15/18 06:06 Resp 20 10/15/18 06:06 BP 100/72 10/15/18 06:06 Pulse Ox 99 10/15/18 06:06 - Orders/Labs/Meds Orders: Active Orders 24 hr Category Date Time Status EKG 12 Lead [EKG Documentation Completion] [RC] URGENT Care 02/09/19 06:20 Active CULTURE BLOOD [BC] Stat Lab 10/15/18 06:15 Received Labs: Laboratory Tests 10/15/18 10/15/18 10/15/18 Range/Units 06:15 06:15 06:15 WBC 11.4 H (5.0-10.0) 10^3/uL RBC 3.41 L (4.2-5.4) 10^6/uL Hgb 10.6 L D (12.0-16.0) g/dL Hct 34.7 L (37.0-47.0) % MCV 101.8 H (80-100) fL MCH 31.1 (27.0-34.0) pg MCHC 30.5 L (33.0-35.0) g/dL Plt Count 367 D (150-450) 10^3/uL Neut % (Auto) 65.0 (42.2-75.2) % Lymph % (Auto) 19.2 L (20.5-50.1) % [place] % (Auto) 10.0 H (2-8) % Eos % (Auto) 4.9 H (1.0-3.0) % Baso % (Auto) 0.9 (0.0-1.0) % Add Manual Diff Yes Neutrophils % (Manual) 68 (42-75) % Lymphocytes % (Manual) 25 (20-50) % Monocytes % (Manual) 6 (2-8) % Eosinophils % (Manual) 1 (1-3) % Sodium 138 (135-145) mmol/L Potassium 3.0 L D (3.6-5.0) mmol/L Chloride 100 L (101-111) mmol/L Carbon Dioxide 23.0 (21.0-31.0) mmol/L Anion Gap 18.0 BUN 53 H D (7-18) mg/dL Creatinine 4.0 H (0.6-1.3) mg/dL Est Cr Clr Drug Dosing 15.98 mL/min Estimated GFR (MDRD) 12 BUN/Creatinine Ratio 13.25 Glucose 80 (74-105) mg/dL Lactic Acid 2.2 (0.5-2.2) mmol/L Calcium 8.7 D (8.4-10.2) mg/dl Magnesium 1.7 L (1.8-2.5) mg/dL Total Bilirubin 1.1 H (0.2-1.0) mg/dL AST 129 H (10-42) IU/L ALT 136 H (10-60) IU/L Alkaline Phosphatase 207 H (42-121) IU/L Troponin I 0.02 (0.00-0.02) ng/ml B-Natriuretic Peptide 114 H (0-100) pg/ml Total Protein 5.5 L (6.7-8.2) g/dl Albumin 2.6 L (3.2-5.5) g/dl Globulin 2.9 Albumin/Globulin Ratio 0.90 Amylase 15 L (28-100) U/L Lipase 34 (22-51) U/L - Re-Assessments/Exams Free Text/Narrative Re-Assessment/Exam: 10/15/18 07:[address] [facility] [address] [facility] [address] Zambrano accepting of patient in transfer Departure - Departure Time of Disposition: 07:12 Disposition: DC/Tfer to Acute Hospital 02 Condition: Good Clinical Impression: Hypokalemia, Generalized weakness, Non-compliance with renal dialysis Renal failure Qualifiers: Renal failure chronicity: chronic Chronic kidney disease stage: on chronic dialysis Qualified Code(s): N18.6 - End stage renal disease; Z99.2 - Dependence on renal dialysis Rheumatoid arthritis Qualifiers: Rheumatoid arthritis location: multiple sites Rheumatoid factor presence: unspecified presence Qualified Code(s): M06.9 - Rheumatoid arthritis, unspecified - Discharge Information *PRESCRIPTION DRUG MONITORING PROGRAM REVIEWED*: No - My Orders Last 24 Hours: My Active Orders 10/15/18 06:15 CULTURE BLOOD [BC] Stat 10/15/18 06:20 EKG 12 Lead [EKG Documentation Completion] [RC] URGENT - Assessment/Plan Last 24 Hours: My Active Orders 10/15/18 06:15 CULTURE BLOOD [BC] Stat 10/15/18 06:20 EKG 12 Lead [EKG Documentation Completion] [RC] URGENT
[2018-10-15 06:14] VITALS: BP 100/72
== END 2018-10-15 07:40 ==
LOC: DL.ED 06:06
DX: E87.6 Hypokalemia (principal); R53.1 Weakness; I12.0 Hypertensive chronic kidney disease with stage 5 chronic kidney disease or end stage renal disease; N18.6 End stage renal disease; M54.5 Low back pain; M06.9 Rheumatoid arthritis, unspecified; J44.9 Chronic obstructive pulmonary disease, unspecified; F41.9 Anxiety disorder, unspecified; F32.9 Major depressive disorder, single episode, unspecified; Z99.2 Dependence on renal dialysis; Z88.2 Allergy status to sulfonamides; Z88.0 Allergy status to penicillin; Z79.899 Other long term (current) drug therapy; Z91.15 Patient's noncompliance with renal dialysis
CPT/HCPCS: 36415; 71045; 80053; 82150; 82550; 83605; 83690; 83735; 83880; 84484; 85025; 87040; 93005; 99285

== ENCOUNTER 2018-11-19 16:11 | Emergency (ER) | payer MEDICARE, MEDICAID ==
[2018-11-19] MEDS ORDERED: Sodium Chloride 0.9% 10 ML Syringe FLUSH PRN (16:41)
[2018-11-19] MEDS ORDERED: Sodium Chloride 0.9% 1,000 ML IV ONE ×2 (16:42→18:38)
[2018-11-19 17:47] LABS: ANION GAP 15.5
[2018-11-19] MEDS: Potassium Chloride 20 MEQ in Premix Bag 1 BAG IV ONE ×2 (18:12→18:13)
[2018-11-19 20:03] VITALS: BP 165/104
--- NOTE | 2018-11-23 02:18 | ER ---
SUBJECTIVE: The patient is a 43-year-old female with multiple chronic issues. She comes in via ambulance, with initial report by EMS that the patient was combative. However with further information, the patient was only combative because she did not want to come to the emergency room and her mother made her. The patient lives with her mother. The mother felt that she was being dehydrated and not drinking enough fluids, was stumbling over her words and insisted that the patient be seen. The patient was recently seen in [facility] for pneumonia and was discharged recently. The patient feels she is getting stronger. Instead of having to use a bedpan, she was able to get up to the bathroom and feels she is getting stronger. She still has had some cough. She has an incentive spirometer at home, but is not using this at all. She has some chills. She has general weakness. No bleeding. No chest pain. No vomiting. No bowel or bladder changes. PAST MEDICAL HISTORY: Significant for: 1. Hard of hearing. 2. Impaired vision. 3. She has broken/missing teeth. 4. Hypertension. 5. COPD. 6. Recurrent pneumonia. 7. Dyspnea. 8. Ulcerative colitis. 9. Acute renal failure. 10.Chronic renal insufficiency, on dialysis. 11.Arthritis. 12.Fibromyalgia. 13.RA. 14.Rhabdomyolysis. 15.Migraines. 16.Cellulitis. 17.Anxiety. 18.Depression. 19.Panic attacks. The patient was weaning off oxycodone, she was on it for some time. 20.Anemia. 21.She has a screw in her right toe. 22.Previously, she has had a central line. 23.Fibromyalgia. CURRENT MEDICATIONS: Include: 1. Prednisone 5 mg p.o. daily. 2. Hyoscyamine 0.125 mg p.o. q.i.d. p.r.n. 3. Imuran 150 mg p.o. daily. 4. Amitriptyline 200 mg p.o. at bedtime. 5. Ventolin HFA 2 puffs q.6 hours p.r.n. 6. Symbicort 160/4.5 one puff b.i.d. 7. Arava 20 mg p.o. daily. 8. Zofran 4 mg p.o. q.6 hours p.r.n. 9. Benadryl p.r.n. 10.DuoNeb q.4 hours p.r.n. 11.Hydrocodone 10/325 q.4 hours p.r.n. 12.Lyrica 150 mg p.o. t.i.d. 13.Xanax 0.5 mg p.o. t.i.d. p.r.n. 14.Diclofenac one q.i.d. 15.Relpax 40 mg p.o. b.i.d. 16.Pepcid 20 mg p.o. b.i.d. 17.Lactaid 6000 units p.o. t.i.d. 18.Imodium 2 mg p.o. q.6 hours p.r.n. 19.Norethindrone/estradiol one p.o. daily. 20.Compazine 10 mg p.o. q.6 hours p.r.n. ALLERGIES: She is allergic to sulfa which causes a rash. Penicillins cause hives. SOCIAL HISTORY: Lives with her mother. REVIEW OF SYSTEMS: Chills, fatigue, weakness, malaise, and body aches. Still coughing somewhat. Decreased appetite. No chest pain. No bleeding. No falls or trauma. Mother feels the patient is stumbling over her words and is not herself and is not drinking enough. PHYSICAL EXAMINATION: Vital Signs: The patient is afebrile. Initial pulse is 112, respiratory rate is 14, oxygen is 99% on room air. General: Warm. Appears older than stated age. HEENT: Normocephalic and atraumatic. She does answer questions, but often looks to her mother for her to answer the questions. Her mucous membranes are somewhat dry and tacky especially her mouth. Skin: Appears dry. Lungs: No respiratory distress. Occasional slight cough. Her breath sounds are somewhat distant. Cardiovascular: RRR. Neck: Nontender. Abdomen: Soft, nontender. Extremities: Lower extremities have no calf tenderness. Neurologic: She is A and O x3. LAB/STUDIES: Blood cultures were drawn. Her white count was 3.7, hemoglobin and hematocrit were 10 and 31.9, respectively. Platelets were normal. On differential, did not see any band cells. ESR was 19. Lactic acid was 2.6 initially. CRP was 2.8. Sodium was normal at 136, potassium however was low at 2.5. Chloride was 95, CO2 and anion gap were normal. Her BUN and creatinine were 13 and 1.5 respectively. Her lactic acid again was 2.6. Calcium low at 7.3. Liver function tests normal. EMERGENCY ROOM COURSE: An IV was placed. The patient received IV fluids x2 L. She also received a potassium rider of 20 mEq. A chest x-ray was performed and it did show some atelectasis mostly in the right lower lobe. Of note, the patient has incentive spirometer at home. She is not using it at all. Both she and her mother were reminded that she should be using this aggressively every 2 hours while awake. The patient was sent over to long stay ER to get the IV fluids and the potassium rider. She tolerated the fluids very well and felt markedly improved. The nurses reported she had 2 large stools. The patient was then brought back to the emergency room. She was pain free. [place] much improved. She remained stable. She was ready to be discharged. ASSESSMENT: 1. Recent pneumonia, was hospitalized and recently discharged. 2. Volume depletion. IV fluids given for rehydration. 3. General weakness. 4. Hypokalemia, resolved with K rider given in the emergency room. PLAN: Discharged to home in stable and improved condition. Strongly advised the patient to keep aggressively hydrated. Continue with current meds, also eat a banana every day. Advised the patient to use incentive spirometer every 2 hours while awake. Strongly advised followup with PCP early this next week and to stay with family until that time and return for any emergent issues. [facility] /[id number]
== END 2018-11-19 22:10 | disposition home or self-care (01) ==
LOC: DL.ED 16:11
DX: J18.9 Pneumonia, unspecified organism (principal); R53.1 Weakness; E86.9 Volume depletion, unspecified; E87.6 Hypokalemia; I12.9 Hypertensive chronic kidney disease with stage 1 through stage 4 chronic kidney disease, or unspecified chronic kidney disease; N18.9 Chronic kidney disease, unspecified; J44.9 Chronic obstructive pulmonary disease, unspecified; F41.9 Anxiety disorder, unspecified; F32.9 Major depressive disorder, single episode, unspecified; Z88.0 Allergy status to penicillin; Z88.2 Allergy status to sulfonamides; Z79.899 Other long term (current) drug therapy
CPT/HCPCS: 36415; 71045; 80053; 83605; 85025; 85651; 86140; 87040; 96361; 96365; 96366; 99285; J3480; J7030

== ENCOUNTER 2021-03-23 06:38 | Emergency (ER) | payer MEDICARE, MEDICAID ==
[2021-03-23 07:09] VITALS: BP 174/106; PULSE 98
--- NOTE | 2021-03-23 07:16 | EDM.PDOC ---
ED HPI GENERAL MEDICAL PROBLEM - General Stated Complaint: COUGH Time Seen by Provider: 03/23/21 07:05 Source of Information: Reports: Patient, Family - History of Present Illness INITIAL COMMENTS - FREE TEXT/NARRATIVE: Pt is here for a cough that started a week ago. She has not seen anyone for this. She has had this before. She feels like it is getting worse. Laying flat makes it worse. Nothing makes it better. She has tried Mucinex without relief. She has not tried anything else. She denies any runny or stuffy nose. No ear pain or fullness. No nausea or vomiting. No fevers or chills. No known exposure to COVID. She has had the COVID vaccine. She is not on chronic steroids for her RA, only as needed. 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) - Related Data Allergies Allergy/AdvReac Type Severity Reaction Status Date / Time Sulfa (Sulfonamide Allergy Rash Verified 03/23/21 07:05 Antibiotics) Penicillins AdvReac Hives Verified 03/23/21 07:05 Home Meds: Home Meds predniSONE [Prednisone] 5 mg PO DAILY 05/12/14 [History] Hyoscyamine [Levsin] 0.125 mg PO QID PRN 03/17/15 [History] azaTHIOprine [Imuran] 150 mg PO DAILY 03/17/15 [History] Amitriptyline HCl 200 mg PO BEDTIME 12/16/16 [History] Albuterol Sulfate [Ventolin Hfa] 2 puff IH Q6H PRN 06/11/17 [History] Budesonide/Formoterol Fumarate [Symbicort 160-4.5 Mcg Inhaler] 1 puff IH BID 06/11/17 [History] Leflunomide [Arava] 20 mg PO DAILY 06/11/17 [History] Ondansetron [Zofran] 4 mg PO Q6H PRN 06/11/17 [History] diphenhydrAMINE [Benadryl] 25 mg PO BEDTIME PRN 06/11/17 [History] Albuterol/Ipratropium [DuoNeb 3.0-0.5 MG/3 ML] 1 inh .XX Q4HR PRN 03/14/18 [History] Hydrocodone/Acetaminophen [Hydrocodone-Acetamin 10-325 mg] 1 tab PO Q4H PRN 03/14/18 [History] Pregabalin [Lyrica] 150 mg PO TID 03/14/18 [History] ALPRAZolam [Xanax] 0.5 mg PO TID PRN 09/08/18 [History] Diclofenac Sodium [Voltaren 1%] 1 applic TP QID 09/08/18 [History] Eletriptan Hydrobromide [Relpax] 40 mg PO BID 09/08/18 [History] Famotidine [Pepcid] 20 mg PO BID 09/08/18 [History] Lactase [Lactaid] 6,000 unit PO TID 09/08/18 [History] Loperamide [Imodium] 2 mg PO Q6H PRN 09/08/18 [History] Ondansetron [Zofran] 8 mg PO Q8H PRN 09/08/18 [History] Prochlorperazine [Compazine] 10 mg PO Q6H PRN 09/08/18 [History] Sodium Chloride 3% 15 ml .XX BID 09/08/18 [History] norethindrone ac-eth estradioL [Fartun] 1 each PO DAILY 09/08/18 [History] Past Medical History HEENT History: Reports: Hard of Hearing, Impaired Vision Other HEENT History: broken and missing teeth Cardiovascular History: Reports: Hypertension Respiratory History: Reports: COPD, Pneumonia, Recurrent, SOB Gastrointestinal History: Reports: Other (See Below) Other Gastrointestinal History: ulcerative colitis Genitourinary History: Reports: Acute Renal Failure, Chronic Renal Insuffiency, Dialysis Other Genitourinary History: this last summer 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 Musculoskeletal History: Reports: Arthritis, Fibromyalgia, RA, Other (See Below) Other Musculoskeletal History: rhabdomyolisis Neurological History: Reports: Migraines Psychiatric History: Reports: Anxiety, Depression, Panic Attack Other Psychiatric History: Patient states she is trying to wean off Oxycodone Endocrine/Metabolic History: Reports: None Hematologic History: Reports: Anemia Other Hematologic History: anemia r/t ulcerative colitis Immunologic History: Reports: None Oncologic (Cancer) History: Reports: None Dermatologic History: Reports: Cellulitis, Other (See Below) Other Dermatologic History: resolved in 2016 - Infectious Disease History Infectious Disease History: Reports: MRSA - Past Surgical History HEENT Surgical History: Reports: Other (See Below) Musculoskeletal Surgical History: Reports: Other (See Below) Social & Family History - Family History Family Medical History: No Pertinent Family History HEENT: Reports: Impaired Vision Cardiac: Reports: Other (See Below) Other Cardiac Family History: Aortic valve problems Respiratory: Reports: COPD GI: Reports: None : Reports: None OBGYN: Reports: None Musculoskeletal: Reports: Arthritis, Fibromyalgia Neurological: Reports: CVA Psychiatric: Reports: None Endocrine/Metabolic: Reports: None Hematologic: Reports: None Immunologic: Reports: None Dermatologic: Reports: None Oncologic: Reports: Colon - Caffeine Use Caffeine Use: Reports: Soda Other Caffeine Use: 5 Cokes per day - Living Situation & Occupation Living situation: Reports: Single, with Family Occupation: Disabled ED ROS GENERAL - Review of Systems Review Of Systems: Comprehensive ROS is negative, except as noted in HPI. ED EXAM, GENERAL - Physical Exam Exam: See Below Exam Limited By: No Limitations General Appearance: Alert, WD/WN, No Apparent Distress Eye Exam: Bilateral Eye: Normal Inspection Ears: Normal External Exam Throat/Mouth: Normal Voice, No Airway Compromise Head: Atraumatic, Normocephalic Neck: Normal Inspection, Supple, Non-Tender Respiratory/Chest: No Respiratory Distress, No Accessory Muscle Use, Chest Non- Tender, Wheezing (mild diffuse) Cardiovascular: Normal Peripheral Pulses, Regular Rate, Rhythm, No Edema, No Murmur GI/Abdominal: Soft, Non-Tender (Female) Exam: Deferred Rectal (Female) Exam: Deferred Back Exam: Normal Inspection, Full Range of Motion Extremities: Normal Inspection, Normal Range of Motion Neurological: Alert, Oriented, Normal Cognition, Normal Gait, No Motor/Sensory Deficits Psychiatric: Normal Affect, Normal Mood Skin Exam: Warm, Dry, Intact, Normal Color, No Rash Lymphatic: No Adenopathy Course - Vital Signs Last Recorded V/S: Last Vital Signs Temp 96.6 F L 03/23/21 07:08 Pulse 98 03/23/21 07:08 Resp 20 03/23/21 07:08 BP 174/106 H 03/23/21 07:08 Pulse Ox 97 03/23/21 07:08 Departure - Departure Time of Disposition: 07:11 Disposition: Home, Self-Care 01 Condition: Good Clinical Impression: Bronchitis - Discharge Information *PRESCRIPTION DRUG MONITORING PROGRAM REVIEWED*: Not Applicable *COPY OF PRESCRIPTION DRUG MONITORING REPORT IN PATIENT FOX: Not Applicable Instructions: Acute Bronchitis, Adult, [id number] Additional Instructions: Prednisone 40 mg daily for 5 days Z-pack for 5 days Continue over the counter medications as needed for symptomatic relief Follow up with PCP in 1 week, or sooner if needed Sepsis Event Note (ED) - Evaluation Sepsis Screening Result: No Definite Risk - Focused Exam Vital Signs: Vital Signs Temp Pulse Resp BP Pulse Ox 03/23/21 07:08 96.6 F L 98 20 174/106 H 97
== END 2021-03-23 07:21 | disposition home or self-care (01) ==
LOC: DL.ED 06:38
DX: J40 Bronchitis, not specified as acute or chronic (principal); I10 Essential (primary) hypertension; Z88.0 Allergy status to penicillin; Z88.2 Allergy status to sulfonamides
CPT/HCPCS: 99283

== ENCOUNTER 2022-08-08 21:35 | Emergency (ER) | payer MEDICARE, MEDICAID ==
[~2022-08-08 21:35] MED LIST: Sodium Chloride 0.9% 10 ML Syringe FLUSH PRN
[2022-08-08] MEDS ORDERED: Sodium Chloride 0.9% 1,000 ML IV ONE ×2 (22:17→23:23)
[2022-08-08 22:18] LABS: AMPHETAMINES,URINE NEGATIVE (NEGATIVE); BARBITURATES,URINE NEGATIVE (NEGATIVE); BENZODIAZEPINE,URINE NEGATIVE (NEGATIVE); MDMA (ECSTASY), URINE NEGATIVE (NEGATIVE); METHADONE,URINE NEGATIVE (NEGATIVE); METHAMPHETAMINES,URINE NEGATIVE (NEGATIVE); OPIATES,URINE NEGATIVE (NEGATIVE); OXYCODONE,URINE NEGATIVE (NEGATIVE); PHENCYCLIDINE,URINE NEGATIVE (NEGATIVE); TCA,URINE POSITIVE (NEGATIVE)
[2022-08-08 22:18] LABS: ANION GAP 14.5 mEq/L (7-13)
[2022-08-08 22:23] LABS: PTT,PARTIAL THROMBOPLSTIN TIME 22.6 SEC (22.0-34.0)
[2022-08-08 22:38] LABS: CORONAVIRUS COVID-19 NAA NEGATIVE (NEGATIVE); RESPIRATORY SYNCYTIAL VIR NAA NEGATIVE (NEGATIVE)
[2022-08-08] MEDS ORDERED: Azithromycin 500 MG in Sodium Chloride 0.9% 250 ML IV ONE (22:41)
[2022-08-08] MEDS ORDERED: cefTRIAXone 1 GM in Sodium Chloride 0.9% 100 ML IV ONE (22:42)
[2022-08-08] MEDS ORDERED: Sodium Chloride 0.9% 250 ML ONE (22:59)
[2022-08-08] MEDS ORDERED: Azithromycin 500 MG Vial ONE (22:59)
[2022-08-08 23:30] VITALS: BP 87/71; PULSE 89
[2022-08-09] MEDS ORDERED: Sodium Chloride 0.9% 1,000 ML IV ONE (00:30)
[2022-08-09] MEDS ORDERED: Norepinephrine 4 MG in Dextrose 5% in Water 246 ML IV SCH ×2 (01:15)
[2022-08-09] MEDS ORDERED: Piperacillin/Tazobactam 3.375 GM in Sodium Chloride 0.9% 100 ML IV ONE (02:22)
[2022-08-09] MEDS ORDERED: LINEZOLID IV ONE (02:23)
[2022-08-09] MEDS ORDERED: diphenhydrAMINE 50 MG/ML SDV IVPUSH ONE (02:31)
== END 2022-08-09 03:20 ==
LOC: DL.ED 21:35
DX: A41.9 Sepsis, unspecified organism (principal); R65.21 Severe sepsis with septic shock; J96.01 Acute respiratory failure with hypoxia; J44.9 Chronic obstructive pulmonary disease, unspecified; Z88.2 Allergy status to sulfonamides; Z88.0 Allergy status to penicillin; Z79.899 Other long term (current) drug therapy; Z20.822 Contact with and (suspected) exposure to COVID-19
CPT/HCPCS: 0241U; 36415; 71045; 80053; 80305; 81001; 83605; 84484; 85025; 85379; 85610; 85730; 87040; 87086; 87088; 87186; 93005; 96361; 96365; 96367; 96375; 99285; J0456; J0696; J1200; J2543; J3370; J3490; J7030; J7050; J7060

== ENCOUNTER 2023-08-15 12:51 | Emergency (ER) | payer MEDICAID, MEDICARE, OTHER ==
[2023-08-15] MEDS ORDERED: Sodium Chloride 0.9% 10 ML Syringe FLUSH PRN (13:01)
[2023-08-15] MEDS ORDERED: Sodium Chloride 0.9% 1,000 ML IV ONE ×3 (13:01→14:40)
[2023-08-15 13:20] LABS: BASOPHILS PERCENT AUTO 0.3 % (0.0-1.0); HEMATOCRIT 34.9 % (37.0-47.0); HEMOGLOBIN 10.4 g/dL (12.0-16.0); LYMPHOCYTES PERCENT AUTO 23.4 % (20.5-50.1); MEAN CORPUSCULAR HGB CONC 29.8 g/dL (33.0-35.0); MEAN CORPUSCULAR VOLUME 103.9 fL (80-100); MONOCYTES PERCENT AUTO 11.3 % (2-8); PLATELET COUNT,PLT 292 10^3/uL (150-450); RED BLOOD CELL COUNT 3.36 10^6/uL (4.2-5.4)
[2023-08-15 13:45] LABS: APPEARANCE,URINE CLEAR (CLEAR); BILIRUBIN,URINE NEGATIVE (NEGATIVE); COLOR,URINE YELLOW (YELLOW); GLUCOSE,URINE NEGATIVE (NEGATIVE); KETONES,URINE NEGATIVE (NEGATIVE); LEUKOCYTE ESTERASE,URINE NEGATIVE (NEGATIVE); NITRITE,URINE NEGATIVE (NEGATIVE); OCCULT BLOOD,URINE TRACE-INTACT (NEGATIVE); PROTEIN,URINE 100 (NEGATIVE); UROBILINOGEN,URINE 0.2 mg/dL (0.2-1.0)
[2023-08-15 13:46] LABS: INR 0.9 (0.9-1.2); PROTHROMBIN TIME 9.2 SEC (9.0-12.0); PTT,PARTIAL THROMBOPLSTIN TIME 27.1 SEC (22.0-34.0)
[2023-08-15 13:48] LABS: LACTIC ACID 0.9 mmol/L (0.4-2.0)
[2023-08-15 13:53] LABS: O2 DELIVERY DEVICE NASAL CANNULA
[2023-08-15 13:55] LABS: BASE EXCESS ARTERIAL -3 mmol/L ((-2)-(+3)); BICARBONATE,ARTERIAL 24.6 mmol/L (22-26); O2 SATURATION ARTERIAL 92 % (95-100); PCO2 ARTERIAL 58 mmHg (35-45); PH,ARTERIAL 7.25 (7.35-7.45); PO2 ARTERIAL 74 mmHg (70-100)
[2023-08-15 13:56] LABS: ALLEN TEST positive; O2 FLOW RATE 2
[2023-08-15 13:57] LABS: ALBUMIN 2.6 g/dL (3.4-5.0); ANION GAP 9.8 mEq/L (7-13); BILIRUBIN TOTAL 0.3 mg/dL (0.2-1.0); BUN/CREATININE RATIO 15.3 (No establ ref range); C-REACTIVE PROTEIN 14.93 ng/dL (<=0.50); CALCIUM 8.7 mg/dL (8.5-10.1); CREATININE 2.62 mg/dL (0.55-1.02); EST CRCL DRUG DOSING (CG) 24.05 mL/min; MAGNESIUM 1.8 mg/dL (1.8-2.4); PHOSPHORUS 4.2 mg/dL (2.6-4.7); POTASSIUM,K 3.8 mmol/L (3.5-5.1); PROTEIN TOTAL,TP 6.2 g/dL (6.4-8.2)
[2023-08-15 14:03] LABS: A/G RATIO 0.72
[2023-08-15 14:04] LABS: AMORPHOUS SEDIMENT,URINE FEW /HPF (NOT SEEN); BACTERIA,URINE FEW /HPF (0-FEW/HPF); EPITHELIAL CELLS,URINE FEW /HPF (NOT SEEN); MUCUS,URINE RARE /LPF (NOT SEEN); RBC,URINE 0-5 /HPF (0-5)
[2023-08-15 14:11] LABS: BENZODIAZEPINE,URINE NEGATIVE (NEGATIVE); MDMA (ECSTASY), URINE NEGATIVE (NEGATIVE); METHADONE,URINE NEGATIVE (NEGATIVE); METHAMPHETAMINES,URINE NEGATIVE (NEGATIVE); OPIATES,URINE NEGATIVE (NEGATIVE)
[2023-08-15 14:12] LABS: AMPHETAMINES,URINE NEGATIVE (NEGATIVE); BARBITURATES,URINE NEGATIVE (NEGATIVE); OXYCODONE,URINE NEGATIVE (NEGATIVE); PHENCYCLIDINE,URINE NEGATIVE (NEGATIVE); TCA,URINE POSITIVE (NEGATIVE)
[2023-08-15] MEDS ORDERED: methylPREDNISolone Sodium Succinate 125 MG/2 ML SDV IVPUSH ONE (14:14)
[2023-08-15 14:23] LABS: CORONAVIRUS COVID-19 NAA NEGATIVE (NEGATIVE); INFLUENZA A NAA NEGATIVE (NEGATIVE); INFLUENZA B NAA NEGATIVE (NEGATIVE); RESPIRATORY SYNCYTIAL VIR NAA NEGATIVE (NEGATIVE)
[2023-08-15] MEDS ORDERED: Norepinephrine Bit/D5W Premix 250 ML IV SCH (14:30)
[2023-08-15] MEDS ORDERED: Hydrocortisone Sodium Succinate 100 MG/2 ML SDV IVPUSH ONE (14:33)
[2023-08-15] MEDS ORDERED: cefTRIAXone 2 GM Vial IVPUSH ONE (14:35)
[2023-08-15] MEDS ORDERED: Vancomycin 2 GM in Sodium Chloride 0.9% 500 ML IV ONE (14:35)
[2023-08-15 15:48] VITALS: BP 106/68; PULSE 84
[2023-08-15] MEDS ORDERED: Sodium Chloride 0.9% 1,000 ML IV SCH (16:45)
== END 2023-08-15 16:36 ==
LOC: DL.ED 12:51
DX: R09.02 Hypoxemia (principal); R74.01 Elevation of levels of liver transaminase levels; N17.9 Acute kidney failure, unspecified; M62.82 Rhabdomyolysis; I95.9 Hypotension, unspecified; I10 Essential (primary) hypertension; E87.29 Other acidosis; Z88.0 Allergy status to penicillin; Z88.2 Allergy status to sulfonamides; Z79.899 Other long term (current) drug therapy; Z20.822 Contact with and (suspected) exposure to COVID-19
CPT/HCPCS: 0241U; 36415; 36600; 71045; 80053; 80305-QW; 80307; 81001; 82140; 82150; 82550; 82803; 83605; 83690; 83735; 84100; 84145; 84443; 85025; 85610; 85730; 86140; 87040; 93005; 93010; 94010; 94667; 96361; 96365; 96366; 96368; 96375; 99285; 99285-25; C1758; J0696; J1720; J2930; J3370; J3490; J7030; J7040